=== PATIENT | male | born 1955 | race Caucasian/White ===

== ENCOUNTER 2019-09-19 20:12 | Inpatient (IN) | payer BC ==
[2019-09-19] VITALS (7 sets, daily range): BP systolic 58–131; BP diastolic 36–105
[~2019-09-19] VITALS: Ht 167.6 cm; Wt 63.4 kg
[2019-09-19] MEDS ORDERED: NOREPINEPHRINE VIAL 8 MG in IV DEXTROSE 5% 250 ML IV PRN (20:30)
[2019-09-19] MEDS ORDERED: LACTULOSE 20 GM/30 ML SOLUTION. PO PRN (21:15)
[2019-09-19] MEDS ORDERED: ACETAMINOPHEN 325 MG TABLET. PO PRN (21:15)
[2019-09-19] MEDS ORDERED: ONDANSETRON PF 4 MG/2 ML VIAL. IVP PRN (21:15)
[2019-09-19] MEDS ORDERED: CALCIUM CARBONATE 500 MG TAB.CHEW PO PRN (21:15)
[2019-09-19] MEDS ORDERED: 0.9 % SODIUM CHLORIDE 10 ML DISP.SYRIN. IV PRN (21:15)
--- NOTE | 2019-09-19 21:40 | PDOC1 ---
History and Physical Date of Admission Date of Admission 09/19/2019 Identification/Chief Complaint Chief Complaint Altered mental status Source Source: Chart review, Patient History of Present Illness History of Present Illness Patient is a 64-year-old male presents to the emergency department at [facility] in [facility] with altered mental status. Patient apparently was found by his roommate on the ground of his apartment patient cannot give history given his current condition. It is unknown when he was last seen normal apparently patient was found to be hypotensive on the field at 80/40 fluid resuscitation was started on the field with Ringer's lactate patient was seen in the emergency department and found to be anemic and having reports of GI bleeding according to the records. Patient is confused and the details of his stated history are not reliable according to the ER doctor patient is in acute renal failure and he has been recently admitted at [facility] from 08/16 through 08/25 for a GI bleed. Records from [facility] stay are not available At the time of my note the patient is laying on the stretcher in no apparent distress. He has very good strength on upper and lower extremities. The patient denies seizure-like activity no aura type of symptoms. The patient at the present time is not exhibiting staring spells or clonic tonic seizure activity. Unclear if the patient indeed has a seizure disorder at this point. He denies headache no blurred vision no dysphagia odynophagia no chest pain or palpitations have been reported during my visit, abdominal evaluation is also benign. He will be admitted to the intensive care unit for further evaluation and treatment Past Medical History Endocrine: Diabetes Past Surgical History Past Surgical History: No pertinent history Family History Family History: Family History Unknown Social History Smoke: No ALCOHOL: none Drugs: None Current Medications Current Medications Current Medications Medications (Trade) Dose Ordered Sig/Vasquez Start Time Stop Time Status Last Admin Dose Admin Acetaminophen (Tylenol) 650 mg 1X PRN PRN 09/19/19 21:15 Calcium Carbonate/ Glycine (Tums) 500 mg PRN Q3HRS PRN 09/19/19 21:15 Famotidine (Pepcid Vial) 20 mg BID 09/20/19 09:00 Hydrocortisone Sodium Succinate (Solu-CORTEF) 100 mg Q8HRS 09/19/19 22:00 Lactulose (Lactulose) 20 gm PRN Q12HR PRN 09/19/19 21:15 Lorazepam (Ativan Inj) 0.5 mg PRN Q6HRS PRN 09/19/19 21:15 Morphine Sulfate (Morphine Sulfate) 1 mg PRN Q1HR PRN 09/19/19 21:15 Norepinephrine Bitartrate 8 mg/ Dextrose 258 ml @ 12.365 mls/ hr CONT PRN 09/19/19 20:30 09/19/19 20:41 12.365 MLS/HR Ondansetron HCl (Zofran) 4 mg PRN Q6HRS PRN 09/19/19 21:15 Oxycodone/ Acetaminophen (Percocet 5/325) 1 tab PRN Q4HRS PRN 09/19/19 21:15 Senna/Docusate Sodium (Senna Plus) 1 tab BID 09/20/19 09:00 Sodium Chloride (Normal Saline Flush) 3 ml QSHIFT PRN 09/19/19 21:15 Allergies Allergies Allergies Coded Allergies Type Severity Reaction Last Updated Verified No Known Drug Allergies 09/19/19 No ROS Review of System unreliable due to patient's condition Physical Exam Physical Exam GEN.: No apparent distress. Alert and oriented in person, thin looking HEENT: Head is normocephalic, atraumatic NECK: Supple. No JVD no thyromegaly LUNGS: Clear to auscultation. No accesory muscles use HEART: RRR, S1, S2 present. Peripheral pulses intact ABDOMEN: Soft, nontender. Positive bowel sounds. EXTREMITIES: Without any cyanosis. NEUROLOGIC: CN 2 to 12 intact, no motor or sensory deficits. Normal tone PSYCHIATRIC: flat affect SKIN: No ulcerations VTE Prophylaxis Ordered VTE Prophylaxis Devices: No VTE Pharmacological Prophylaxi: Yes Assessment/Plan Assessment/Plan Hypovolemic shock secondary to GI bleeding most likely Microcytic anemia most likely secondary to iron deficiency secondary to the above-mentioned GI bleed Acute renal failure Chronic pain syndrome on chronic narcotics Toxic encephalopathy secondary to the above Hyperkalemia 5.7 secondary to acute renal failure most likely Anion gap metabolic acidosis with a probably a superimposed non-metabolic acidosis given the degree of acidosis with a bicarb reported at 11 from the outside facility Hypomagnesemia Plan Type and cross and transfuse for hemodynamic instability We will consult GI and nephrology Collect urine electrolytes Place Lee catheter for strict ESTUARDO We will repeat labs Fluid resuscitation has been done in the outside facility Start Levophed to keep MEP above 65 DVT prophylaxis with SCD in light of his GI bleeding and anemia Further recommendations based on the clinical course Justicifation of Admission Dx: Justifications for Admission: Justification of Admission Dx: Yes Acute Renal Failure: Serum Cr > 4mg/dL RIA PROCTOR MD Sep 19, 2019 21:40
[2019-09-19 21:57] LABS: BASO % 0 % (0-3); EOS # 0.1 x10^3/uL (0.0-0.7); EOS % 1 % (0-3); HEMATOCRIT 27.6 % (39.0-53.0); HEMOGLOBIN 8.5 g/dL (13.0-17.5); LYMPH # 2.4 x10^3/uL (1.0-4.8); LYMPH % 23 % (24-48); MEAN CORPUSCULAR HEMOGLOBIN 27 pg (25-35); MEAN CORPUSCULAR HGB CONC 31 g/dL (31-37); MEAN CORPUSCULAR VOLUME 87 fL (79-100); MONO # 0.9 x10^3/uL (0.0-1.1); MONO % 9 % (0-9); NEUT # 6.9 x10^3/uL (1.8-7.7); NEUT % 67 % (31-73); PLATELET COUNT 140 x10^3/uL (140-400); RED BLOOD COUNT 3.18 x10^6/uL (4.30-5.70); WHITE BLOOD COUNT 10.4 x10^3/uL (4.0-11.0)
[2019-09-19 22:05] LABS: CALCIUM 7.8 mg/dL (8.5-10.1); CREATININE 7.8 mg/dL (0.7-1.3); MAGNESIUM 1.6 mg/dL (1.8-2.4); POTASSIUM 5.5 mmol/L (3.5-5.1)
[2019-09-19] MEDS: HYDROCORTISONE SOD SUCC/PF 100 MG/2 ML VIAL. IVP SCH (22:19)
[2019-09-19] MEDS ORDERED: MAGNESIUM SULFATE 1GM 100 ML IV ONE (22:30)
[2019-09-19] MEDS: MORPHINE SULFATE 2 MG/ML VIAL. IV PRN (23:05)
--- NOTE | 2019-09-19 23:13 | NUR ---
Patient arrived to ICU via EMS gurney accompanied by EMTx2 at 1954. Patient able to state his name, birthday, place, and answers some questions appropriately, but is confused about time and situation. Patient combative when nurses try to do anything and is trying to grab at leads, IVs, sat probe, etc. Mitts placed on patient. Patient restless, rolling around in bed, trying to get up and saying he needs to go to work or that his cigarettes are on the floor and he needs them. Attempted to reorient patient multiple times but patient does not seem to be listening. Patient attempted to hit RN multiple times.Dr. Chávez was at bedside when patient arrived to assess patient and place orders for admit. Patient's BP low in 60s--order obtained to start Levophed. Patient had small BM--no blood in stools but does have some abdominal pain. Patient not oriented or cooperative enough to tell us about his history or medications. Son (Catarino) had phone number on face sheet. Number was called and voicemail left, call immediately returned. He does not know much about patient's history (he lives in [place] and does not get to see him often), but he did see him last week when he was at the hospital ([facility]). Catarino stated that patient was very combative with staff and threatened to start breaking things around the hospital if they did not let him go home. He then left AMA. He was originally admitted with a GI bleed. Catarino stated that the patient lives alone, had 3 blood transfusions while at [facility], had a scope done, and was intubated for majority of his stay. Catarino then gave consent to give blood if needed. He also stated that it would be beneficial to request records from [facility] to find out more about history and medications. Patients lungs diminished, PIVx1 in place and new IV was inserted in LAC, Levophed started. New labs drawn and patient was type and screened. When labs resulted CO2 was the same (critical) at 11. Result called to Dr. Chávez and he was also updated on Hgb (8.5) and other labs. Orders received to give 1 g Magnesium and hold the unit of blood for now. Repeat labs to be done in AM. Mart was placed in patient to be able to get accurate I&Os and obtain labs. Patient immediately had an output of 375 after mart was placed. Patient also has small red spot on back that he says has been there for awhile. Spot to be pictured and documented. CHG bath was given upon admission but patient refused nozin. Ativan order placed for agitation and Morphine order placed for pain. Both medications have been given and patient is finally resting comfortably. Will continue to monitor.
[2019-09-20] VITALS (31 sets, daily range): BP systolic 99–149; BP diastolic 51–88
[2019-09-20 04:37] LABS: BASO % 0 % (0-3); EOS % 0 % (0-3); HEMATOCRIT 25.4 % (39.0-53.0); HEMOGLOBIN 7.8 g/dL (13.0-17.5); LYMPH # 0.6 x10^3/uL (1.0-4.8); LYMPH % 10 % (24-48); MEAN CORPUSCULAR HEMOGLOBIN 26 pg (25-35); MEAN CORPUSCULAR HGB CONC 31 g/dL (31-37); MEAN CORPUSCULAR VOLUME 86 fL (79-100); MONO # 0.2 x10^3/uL (0.0-1.1); MONO % 3 % (0-9); NEUT # 5.3 x10^3/uL (1.8-7.7); NEUT % 87 % (31-73); PLATELET COUNT 118 x10^3/uL (140-400); RED BLOOD COUNT 2.95 x10^6/uL (4.30-5.70); RED CELL DISTRIBUTION WIDTH 22.6 % (11.5-14.5); WHITE BLOOD COUNT 6.1 x10^3/uL (4.0-11.0)
[2019-09-20 04:50] LABS: CREATININE 6.7 mg/dL (0.7-1.3); GFR 8.4; POTASSIUM 5.2 mmol/L (3.5-5.1)
[2019-09-20] MEDS: MORPHINE SULFATE 2 MG/ML VIAL. IV PRN ×2 (05:14→07:29)
[2019-09-20 05:20] LABS: % BANDS 2 % (0-9); % LYMPHS 6 % (24-48); % MONOS 1 % (0-10); % SEGS 91 % (35-66); ANISOCYTOSIS MOD; HYPOCHROMIA SLIGHT; PLT ESTIMATE DECREASED (ADEQUATE); TOXIC GRANULATION SLIGHT
[2019-09-20] MEDS: HYDROCORTISONE SOD SUCC/PF 100 MG/2 ML VIAL. IVP SCH ×3 (06:14→21:21)
[2019-09-20] MEDS: SODIUM BICARBONATE VIAL 150 MEQ in IV DEXTROSE 5% 1,000 ML IV SCH ×2 (07:22→16:30)
--- NOTE | 2019-09-20 07:29 | PDOC ---
PROGRESS NOTES Chief Complaint Chief Complaint Hypovolemic shock secondary to GI bleeding most likely Acute Microcytic anemia most likely secondary to iron deficiency secondary to the above-mentioned GI bleed Acute renal failure Chronic pain syndrome on chronic narcotics Toxic encephalopathy secondary to the above Hyperkalemia 5.7 secondary to acute renal failure most likely Anion gap metabolic acidosis with a probably a superimposed non-metabolic acidosis given the degree of acidosis with a bicarb reported at 11 from the outside facility Hypomagnesemia Cirrhotic appearing liver THrombocytopenia Uremia Hyperphosphatemia History of Present Illness History of Present Illness Mr Knott is a 64 yo M w/ PMHx presents to the emergency department at [facility] in [place] reportedly with altered mental status. Patient apparently was found by his roommate on the ground of his apartment patient cannot give history given his current condition. It is unknown when he was last seen normal apparently patient was found to be hypotensive on the field at 80/40 fluid resuscitation was started on the field with Ringer's lactate patient was seen in the emergency department and found to be anemic with Hb 7.9 and having reports of GI bleeding according to the records with BUN 101. BNP 3353. Patient confused and the details of his stated history are not reliable according to the ER doctor patient is in acute renal failure and he has been recently admitted at [facility] from 08/16 through 08/25 for a GI bleed. CT abdomen pelvis with contrast - marked calcified and noncalcified atheromatous plaque burden throughout the aorta, iliofemoral system and aortic branch vessels. Severe stenosis at the right renal artery origin with resultant atrophy of the right kidney. There appears to be severe stenosis at the superior mese nteric artery origin and there is also suspected to be severe stenosis of the distal aspect of the left common femoral artery. Given the presumed severe stenosis at the SMA origin, recommend correlation for symptoms that would suggest intestinal angina noting that the bowel in this distribution does not exhibit obvious features of ischemia. Also with cirrhotic morphology of the rachel er and borderline enlargement of the spleen. There is heterogeneous attenuation of the liver at the hepatic dome but this region is poorly evaluated due to motion artifact and a definite mass is not able to be delineated. Admitted to ICU with levophed ordered. Started on bicarb GTT, levophed. WBC 6.1, Hb 7.8, platelets 118. NA 147, K5.5, BUN 9 3, CR 7.8, glucose 126, INR 1.2, MG 1.6, phosphorus 6.5, TSH 0.473. He thinks he is at home today. Notes he drinks quite a bit. Son in [place] notes he w as "doing well" after discharge from [facility] and so he returned back home. Vitals Vitals Vital Signs Date Time Temp Pulse Resp B/P (MAP) Pulse Ox O2 Delivery O2 Flow Rate FiO2 09/20/19 06:30 91 20 113/59 (77) 95 Room Air 09/20/19 04:00 97.7 97.7 Physical Exam General: mild distress, Other (COnfused, thinks he is at home) Heart: Regular rate, Normal S1, Normal S2 Lungs: Wheezing Abdomen: Normal bowel sounds, Soft Extremities: No clubbing, No cyanosis Skin: No rashes, No breakdown Labs LABS Laboratory Tests Test 09/19/19 21:35 09/20/19 04:15 White Blood Count 10.4 x10^3/uL (4.0-11.0) 6.1 x10^3/uL (4.0-11.0) Red Blood Count 3.18 x10^6/uL (4.30-5.70) 2.95 x10^6/uL (4.30-5.70) Hemoglobin 8.5 g/dL (13.0-17.5) 7.8 g/dL (13.0-17.5) Hematocrit 27.6 % (39.0-53.0) 25.4 % (39.0-53.0) Mean Corpuscular Volume 87 fL (79-100) 86 fL (79-100) Mean Corpuscular Hemoglobin 27 pg (25-35) 26 pg (25-35) Mean Corpuscular Hemoglobin Concent 31 g/dL (31-37) 31 g/dL (31-37) Red Cell Distribution Width 23.0 % (11.5-14.5) 22.6 % (11.5-14.5) Platelet Count 140 x10^3/uL (140-400) 118 x10^3/uL (140-400) Neutrophils (%) (Auto) 67 % (31-73) 87 % (31-73) Lymphocytes (%) (Auto) 23 % (24-48) 10 % (24-48) Monocytes (%) (Auto) 9 % (0-9) 3 % (0-9) Eosinophils (%) (Auto) 1 % (0-3) 0 % (0-3) Basophils (%) (Auto) 0 % (0-3) 0 % (0-3) Neutrophils # (Auto) 6.9 x10^3/uL (1.8-7.7) 5.3 x10^3/uL (1.8-7.7) Lymphocytes # (Auto) 2.4 x10^3/uL (1.0-4.8) 0.6 x10^3/uL (1.0-4.8) Monocytes # (Auto) 0.9 x10^3/uL (0.0-1.1) 0.2 x10^3/uL (0.0-1.1) Eosinophils # (Auto) 0.1 x10^3/uL (0.0-0.7) 0.0 x10^3/uL (0.0-0.7) Basophils # (Auto) 0.0 x10^3/uL (0.0-0.2) 0.0 x10^3/uL (0.0-0.2) Prothrombin Time 15.0 SEC (11.7-14.0) Prothromb Time International Ratio 1.2 (0.8-1.1) Sodium Level 147 mmol/L (136-145) 147 mmol/L (136-145) Potassium Level 5.5 mmol/L (3.5-5.1) 5.2 mmol/L (3.5-5.1) Chloride Level 118 mmol/L (98-107) 118 mmol/L (98-107) Carbon Dioxide Level 11 mmol/L (21-32) 9 mmol/L (21-32) Anion Gap 18 (6-14) 20 (6-14) Blood Urea Nitrogen 93 mg/dL (8-26) 87 mg/dL (8-26) Creatinine 7.8 mg/dL (0.7-1.3) 6.7 mg/dL (0.7-1.3) Estimated GFR (Cockcroft-Gault) 7.0 8.4 Glucose Level 126 mg/dL (70-99) 153 mg/dL (70-99) Lactic Acid Level 1.8 mmol/L (0.4-2.0) Calcium Level 7.8 mg/dL (8.5-10.1) 8.0 mg/dL (8.5-10.1) Phosphorus Level 6.5 mg/dL (2.6-4.7) Magnesium Level 1.6 mg/dL (1.8-2.4) Thyroid Stimulating Hormone (TSH) 0.473 uIU/mL (0.358-3.74) Free Thyroxine 0.76 ng/dL (0.76-1.46) Segmented Neutrophils % 91 % (35-66) Band Neutrophils % 2 % (0-9) Lymphocytes % 6 % (24-48) Monocytes % 1 % (0-10) Toxic Granulation Slight Platelet Estimate Decreased (ADEQUATE) Hypochromasia Slight Anisocytosis Mod Comment Review of Relevant I have reviewed the following items bj (where applicable) has been applied. Labs Laboratory Tests Test 09/19/19 21:35 09/20/19 04:15 White Blood Count 10.4 x10^3/uL (4.0-11.0) 6.1 x10^3/uL (4.0-11.0) Red Blood Count 3.18 x10^6/uL (4.30-5.70) 2.95 x10^6/uL (4.30-5.70) Hemoglobin 8.5 g/dL (13.0-17.5) 7.8 g/dL (13.0-17.5) Hematocrit 27.6 % (39.0-53.0) 25.4 % (39.0-53.0) Mean Corpuscular Volume 87 fL (79-100) 86 fL (79-100) Mean Corpuscular Hemoglobin 27 pg (25-35) 26 pg (25-35) Mean Corpuscular Hemoglobin Concent 31 g/dL (31-37) 31 g/dL (31-37) Red Cell Distribution Width 23.0 % (11.5-14.5) 22.6 % (11.5-14.5) Platelet Count 140 x10^3/uL (140-400) 118 x10^3/uL (140-400) Neutrophils (%) (Auto) 67 % (31-73) 87 % (31-73) Lymphocytes (%) (Auto) 23 % (24-48) 10 % (24-48) Monocytes (%) (Auto) 9 % (0-9) 3 % (0-9) Eosinophils (%) (Auto) 1 % (0-3) 0 % (0-3) Basophils (%) (Auto) 0 % (0-3) 0 % (0-3) Neutrophils # (Auto) 6.9 x10^3/uL (1.8-7.7) 5.3 x10^3/uL (1.8-7.7) Lymphocytes # (Auto) 2.4 x10^3/uL (1.0-4.8) 0.6 x10^3/uL (1.0-4.8) Monocytes # (Auto) 0.9 x10^3/uL (0.0-1.1) 0.2 x10^3/uL (0.0-1.1) Eosinophils # (Auto) 0.1 x10^3/uL (0.0-0.7) 0.0 x10^3/uL (0.0-0.7) Basophils # (Auto) 0.0 x10^3/uL (0.0-0.2) 0.0 x10^3/uL (0.0-0.2) Prothrombin Time 15.0 SEC (11.7-14.0) Prothromb Time International Ratio 1.2 (0.8-1.1) Sodium Level 147 mmol/L (136-145) 147 mmol/L (136-145) Potassium Level 5.5 mmol/L (3.5-5.1) 5.2 mmol/L (3.5-5.1) Chloride Level 118 mmol/L (98-107) 118 mmol/L (98-107) Carbon Dioxide Level 11 mmol/L (21-32) 9 mmol/L (21-32) Anion Gap 18 (6-14) 20 (6-14) Blood Urea Nitrogen 93 mg/dL (8-26) 87 mg/dL (8-26) Creatinine 7.8 mg/dL (0.7-1.3) 6.7 mg/dL (0.7-1.3) Estimated GFR (Cockcroft-Gault) 7.0 8.4 Glucose Level 126 mg/dL (70-99) 153 mg/dL (70-99) Lactic Acid Level 1.8 mmol/L (0.4-2.0) Calcium Level 7.8 mg/dL (8.5-10.1) 8.0 mg/dL (8.5-10.1) Phosphorus Level 6.5 mg/dL (2.6-4.7) Magnesium Level 1.6 mg/dL (1.8-2.4) Thyroid Stimulating Hormone (TSH) 0.473 uIU/mL (0.358-3.74) Free Thyroxine 0.76 ng/dL (0.76-1.46) Segmented Neutrophils % 91 % (35-66) Band Neutrophils % 2 % (0-9) Lymphocytes % 6 % (24-48) Monocytes % 1 % (0-10) Toxic Granulation Slight Platelet Estimate Decreased (ADEQUATE) Hypochromasia Slight Anisocytosis Mod Laboratory Tests Test 09/19/19 21:35 09/20/19 04:15 White Blood Count 10.4 x10^3/uL (4.0-11.0) 6.1 x10^3/uL (4.0-11.0) Red Blood Count 3.18 x10^6/uL (4.30-5.70) 2.95 x10^6/uL (4.30-5.70) Hemoglobin 8.5 g/dL (13.0-17.5) 7.8 g/dL (13.0-17.5) Hematocrit 27.6 % (39.0-53.0) 25.4 % (39.0-53.0) Mean Corpuscular Volume 87 fL (79-100) 86 fL (79-100) Mean Corpuscular Hemoglobin 27 pg (25-35) 26 pg (25-35) Mean Corpuscular Hemoglobin Concent 31 g/dL (31-37) 31 g/dL (31-37) Red Cell Distribution Width 23.0 % (11.5-14.5) 22.6 % (11.5-14.5) Platelet Count 140 x10^3/uL (140-400) 118 x10^3/uL (140-400) Neutrophils (%) (Auto) 67 % (31-73) 87 % (31-73) Lymphocytes (%) (Auto) 23 % (24-48) 10 % (24-48) Monocytes (%) (Auto) 9 % (0-9) 3 % (0-9) Eosinophils (%) (Auto) 1 % (0-3) 0 % (0-3) Basophils (%) (Auto) 0 % (0-3) 0 % (0-3) Neutrophils # (Auto) 6.9 x10^3/uL (1.8-7.7) 5.3 x10^3/uL (1.8-7.7) Lymphocytes # (Auto) 2.4 x10^3/uL (1.0-4.8) 0.6 x10^3/uL (1.0-4.8) Monocytes # (Auto) 0.9 x10^3/uL (0.0-1.1) 0.2 x10^3/uL (0.0-1.1) Eosinophils # (Auto) 0.1 x10^3/uL (0.0-0.7) 0.0 x10^3/uL (0.0-0.7) Basophils # (Auto) 0.0 x10^3/uL (0.0-0.2) 0.0 x10^3/uL (0.0-0.2) Prothrombin Time 15.0 SEC (11.7-14.0) Prothromb Time International Ratio 1.2 (0.8-1.1) Sodium Level 147 mmol/L (136-145) 147 mmol/L (136-145) Potassium Level 5.5 mmol/L (3.5-5.1) 5.2 mmol/L (3.5-5.1) Chloride Level 118 mmol/L (98-107) 118 mmol/L (98-107) Carbon Dioxide Level 11 mmol/L (21-32) 9 mmol/L (21-32) Anion Gap 18 (6-14) 20 (6-14) Blood Urea Nitrogen 93 mg/dL (8-26) 87 mg/dL (8-26) Creatinine 7.8 mg/dL (0.7-1.3) 6.7 mg/dL (0.7-1.3) Estimated GFR (Cockcroft-Gault) 7.0 8.4 Glucose Level 126 mg/dL (70-99) 153 mg/dL (70-99) Lactic Acid Level 1.8 mmol/L (0.4-2.0) Calcium Level 7.8 mg/dL (8.5-10.1) 8.0 mg/dL (8.5-10.1) Phosphorus Level 6.5 mg/dL (2.6-4.7) Magnesium Level 1.6 mg/dL (1.8-2.4) Thyroid Stimulating Hormone (TSH) 0.473 uIU/mL (0.358-3.74) Free Thyroxine 0.76 ng/dL (0.76-1.46) Segmented Neutrophils % 91 % (35-66) Band Neutrophils % 2 % (0-9) Lymphocytes % 6 % (24-48) Monocytes % 1 % (0-10) Toxic Granulation Slight Platelet Estimate Decreased (ADEQUATE) Hypochromasia Slight Anisocytosis Mod Medications Current Medications Norepinephrine Bitartrate 8 mg/ Dextrose 258 ml @ 12.365 mls/ hr CONT PRN IV PER PROTOCOL Last administered on 09/19/19at 20:41; Start 09/19/19 at 20:30 Hydrocortisone Sodium Succinate (Solu-CORTEF) 100 mg Q8HRS IVP Last administered on 09/20/19at 06:14; Start 09/19/19 at 22:00 Acetaminophen (Tylenol) 650 mg PRN Q6HRS PRN PO Headaches, Temp > 101.5'; Start 09/19/19 at 21:15 Lorazepam (Ativan Inj) 0.5 mg PRN Q6HRS PRN IVP ANXIETY / AGITATION Last admini stered on 09/19/19at 22:19; Start 09/19/19 at 21:15 Ondansetron HCl (Zofran) 4 mg PRN Q6HRS PRN IVP NAUSEA/VOMITING; Start 09/19/19 at 21:15 Calcium Carbonate/ Glycine (Tums) 500 mg PRN Q3HRS PRN PO HEARTBURN / GAS; Start 09/19/19 at 21:15 Famotidine (Pepcid Vial) 20 mg BID IVP ; Start 09/20/19 at 09:00 Sodium Chloride (Normal Saline Flush) 3 ml QSHIFT PRN IV AFTER MEDS AND BLOOD DRAWS; Start 09/19/19 at 21:15 Oxycodone/ Acetaminophen (Percocet 5/325) 1 tab PRN Q4HRS PRN PO MILD PAIN, 1ST CHOICE; Start 09/19/19 at 21:15 Morphine Sulfate (Morphine Sulfate) 1 mg PRN Q1HR PRN IV PAIN Last administered on 09/20/19at 05:14; Start 09/19/19 at 21:15 Senna/Docusate Sodium (Senna Plus) 1 tab BID PO ; Start 09/20/19 at 09:00 Lactulose (Lactulose) 20 gm PRN Q12HR PRN PO CONSTIPATION; Start 09/19/19 at 21:15 Acetaminophen (Tylenol) 650 mg 1X PRN PRN PO PRE-TRANSFUSION; Start 09/19/19 at 21:15 Magnesium Sulfate/ Dextrose 100 ml @ 100 mls/hr 1X ONCE IV Last administered on 09/19/19at 22:23; Start 09/19/19 at 22:30; Stop 09/19/19 at 23:29; Status DC Sodium Bicarbonate 150 meq/Dextrose 1,150 ml @ 125 mls/hr Q9H12M IV Last administered on 09/20/19at 07:22; Start 09/20/19 at 06:45 Vitals/I & O Vital Sign - Last 24 Hours 09/19/19 09/19/19 09/19/19 09/19/19 20:00 20:00 20:15 20:30 Temp 97.7 97.7 Pulse 94 94 94 Resp 18 20 20 B/P (MAP) 66/50 (55) Pulse Ox 100 100 100 O2 Delivery Room Air Room Air Room Air Room Air 09/19/19 09/19/19 09/19/19 09/19/19 20:45 21:00 22:00 23:00 Pulse 88 90 90 90 Resp 18 20 33 33 B/P (MAP) 58/36 (43) 109/69 (82) 131/105 (114) 87/45 (59) Pulse Ox 97 100 100 99 O2 Delivery Room Air Room Air Room Air Room Air 09/19/19 09/19/19 09/20/19 09/20/19 23:10 23:25 00:00 00:00 Temp 97.6 97.6 Pulse 90 88 90 Resp 20 32 28 B/P (MAP) 78/47 (57) 96/60 (72) 103/79 (87) Pulse Ox 98 100 99 O2 Delivery Room Air Room Air Room Air Room Air 09/20/19 09/20/19 09/20/19 09/20/19 01:00 02:00 02:45 03:00 Pulse 86 95 95 94 Resp 21 25 34 35 B/P (MAP) 99/51 (67) 129/68 (88) 124/78 (93) 117/88 (98) Pulse Ox 100 99 99 99 O2 Delivery Room Air Room Air Room Air Room Air 09/20/19 09/20/19 09/20/19 09/20/19 03:15 03:30 03:45 04:00 Temp 97.7 97.7 Pulse 96 98 95 91 Resp 43 43 22 24 B/P (MAP) 140/71 (94) 106/71 (83) 114/62 (79) 100/60 (73) Pulse Ox 99 98 99 98 O2 Delivery Room Air Room Air Room Air Room Air 09/20/19 09/20/19 09/20/19 09/20/19 04:00 05:00 05:15 06:00 Pulse 90 90 90 Resp 34 21 20 B/P (MAP) 109/87 (94) 136/67 (90) 100/69 (79) Pulse Ox 97 98 100 O2 Delivery Room Air Room Air Room Air Room Air 09/20/19 09/20/19 06:15 06:30 Pulse 80 91 Resp 19 20 B/P (MAP) 131/57 (81) 113/59 (77) Pulse Ox 100 95 O2 Delivery Room Air Room Air Intake and Output 09/19/19 09/19/19 09/20/19 15:00 23:00 07:00 Intake Total 327 ml Output Total 375 ml 680 ml Balance -375 ml -[address] head - c-spin - negative Chest: Calcific coronary artery disease. Calcified and noncalcified atheromatous plaque involving a nonaneurysmal distal thoracic aorta. Motion degradation through the lower lungs. Partially imaged findings at the lingula most suggestive of atelectasis. Mild atelectasis at both lung bases as well. Liver: Motion degraded. Cirrhotic morphology of the liver to include undulating margins and prominence of the caudate lobe. There is apparent heterogeneous low attenuation at the hepatic dome, reference image 12 series 2, however this is occurring in the region of greatest motion degradation. Small area of tracking hypoattenuation along the medial margin of the right hepatic lobe, image 19 series 2 and coronal images 32 and 33. Gallbladder/Biliary Tree: Mildly ectatic. No overt wall thickening or pericholecystic inflammation to suggest acute cholecystitis. Pancreas: No discrete mass or peripancreatic inflammation. Spleen: Upper limits of normal for size. Adrenal Glands: No discrete mass. Kidneys/Ureters/Bladder: Severely atrophic right kidney. Normal size of the left kidney. No hydroureteronephrosis. Mild circumferential thickening of the urinary bladder wall. Reproductive Organs: Mildly prominent prostate at 4.2 cm transverse. Colon: Fluid throughout much of the colon as can be seen with a diarrheal state. Mild wall thickening involving the ascending colon with faint haziness of the pericolonic fat. Appendix: Normal. Small Bowel: No small bowel obstruction. Mildly prominent wall of a segment of the second portion of the duodenum, image 32 series 2, though this could be related to heaped up mucosa when correlating with the reformatted images. Stomach: Not fully evaluated due to underdistention and the lack of oral contrast. Vasculature: Extensive calcified and noncalcified atheromatous plaque throughout the abdominal aorta, iliofemoral system and involving the aortic branch vessels. No aneurysmal dilatation. Particularly severe calcific plaque at the origin of the right renal artery in keeping with right renal atrophy. There is also particularly severe calcific atherosclerosis at the SMA origin with possible severe ostial stenosis. Prominent but less pronounced calcific plaque at the celiac origin. There is likely severe stenosis involving a portion of the left common femoral artery just proximal to the bifurcation, image 79 series 2. Lymph Nodes: No pathologically enlarged lymph nodes seen throughout the abdomen or pelvis. Peritoneum and Body Wall: No free fluid or gas. Bones: A few chronic rib fractures are noted. Chronically deformed sacrum and lumbosacral junction. Sigmoid curvature of the visualized thoracolumbar spine. Scattered superimposed degenerative changes. Miscellaneous: None. Impression: 1. The study is degraded by motion artifact. 2. Fluid scattered throughout the colon as can be seen with a diarrheal state. No bowel obstruction. There is the suggestion of mild wall thickening of the ascending colon with faint haziness of the pericolonic fat though the colon is collapsed in this region. This could be within normal limits for this patient or indicative of a mild nonspecific colitis. 3. Marked calcified and noncalcified atheromatous plaque burden throughout the aorta, iliofemoral system and aortic branch vessels. Severe stenosis at the right renal artery origin with resultant atrophy of the right kidney. 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 Given the presumed severe stenosis at the SMA origin, recommend correlation for symptoms that would suggest intestinal angina noting that the bowel in this distribution does not exhibit obvious features of ischemia. 4. Cirrhotic morphology of the liver and borderline enlargement of the spleen. There is heterogeneous attenuation of the liver at the hepatic dome but this region is poorly evaluated due to motion artifact and a definite mass is not able to be delineated. 5. Somewhat ectatic gallbladder but without CT findings that would suggest cholecystitis. 6. Additional chronic findings as detailed in the body of the report. JONATHAN DUQUE MD Sep 20, 2019 07:29
[2019-09-20] MEDS: SENNOSIDES/DOCUSATE 8.6/50MG TABLET. PO SCH ×2 (08:25→21:00)
[2019-09-20] MEDS: FAMOTIDINE 20 MG/2 ML VIAL IVP SCH ×2 (08:25→21:21)
[2019-09-20] MEDS ORDERED: cloNIDine HCL 0.1 MG TABLET PO PRN (09:15)
[2019-09-20] MEDS: MULTIVIT INFUSN,ADULT 4,VIT K 10 ML, THIAMINE INJ 100 MG, FOLIC ACID INJ 1 MG in IV NOR... IV SCH (09:41)
--- NOTE | 2019-09-20 10:42 | PDOC2 ---
GI CONSULT Reason For Consult: GI bleed HPI: HPI: 64 y/o male seen earlier this morning in ICU. Seen at [facility] w/ AMS, reports of "two bloody stools" with negative Hemoccult. Transferred to [facility]. No meaningful history from him. D/w nurse and hospitalist, reviewed records from [facility]. Per nurse - still confused, no bleeding, has not needed transfusion. She spoke w/ his son in [place] who told her he was recently at [facility] for "GI bleeding" and "had a scope" - he apparently left AMA. H/o alcohol overuse - has 4-6 vodkas with a splash of soda daily - cut back when pandemic started because he couldn't get out to replenish alcohol supply. PMH: PMH: additionally per other records - DM, chronic pain FH: Family History: Other (unable to obtain) Social History: Smoke: No ALCOHOL: none Drugs: None ROS: Says "nope" to all my questions. Vitals: Vitals: Vital Signs Date Time Temp Pulse Resp B/P (MAP) Pulse Ox O2 Delivery O2 Flow Rate FiO2 09/20/19 09:00 87 36 111/58 (75) 100 Room Air 09/20/19 08:00 98.7 98.7 Labs: Labs: Laboratory Tests Test 09/19/19 21:35 09/20/19 04:15 White Blood Count 10.4 x10^3/uL (4.0-11.0) 6.1 x10^3/uL (4.0-11.0) Red Blood Count 3.18 x10^6/uL (4.30-5.70) 2.95 x10^6/uL (4.30-5.70) Hemoglobin 8.5 g/dL (13.0-17.5) 7.8 g/dL (13.0-17.5) Hematocrit 27.6 % (39.0-53.0) 25.4 % (39.0-53.0) Mean Corpuscular Volume 87 fL (79-100) 86 fL (79-100) Mean Corpuscular Hemoglobin 27 pg (25-35) 26 pg (25-35) Mean Corpuscular Hemoglobin Concent 31 g/dL (31-37) 31 g/dL (31-37) Red Cell Distribution Width 23.0 % (11.5-14.5) 22.6 % (11.5-14.5) Platelet Count 140 x10^3/uL (140-400) 118 x10^3/uL (140-400) Neutrophils (%) (Auto) 67 % (31-73) 87 % (31-73) Lymphocytes (%) (Auto) 23 % (24-48) 10 % (24-48) Monocytes (%) (Auto) 9 % (0-9) 3 % (0-9) Eosinophils (%) (Auto) 1 % (0-3) 0 % (0-3) Basophils (%) (Auto) 0 % (0-3) 0 % (0-3) Neutrophils # (Auto) 6.9 x10^3/uL (1.8-7.7) 5.3 x10^3/uL (1.8-7.7) Lymphocytes # (Auto) 2.4 x10^3/uL (1.0-4.8) 0.6 x10^3/uL (1.0-4.8) Monocytes # (Auto) 0.9 x10^3/uL (0.0-1.1) 0.2 x10^3/uL (0.0-1.1) Eosinophils # (Auto) 0.1 x10^3/uL (0.0-0.7) 0.0 x10^3/uL (0.0-0.7) Basophils # (Auto) 0.0 x10^3/uL (0.0-0.2) 0.0 x10^3/uL (0.0-0.2) Prothrombin Time 15.0 SEC (11.7-14.0) Prothromb Time International Ratio 1.2 (0.8-1.1) Sodium Level 147 mmol/L (136-145) 147 mmol/L (136-145) Potassium Level 5.5 mmol/L (3.5-5.1) 5.2 mmol/L (3.5-5.1) Chloride Level 118 mmol/L (98-107) 118 mmol/L (98-107) Carbon Dioxide Level 11 mmol/L (21-32) 9 mmol/L (21-32) Anion Gap 18 (6-14) 20 (6-14) Blood Urea Nitrogen 93 mg/dL (8-26) 87 mg/dL (8-26) Creatinine 7.8 mg/dL (0.7-1.3) 6.7 mg/dL (0.7-1.3) Estimated GFR (Cockcroft-Gault) 7.0 8.4 Glucose Level 126 mg/dL (70-99) 153 mg/dL (70-99) Lactic Acid Level 1.8 mmol/L (0.4-2.0) Calcium Level 7.8 mg/dL (8.5-10.1) 8.0 mg/dL (8.5-10.1) Phosphorus Level 6.5 mg/dL (2.6-4.7) Magnesium Level 1.6 mg/dL (1.8-2.4) Thyroid Stimulating Hormone (TSH) 0.473 uIU/mL (0.358-3.74) Free Thyroxine 0.76 ng/dL (0.76-1.46) Segmented Neutrophils % 91 % (35-66) Band Neutrophils % 2 % (0-9) Lymphocytes % 6 % (24-48) Monocytes % 1 % (0-10) Toxic Granulation Slight Platelet Estimate Decreased (ADEQUATE) Hypochromasia Slight Anisocytosis Mod Allergies: Coded Allergies: No Known Drug Allergies (Unverified , 09/19/19) Medications: Current Medications Medications (Trade) Dose Ordered Sig/Vasquez Route PRN Reason Start Time Stop Time Status Last Admin Dose Admin Norepinephrine Bitartrate 8 mg/ Dextrose 258 ml @ 12.365 mls/ hr CONT PRN IV PER PROTOCOL 09/19/19 20:30 09/19/19 20:41 Hydrocortisone Sodium Succinate (Solu-CORTEF) 100 mg Q8HRS IVP 09/19/19 22:00 09/20/19 06:14 Lorazepam (Ativan Inj) 0.5 mg PRN Q6HRS PRN IVP ANXIETY / AGITATION 09/19/19 21:15 09/19/19 22:19 Famotidine (Pepcid Vial) 20 mg BID IVP 09/20/19 09:00 09/20/19 08:25 Morphine Sulfate (Morphine Sulfate) 1 mg PRN Q1HR PRN IV PAIN 09/19/19 21:15 09/20/19 07:29 Magnesium Sulfate/ Dextrose 100 ml @ 100 mls/hr 1X ONCE IV 09/19/19 22:30 09/19/19 23:29 DC 09/19/19 22:23 Sodium Bicarbonate 150 meq/Dextrose 1,150 ml @ 125 mls/hr Q9H12M IV 09/20/19 06:45 09/20/19 07:22 Multivitamins 10 ml/Thiamine HCl 100 mg/Folic Acid 1 mg/Sodium Chloride 1,011.2 ml @ 100 mls/ hr DAILY IV 09/20/19 10:00 09/24/19 19:07 09/20/19 09:41 Imaging: Imaging: CT A/P w/ IV contrast @ [facility] -degraded by motion artifact -fluid scattered throughout colon, can be seen with diarrhea state -suggestion of mild wall thickening of ascending colon w/ faint haziness of the pericolonic fat (though colon collapsed) -marked calcified and noncalcified atheromatous plaque burden throughout the aorta, ileofemoral system and aortic branch vessels, 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 PE: GEN: NAD, fidgeting in bed HEENT: Atraumatic, PERRL LUNGS: diminished HEART: RRR ABD: NABS, S/ND/NT EXTREMITY: No edema SKIN: No rashes, no jaundice NEURO/PSYCH: awake, confused A/P: A/P: AMS, "bloody stools" Anemia, thrombocytopenia, MISBAH, metabolic acidosis ?recent GI bleed/eval at [facility] Abnormal CT - fluid throughout colon w/ possible wall thickening of ascending colon, atheromatous disease, cirrhosis H/o alcohol abuse -- Agree w/ IV acid-global marketing coordinator, NPO for now. Check iron profile, try to get records from [facility] - d/w nurse. Consider stool studies, additional liver imaging - will review [facility] records and d/w Dr. Maritn. RAQUEL GAYTAN Sep 20, 2019 10:42
[2019-09-20] MEDS ORDERED: LIDOCAINE WITH 8.4% SOD BICARB 3 ML DISP.SYRIN. ONE (11:32)
[2019-09-20] MEDS ORDERED: LIDOCAINE WITH 8.4% SOD BICARB 3 ML DISP.SYRIN. INJ ONE (12:00)
--- NOTE | 2019-09-20 12:53 | RAD ---
EXAM: CHEST AP ONLY 09/20/2019 11:55 AM CLINICAL INDICATION:Dialysis catheter placement COMPARISON:None TECHNIQUE:AP upright chest radiograph FINDINGS:There is a right internal jugular central venous catheter with tip over the superior cavoatrial junction. The heart is normal. There are surgical clips projecting over the mediastinum. The lungs are clear. No pleural effusion or pneumothorax. No acute osseous abnormality. IMPRESSION:Right internal jugular central venous catheter in appropriate position. No pneumothorax. Electronically signed by: Carrie Nuñez MD (09/20/2019 12:50 PM) [id number]
--- NOTE | 2019-09-20 13:04 | NUR ---
SS following for discharge planning. SS reviewed pt chart and discussed with pt RN. Pt is from home and is currently on room air. Pt admitted for GI bleed. SS will continue to follow for discharge planning.
--- NOTE | 2019-09-20 13:50 | NUR ---
Wound Care Wound care consult for back wouund. Pt has large blackhead on central back. No open wound noted. Pt turned to left side. Recommend TQ2H. WC will sign off at this time.
[2019-09-20] MEDS ORDERED: IV NORMAL SALINE 1000ML BAG 1,000 ML IV PRN ×2 (14:09)
[2019-09-20] MEDS ORDERED: ALBUMIN HUMAN 25% 200 ML IV PRN (14:15)
[2019-09-20] MEDS ORDERED: DIALYSIS PATIENT. MC PRN ×2 (14:15)
--- NOTE | 2019-09-20 15:27 | PDOC2 ---
CONSULT Date of Consult Date of Consult DATE: 09/20/19 TIME: 15:16 Reason for Consult Reason for Consult: MISBAH Referring Physician Referring Physician: HITESH Identification/Chief Complaint Chief Complaint CONFUSION Source Source: Chart review History of Present Illness Reason for Visit: THIS IS A 64 YR WM WHO CAME TO [facility] ER WITH CONFUSION. WAS FOUND ON THE GROUND BY HIS ROOMMATE. NOTED TO BE HYPOTENSIVE WITH BP OF 80/40. ALSO NOTED TO BE ANEMIA WITH HX OF GI BLEED. HE IS NOW IN THE ICU HERE. NOTED TO HAVE SEVERE MISBAH WITH A CR OF 6.7, SEVERE MET ACIDOSIS, HYPERKALEMIA AND HYPERNATREMIA. ALSO HAS SIGNIFICANT HX OF ETOH ABUSE. PT UNABLE TO GIVE ANY HX. GI W/U ONGOING. NO HX OF ANY CKD THAT I AM AWARE. NO OTHER HX I AM AWARE OFF. NO NEPHROTOXINS NOTED Past Medical History Endocrine: Diabetes Past Surgical History Past Surgical History: No pertinent history Family History Family History: No Significant, Family History Unknown Social History No ALCOHOL: none Drugs: None Lives: Roommate Current Medications Current Medications Current Medications Norepinephrine Bitartrate 8 mg/ Dextrose 258 ml @ 12.365 mls/ hr CONT PRN IV PER PROTOCOL Last administered on 09/19/19at 20:41; Start 09/19/19 at 20:30 Hydrocortisone Sodium Succinate (Solu-CORTEF) 100 mg Q8HRS IVP Last administered on 09/20/19at 14:29; Start 09/19/19 at 22:00 Acetaminophen (Tylenol) 650 mg PRN Q6HRS PRN PO Headaches, Temp > 101.5'; Start 09/19/19 at 21:15 Lorazepam (Ativan Inj) 0.5 mg PRN Q6HRS PRN IVP ANXIETY / AGITATION Last administered on 09/19/19at 22:19; Start 09/19/19 at 21:15 Ondansetron HCl (Zofran) 4 mg PRN Q6HRS PRN IVP NAUSEA/VOMITING; Start 09/19/19 at 21:15 Calcium Carbonate/ Glycine (Tums) 500 mg PRN Q3HRS PRN PO HEARTBURN / GAS; Start 09/19/19 at 21:15 Famotidine (Pepcid Vial) 20 mg BID IVP Last administered on 09/20/19at 08:25; S tart 09/20/19 at 09:00 Sodium Chloride (Normal Saline Flush) 3 ml QSHIFT PRN IV AFTER MEDS AND BLOOD DRAWS; Start 09/19/19 at 21:15 Oxycodone/ Acetaminophen (Percocet 5/325) 1 tab PRN Q4HRS PRN PO MILD PAIN, 1ST CHOICE; Start 09/19/19 at 21:15 Morphine Sulfate (Morphine Sulfate) 1 mg PRN Q1HR PRN IV PAIN Last administered on 09/20/19at 07:29; Start 09/19/19 at 21:15 Senna/Docusate Sodium (Senna Plus) 1 tab BID PO ; Start 09/20/19 at 09:00 Lactulose (Lactulose) 20 gm PRN Q12HR PRN PO CONSTIPATION; Start 09/19/19 at 21:15 Acetaminophen (Tylenol) 650 mg 1X PRN PRN PO PRE-TRANSFUSION; Start 09/19/19 at 21:15 Magnesium Sulfate/ Dextrose 100 ml @ 100 mls/hr 1X ONCE IV Last administered on 09/19/19at 22:23; Start 09/19/19 at 22:30; Stop 09/19/19 at 23:29; Status DC Sodium Bicarbonate 150 meq/Dextrose 1,150 ml @ 125 mls/hr Q9H12M IV Last administered on 09/20/19at 07:22; Start 09/20/19 at 06:45 Multivitamins 10 ml/Thiamine HCl 100 mg/Folic Acid 1 mg/Sodium Chloride 1,011.2 ml @ 100 mls/ hr DAILY IV Last administered on 09/20/19at 09:41; Start 09/20/19 at 10:00; Stop 09/24/19 at 19:07 Lorazepam (Ativan) 2 mg PRN Q1HR PRN PO For CIWA 8-14; Start 09/20/19 at 09:15; Stop 09/20/19 at 10:00; Status DC Lorazepam (Ativan Inj) 1 mg PRN Q1HR PRN IV For CIWA 8-14; Start 09/20/19 at 09:15 Haloperidol Lactate (Haldol Inj) 5 mg PRN Q4HRS PRN IVP Hallucinatns,Confusn,Delirium; Start 09/20/19 at 09:15 Clonidine HCl (Catapres) 0.1 mg PRN Q1HR PRN PO SBP > 180 or DBP > 100, MRX3; Start 09/20/19 at 09:15 Lorazepam (Ativan Inj) 2 mg PRN Q1HR PRN IV For CIWA 8-14 Last administered on 09/20/19at 11:04; Start 09/20/19 at 10:00 Lidocaine HCl (Buffered Lidocaine 1%) 3 ml STK-MED ONCE .ROUTE ; Start 09/20/19 at 11:32; Stop 09/20/19 at 11:32; Status DC Lidocaine HCl (Buffered Lidocaine 1%) 6 ml 1X ONCE INJ Last administered on 09/20/19at 12:20; Start 09/20/19 at 12:00; Stop 09/20/19 at 12:01; Status DC Nicotine (Nicoderm Cq 21mg) 1 patch DAILY TD ; Start 09/20/19 at 13:30 Sodium Chloride 1,000 ml @ 1,000 mls/hr Q1H PRN IV hypotension; Start 09/20/19 at 14:09; Stop 09/20/19 at 20:08 Albumin Human 200 ml @ 200 mls/hr 1X PRN PRN IV Hypotension; Start 09/20/19 at 14:15; Stop 09/20/19 at 20:14 Sodium Chloride 1,000 ml @ 400 mls/hr Q2H30M PRN IV PATENCY; Start 09/20/19 at 14:09; Stop 09/21/19 at 02:08 Info (PHARMACY MONITORING -- do not chart) 1 each PRN DAILY PRN MC SEE COMMENTS; Start 09/20/19 at 14:15; Status UNV Info (PHARMACY MONITORING -- do not chart) 1 each PRN DAILY PRN MC SEE COMMENTS; Start 09/20/19 at 14:15 Allergies Allergies: Coded Allergies: No Known Drug Allergies (Unverified , 09/19/19) ROS Review of System UNABLE TO OBTAIN Physical Exam General: Cooperative, No acute distress HEENT: Atraumatic, PERRLA, EOMI, Other (DRY MUCOSA) Lungs: Clear to auscultation Heart: Regular rate Abdomen: Normal bowel sounds, Soft, No tenderness Extremities: No cyanosis Skin: No breakdown Neuro: Other (CONFUSED) Psych/Mental Status: Other (CONFUSED) MUSCULOSKELETAL: No joint tenderness, No deformity, No swelling Vitals VITALS Vital Signs Date Time Temp Pulse Resp B/P (MAP) Pulse Ox O2 Delivery O2 Flow Rate FiO2 09/20/19 11:00 97 21 126/68 (87) 100 Room Air 09/20/19 08:00 98.7 98.7 Labs Labs Laboratory Tests Test 09/19/19 21:35 09/20/19 04:15 09/20/19 12:30 White Blood Count 10.4 x10^3/uL (4.0-11.0) 6.1 x10^3/uL (4.0-11.0) Red Blood Count 3.18 x10^6/uL (4.30-5.70) 2.95 x10^6/uL (4.30-5.70) Hemoglobin 8.5 g/dL (13.0-17.5) 7.8 g/dL (13.0-17.5) Hematocrit 27.6 % (39.0-53.0) 25.4 % (39.0-53.0) Mean Corpuscular Volume 87 fL (79-100) 86 fL (79-100) Mean Corpuscular Hemoglobin 27 pg (25-35) 26 pg (25-35) Mean Corpuscular Hemoglobin Concent 31 g/dL (31-37) 31 g/dL (31-37) Red Cell Distribution Width 23.0 % (11.5-14.5) 22.6 % (11.5-14.5) Platelet Count 140 x10^3/uL (140-400) 118 x10^3/uL (140-400) Neutrophils (%) (Auto) 67 % (31-73) 87 % (31-73) Lymphocytes (%) (Auto) 23 % (24-48) 10 % (24-48) Monocytes (%) (Auto) 9 % (0-9) 3 % (0-9) Eosinophils (%) (Auto) 1 % (0-3) 0 % (0-3) Basophils (%) (Auto) 0 % (0-3) 0 % (0-3) Neutrophils # (Auto) 6.9 x10^3/uL (1.8-7.7) 5.3 x10^3/uL (1.8-7.7) Lymphocytes # (Auto) 2.4 x10^3/uL (1.0-4.8) 0.6 x10^3/uL (1.0-4.8) Monocytes # (Auto) 0.9 x10^3/uL (0.0-1.1) 0.2 x10^3/uL (0.0-1.1) Eosinophils # (Auto) 0.1 x10^3/uL (0.0-0.7) 0.0 x10^3/uL (0.0-0.7) Basophils # (Auto) 0.0 x10^3/uL (0.0-0.2) 0.0 x10^3/uL (0.0-0.2) Prothrombin Time 15.0 SEC (11.7-14.0) Prothromb Time International Ratio 1.2 (0.8-1.1) Sodium Level 147 mmol/L (136-145) 147 mmol/L (136-145) Potassium Level 5.5 mmol/L (3.5-5.1) 5.2 mmol/L (3.5-5.1) Chloride Level 118 mmol/L (98-107) 118 mmol/L (98-107) Carbon Dioxide Level 11 mmol/L (21-32) 9 mmol/L (21-32) Anion Gap 18 (6-14) 20 (6-14) Blood Urea Nitrogen 93 mg/dL (8-26) 87 mg/dL (8-26) Creatinine 7.8 mg/dL (0.7-1.3) 6.7 mg/dL (0.7-1.3) Estimated GFR (Cockcroft-Gault) 7.0 8.4 Glucose Level 126 mg/dL (70-99) 153 mg/dL (70-99) Lactic Acid Level 1.8 mmol/L (0.4-2.0) Calcium Level 7.8 mg/dL (8.5-10.1) 8.0 mg/dL (8.5-10.1) Phosphorus Level 6.5 mg/dL (2.6-4.7) Magnesium Level 1.6 mg/dL (1.8-2.4) Thyroid Stimulating Hormone (TSH) 0.473 uIU/mL (0.358-3.74) Free Thyroxine 0.76 ng/dL (0.76-1.46) Segmented Neutrophils % 91 % (35-66) Band Neutrophils % 2 % (0-9) Lymphocytes % 6 % (24-48) Monocytes % 1 % (0-10) Toxic Granulation Slight Platelet Estimate Decreased (ADEQUATE) Hypochromasia Slight Anisocytosis Mod Iron Level 38 ug/dL (65-175) Total Iron Binding Capacity 246 ug/dL (250-450) Iron Saturation 15 % (15-34) Hepatitis B Surface Antigen Nonreactive (Nonreactive) Ammonia 30 mcmol/L (11-34) Laboratory Tests Test 09/19/19 21:35 09/20/19 04:15 09/20/19 12:30 White Blood Count 10.4 x10^3/uL (4.0-11.0) 6.1 x10^3/uL (4.0-11.0) Red Blood Count 3.18 x10^6/uL (4.30-5.70) 2.95 x10^6/uL (4.30-5.70) Hemoglobin 8.5 g/dL (13.0-17.5) 7.8 g/dL (13.0-17.5) Hematocrit 27.6 % (39.0-53.0) 25.4 % (39.0-53.0) Mean Corpuscular Volume 87 fL (79-100) 86 fL (79-100) Mean Corpuscular Hemoglobin 27 pg (25-35) 26 pg (25-35) Mean Corpuscular Hemoglobin Concent 31 g/dL (31-37) 31 g/dL (31-37) Red Cell Distribution Width 23.0 % (11.5-14.5) 22.6 % (11.5-14.5) Platelet Count 140 x10^3/uL (140-400) 118 x10^3/uL (140-400) Neutrophils (%) (Auto) 67 % (31-73) 87 % (31-73) Lymphocytes (%) (Auto) 23 % (24-48) 10 % (24-48) Monocytes (%) (Auto) 9 % (0-9) 3 % (0-9) Eosinophils (%) (Auto) 1 % (0-3) 0 % (0-3) Basophils (%) (Auto) 0 % (0-3) 0 % (0-3) Neutrophils # (Auto) 6.9 x10^3/uL (1.8-7.7) 5.3 x10^3/uL (1.8-7.7) Lymphocytes # (Auto) 2.4 x10^3/uL (1.0-4.8) 0.6 x10^3/uL (1.0-4.8) Monocytes # (Auto) 0.9 x10^3/uL (0.0-1.1) 0.2 x10^3/uL (0.0-1.1) Eosinophils # (Auto) 0.1 x10^3/uL (0.0-0.7) 0.0 x10^3/uL (0.0-0.7) Basophils # (Auto) 0.0 x10^3/uL (0.0-0.2) 0.0 x10^3/uL (0.0-0.2) Prothrombin Time 15.0 SEC (11.7-14.0) Prothromb Time International Ratio 1.2 (0.8-1.1) Sodium Level 147 mmol/L (136-145) 147 mmol/L (136-145) Potassium Level 5.5 mmol/L (3.5-5.1) 5.2 mmol/L (3.5-5.1) Chloride Level 118 mmol/L (98-107) 118 mmol/L (98-107) Carbon Dioxide Level 11 mmol/L (21-32) 9 mmol/L (21-32) Anion Gap 18 (6-14) 20 (6-14) Blood Urea Nitrogen 93 mg/dL (8-26) 87 mg/dL (8-26) Creatinine 7.8 mg/dL (0.7-1.3) 6.7 mg/dL (0.7-1.3) Estimated GFR (Cockcroft-Gault) 7.0 8.4 Glucose Level 126 mg/dL (70-99) 153 mg/dL (70-99) Lactic Acid Level 1.8 mmol/L (0.4-2.0) Calcium Level 7.8 mg/dL (8.5-10.1) 8.0 mg/dL (8.5-10.1) Phosphorus Level 6.5 mg/dL (2.6-4.7) Magnesium Level 1.6 mg/dL (1.8-2.4) Thyroid Stimulating Hormone (TSH) 0.473 uIU/mL (0.358-3.74) Free Thyroxine 0.76 ng/dL (0.76-1.46) Segmented Neutrophils % 91 % (35-66) Band Neutrophils % 2 % (0-9) Lymphocytes % 6 % (24-48) Monocytes % 1 % (0-10) Toxic Granulation Slight Platelet Estimate Decreased (ADEQUATE) Hypochromasia Slight Anisocytosis Mod Iron Level 38 ug/dL (65-175) Total Iron Binding Capacity 246 ug/dL (250-450) Iron Saturation 15 % (15-34) Hepatitis B Surface Antigen Nonreactive (Nonreactive) Ammonia 30 mcmol/L (11-34) Images Images EXAM: CHEST AP ONLY 09/20/2019 11:55 AM CLINICAL INDICATION:Dialysis catheter placement COMPARISON:None TECHNIQUE:AP upright chest radiograph FINDINGS:There is a right internal jugular central venous catheter with tip over the superior cavoatrial junction. The heart is normal. There are surgical clips projecting over the mediastinum. The lungs are clear. No pleural effusion or pneumothorax. No acute osseous abnormality. IMPRESSION:Right internal jugular central venous catheter in appropriate position. No pneumothorax. Electronically signed by: Carrie Nuñez MD (09/20/2019 12:50 PM) [id number] Assessment/Plan Assessment/Plan IMP MISBAH-ATN HYPERKALEMIA HYPERNATREMIA SEVERE AG MET ACIDOSIS HYPOTENSION HYPOVOLEMIA RELATED SHOCK ANEMIA THROMBOCYTOPENIA IRON DEFICIENCY PROB GI BLEED ENCEPHALOPATHY PROBABLE UREMIA HIGH PO4 DUE TO MISBAH ETOH ABUSE PLAN VOLUME EXPAND HCO3 GTT EMERGENT HD IR TO PLACE TEMP HD CATHETER HD TODAY FOR CLEARANCE AND CORRECTION OF ACID BASE AND ELECTROLYTE DISTURBANCE RENAL SONOGRAM CHECK UA GI EVAL AND TX START ARANESP PRBC AND IRON NEEDED WILL FOLLOW KRISTY BROWN MD Sep 20, 2019 15:27
[2019-09-20] MEDS: NICOTINE 21MG PATCH. TD SCH (16:58)
[2019-09-20 17:18] LABS: BILIRUBIN,URINE NEGATIVE (NEG); CLARITY,URINE CLEAR; COLOR,URINE YELLOW; NITRITE,URINE NEGATIVE (NEG); PROTEIN,URINE NEGATIVE (NEG-TRACE); UROBILINOGEN,URINE 0.2 mg/dL (0.2 mg/dL)
[2019-09-20 17:27] LABS: BACTERIA,URINE MOD /HPF (0-FEW)
[2019-09-20 22:08] LABS: UR POTASSIUM 17.6 mmol/L (Not Estab.)
[2019-09-21] VITALS (27 sets, daily range): BP systolic 97–175; BP diastolic 51–97
--- NOTE | 2019-09-21 00:02 | RAD ---
INDICATION: Reason: MISBAH / Spl. Instructions: / History: COMPARISON: None. TECHNIQUE: Grayscale and color ultrasound images obtained of the bilateral kidneys and bladder. FINDINGS: Right Kidney: 84 mm. No hydronephrosis. Echogenic cortex Left Kidney: 115 mm. No hydronephrosis. Bladder: Decompressed with catheter IMPRESSION: * No hydronephrosis. * Asymmetric renal size with atrophic appearing right kidney with echogenic cortex which could be from chronic renal disease. Electronically signed by: Paul Pérez MD (09/20/2019 11:59 PM) [id number]
[2019-09-21] MEDS: SODIUM BICARBONATE VIAL 150 MEQ in IV DEXTROSE 5% 1,000 ML IV SCH (01:39)
[2019-09-21] MEDS: MORPHINE SULFATE 2 MG/ML VIAL. IV PRN ×6 (02:03→23:02)
[2019-09-21] MEDS: HYDROCORTISONE SOD SUCC/PF 100 MG/2 ML VIAL. IVP SCH ×3 (06:19→22:58)
[2019-09-21 06:40] LABS: RED BLOOD COUNT 2.49 x10^6/uL (4.30-5.70)
[2019-09-21 06:49] LABS: HEMATOCRIT 19.8 % (39.0-53.0); HEMOGLOBIN 6.5 g/dL (13.0-17.5)
[2019-09-21 06:55] LABS: ALBUMIN 2.4 g/dL (3.4-5.0); ALBUMIN/GLOBULIN RATIO 0.7 (1.0-1.7); CALCIUM 7.3 mg/dL (8.5-10.1); CREATININE 2.2 mg/dL (0.7-1.3); GFR 30.3; TOTAL BILIRUBIN 0.2 mg/dL (0.2-1.0); TOTAL PROTEIN 5.7 g/dL (6.4-8.2)
[2019-09-21 06:57] LABS: POTASSIUM 2.8 mmol/L (3.5-5.1)
[2019-09-21] MEDS: MULTIVIT INFUSN,ADULT 4,VIT K 10 ML, THIAMINE INJ 100 MG, FOLIC ACID INJ 1 MG in IV NOR... IV SCH (07:55)
[2019-09-21] MEDS ORDERED: POTASSIUM CHLORIDE 20MEQ 100 ML IV ONE ×2 (08:00→12:00)
--- NOTE | 2019-09-21 08:49 | PDOC ---
PROGRESS NOTES Chief Complaint Chief Complaint Hypovolemic shock secondary to GI bleeding most likely Acute Microcytic anemia most likely secondary to iron deficiency secondary to the above-mentioned GI bleed Acute renal failure Chronic pain syndrome on chronic narcotics Toxic encephalopathy secondary to the above Hyperkalemia 5.7 secondary to acute renal failure most likely Anion gap metabolic acidosis with a probably a superimposed non-metabolic acidosis given the degree of acidosis with a bicarb reported at 11 from the outside facility Hypomagnesemia Cirrhotic appearing liver THrombocytopenia Uremia Hyperphosphatemia Severe protein calorie malnutrition CC time 47 minutes History of Present Illness History of Present Illness Mr Knott is a 64 yo M w/ PMHx presents to the emergency department at [facility] in [place] reportedly with altered mental status. Patient apparently was found by his roommate on the ground of his apartment patient cannot give history given his current condition. It is unknown when he was last seen normal apparently patient was found to be hypotensive on the field at 80/40 fluid resuscitation was started on the field with Ringer's lactate patient was seen in the emergency department and found to be anemic with Hb 7.9 and having reports of GI bleeding according to the records with BUN 101. BNP 3353. Patient confused and the details of his stated history are not reliable according to the ER doctor patient is in acute renal failure and he has been recently admitted at [facility] from 08/16 through 08/25 for a GI bleed. CT abdomen pelvis with contrast - marked calcified and noncalcified atheromatous plaque burden throughout the aorta, iliofemoral system and aortic branch vessels. Severe stenosis at the right renal artery origin with resultant atrophy of the right kidney. 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 Given the presumed severe stenosis at the SMA origin, recommend correlation for symptoms that would suggest intestinal angina noting that the bowel in this distribution does not exhibit obvious features of ischemia. Also with cirrhotic morphology of the liver and borderline enlargement of the spleen. There is heterogeneous atte nuation of the liver at the hepatic dome but this region is poorly evaluated due to motion artifact and a definite mass is not able to be delineated. Admitted to ICU with levophed ordered. 09/19: Started on bicarb GTT, levophed. WBC 6.1, Hb 7.8, platelets 118. NA 147, K5.5, BUN 9 3, CR 7.8, glucose 126, INR 1.2, MG 1.6, phosphorus 6.5, TSH 0.473. He thinks he is at home today. Notes he drinks quite a bit. Son in [place] notes he was "doing well" after discharge from [facility] and so he returned back home. Trialysis catheter placed under nephrology guidance for emergent dialysis. Hb 6.5, Na 146, K 2.8, BUN 27, Cr 2.2, glucose 155, AST 45, albumin 2.4 today. Still very confused. Some stool overnight. UOP 1770 last 24 hours. Plan: Transfuse, replace K, stop bicarb gtt for now Vitals Vitals Vital Signs Date Time Temp Pulse Resp B/P (MAP) Pulse Ox O2 Delivery O2 Flow Rate FiO2 09/21/19 07:00 98.1 74 16 135/74 (94) 91 Room Air 98.1 Physical Exam General: Cooperative, No acute distress Heart: Regular rate Lungs: Wheezing Abdomen: Normal bowel sounds, Soft, No tenderness Extremities: No cyanosis Skin: No breakdown Labs LABS Laboratory Tests Test 09/20/19 12:30 09/20/19 17:00 09/21/19 06:20 Ammonia 30 mcmol/L (11-34) Urine Collection Type Unknown Urine Color Yellow Urine Clarity Clear Urine pH 5.0 (<5.0-8.0) Urine Specific [place] 1.020 (1.000-1.030) Urine Protein Negative mg/dL (NEG-TRACE) Urine Glucose (UA) Negative mg/dL (NEG) Urine Ketones (Stick) Negative mg/dL (NEG) Urine Blood Moderate (NEG) Urine Nitrite Negative (NEG) Urine Bilirubin Negative (NEG) Urine Urobilinogen Dipstick 0.2 mg/dL (0.2 mg/dL) Urine Leukocyte Esterase Moderate (NEG) Urine RBC 11-20 /HPF (0-2) Urine WBC 5-10 /HPF (0-4) Urine Bacteria Mod /HPF (0-FEW) White Blood Count 3.0 x10^3/uL (4.0-11.0) Red Blood Count 2.49 x10^6/uL (4.30-5.70) Hemoglobin 6.5 g/dL (13.0-17.5) Hematocrit 19.8 % (39.0-53.0) Mean Corpuscular Volume 80 fL (79-100) Mean Corpuscular Hemoglobin 26 pg (25-35) Mean Corpuscular Hemoglobin Concent 33 g/dL (31-37) Red Cell Distribution Width 23.0 % (11.5-14.5) Platelet Count 85 x10^3/uL (140-400) Sodium Level 146 mmol/L (136-145) Potassium Level 2.8 mmol/L (3.5-5.1) Chloride Level 103 mmol/L (98-107) Carbon Dioxide Level 38 mmol/L (21-32) Anion Gap 5 (6-14) Blood Urea Nitrogen 27 mg/dL (8-26) Creatinine 2.2 mg/dL (0.7-1.3) Estimated GFR (Cockcroft-Gault) 30.3 BUN/Creatinine Ratio 12 (6-20) Glucose Level 155 mg/dL (70-99) Calcium Level 7.3 mg/dL (8.5-10.1) Total Bilirubin 0.2 mg/dL (0.2-1.0) Aspartate Amino Transf (AST/SGOT) 45 U/L (15-37) Alanine Aminotransferase (ALT/SGPT) 15 U/L (16-63) Alkaline Phosphatase 113 U/L (46-116) Total Protein 5.7 g/dL (6.4-8.2) Albumin 2.4 g/dL (3.4-5.0) Albumin/Globulin Ratio 0.7 (1.0-1.7) Comment Review of Relevant I have reviewed the following items bj (where applicable) has been applied. Labs Laboratory Tests Test 09/19/19 21:35 09/19/19 22:45 09/20/19 04:15 09/20/19 12:30 White Blood Count 10.4 x10^3/uL (4.0-11.0) 6.1 x10^3/uL (4.0-11.0) Red Blood Count 3.18 x10^6/uL (4.30-5.70) 2.95 x10^6/uL (4.30-5.70) Hemoglobin 8.5 g/dL (13.0-17.5) 7.8 g/dL (13.0-17.5) Hematocrit 27.6 % (39.0-53.0) 25.4 % (39.0-53.0) Mean Corpuscular Volume 87 fL (79-100) 86 fL (79-100) Mean Corpuscular Hemoglobin 27 pg (25-35) 26 pg (25-35) Mean Corpuscular Hemoglobin Concent 31 g/dL (31-37) 31 g/dL (31-37) Red Cell Distribution Width 23.0 % (11.5-14.5) 22.6 % (11.5-14.5) Platelet Count 140 x10^3/uL (140-400) 118 x10^3/uL (140-400) Neutrophils (%) (Auto) 67 % (31-73) 87 % (31-73) Lymphocytes (%) (Auto) 23 % (24-48) 10 % (24-48) Monocytes (%) (Auto) 9 % (0-9) 3 % (0-9) Eosinophils (%) (Auto) 1 % (0-3) 0 % (0-3) Basophils (%) (Auto) 0 % (0-3) 0 % (0-3) Neutrophils # (Auto) 6.9 x10^3/uL (1.8-7.7) 5.3 x10^3/uL (1.8-7.7) Lymphocytes # (Auto) 2.4 x10^3/uL (1.0-4.8) 0.6 x10^3/uL (1.0-4.8) Monocytes # (Auto) 0.9 x10^3/uL (0.0-1.1) 0.2 x10^3/uL (0.0-1.1) Eosinophils # (Auto) 0.1 x10^3/uL (0.0-0.7) 0.0 x10^3/uL (0.0-0.7) Basophils # (Auto) 0.0 x10^3/uL (0.0-0.2) 0.0 x10^3/uL (0.0-0.2) Prothrombin Time 15.0 SEC (11.7-14.0) Prothromb Time International Ratio 1.2 (0.8-1.1) Sodium Level 147 mmol/L (136-145) 147 mmol/L (136-145) Potassium Level 5.5 mmol/L (3.5-5.1) 5.2 mmol/L (3.5-5.1) Chloride Level 118 mmol/L (98-107) 118 mmol/L (98-107) Carbon Dioxide Level 11 mmol/L (21-32) 9 mmol/L (21-32) Anion Gap 18 (6-14) 20 (6-14) Blood Urea Nitrogen 93 mg/dL (8-26) 87 mg/dL (8-26) Creatinine 7.8 mg/dL (0.7-1.3) 6.7 mg/dL (0.7-1.3) Estimated GFR (Cockcroft-Gault) 7.0 8.4 Glucose Level 126 mg/dL (70-99) 153 mg/dL (70-99) Lactic Acid Level 1.8 mmol/L (0.4-2.0) Calcium Level 7.8 mg/dL (8.5-10.1) 8.0 mg/dL (8.5-10.1) Phosphorus Level 6.5 mg/dL (2.6-4.7) Magnesium Level 1.6 mg/dL (1.8-2.4) Thyroid Stimulating Hormone (TSH) 0.473 uIU/mL (0.358-3.74) Free Thyroxine 0.76 ng/dL (0.76-1.46) Urine Sodium 87 mmol/L (Not Estab.) Urine Potassium 17.6 mmol/L (Not Estab.) Urine Chloride 72 mmol/L (Not Estab.) Segmented Neutrophils % 91 % (35-66) Band Neutrophils % 2 % (0-9) Lymphocytes % 6 % (24-48) Monocytes % 1 % (0-10) Toxic Granulation Slight Platelet Estimate Decreased (ADEQUATE) Hypochromasia Slight Anisocytosis Mod Iron Level 38 ug/dL (65-175) Total Iron Binding Capacity 246 ug/dL (250-450) Iron Saturation 15 % (15-34) Creatine Kinase 279 U/L (39-308) Hepatitis B Surface Antigen Nonreactive (Nonreactive) Hepatitis B Surface Antibody, Quant <3.1 mIU/mL (Immunity>9.9) Ammonia 30 mcmol/L (11-34) Test 09/20/19 17:00 09/21/19 06:20 Urine Collection Type Unknown Urine Color Yellow Urine Clarity Clear Urine pH 5.0 (<5.0-8.0) Urine Specific [place] 1.020 (1.000-1.030) Urine Protein Negative mg/dL (NEG-TRACE) Urine Glucose (UA) Negative mg/dL (NEG) Urine Ketones (Stick) Negative mg/dL (NEG) Urine Blood Moderate (NEG) Urine Nitrite Negative (NEG) Urine Bilirubin Negative (NEG) Urine Urobilinogen Dipstick 0.2 mg/dL (0.2 mg/dL) Urine Leukocyte Esterase Moderate (NEG) Urine RBC 11-20 /HPF (0-2) Urine WBC 5-10 /HPF (0-4) Urine Bacteria Mod /HPF (0-FEW) White Blood Count 3.0 x10^3/uL (4.0-11.0) Red Blood Count 2.49 x10^6/uL (4.30-5.70) Hemoglobin 6.5 g/dL (13.0-17.5) Hematocrit 19.8 % (39.0-53.0) Mean Corpuscular Volume 80 fL (79-100) Mean Corpuscular Hemoglobin 26 pg (25-35) Mean Corpuscular Hemoglobin Concent 33 g/dL (31-37) Red Cell Distribution Width 23.0 % (11.5-14.5) Platelet Count 85 x10^3/uL (140-400) Sodium Level 146 mmol/L (136-145) Potassium Level 2.8 mmol/L (3.5-5.1) Chloride Level 103 mmol/L (98-107) Carbon Dioxide Level 38 mmol/L (21-32) Anion Gap 5 (6-14) Blood Urea Nitrogen 27 mg/dL (8-26) Creatinine 2.2 mg/dL (0.7-1.3) Estimated GFR (Cockcroft-Gault) 30.3 BUN/Creatinine Ratio 12 (6-20) Glucose Level 155 mg/dL (70-99) Calcium Level 7.3 mg/dL (8.5-10.1) Total Bilirubin 0.2 mg/dL (0.2-1.0) Aspartate Amino Transf (AST/SGOT) 45 U/L (15-37) Alanine Aminotransferase (ALT/SGPT) 15 U/L (16-63) Alkaline Phosphatase 113 U/L (46-116) Total Protein 5.7 g/dL (6.4-8.2) Albumin 2.4 g/dL (3.4-5.0) Albumin/Globulin Ratio 0.7 (1.0-1.7) Laboratory Tests Test 09/20/19 12:30 09/20/19 17:00 09/21/19 06:20 Ammonia 30 mcmol/L (11-34) Urine Collection Type Unknown Urine Color Yellow Urine Clarity Clear Urine pH 5.0 (<5.0-8.0) Urine Specific [place] 1.020 (1.000-1.030) Urine Protein Negative mg/dL (NEG-TRACE) Urine Glucose (UA) Negative mg/dL (NEG) Urine Ketones (Stick) Negative mg/dL (NEG) Urine Blood Moderate (NEG) Urine Nitrite Negative (NEG) Urine Bilirubin Negative (NEG) Urine Urobilinogen Dipstick 0.2 mg/dL (0.2 mg/dL) Urine Leukocyte Esterase Moderate (NEG) Urine RBC 11-20 /HPF (0-2) Urine WBC 5-10 /HPF (0-4) Urine Bacteria Mod /HPF (0-FEW) White Blood Count 3.0 x10^3/uL (4.0-11.0) Red Blood Count 2.49 x10^6/uL (4.30-5.70) Hemoglobin 6.5 g/dL (13.0-17.5) Hematocrit 19.8 % (39.0-53.0) Mean Corpuscular Volume 80 fL (79-100) Mean Corpuscular Hemoglobin 26 pg (25-35) Mean Corpuscular Hemoglobin Concent 33 g/dL (31-37) Red Cell Distribution Width 23.0 % (11.5-14.5) Platelet Count 85 x10^3/uL (140-400) Sodium Level 146 mmol/L (136-145) Potassium Level 2.8 mmol/L (3.5-5.1) Chloride Level 103 mmol/L (98-107) Carbon Dioxide Level 38 mmol/L (21-32) Anion Gap 5 (6-14) Blood Urea Nitrogen 27 mg/dL (8-26) Creatinine 2.2 mg/dL (0.7-1.3) Estimated GFR (Cockcroft-Gault) 30.3 BUN/Creatinine Ratio 12 (6-20) Glucose Level 155 mg/dL (70-99) Calcium Level 7.3 mg/dL (8.5-10.1) Total Bilirubin 0.2 mg/dL (0.2-1.0) Aspartate Amino Transf (AST/SGOT) 45 U/L (15-37) Alanine Aminotransferase (ALT/SGPT) 15 U/L (16-63) Alkaline Phosphatase 113 U/L (46-116) Total Protein 5.7 g/dL (6.4-8.2) Albumin 2.4 g/dL (3.4-5.0) Albumin/Globulin Ratio 0.7 (1.0-1.7) Microbiology 09/19/19 Blood Culture - Preliminary, Resulted NO GROWTH AFTER 1 DAY Medications Current Medications Norepinephrine Bitartrate 8 mg/ Dextrose 258 ml @ 12.365 mls/ hr CONT PRN IV PER PROTOCOL Last administered on 09/19/19at 20:41; Start 09/19/19 at 20:30 Hydrocortisone Sodium Succinate (Solu-CORTEF) 100 mg Q8HRS IVP Last administered on 09/21/19at 06:19; Start 09/19/19 at 22:00 Acetaminophen (Tylenol) 650 mg PRN Q6HRS PRN PO Headaches, Temp > 101.5'; Start 09/19/19 at 21:15 Lorazepam (Ativan Inj) 0.5 mg PRN Q6HRS PRN IVP ANXIETY / AGITATION Last administered on 09/19/19at 22:19; Start 09/19/19 at 21:15 Ondansetron HCl (Zofran) 4 mg PRN Q6HRS PRN IVP NAUSEA/VOMITING; Start 09/19/19 at 21:15 Calcium Carbonate/ Glycine (Tums) 500 mg PRN Q3HRS PRN PO HEARTBURN / GAS; Start 09/19/19 at 21:15 Famotidine (Pepcid Vial) 20 mg BID IVP Last administered on 09/20/19at 21:21; Start 09/20/19 at 09:00 Sodium Chloride (Normal Saline Flush) 3 ml QSHIFT PRN IV AFTER MEDS AND BLOOD DRAWS; Start 09/19/19 at 21:15 Oxycodone/ Acetaminophen (Percocet 5/325) 1 tab PRN Q4HRS PRN PO MILD PAIN, 1ST CHOICE; Start 09/19/19 at 21:15 Morphine Sulfate (Morphine Sulfate) 1 mg PRN Q1HR PRN IV PAIN Last administered on 09/21/19at 02:03; Start 09/19/19 at 21:15 Senna/Docusate Sodium (Senna Plus) 1 tab BID PO ; Start 09/20/19 at 09:00 Lactulose (Lactulose) 20 gm PRN Q12HR PRN PO CONSTIPATION; Start 09/19/19 at 21:15 Acetaminophen (Tylenol) 650 mg 1X PRN PRN PO PRE-TRANSFUSION; Start 09/19/19 at 21:15 Magnesium Sulfate/ Dextrose 100 ml @ 100 mls/hr 1X ONCE IV Last administered on 09/19/19at 22:23; Start 09/19/19 at 22:30; Stop 09/19/19 at 23:29; Status DC Sodium Bicarbonate 150 meq/Dextrose 1,150 ml @ 125 mls/hr Q9H12M IV Last administered on 09/21/19at 01:39; Start 09/20/19 at 06:45 Multivitamins 10 ml/Thiamine HCl 100 mg/Folic Acid 1 mg/Sodium Chloride 1,011.2 ml @ 100 mls/ hr DAILY IV Last administered on 09/21/19at 07:55; Start 09/20/19 at 10:00; Stop 09/24/19 at 19:07 Lorazepam (Ativan) 2 mg PRN Q1HR PRN PO For CIWA 8-14; Start 09/20/19 at 09:15; Stop 09/20/19 at 10:00; Status DC Lorazepam (Ativan Inj) 1 mg PRN Q1HR PRN IV For CIWA 8-14; Start 09/20/19 at 09:15 Haloperidol Lactate (Haldol Inj) 5 mg PRN Q4HRS PRN IVP Hallucinatns,Confusn,Delirium; Start 09/20/19 at 09:15 Clonidine HCl (Catapres) 0.1 mg PRN Q1HR PRN PO SBP > 180 or DBP > 100, MRX3; Start 09/20/19 at 09:15 Lorazepam (Ativan Inj) 2 mg PRN Q1HR PRN IV For CIWA 8-14 Last administered on 09/21/19at 01:39; Start 09/20/19 at 10:00 Lidocaine HCl (Buffered Lidocaine 1%) 3 ml STK-MED ONCE .ROUTE ; Start 09/20/19 at 11:32; Stop 09/20/19 at 11:32; Status DC Lidocaine HCl (Buffered Lidocaine 1%) 6 ml 1X ONCE INJ Last administered on 09/20/19at 12:20; Start 09/20/19 at 12:00; Stop 09/20/19 at 12:01; Status DC Nicotine (Nicoderm Cq 21mg) 1 patch DAILY TD Last administered on 09/20/19at 16:58; Start 09/20/19 at 13:30 Sodium Chloride 1,000 ml @ 1,000 mls/hr Q1H PRN IV hypotension; Start 09/20/19 at 14:09; Stop 09/20/19 at 20:08; Status DC Albumin Human 200 ml @ 200 mls/hr 1X PRN PRN IV Hypotension; Start 09/20/19 at 14:15; Stop 09/20/19 at 20:14; Status DC Sodium Chloride 1,000 ml @ 400 mls/hr Q2H30M PRN IV PATENCY; Start 09/20/19 at 14:09; Stop 09/21/19 at 02:08; Status DC Info (PHARMACY MONITORING -- do not chart) 1 each PRN DAILY PRN MC SEE COMMENTS; Start 09/20/19 at 14:15; Status UNV Info (PHARMACY MONITORING -- do not chart) 1 each PRN DAILY PRN MC SEE COMMENTS; Start 09/20/19 at 14:15 Potassium Chloride/Water 100 ml @ 100 mls/hr 1X ONCE IV ; Start 09/21/19 at 08:00; Stop 09/21/19 at 08:59 Vitals/I & O Vital Sign - Last 24 Hours 09/20/19 09/20/19 09/20/19 09/20/19 09:00 10:00 11:00 12:00 Pulse 87 94 97 Resp 36 28 21 B/P (MAP) 111/58 (75) 122/61 (81) 126/68 (87) Pulse Ox 100 99 100 O2 Delivery Room Air Room Air Room Air Room Air 09/20/19 09/20/19 09/20/19 09/20/19 12:00 13:00 14:00 15:00 Temp 99.7 100.6 99.7 100.6 Pulse 100 98 96 96 Resp 24 18 B/P (MAP) 144/75 (98) 116/65 (82) 117/61 (79) 140/71 (94) Pulse Ox 98 98 98 100 O2 Delivery Room Air Room Air Room Air Room Air 09/20/19 09/20/19 09/20/19 09/20/19 16:00 16:00 17:00 18:00 Pulse 96 96 97 Resp B/P (MAP) 141/68 (92) 129/66 (87) 121/63 (82) Pulse Ox 99 98 99 O2 Delivery Room Air Room Air Room Air Room Air 09/20/19 09/20/19 09/20/19 09/20/19 19:00 19:45 20:00 21:00 Temp 98.5 98.5 Pulse 93 101 76 Resp 20 B/P (MAP) 120/69 (86) 146/77 (100) 144/74 (97) Pulse Ox 99 98 95 O2 Delivery Room Air Room Air Room Air Room Air 09/20/19 09/20/19 09/21/19 09/21/19 22:00 23:00 00:00 00:00 Temp 98.4 98.4 Pulse 82 77 78 Resp B/P (MAP) 149/71 (97) 140/69 (92) 141/80 (100) Pulse Ox 100 100 100 O2 Delivery Room Air Room Air Room Air Room Air 09/21/19 09/21/19 09/21/19 09/21/19 01:00 02:00 03:00 04:00 Temp 98.3 98.3 Pulse 80 81 81 83 Resp 18 B/P (MAP) 99/51 (67) 119/67 (84) 137/61 (86) 138/72 (94) Pulse Ox 100 95 98 97 O2 Delivery Room Air Room Air Room Air Room Air 09/21/19 09/21/19 09/21/19 09/21/19 04:00 05:00 06:00 07:00 Temp 98.1 98.1 Pulse 79 89 74 Resp 16 B/P (MAP) 144/79 (100) 134/71 (92) 135/74 (94) Pulse Ox 95 96 91 O2 Delivery Room Air Room Air Room Air Room Air Intake and Output 09/20/19 09/20/19 09/21/19 15:00 23:00 07:00 Intake Total 2107 ml 1527 ml Output Total 530 ml 600 ml 570 ml Balance -530 ml 1507 ml 957 ml Nutrition Consultation Dietary Evaluation: Recommendations by RD: Dietary education by RD, Increase Calorie Intake, Protein supplementation Comments: REC ADA diet w/glucerna supplements if appropriate pending GI and pt's mental status If unable to meet PO intake via PO diet (>50% meals), recommend short-term nutrition support (ppn or dobhoff/TFs pending GI) Expected Outcomes/Goals: Nutritional intake to meet >75% est needs Malnutrition Findings: Food and Nutrition Intake (Mod: <75% est energy req 7days Weight Status: Appropriate JONATHAN DUQUE MD Sep 21, 2019 08:49
[2019-09-21] MEDS: SENNOSIDES/DOCUSATE 8.6/50MG TABLET. PO SCH ×2 (09:00→21:00)
[2019-09-21] MEDS: INSULIN LISPRO 300 UNITS/3 ML VIAL. SQ SCH ×3 (09:00→17:00)
[2019-09-21] MEDS ORDERED: DEXTROSE 50% 25 GM / 50ML DISP.SYRIN. IV PRN (09:00)
[2019-09-21] MEDS: FAMOTIDINE 20 MG/2 ML VIAL IVP SCH ×2 (09:01→21:08)
[2019-09-21] MEDS: NICOTINE 21MG PATCH. TD SCH (09:02)
--- NOTE | 2019-09-21 10:44 | PDOC ---
Renal-Progress Notes Subjective Notes Notes REMAINS CONFUSED History of Present Illness Hx of present illness STABLE Vitals Vitals Vital Signs Date Time Temp Pulse Resp B/P (MAP) Pulse Ox O2 Delivery O2 Flow Rate FiO2 09/21/19 10:17 98.4 79 18 145/86 98.4 09/21/19 08:00 96 Nasal Cannula 2.0 Weight Weight [ ] I.O. Intake and Output Intake and Output 09/21/19 07:00 Intake Total 3634 ml Output Total 1700 ml Balance 1934 ml Intake IV Total 3634 ml Output Urine Total 1700 ml Labs Labs Laboratory Tests Test 09/20/19 12:30 09/20/19 17:00 09/21/19 06:20 09/21/19 09:19 Ammonia 30 mcmol/L (11-34) Urine Collection Type Unknown Urine Color Yellow Urine Clarity Clear Urine pH 5.0 (<5.0-8.0) Urine Specific [place] 1.020 (1.000-1.030) Urine Protein Negative mg/dL (NEG-TRACE) Urine Glucose (UA) Negative mg/dL (NEG) Urine Ketones (Stick) Negative mg/dL (NEG) Urine Blood Moderate (NEG) Urine Nitrite Negative (NEG) Urine Bilirubin Negative (NEG) Urine Urobilinogen Dipstick 0.2 mg/dL (0.2 mg/dL) Urine Leukocyte Esterase Moderate (NEG) Urine RBC 11-20 /HPF (0-2) Urine WBC 5-10 /HPF (0-4) Urine Bacteria Mod /HPF (0-FEW) White Blood Count 3.0 x10^3/uL (4.0-11.0) Red Blood Count 2.49 x10^6/uL (4.30-5.70) Hemoglobin 6.5 g/dL (13.0-17.5) Hematocrit 19.8 % (39.0-53.0) Mean Corpuscular Volume 80 fL (79-100) Mean Corpuscular Hemoglobin 26 pg (25-35) Mean Corpuscular Hemoglobin Concent 33 g/dL (31-37) Red Cell Distribution Width 23.0 % (11.5-14.5) Platelet Count 85 x10^3/uL (140-400) Sodium Level 146 mmol/L (136-145) Potassium Level 2.8 mmol/L (3.5-5.1) Chloride Level 103 mmol/L (98-107) Carbon Dioxide Level 38 mmol/L (21-32) Anion Gap 5 (6-14) Blood Urea Nitrogen 27 mg/dL (8-26) Creatinine 2.2 mg/dL (0.7-1.3) Estimated GFR (Cockcroft-Gault) 30.3 BUN/Creatinine Ratio 12 (6-20) Glucose Level 155 mg/dL (70-99) Calcium Level 7.3 mg/dL (8.5-10.1) Total Bilirubin 0.2 mg/dL (0.2-1.0) Aspartate Amino Transf (AST/SGOT) 45 U/L (15-37) Alanine Aminotransferase (ALT/SGPT) 15 U/L (16-63) Alkaline Phosphatase 113 U/L (46-116) Total Protein 5.7 g/dL (6.4-8.2) Albumin 2.4 g/dL (3.4-5.0) Albumin/Globulin Ratio 0.7 (1.0-1.7) Glucose (Fingerstick) 143 mg/dL (70-99) Micro Micro Microbiology 09/19/19 Urine Culture - Final, Complete 09/19/19 Blood Culture - Preliminary, Resulted NO GROWTH AFTER 1 DAY Review of Systems Constitutional: yes: other (CONFUSED) Physical Exam General Appearance: no apparent distress Skin: warm Respiratory: bilateral CTA Heart: S1S2 Abdomen: soft, bowel sounds present Genitourinary: bladder flat Extremities: no edema, atrophy Neurology: confused Assessment Assessment IMP [id number] HYPOKALEMIA HYPERNATREMIA SEVERE AG MET ACIDOSIS - RESOLVED HYPOTENSION-BETTER HYPOVOLEMIA RELATED SHOCK ANEMIA THROMBOCYTOPENIA IRON DEFICIENCY PROB GI BLEED ENCEPHALOPATHY PROBABLE UREMIA HIGH PO4 DUE TO MISBAH ETOH ABUSE PLAN VOLUME EXPAND START PPN REPLACE K STOP HCO3 GTT EMERGENT HD DONE YESTERDAY HOLD HD TODAY MONITOR FOR RENAL RECOVERY RENAL SONOGRAM-RIGHT RENAL ATROPHY GI EVAL AND TX START ARANESP PRBC AND IRON NEEDED D/W ATTENDING WILL FOLLOW KRISTY BROWN MD Sep 21, 2019 10:44
[2019-09-21] MEDS: AMINO AC 3%/ELECTROLYTE/GLYCER 1,000 ML IV SCH ×2 (11:19→22:59)
--- NOTE | 2019-09-21 12:51 | PDOC ---
G I PROGRESS NOTE Subjective Mumbles unintelligibly. Rolls around. Objective [facility] Staff report no overt bleeding. Physical Exam Lungs clear. RRR Abdomen soft, apparently not tender. Review of Relevant I have reviewed the following items bj (where applicable) has been applied. Labs Laboratory Tests Test 09/19/19 21:35 09/19/19 22:45 09/20/19 04:15 09/20/19 12:30 White Blood Count 10.4 x10^3/uL (4.0-11.0) 6.1 x10^3/uL (4.0-11.0) Red Blood Count 3.18 x10^6/uL (4.30-5.70) 2.95 x10^6/uL (4.30-5.70) Hemoglobin 8.5 g/dL (13.0-17.5) 7.8 g/dL (13.0-17.5) Hematocrit 27.6 % (39.0-53.0) 25.4 % (39.0-53.0) Mean Corpuscular Volume 87 fL (79-100) 86 fL (79-100) Mean Corpuscular Hemoglobin 27 pg (25-35) 26 pg (25-35) Mean Corpuscular Hemoglobin Concent 31 g/dL (31-37) 31 g/dL (31-37) Red Cell Distribution Width 23.0 % (11.5-14.5) 22.6 % (11.5-14.5) Platelet Count 140 x10^3/uL (140-400) 118 x10^3/uL (140-400) Neutrophils (%) (Auto) 67 % (31-73) 87 % (31-73) Lymphocytes (%) (Auto) 23 % (24-48) 10 % (24-48) Monocytes (%) (Auto) 9 % (0-9) 3 % (0-9) Eosinophils (%) (Auto) 1 % (0-3) 0 % (0-3) Basophils (%) (Auto) 0 % (0-3) 0 % (0-3) Neutrophils # (Auto) 6.9 x10^3/uL (1.8-7.7) 5.3 x10^3/uL (1.8-7.7) Lymphocytes # (Auto) 2.4 x10^3/uL (1.0-4.8) 0.6 x10^3/uL (1.0-4.8) Monocytes # (Auto) 0.9 x10^3/uL (0.0-1.1) 0.2 x10^3/uL (0.0-1.1) Eosinophils # (Auto) 0.1 x10^3/uL (0.0-0.7) 0.0 x10^3/uL (0.0-0.7) Basophils # (Auto) 0.0 x10^3/uL (0.0-0.2) 0.0 x10^3/uL (0.0-0.2) Prothrombin Time 15.0 SEC (11.7-14.0) Prothromb Time International Ratio 1.2 (0.8-1.1) Sodium Level 147 mmol/L (136-145) 147 mmol/L (136-145) Potassium Level 5.5 mmol/L (3.5-5.1) 5.2 mmol/L (3.5-5.1) Chloride Level 118 mmol/L (98-107) 118 mmol/L (98-107) Carbon Dioxide Level 11 mmol/L (21-32) 9 mmol/L (21-32) Anion Gap 18 (6-14) 20 (6-14) Blood Urea Nitrogen 93 mg/dL (8-26) 87 mg/dL (8-26) Creatinine 7.8 mg/dL (0.7-1.3) 6.7 mg/dL (0.7-1.3) Estimated GFR (Cockcroft-Gault) 7.0 8.4 Glucose Level 126 mg/dL (70-99) 153 mg/dL (70-99) Lactic Acid Level 1.8 mmol/L (0.4-2.0) Calcium Level 7.8 mg/dL (8.5-10.1) 8.0 mg/dL (8.5-10.1) Phosphorus Level 6.5 mg/dL (2.6-4.7) Magnesium Level 1.6 mg/dL (1.8-2.4) Thyroid Stimulating Hormone (TSH) 0.473 uIU/mL (0.358-3.74) Free Thyroxine 0.76 ng/dL (0.76-1.46) Urine Sodium 87 mmol/L (Not Estab.) Urine Potassium 17.6 mmol/L (Not Estab.) Urine Chloride 72 mmol/L (Not Estab.) Segmented Neutrophils % 91 % (35-66) Band Neutrophils % 2 % (0-9) Lymphocytes % 6 % (24-48) Monocytes % 1 % (0-10) Toxic Granulation Slight Platelet Estimate Decreased (ADEQUATE) Hypochromasia Slight Anisocytosis Mod Iron Level 38 ug/dL (65-175) Total Iron Binding Capacity 246 ug/dL (250-450) Iron Saturation 15 % (15-34) Creatine Kinase 279 U/L (39-308) Hepatitis B Surface Antigen Nonreactive (Nonreactive) Hepatitis B Surface Antibody, Quant <3.1 mIU/mL (Immunity>9.9) Ammonia 30 mcmol/L (11-34) Test 09/20/19 17:00 09/21/19 06:20 09/21/19 09:19 09/21/19 11:49 Urine Collection Type Unknown Urine Color Yellow Urine Clarity Clear Urine pH 5.0 (<5.0-8.0) Urine Specific [place] 1.020 (1.000-1.030) Urine Protein Negative mg/dL (NEG-TRACE) Urine Glucose (UA) Negative mg/dL (NEG) Urine Ketones (Stick) Negative mg/dL (NEG) Urine Blood Moderate (NEG) Urine Nitrite Negative (NEG) Urine Bilirubin Negative (NEG) Urine Urobilinogen Dipstick 0.2 mg/dL (0.2 mg/dL) Urine Leukocyte Esterase Moderate (NEG) Urine RBC 11-20 /HPF (0-2) Urine WBC 5-10 /HPF (0-4) Urine Bacteria Mod /HPF (0-FEW) White Blood Count 3.0 x10^3/uL (4.0-11.0) Red Blood Count 2.49 x10^6/uL (4.30-5.70) Hemoglobin 6.5 g/dL (13.0-17.5) Hematocrit 19.8 % (39.0-53.0) Mean Corpuscular Volume 80 fL (79-100) Mean Corpuscular Hemoglobin 26 pg (25-35) Mean Corpuscular Hemoglobin Concent 33 g/dL (31-37) Red Cell Distribution Width 23.0 % (11.5-14.5) Platelet Count 85 x10^3/uL (140-400) Sodium Level 146 mmol/L (136-145) Potassium Level 2.8 mmol/L (3.5-5.1) Chloride Level 103 mmol/L (98-107) Carbon Dioxide Level 38 mmol/L (21-32) Anion Gap 5 (6-14) Blood Urea Nitrogen 27 mg/dL (8-26) Creatinine 2.2 mg/dL (0.7-1.3) Estimated GFR (Cockcroft-Gault) 30.3 BUN/Creatinine Ratio 12 (6-20) Glucose Level 155 mg/dL (70-99) Calcium Level 7.3 mg/dL (8.5-10.1) Total Bilirubin 0.2 mg/dL (0.2-1.0) Aspartate Amino Transf (AST/SGOT) 45 U/L (15-37) Alanine Aminotransferase (ALT/SGPT) 15 U/L (16-63) Alkaline Phosphatase 113 U/L (46-116) Total Protein 5.7 g/dL (6.4-8.2) Albumin 2.4 g/dL (3.4-5.0) Albumin/Globulin Ratio 0.7 (1.0-1.7) Glucose (Fingerstick) 143 mg/dL (70-99) 142 mg/dL (70-99) Laboratory Tests Test 09/20/19 17:00 09/21/19 06:20 09/21/19 09:19 09/21/19 11:49 Urine Collection Type Unknown Urine Color Yellow Urine Clarity Clear Urine pH 5.0 (<5.0-8.0) Urine Specific [place] 1.020 (1.000-1.030) Urine Protein Negative mg/dL (NEG-TRACE) Urine Glucose (UA) Negative mg/dL (NEG) Urine Ketones (Stick) Negative mg/dL (NEG) Urine Blood Moderate (NEG) Urine Nitrite Negative (NEG) Urine Bilirubin Negative (NEG) Urine Urobilinogen Dipstick 0.2 mg/dL (0.2 mg/dL) Urine Leukocyte Esterase Moderate (NEG) Urine RBC 11-20 /HPF (0-2) Urine WBC 5-10 /HPF (0-4) Urine Bacteria Mod /HPF (0-FEW) White Blood Count 3.0 x10^3/uL (4.0-11.0) Red Blood Count 2.49 x10^6/uL (4.30-5.70) Hemoglobin 6.5 g/dL (13.0-17.5) Hematocrit 19.8 % (39.0-53.0) Mean Corpuscular Volume 80 fL (79-100) Mean Corpuscular Hemoglobin 26 pg (25-35) Mean Corpuscular Hemoglobin Concent 33 g/dL (31-37) Red Cell Distribution Width 23.0 % (11.5-14.5) Platelet Count 85 x10^3/uL (140-400) Sodium Level 146 mmol/L (136-145) Potassium Level 2.8 mmol/L (3.5-5.1) Chloride Level 103 mmol/L (98-107) Carbon Dioxide Level 38 mmol/L (21-32) Anion Gap 5 (6-14) Blood Urea Nitrogen 27 mg/dL (8-26) Creatinine 2.2 mg/dL (0.7-1.3) Estimated GFR (Cockcroft-Gault) 30.3 BUN/Creatinine Ratio 12 (-20) Glucose Level 155 mg/dL (70-99) Calcium Level 7.3 mg/dL (8.5-10.1) Total Bilirubin 0.2 mg/dL (0.2-1.0) Aspartate Amino Transf (AST/SGOT) 45 U/L (15-37) Alanine Aminotransferase (ALT/SGPT) 15 U/L (16-63) Alkaline Phosphatase 113 U/L (46-116) Total Protein 5.7 g/dL (6.4-8.2) Albumin 2.4 g/dL (3.4-5.0) Albumin/Globulin Ratio 0.7 (1.0-1.7) Glucose (Fingerstick) 143 mg/dL (70-99) 142 mg/dL (70-99) Microbiology 09/19/19 Urine Culture - Final, Complete 09/19/19 Blood Culture - Preliminary, Resulted NO GROWTH AFTER 1 DAY Hemoglobin dropped some. Vitals/I & O Vital Sign - Last 24 Hours 09/20/19 09/20/19 09/20/19 09/20/19 13:00 14:00 15:00 16:00 Temp 100.6 100.6 Pulse 98 96 96 96 Resp 18 22 B/P (MAP) 116/65 (82) 117/61 (79) 140/71 (94) 141/68 (92) Pulse Ox 98 98 100 99 O2 Delivery Room Air Room Air Room Air Room Air 09/20/19 09/20/19 09/20/19 09/20/19 16:00 17:00 18:00 19:00 Pulse 96 97 93 Resp 32 B/P (MAP) 129/66 (87) 121/63 (82) 120/69 (86) Pulse Ox 98 99 99 O2 Delivery Room Air Room Air Room Air Room Air 09/20/19 09/20/19 09/20/19 09/20/19 19:45 20:00 21:00 22:00 Temp 98.5 98.5 Pulse 101 76 82 Resp 22 B/P (MAP) 146/77 (100) 144/74 (97) 149/71 (97) Pulse Ox 98 95 100 O2 Delivery Room Air Room Air Room Air Room Air 09/20/19 09/21/19 09/21/19 09/21/19 23:00 00:00 00:00 01:00 Temp 98.4 98.4 Pulse 77 78 80 Resp 13 B/P (MAP) 140/69 (92) 141/80 (100) 99/51 (67) Pulse Ox 100 100 100 O2 Delivery Room Air Room Air Room Air Room Air 09/21/19 09/21/19 09/21/19 09/21/19 02:00 03:00 04:00 04:00 Temp 98.3 98.3 Pulse 81 81 83 Resp 18 B/P (MAP) 119/67 (84) 137/61 (86) 138/72 (94) Pulse Ox 95 98 97 O2 Delivery Room Air Room Air Room Air Room Air 09/21/19 09/21/19 09/21/19 09/21/19 05:00 06:00 07:00 08:00 Temp 98.1 98.1 Pulse 79 89 74 Resp 19 16 B/P (MAP) 144/79 (100) 134/71 (92) 135/74 (94) Pulse Ox 95 96 91 O2 Delivery Room Air Room Air Room Air Nasal Cannula O2 Flow Rate 2.0 09/21/19 09/21/19 09/21/19/11/20 08:00 09:00 09:29 10:00 Temp 98.1 97.8 98.1 97.8 Pulse 74 74 84 84 Resp 16 18 16 18 B/P (MAP) 158/78 (104) 158/78 (104) 158/78 145/86 (105) Pulse Ox 96 96 97 O2 Delivery Nasal Cannula Nasal Cannula Nasal Cannula O2 Flow Rate 2.0 2.0 2.0 09/21/19 09/21/19 09/21/19 10:17 11:00 11:50 Temp 98.4 98.3 98.4 98.3 Pulse 79 79 72 Resp 18 18 18 B/P (MAP) 145/86 129/67 (87) 129/67 Pulse Ox 98 O2 Delivery Nasal Cannula O2 Flow Rate 2.0 Intake and Output 09/20/19 09/20/19 09/21/19 15:00 23:00 07:00 Intake Total 2107 ml 1527 ml Output Total 530 ml 600 ml 570 ml Balance -530 ml 1507 ml 957 ml Assessment Acute kidney failure, cause uncertain but likely element of volume depletion. Drop in hemoglobin; suspect in part dilutional. H/o GIB--details pending from OSH. Cirrhosis likely, likely ETOH. Plan of Care Note Continue support. Monitor for bleeding. Continue anti-secretory. Await outside records. Justicifation of Admission Dx: Justifications for Admission: Justification of Admission Dx: Yes Acute Renal Failure: Serum Cr > 4mg/dL VIVIANE SUH MD Sep 21, 2019 12:51
--- NOTE | 2019-09-21 13:26 | NUR ---
SS following up with discharge planning. SS reviewed pt chart and discussed with pt RN. Pt is currently requiring oxygen. Pt received one unit of blood today. Potassium being replaced. Pt on PPN. SS will continue to follow for discharge planning.
[2019-09-21] MEDS: HALOPERIDOL LACTATE 5 MG/ML VIAL. IVP PRN (13:34)
--- NOTE | 2019-09-21 15:29 | RAD ---
Procedure: Ultrasound-guided placement of right internal jugular central venous catheter09/21/2019 1:25 PM Clinical Indication: temporary dialysis catheter needed/TRIALYSIS, Renal failure Discussion: The risks and benefits of the procedure were discussed the patient and/or their volunteer patient representative. Informed consent was obtained. A timeout procedure was performed. All elements of maximal sterile barrier technique including the use of a cap, mask, sterile gown, sterile gloves, large sterile sheet, appropriate hand hygiene, and 2% chlorhexidine for cutaneous antisepsis (or acceptable alternative antiseptic per current guidelines) were followed for this procedure. The patient was prepped and draped in the usual sterile fashion. Ultrasound interrogation of the right neck revealed patency and compressibility of the right internal jugular vein. A 21-gauge micropuncture was then used to gain access to this vein under ultrasound guidance. A hard copy ultrasound image was recorded. A guidewire was advanced centrally. 5 [place] sheath was placed. Over a wire following dilatation, a triple-lumen central venous catheter was advanced centrally. Catheter was found to flush and aspirate normally. Follow-up chest radiograph demonstrates tip at the cavoatrial junction. Catheter secured in place and a sterile dressing was applied. No immediate complications were identified. Impression: Successful ultrasound-guided placement of right internal dialysis temporary dialysis catheter
[2019-09-22] VITALS (24 sets, daily range): BP systolic 113–177; BP diastolic 69–99
[2019-09-22 01:08] LABS: HEMOGLOBIN A1C 5.4 % (4.8-5.6)
[2019-09-22] MEDS: HYDROCORTISONE SOD SUCC/PF 100 MG/2 ML VIAL. IVP SCH ×3 (05:30→21:23)
[2019-09-22 05:52] LABS: CALCIUM 7.4 mg/dL (8.5-10.1); GFR 33.8; MAGNESIUM 1.5 mg/dL (1.8-2.4); PHOSPHORUS 3.7 mg/dL (2.6-4.7); POTASSIUM 3.5 mmol/L (3.5-5.1)
[2019-09-22 07:07] LABS: BASO % 0 % (0-3); EOS % 0 % (0-3); HEMATOCRIT 27.5 % (39.0-53.0); HEMOGLOBIN 9.2 g/dL (13.0-17.5); LYMPH # 0.7 x10^3/uL (1.0-4.8); LYMPH % 17 % (24-48); MEAN CORPUSCULAR HEMOGLOBIN 28 pg (25-35); MEAN CORPUSCULAR HGB CONC 33 g/dL (31-37); MEAN CORPUSCULAR VOLUME 82 fL (79-100); MONO # 0.3 x10^3/uL (0.0-1.1); MONO % 8 % (0-9); NEUT # 3.2 x10^3/uL (1.8-7.7); NEUT % 75 % (31-73); PLATELET COUNT 89 x10^3/uL (140-400); RED BLOOD COUNT 3.35 x10^6/uL (4.30-5.70); RED CELL DISTRIBUTION WIDTH 21.7 % (11.5-14.5); WHITE BLOOD COUNT 4.2 x10^3/uL (4.0-11.0)
[2019-09-22] MEDS: HALOPERIDOL LACTATE 5 MG/ML VIAL. IVP PRN ×4 (07:34→21:23)
[2019-09-22] MEDS: INSULIN LISPRO 300 UNITS/3 ML VIAL. SQ SCH ×3 (07:35→17:00)
[2019-09-22] MEDS: SENNOSIDES/DOCUSATE 8.6/50MG TABLET. PO SCH ×2 (09:00→19:14)
--- NOTE | 2019-09-22 10:47 | PDOC ---
Renal-Progress Notes Subjective Notes Notes CONFUSED History of Present Illness Hx of present illness STABLE Vitals Vitals Vital Signs Date Time Temp Pulse Resp B/P (MAP) Pulse Ox O2 Delivery O2 Flow Rate FiO2 09/22/19 10:00 85 24 119/82 (94) 99 Nasal Cannula 2.0 09/22/19 08:00 98.4 98.4 Weight Weight [ ] I.O. Intake and Output Intake and Output 09/22/19 07:00 Intake Total 4087 ml Output Total 3820 ml Balance 267 ml Intake IV Total 2447 ml Other 1640 ml Output Urine Total 3820 ml Labs Labs Laboratory Tests Test 09/21/19 11:49 09/21/19 17:05 09/22/19 05:00 Glucose (Fingerstick) 142 mg/dL (70-99) 140 mg/dL (70-99) White Blood Count 4.2 x10^3/uL (4.0-11.0) Red Blood Count 3.35 x10^6/uL (4.30-5.70) Hemoglobin 9.2 g/dL (13.0-17.5) Hematocrit 27.5 % (39.0-53.0) Mean Corpuscular Volume 82 fL (79-100) Mean Corpuscular Hemoglobin 28 pg (25-35) Mean Corpuscular Hemoglobin Concent 33 g/dL (31-37) Red Cell Distribution Width 21.7 % (11.5-14.5) Platelet Count 89 x10^3/uL (140-400) Neutrophils (%) (Auto) 75 % (31-73) Lymphocytes (%) (Auto) 17 % (24-48) Monocytes (%) (Auto) 8 % (0-9) Eosinophils (%) (Auto) 0 % (0-3) Basophils (%) (Auto) 0 % (0-3) Neutrophils # (Auto) 3.2 x10^3/uL (1.8-7.7) Lymphocytes # (Auto) 0.7 x10^3/uL (1.0-4.8) Monocytes # (Auto) 0.3 x10^3/uL (0.0-1.1) Eosinophils # (Auto) 0.0 x10^3/uL (0.0-0.7) Basophils # (Auto) 0.0 x10^3/uL (0.0-0.2) Sodium Level 142 mmol/L (136-145) Potassium Level 3.5 mmol/L (3.5-5.1) Chloride Level 100 mmol/L (98-107) Carbon Dioxide Level 36 mmol/L (21-32) Anion Gap 6 (6-14) Blood Urea Nitrogen 33 mg/dL (8-26) Creatinine 2.0 mg/dL (0.7-1.3) Estimated GFR (Cockcroft-Gault) 33.8 Glucose Level 139 mg/dL (70-99) Calcium Level 7.4 mg/dL (8.5-10.1) Phosphorus Level 3.7 mg/dL (2.6-4.7) Magnesium Level 1.5 mg/dL (1.8-2.4) Micro Micro Microbiology 09/19/19 Urine Culture - Final, Complete 09/19/19 Blood Culture - Preliminary, Resulted NO GROWTH AFTER 2 DAYS Review of Systems Constitutional: yes: other (CONFUSED) Physical Exam General Appearance: no apparent distress Skin: warm Respiratory: bilateral CTA Heart: S1S2 Abdomen: soft, bowel sounds present Genitourinary: bladder flat Extremities: no edema, atrophy Neurology: confused Assessment Assessment IMP [id number] STABLE AT 2.0 WITH IMPROVING UO HYPOKALEMIA-RESOLVED HYPERNATREMIA SEVERE AG MET ACIDOSIS - RESOLVED HYPOTENSION-BETTER HYPOVOLEMIA RELATED SHOCK ANEMIA THROMBOCYTOPENIA IRON DEFICIENCY PROB GI BLEED ENCEPHALOPATHY PROBABLE UREMIA HIGH PO4 DUE TO MISBAH ETOH ABUSE PLAN VOLUME EXPAND CONT PPN REPLACE K NEEDED LAST HD ON WED HOLD HD AGAIN TODAY LOOKS LIKE RENAL RECOVERY RENAL SONOGRAM-RIGHT RENAL ATROPHY GI EVAL AND TX STARTED ARANESP PRBC AND IRON NEEDED D/W ATTENDING WILL FOLLOW KRISTY BROWN MD Sep 22, 2019 10:47
[2019-09-22] MEDS: NICOTINE 21MG PATCH. TD SCH (11:06)
[2019-09-22] MEDS: MULTIVIT INFUSN,ADULT 4,VIT K 10 ML, THIAMINE INJ 100 MG, FOLIC ACID INJ 1 MG in IV NOR... IV SCH (11:06)
--- NOTE | 2019-09-22 11:52 | NUR ---
SS following up with discharge planning. SS reviewed pt chart and discussed with pt RN. Pt is currently on CIWA protocol and PPN. Pt currently requiring oxygen. SS will continue to follow for discharge planning.
--- NOTE | 2019-09-22 13:26 | PDOC ---
PROGRESS NOTES Chief Complaint Chief Complaint Hypovolemic shock secondary to GI bleeding most likely Acute Microcytic anemia most likely secondary to iron deficiency secondary to the above-mentioned GI bleed Acute renal failure Chronic pain syndrome on chronic narcotics Toxic encephalopathy secondary to the above Hyperkalemia 5.7 secondary to acute renal failure most likely Anion gap metabolic acidosis with a probably a superimposed non-metabolic acidosis given the degree of acidosis with a bicarb reported at 11 from the outside facility Hypomagnesemia Cirrhotic appearing liver THrombocytopenia Uremia Hyperphosphatemia Severe protein calorie malnutrition CC time 47 minutes History of Present Illness History of Present Illness Mr Knott is a 64 yo M w/ PMHx presents to the emergency department at [facility] in [place] reportedly with altered mental status. Patient apparently was found by his roommate on the ground of his apartment patient cannot give history given his current condition. It is unknown when he was last seen normal apparently patient was found to be hypotensive on the field at 80/40 fluid resuscitation was started on the field with Ringer's lactate patient was seen in the emergency department and found to be anemic with Hb 7.9 and having reports of GI bleeding according to the records with BUN 101. BNP 3353. Patient confused and the details of his stated history are not reliable according to the ER doctor patient is in acute renal failure and he has been recently admitted at [facility] from 08/16 through 08/25 for a GI bleed. CT abdomen pelvis with contrast - marked calcified and noncalcified atheromatous plaque burden throughout the aorta, iliofemoral system and aortic branch vessels. Severe stenosis at the right renal artery origin with resultant atrophy of the right kidney. 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 Given the presumed severe stenosis at the SMA origin, recommend correlation for symptoms that would suggest intestinal angina noting that the bowel in this distribution does not exhibit obvious features of ischemia. Also with cirrhotic morphology of the liver and borderline enlargement of the spleen. There is heterogeneous atte nuation of the liver at the hepatic dome but this region is poorly evaluated due to motion artifact and a definite mass is not able to be delineated. Admitted to ICU with levophed ordered. 09/19: Started on bicarb GTT, levophed. WBC 6.1, Hb 7.8, platelets 118. NA 147, K5.5, BUN 9 3, CR 7.8, glucose 126, INR 1.2, MG 1.6, phosphorus 6.5, TSH 0.473. He thinks he is at home today. Notes he drinks quite a bit. Son in [place] notes he was "doing well" after discharge from [facility] and so he returned back home. Trialysis catheter placed under nephrology guidance for emergent dialysis. 09/20: Hb 6.5, Na 146, K 2.8, BUN 27, Cr 2.2, glucose 155, AST 45, albumin 2.4 today. Still very confused. Some stool overnight. UOP 1770 last 24 hours. Afebrile. Hb 9.2 after transfusion. CR 2 0, mag 1.6 K3.5. Rolling around in bed still very confused. Plan: Replace mag, replace K, follow-up nephrology recs to hold off on dialysis for now based on renal recovery, appears to have right renal atrophy on ultrasound. Vitals Vitals Vital Signs Date Time Temp Pulse Resp B/P (MAP) Pulse Ox O2 Delivery O2 Flow Rate FiO2 09/22/19 11:00 88 26 126/84 (98) 99 Nasal Cannula 2.0 09/22/19 08:00 98.4 98.4 Physical Exam General: Cooperative, No acute distress Heart: Regular rate Lungs: Wheezing Abdomen: Normal bowel sounds, Soft, No tenderness Extremities: No cyanosis Skin: No breakdown Labs LABS Laboratory Tests Test 09/21/19 17:05 09/22/19 05:00 Glucose (Fingerstick) 140 mg/dL (70-99) White Blood Count 4.2 x10^3/uL (4.0-11.0) Red Blood Count 3.35 x10^6/uL (4.30-5.70) Hemoglobin 9.2 g/dL (13.0-17.5) Hematocrit 27.5 % (39.0-53.0) Mean Corpuscular Volume 82 fL (79-100) Mean Corpuscular Hemoglobin 28 pg (25-35) Mean Corpuscular Hemoglobin Concent 33 g/dL (31-37) Red Cell Distribution Width 21.7 % (11.5-14.5) Platelet Count 89 x10^3/uL (140-400) Neutrophils (%) (Auto) 75 % (31-73) Lymphocytes (%) (Auto) 17 % (24-48) Monocytes (%) (Auto) 8 % (0-9) Eosinophils (%) (Auto) 0 % (0-3) Basophils (%) (Auto) 0 % (0-3) Neutrophils # (Auto) 3.2 x10^3/uL (1.8-7.7) Lymphocytes # (Auto) 0.7 x10^3/uL (1.0-4.8) Monocytes # (Auto) 0.3 x10^3/uL (0.0-1.1) Eosinophils # (Auto) 0.0 x10^3/uL (0.0-0.7) Basophils # (Auto) 0.0 x10^3/uL (0.0-0.2) Sodium Level 142 mmol/L (136-145) Potassium Level 3.5 mmol/L (3.5-5.1) Chloride Level 100 mmol/L (98-107) Carbon Dioxide Level 36 mmol/L (21-32) Anion Gap 6 (6-14) Blood Urea Nitrogen 33 mg/dL (8-26) Creatinine 2.0 mg/dL (0.7-1.3) Estimated GFR (Cockcroft-Gault) 33.8 Glucose Level 139 mg/dL (70-99) Calcium Level 7.4 mg/dL (8.5-10.1) Phosphorus Level 3.7 mg/dL (2.6-4.7) Magnesium Level 1.5 mg/dL (1.8-2.4) Comment Review of Relevant I have reviewed the following items bj (where applicable) has been applied. Labs Laboratory Tests Test 09/20/19 17:00 09/21/19 06:20 09/21/19 09:19 09/21/19 11:49 Urine Collection Type Unknown Urine Color Yellow Urine Clarity Clear Urine pH 5.0 (<5.0-8.0) Urine Specific [place] 1.020 (1.000-1.030) Urine Protein Negative mg/dL (NEG-TRACE) Urine Glucose (UA) Negative mg/dL (NEG) Urine Ketones (Stick) Negative mg/dL (NEG) Urine Blood Moderate (NEG) Urine Nitrite Negative (NEG) Urine Bilirubin Negative (NEG) Urine Urobilinogen Dipstick 0.2 mg/dL (0.2 mg/dL) Urine Leukocyte Esterase Moderate (NEG) Urine RBC 11-20 /HPF (0-2) Urine WBC 5-10 /HPF (0-4) Urine Bacteria Mod /HPF (0-FEW) White Blood Count 3.0 x10^3/uL (4.0-11.0) Red Blood Count 2.49 x10^6/uL (4.30-5.70) Hemoglobin 6.5 g/dL (13.0-17.5) Hematocrit 19.8 % (39.0-53.0) Mean Corpuscular Volume 80 fL (79-100) Mean Corpuscular Hemoglobin 26 pg (25-35) Mean Corpuscular Hemoglobin Concent 33 g/dL (31-37) Red Cell Distribution Width 23.0 % (11.5-14.5) Platelet Count 85 x10^3/uL (140-400) Sodium Level 146 mmol/L (136-145) Potassium Level 2.8 mmol/L (3.5-5.1) Chloride Level 103 mmol/L (98-107) Carbon Dioxide Level 38 mmol/L (21-32) Anion Gap 5 (6-14) Blood Urea Nitrogen 27 mg/dL (8-26) Creatinine 2.2 mg/dL (0.7-1.3) Estimated GFR (Cockcroft-Gault) 30.3 BUN/Creatinine Ratio 12 (-20) Glucose Level 155 mg/dL (70-99) Hemoglobin A1c 5.4 % (4.8-5.6) Calcium Level 7.3 mg/dL (8.5-10.1) Total Bilirubin 0.2 mg/dL (0.2-1.0) Aspartate Amino Transf (AST/SGOT) 45 U/L (15-37) Alanine Aminotransferase (ALT/SGPT) 15 U/L (16-63) Alkaline Phosphatase 113 U/L (46-116) Total Protein 5.7 g/dL (6.4-8.2) Albumin 2.4 g/dL (3.4-5.0) Albumin/Globulin Ratio 0.7 (1.0-1.7) Glucose (Fingerstick) 143 mg/dL (70-99) 142 mg/dL (70-99) Test 09/21/19 17:05 09/22/19 05:00 Glucose (Fingerstick) 140 mg/dL (70-99) White Blood Count 4.2 x10^3/uL (4.0-11.0) Red Blood Count 3.35 x10^6/uL (4.30-5.70) Hemoglobin 9.2 g/dL (13.0-17.5) Hematocrit 27.5 % (39.0-53.0) Mean Corpuscular Volume 82 fL (79-100) Mean Corpuscular Hemoglobin 28 pg (25-35) Mean Corpuscular Hemoglobin Concent 33 g/dL (31-37) Red Cell Distribution Width 21.7 % (11.5-14.5) Platelet Count 89 x10^3/uL (140-400) Neutrophils (%) (Auto) 75 % (31-73) Lymphocytes (%) (Auto) 17 % (24-48) Monocytes (%) (Auto) 8 % (0-9) Eosinophils (%) (Auto) 0 % (0-3) Basophils (%) (Auto) 0 % (0-3) Neutrophils # (Auto) 3.2 x10^3/uL (1.8-7.7) Lymphocytes # (Auto) 0.7 x10^3/uL (1.0-4.8) Monocytes # (Auto) 0.3 x10^3/uL (0.0-1.1) Eosinophils # (Auto) 0.0 x10^3/uL (0.0-0.7) Basophils # (Auto) 0.0 x10^3/uL (0.0-0.2) Sodium Level 142 mmol/L (136-145) Potassium Level 3.5 mmol/L (3.5-5.1) Chloride Level 100 mmol/L (98-107) Carbon Dioxide Level 36 mmol/L (21-32) Anion Gap 6 (6-14) Blood Urea Nitrogen 33 mg/dL (8-26) Creatinine 2.0 mg/dL (0.7-1.3) Estimated GFR (Cockcroft-Gault) 33.8 Glucose Level 139 mg/dL (70-99) Calcium Level 7.4 mg/dL (8.5-10.1) Phosphorus Level 3.7 mg/dL (2.6-4.7) Magnesium Level 1.5 mg/dL (1.8-2.4) Laboratory Tests Test 09/21/19 17:05 09/22/19 05:00 Glucose (Fingerstick) 140 mg/dL (70-99) White Blood Count 4.2 x10^3/uL (4.0-11.0) Red Blood Count 3.35 x10^6/uL (4.30-5.70) Hemoglobin 9.2 g/dL (13.0-17.5) Hematocrit 27.5 % (39.0-53.0) Mean Corpuscular Volume 82 fL (79-100) Mean Corpuscular Hemoglobin 28 pg (25-35) Mean Corpuscular Hemoglobin Concent 33 g/dL (31-37) Red Cell Distribution Width 21.7 % (11.5-14.5) Platelet Count 89 x10^3/uL (140-400) Neutrophils (%) (Auto) 75 % (31-73) Lymphocytes (%) (Auto) 17 % (24-48) Monocytes (%) (Auto) 8 % (0-9) Eosinophils (%) (Auto) 0 % (0-3) Basophils (%) (Auto) 0 % (0-3) Neutrophils # (Auto) 3.2 x10^3/uL (1.8-7.7) Lymphocytes # (Auto) 0.7 x10^3/uL (1.0-4.8) Monocytes # (Auto) 0.3 x10^3/uL (0.0-1.1) Eosinophils # (Auto) 0.0 x10^3/uL (0.0-0.7) Basophils # (Auto) 0.0 x10^3/uL (0.0-0.2) Sodium Level 142 mmol/L (136-145) Potassium Level 3.5 mmol/L (3.5-5.1) Chloride Level 100 mmol/L (98-107) Carbon Dioxide Level 36 mmol/L (21-32) Anion Gap 6 (6-14) Blood Urea Nitrogen 33 mg/dL (8-26) Creatinine 2.0 mg/dL (0.7-1.3) Estimated GFR (Cockcroft-Gault) 33.8 Glucose Level 139 mg/dL (70-99) Calcium Level 7.4 mg/dL (8.5-10.1) Phosphorus Level 3.7 mg/dL (2.6-4.7) Magnesium Level 1.5 mg/dL (1.8-2.4) Microbiology 09/19/19 Urine Culture - Final, Complete 09/19/19 Blood Culture - Preliminary, Resulted NO GROWTH AFTER 2 DAYS Medications Current Medications Norepinephrine Bitartrate 8 mg/ Dextrose 258 ml @ 12.365 mls/ hr CONT PRN IV PER PROTOCOL Last administered on 09/19/19at 20:41; Start 09/19/19 at 20:30 Hydrocortisone Sodium Succinate (Solu-CORTEF) 100 mg Q8HRS IVP Last administered on 09/22/19at 05:30; Start 09/19/19 at 22:00 Acetaminophen (Tylenol) 650 mg PRN Q6HRS PRN PO Headaches, Temp > 101.5'; Start 09/19/19 at 21:15 Lorazepam (Ativan Inj) 0.5 mg PRN Q6HRS PRN IVP ANXIETY / AGITATION Last administered on 09/19/19at 22:19; Start 09/19/19 at 21:15 Ondansetron HCl (Zofran) 4 mg PRN Q6HRS PRN IVP NAUSEA/VOMITING; Start 09/19/19 at 21:15 Calcium Carbonate/ Glycine (Tums) 500 mg PRN Q3HRS PRN PO HEARTBURN / GAS; Start 09/19/19 at 21:15 Famotidine (Pepcid Vial) 20 mg BID IVP Last administered on 09/21/19at 21:08; Start 09/20/19 at 09:00; Stop 09/22/19 at 10:27; Status DC Sodium Chloride (Normal Saline Flush) 3 ml QSHIFT PRN IV AFTER MEDS AND BLOOD DRAWS; Start 09/19/19 at 21:15 Oxycodone/ Acetaminophen (Percocet 5/325) 1 tab PRN Q4HRS PRN PO PAIN; Start 09/19/19 at 21:15 Morphine Sulfate (Morphine Sulfate) 1 mg PRN Q1HR PRN IV PAIN Last administered on 09/21/19at 23:02; Start 09/19/19 at 21:15 Senna/Docusate Sodium (Senna Plus) 1 tab BID PO ; Start 09/20/19 at 09:00 Lactulose (Lactulose) 20 gm PRN Q12HR PRN PO CONSTIPATION; Start 09/19/19 at 21:15 Acetaminophen (Tylenol) 650 mg 1X PRN PRN PO PRE-TRANSFUSION; Start 09/19/19 at 21:15 Magnesium Sulfate/ Dextrose 100 ml @ 100 mls/hr 1X ONCE IV Last administered on 09/19/19at 22:23; Start 09/19/19 at 22:30; Stop 09/19/19 at 23:29; Status DC Sodium Bicarbonate 150 meq/Dextrose 1,150 ml @ 125 mls/hr Q9H12M IV Last administered on 09/21/19at 01:39; Start 09/20/19 at 06:45; Stop 09/21/19 at 10:17; Status DC Multivitamins 10 ml/Thiamine HCl 100 mg/Folic Acid 1 mg/Sodium Chloride 1,011.2 ml @ 100 mls/ hr DAILY IV Last administered on 09/22/19at 11:06; Start 09/20/19 at 10:00; Stop 09/24/19 at 19:07 Lorazepam (Ativan) 2 mg PRN Q1HR PRN PO For CIWA 8-14; Start 09/20/19 at 09:15; Stop 09/20/19 at 10:00; Status DC Lorazepam (Ativan Inj) 1 mg PRN Q1HR PRN IV For CIWA 8-14; Start 09/20/19 at 09:15 Haloperidol Lactate (Haldol Inj) 5 mg PRN Q4HRS PRN IVP Hallucinatns,Confusn,Delirium Last administered on 09/22/19at 11:06; Start 09/20/19 at 09:15 Clonidine HCl (Catapres) 0.1 mg PRN Q1HR PRN PO SBP > 180 or DBP > 100, MRX3; Start 09/20/19 at 09:15 Lorazepam (Ativan Inj) 2 mg PRN Q1HR PRN IV For CIWA 8-14 Last administered on 09/22/19at 08:00; Start 09/20/19 at 10:00 Lidocaine HCl (Buffered Lidocaine 1%) 3 ml STK-MED ONCE .ROUTE ; Start 09/20/19 at 11:32; Stop 09/20/19 at 11:32; Status DC Lidocaine HCl (Buffered Lidocaine 1%) 6 ml 1X ONCE INJ Last administered on 09/20/19at 12:20; Start 09/20/19 at 12:00; Stop 09/20/19 at 12:01; Status DC Nicotine (Nicoderm Cq 21mg) 1 patch DAILY TD Last administered on 09/22/19at 11:06; Start 09/20/19 at 13:30 Sodium Chloride 1,000 ml @ 1,000 mls/hr Q1H PRN IV hypotension; Start 09/20/19 at 14:09; Stop 09/20/19 at 20:08; Status DC Albumin Human 200 ml @ 200 mls/hr 1X PRN PRN IV Hypotension; Start 09/20/19 at 14:15; Stop 09/20/19 at 20:14; Status DC Sodium Chloride 1,000 ml @ 400 mls/hr Q2H30M PRN IV PATENCY; Start 09/20/19 at 14:09; Stop 09/21/19 at 02:08; Status DC Info (PHARMACY MONITORING -- do not chart) 1 each PRN DAILY PRN MC SEE COMMENTS; Start 09/20/19 at 14:15; Status UNV Info (PHARMACY MONITORING -- do not chart) 1 each PRN DAILY PRN MC SEE COMMENTS; Start 09/20/19 at 14:15 Potassium Chloride/Water 100 ml @ 100 mls/hr 1X ONCE IV Last administered on 09/21/19at 10:19; Start 09/21/19 at 08:00; Stop 09/21/19 at 08:59; Status DC Insulin Human Lispro (HumaLOG) 0-7 UNITS TIDWMEALS SQ ; Start 09/21/19 at 09:00 Dextrose (Dextrose 50%-Water Syringe) 12.5 gm PRN Q15MIN PRN IV SEE COMMENTS; Start 09/21/19 at 09:00 Amino Acids/ Glycerin/ Electrolytes 1,000 ml @ 80 mls/hr [id number] IV Last admi nistered on 09/21/19at 22:59; Start 09/21/19 at 10:45 Potassium Chloride/Water 100 ml @ 100 mls/hr 1X ONCE IV Last administered on 09/21/19at 13:02; Start 09/21/19 at 12:00; Stop 09/21/19 at 12:59; Status DC Lorazepam (Ativan Inj) 4 mg PRN Q1HR PRN IV For CIWA 15 or greater Last administered on 09/22/19at 11:05; Start 09/22/19 at 08:00 Famotidine (Pepcid Vial) 20 mg DAILY IVP ; Start 09/23/19 at 09:00 Vitals/I & O Vital Sign - Last 24 Hours 09/21/19 09/21/19 09/21/19 09/21/19 13:33 14:00 15:00 16:00 Temp 97.6 97.6 Pulse 81 80 80 Resp 18 18 18 16 B/P (MAP) 143/90 (107) 150/90 (110) 145/81 (102) Pulse Ox 99 99 97 97 O2 Delivery Nasal Cannula Nasal Cannula Nasal Cannula Nasal Cannula O2 Flow Rate 2.0 2.0 2.0 2.0 09/21/19 09/21/19 09/21/19 09/21/19 16:00 16:49 17:00 17:19 Pulse 77 Resp 18 18 18 B/P (MAP) 144/87 (106) Pulse Ox 98 99 99 O2 Delivery Nasal Cannula Nasal Cannula Nasal Cannula Nasal Cannula O2 Flow Rate 2.0 2.0 2.0 2.0 09/21/19 09/21/19 09/21/19 09/21/19 18:00 19:00 20:00 20:00 Temp 97.8 97.8 Pulse 84 86 82 Resp 18 28 24 B/P (MAP) 97/63 (74) 175/89 (117) 161/73 (102) Pulse Ox 98 99 98 O2 Delivery Nasal Cannula Nasal Cannula Nasal Cannula Nasal Cannula O2 Flow Rate 2.0 2.0 2.0 2.0 09/21/19 09/21/19 09/21/19 09/22/19 21:00 22:00 23:00 00:00 Temp 97.7 97.7 Pulse 79 75 68 70 Resp 21 18 21 17 B/P (MAP) 158/79 (105) 152/87 (108) 172/97 (122) 164/88 (113) Pulse Ox 99 97 99 100 O2 Delivery Nasal Cannula Nasal Cannula Nasal Cannula Nasal Cannula O2 Flow Rate 2.0 2.0 2.0 2.0 09/22/19 09/22/19 09/22/19 09/22/19 00:00 01:00 02:00 03:00 Pulse 92 73 65 Resp 22 33 32 B/P (MAP) 113/77 (89) 177/85 (115) 153/91 (111) Pulse Ox 99 98 100 O2 Delivery Nasal Cannula Nasal Cannula Nasal Cannula Nasal Cannula O2 Flow Rate 2.0 2.0 2.0 2.0 09/22/19 09/22/19 09/22/19 09/22/19 04:00 04:00 05:00 06:00 Temp 98.0 98.0 Pulse 57 61 75 Resp 28 35 25 B/P (MAP) 154/78 (103) 171/83 (112) 168/88 (114) Pulse Ox 99 98 99 O2 Delivery Nasal Cannula Nasal Cannula Nasal Cannula Nasal Cannula O2 Flow Rate 2.0 2.0 2.0 2.0 09/22/19 09/22/19 09/22/19 09/22/19 07:00 08:00 08:00 09:00 Temp 98.4 98.4 Pulse 75 75 75 Resp 25 25 25 B/P (MAP) 113/82 (92) 137/84 (101) 149/69 (95) Pulse Ox 99 99 99 O2 Delivery Nasal Cannula Nasal Cannula Nasal Cannula Nasal Cannula O2 Flow Rate 2.0 2.0 2.0 2.0 09/22/19 09/22/19 10:00 11:00 Pulse 85 88 Resp 24 26 B/P (MAP) 119/82 (94) 126/84 (98) Pulse Ox 99 99 O2 Delivery Nasal Cannula Nasal Cannula O2 Flow Rate 2.0 2.0 Intake and Output 09/21/19 09/21/19 09/22/19 15:00 23:00 07:00 Intake Total 1640 ml 2447 ml Output Total 490 ml 2160 ml 1245 ml Balance -490 ml -520 ml 1202 ml Nutrition Consultation Dietary Evaluation: Recommendations by RD: Dietary education by RD, Increase Calorie Intake, Protein supplementation, PPN/TPN Comments: Continue w/PPN for short-term non-oral nutrition needs while pt remains NPO per GI REC advance diet as able, goal diet ADA w/glucerna supplements Expected Outcomes/Goals: Nutritional intake to meet >75% est needs - not met, goal ongoing Malnutrition Findings: Food and Nutrition Intake (Mod: <75% est energy req 7days Weight Status: Appropriate JONATHAN DUQUE MD Sep 22, 2019 13:26
[2019-09-22] MEDS ORDERED: MAGNESIUM SULFATE 4GM 100 ML IV ONE (13:30)
[2019-09-22] MEDS ORDERED: POTASSIUM CHLORIDE 20MEQ 100 ML IV ONE (13:30)
--- NOTE | 2019-09-22 13:39 | PDOC ---
Objective: Objective: No GI concerns per nurse, no bleeding. Talked to son - "something cauterized" at [facility], no records received. Vital Signs: Vital Signs Date Time Temp Pulse Resp B/P (MAP) Pulse Ox O2 Delivery O2 Flow Rate FiO2 09/22/19 11:00 88 26 126/84 (98) 99 Nasal Cannula 2.0 09/22/19 08:00 98.4 98.4 Labs: Laboratory Tests Test 09/21/19 17:05 Glucose (Fingerstick) 140 mg/dL (70-99) PE: GEN: writhing around in bed w/ mittens LUNGS: NC 2L, a bit tachypneic HEART: RRR ABD: non-distended NEURO/PSYCH: confused A/P: MISBAH, encephalopathy H/o GI bleeding Anemia - iron studies c/w ACD Probable alcoholic cirrhosis -- Continue acid-client resource specialist. Justicifation of Admission Dx: Justifications for Admission: Justification of Admission Dx: Yes Acute Renal Failure: Serum Cr > 4mg/dL RAQUEL GAYTAN Sep 22, 2019 13:39
[2019-09-22] MEDS: AMINO AC 3%/ELECTROLYTE/GLYCER 1,000 ML IV SCH ×2 (17:19→23:56)
[2019-09-23] VITALS (15 sets, daily range): BP systolic 118–182; BP diastolic 72–99
[2019-09-23] MEDS: HALOPERIDOL LACTATE 5 MG/ML VIAL. IVP PRN (03:26)
[2019-09-23] MEDS: AMINO AC 3%/ELECTROLYTE/GLYCER 1,000 ML IV SCH (06:15)
[2019-09-23] MEDS: HYDROCORTISONE SOD SUCC/PF 100 MG/2 ML VIAL. IVP SCH ×3 (06:27→20:42)
[2019-09-23 06:54] LABS: CALCIUM 7.4 mg/dL (8.5-10.1); CREATININE 1.7 mg/dL (0.7-1.3); GFR 40.8; POTASSIUM 3.2 mmol/L (3.5-5.1)
[2019-09-23 07:57] LABS: MAGNESIUM 2.9 mg/dL (1.8-2.4); PHOSPHORUS 3.2 mg/dL (2.6-4.7)
--- NOTE | 2019-09-23 08:06 | PDOC ---
PROGRESS NOTES Chief Complaint Chief Complaint Hypovolemic shock secondary to GI bleeding most likely Acute Microcytic anemia most likely secondary to iron deficiency secondary to the above-mentioned GI bleed Acute renal failure Chronic pain syndrome on chronic narcotics Toxic encephalopathy secondary to the above Hyperkalemia 5.7 secondary to acute renal failure most likely Anion gap metabolic acidosis with a probably a superimposed non-metabolic acidosis given the degree of acidosis with a bicarb reported at 11 from the outside facility Hypomagnesemia Cirrhotic appearing liver THrombocytopenia Uremia Hyperphosphatemia Severe protein calorie malnutrition CC time 47 minutes History of Present Illness History of Present Illness Mr Knott is a 64 yo M w/ PMHx presents to the emergency department at [facility] in [place] reportedly with altered mental status. Patient apparently was found by his roommate on the ground of his apartment patient cannot give history given his current condition. It is unknown when he was last seen normal apparently patient was found to be hypotensive on the field at 80/40 fluid resuscitation was started on the field with Ringer's lactate patient was seen in the emergency department and found to be anemic with Hb 7.9 and having reports of GI bleeding according to the records with BUN 101. BNP 3353. Patient confused and the details of his stated history are not reliable according to the ER doctor patient is in acute renal failure and he has been recently admitted at [facility] from 08/16 through 08/25 for a GI bleed. CT abdomen pelvis with contrast - marked calcified and noncalcified atheromatous plaque burden throughout the aorta, iliofemoral system and aortic branch vessels. Severe stenosis at the right renal artery origin with resultant atrophy of the right kidney. 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 Given the presumed severe stenosis at the SMA origin, recommend correlation for symptoms that would suggest intestinal angina noting that the bowel in this distribution does not exhibit obvious features of ischemia. Also with cirrhotic morphology of the liver and borderline enlargement of the spleen. There is heterogeneous atte nuation of the liver at the hepatic dome but this region is poorly evaluated due to motion artifact and a definite mass is not able to be delineated. Admitted to ICU with levophed ordered. 09/19: Started on bicarb GTT, levophed. WBC 6.1, Hb 7.8, platelets 118. NA 147, K5.5, BUN 9 3, CR 7.8, glucose 126, INR 1.2, MG 1.6, phosphorus 6.5, TSH 0.473. He thinks he is at home today. Notes he drinks quite a bit. Son in [place] notes he was "doing well" after discharge from [facility] and so he returned back home. Trialysis catheter placed under nephrology guidance for emergent dialysis. 09/20: Hb 6.5, Na 146, K 2.8, BUN 27, Cr 2.2, glucose 155, AST 45, albumin 2.4 today. Still very confused. Some stool overnight. UOP 1770 last 24 hours. 09/21: Afebrile. Hb 9.2 after transfusion. CR 2 0, mag 1.6 K3.5. Rolling around in bed still very confused. Cr 1.7, K 3.2. Received Haldol, he has some lipsmacking. Ordered benztropine. He is still very confused only opens his eyes to painful stimuli. Afebrile Plan: Replace K, follow-up nephrology recs to hold off on dialysis for now based on renal recovery, appears to have right renal atrophy on ultrasound. Vitals Vitals Vital Signs Date Time Temp Pulse Resp B/P (MAP) Pulse Ox O2 Delivery O2 Flow Rate FiO2 09/23/19 06:00 75 18 176/72 (106) 99 Nasal Cannula 2.0 09/23/19 04:00 97.7 97.7 Physical Exam General: Cooperative, No acute distress Heart: Regular rate Lungs: Wheezing Abdomen: Normal bowel sounds, Soft, No tenderness Extremities: No cyanosis Skin: No breakdown Labs LABS Laboratory Tests Test 09/23/19 06:30 Sodium Level 139 mmol/L (136-145) Potassium Level 3.2 mmol/L (3.5-5.1) Chloride Level 100 mmol/L (98-107) Carbon Dioxide Level 35 mmol/L (21-32) Anion Gap 4 (6-14) Blood Urea Nitrogen 41 mg/dL (8-26) Creatinine 1.7 mg/dL (0.7-1.3) Estimated GFR (Cockcroft-Gault) 40.8 Glucose Level 137 mg/dL (70-99) Calcium Level 7.4 mg/dL (8.5-10.1) Phosphorus Level 3.2 mg/dL (2.6-4.7) Magnesium Level 2.9 mg/dL (1.8-2.4) Comment Review of Relevant I have reviewed the following items bj (where applicable) has been applied. Labs Laboratory Tests Test 09/21/19 09:19 09/21/19 11:49 09/21/19 17:05 09/22/19 05:00 Glucose (Fingerstick) 143 mg/dL (70-99) 142 mg/dL (70-99) 140 mg/dL (70-99) White Blood Count 4.2 x10^3/uL (4.0-11.0) Red Blood Count 3.35 x10^6/uL (4.30-5.70) Hemoglobin 9.2 g/dL (13.0-17.5) Hematocrit 27.5 % (39.0-53.0) Mean Corpuscular Volume 82 fL (79-100) Mean Corpuscular Hemoglobin 28 pg (25-35) Mean Corpuscular Hemoglobin Concent 33 g/dL (31-37) Red Cell Distribution Width 21.7 % (11.5-14.5) Platelet Count 89 x10^3/uL (140-400) Neutrophils (%) (Auto) 75 % (31-73) Lymphocytes (%) (Auto) 17 % (24-48) Monocytes (%) (Auto) 8 % (0-9) Eosinophils (%) (Auto) 0 % (0-3) Basophils (%) (Auto) 0 % (0-3) Neutrophils # (Auto) 3.2 x10^3/uL (1.8-7.7) Lymphocytes # (Auto) 0.7 x10^3/uL (1.0-4.8) Monocytes # (Auto) 0.3 x10^3/uL (0.0-1.1) Eosinophils # (Auto) 0.0 x10^3/uL (0.0-0.7) Basophils # (Auto) 0.0 x10^3/uL (0.0-0.2) Sodium Level 142 mmol/L (136-145) Potassium Level 3.5 mmol/L (3.5-5.1) Chloride Level 100 mmol/L (98-107) Carbon Dioxide Level 36 mmol/L (21-32) Anion Gap 6 (6-14) Blood Urea Nitrogen 33 mg/dL (8-26) Creatinine 2.0 mg/dL (0.7-1.3) Estimated GFR (Cockcroft-Gault) 33.8 Glucose Level 139 mg/dL (70-99) Calcium Level 7.4 mg/dL (8.5-10.1) Phosphorus Level 3.7 mg/dL (2.6-4.7) Magnesium Level 1.5 mg/dL (1.8-2.4) Test 09/23/19 06:30 Sodium Level 139 mmol/L (136-145) Potassium Level 3.2 mmol/L (3.5-5.1) Chloride Level 100 mmol/L (98-107) Carbon Dioxide Level 35 mmol/L (21-32) Anion Gap 4 (6-14) Blood Urea Nitrogen 41 mg/dL (8-26) Creatinine 1.7 mg/dL (0.7-1.3) Estimated GFR (Cockcroft-Gault) 40.8 Glucose Level 137 mg/dL (70-99) Calcium Level 7.4 mg/dL (8.5-10.1) Phosphorus Level 3.2 mg/dL (2.6-4.7) Magnesium Level 2.9 mg/dL (1.8-2.4) Laboratory Tests Test 09/23/19 06:30 Sodium Level 139 mmol/L (136-145) Potassium Level 3.2 mmol/L (3.5-5.1) Chloride Level 100 mmol/L (98-107) Carbon Dioxide Level 35 mmol/L (21-32) Anion Gap 4 (6-14) Blood Urea Nitrogen 41 mg/dL (8-26) Creatinine 1.7 mg/dL (0.7-1.3) Estimated GFR (Cockcroft-Gault) 40.8 Glucose Level 137 mg/dL (70-99) Calcium Level 7.4 mg/dL (8.5-10.1) Phosphorus Level 3.2 mg/dL (2.6-4.7) Magnesium Level 2.9 mg/dL (1.8-2.4) Microbiology 09/19/19 Urine Culture - Final, Complete 09/19/19 Blood Culture - Preliminary, Resulted NO GROWTH AFTER 3 DAYS Medications Current Medications Norepinephrine Bitartrate 8 mg/ Dextrose 258 ml @ 12.365 mls/ hr CONT PRN IV PER PROTOCOL Last administered on 09/19/19at 20:41; Start 09/19/19 at 20:30 Hydrocortisone Sodium Succinate (Solu-CORTEF) 100 mg Q8HRS IVP Last administered on 09/23/19at 06:27; Start 09/19/19 at 22:00 Acetaminophen (Tylenol) 650 mg PRN Q6HRS PRN PO Headaches, Temp > 101.5'; Start 09/19/19 at 21:15 Lorazepam (Ativan Inj) 0.5 mg PRN Q6HRS PRN IVP ANXIETY / AGITATION Last administered on 09/19/19at 22:19; Start 09/19/19 at 21:15 Ondansetron HCl (Zofran) 4 mg PRN Q6HRS PRN IVP NAUSEA/VOMITING; Start 09/19/19 at 21:15 Calcium Carbonate/ Glycine (Tums) 500 mg PRN Q3HRS PRN PO HEARTBURN / GAS; Start 09/19/19 at 21:15 Famotidine (Pepcid Vial) 20 mg BID IVP Last administered on 09/21/19at 21:08; Start 09/20/19 at 09:00; Stop 09/22/19 at 10:27; Status DC Sodium Chloride (Normal Saline Flush) 3 ml QSHIFT PRN IV AFTER MEDS AND BLOOD DRAWS; Start 09/19/19 at 21:15 Oxycodone/ Acetaminophen (Percocet 5/325) 1 tab PRN Q4HRS PRN PO PAIN; Start 09/19/19 at 21:15 Morphine Sulfate (Morphine Sulfate) 1 mg PRN Q1HR PRN IV PAIN Last administered on 09/21/19at 23:02; Start 09/19/19 at 21:15 Senna/Docusate Sodium (Senna Plus) 1 tab BID PO ; Start 09/20/19 at 09:00 Lactulose (Lactulose) 20 gm PRN Q12HR PRN PO CONSTIPATION; Start 09/19/19 at 21:15 Acetaminophen (Tylenol) 650 mg 1X PRN PRN PO PRE-TRANSFUSION; Start 09/19/19 at 21:15 Magnesium Sulfate/ Dextrose 100 ml @ 100 mls/hr 1X ONCE IV Last administered on 09/19/19at 22:23; Start 09/19/19 at 22:30; Stop 09/19/19 at 23:29; Status DC Sodium Bicarbonate 150 meq/Dextrose 1,150 ml @ 125 mls/hr Q9H12M IV Last administered on 09/21/19at 01:39; Start 09/20/19 at 06:45; Stop 09/21/19 at 10:17; Status DC Multivitamins 10 ml/Thiamine HCl 100 mg/Folic Acid 1 mg/Sodium Chloride 1,011.2 ml @ 100 mls/ hr DAILY IV Last administered on 09/22/19at 11:06; Start 09/20/19 at 10:00; Stop 09/24/19 at 19:07 Lorazepam (Ativan) 2 mg PRN Q1HR PRN PO For CIWA 8-14; Start 09/20/19 at 09:15; Stop 09/20/19 at 10:00; Status DC Lorazepam (Ativan Inj) 1 mg PRN Q1HR PRN IV For CIWA 8-14; Start 09/20/19 at 09:15 Haloperidol Lactate (Haldol Inj) 5 mg PRN Q4HRS PRN IVP Hallucinatns,Confusn,Delirium Last administered on 09/23/19at 03:26; Start 09/20/19 at 09:15 Clonidine HCl (Catapres) 0.1 mg PRN Q1HR PRN PO SBP > 180 or DBP > 100, MRX3; Start 09/20/19 at 09:15 Lorazepam (Ativan Inj) 2 mg PRN Q1HR PRN IV For CIWA 8-14 Last administered on 09/22/19at 17:19; Start 09/20/19 at 10:00 Lidocaine HCl (Buffered Lidocaine 1%) 3 ml STK-MED ONCE .ROUTE ; Start 09/20/19 at 11:32; Stop 09/20/19 at 11:32; Status DC Lidocaine HCl (Buffered Lidocaine 1%) 6 ml 1X ONCE INJ Last administered on 09/20/19at 12:20; Start 09/20/19 at 12:00; Stop 09/20/19 at 12:01; Status DC Nicotine (Nicoderm Cq 21mg) 1 patch DAILY TD Last administered on 09/22/19at 11:06; Start 09/20/19 at 13:30 Sodium Chloride 1,000 ml @ 1,000 mls/hr Q1H PRN IV hypotension; Start 09/20/19 at 14:09; Stop 09/20/19 at 20:08; Status DC Albumin Human 200 ml @ 200 mls/hr 1X PRN PRN IV Hypotension; Start 09/20/19 at 14:15; Stop 09/20/19 at 20:14; Status DC Sodium Chloride 1,000 ml @ 400 mls/hr Q2H30M PRN IV PATENCY; Start 09/20/19 at 14:09; Stop 09/21/19 at 02:08; Status DC Info (PHARMACY MONITORING -- do not chart) 1 each PRN DAILY PRN MC SEE COMMENTS; Start 09/20/19 at 14:15; Status UNV Info (PHARMACY MONITORING -- do not chart) 1 each PRN DAILY PRN MC SEE COMMENTS; Start 09/20/19 at 14:15 Potassium Chloride/Water 100 ml @ 100 mls/hr 1X ONCE IV Last administered on 09/21/19at 10:19; Start 09/21/19 at 08:00; Stop 09/21/19 at 08:59; Status DC Insulin Human Lispro (HumaLOG) 0-7 UNITS TIDWMEALS SQ ; Start 09/21/19 at 09:00 Dextrose (Dextrose 50%-Water Syringe) 12.5 gm PRN Q15MIN PRN IV SEE COMMENTS; Start 09/21/19 at 09:00 Amino Acids/ Glycerin/ Electrolytes 1,000 ml @ 80 mls/hr [id number] IV Last administered on 09/23/19at 06:15; Start 09/21/19 at 10:45 Potassium Chloride/Water 100 ml @ 100 mls/hr 1X ONCE IV Last administered on 09/21/19at 13:02; Start 09/21/19 at 12:00; Stop 09/21/19 at 12:59; Status DC Lorazepam (Ativan Inj) 4 mg PRN Q1HR PRN IV For CIWA 15 or greater Last administered on 09/23/19at 04:15; Start 09/22/19 at 08:00 Famotidine (Pepcid Vial) 20 mg DAILY IVP ; Start 09/23/19 at 09:00 Magnesium Sulfate 100 ml @ 25 mls/hr 1X ONCE IV Last administered on 09/22/19at 13:57; Start 09/22/19 at 13:30; Stop 09/22/19 at 17:29; Status DC Potassium Chloride/Water 100 ml @ 100 mls/hr 1X ONCE IV Last administered on 09/22/19at 13:57; Start 09/22/19 at 13:30; Stop 09/22/19 at 14:29; Status DC Potassium Chloride/Water 100 ml @ 100 mls/hr Q1H IV ; Start 09/23/19 at 08:15; Stop 09/23/19 at 10:14; Status UNV Vitals/I & O Vital Sign - Last 24 Hours 09/22/19 09/22/19 09/22/19 09/22/19 09:00 10:00 11:00 12:00 Pulse 75 85 88 Resp B/P (MAP) 149/69 (95) 119/82 (94) 126/84 (98) Pulse Ox 99 99 99 O2 Delivery Nasal Cannula Nasal Cannula Nasal Cannula Nasal Cannula O2 Flow Rate 2.0 2.0 2.0 2.0 09/22/19 09/22/19 09/22/19 09/22/19 12:00 13:00 14:00 15:00 Temp 98.6 98.6 Pulse 90 82 82 80 Resp B/P (MAP) 162/99 (120) 136/90 (105) 151/95 (113) 169/91 (117) Pulse Ox 99 99 99 99 O2 Delivery Nasal Cannula Nasal Cannula Nasal Cannula Nasal Cannula O2 Flow Rate 2.0 2.0 2.0 2.0 09/22/19 09/22/19 09/22/19 09/22/19 16:00 16:00 17:00 18:00 Temp 98.0 98.0 Pulse 85 85 83 Resp B/P (MAP) 172/86 (114) 172/96 (121) 152/88 (109) Pulse Ox 99 99 99 O2 Delivery Nasal Cannula Nasal Cannula Nasal Cannula Nasal Cannula O2 Flow Rate 2.0 2.0 2.0 2.0 09/22/19 09/22/19 09/22/19 09/22/19 19:21 20:00 20:00 21:00 Temp 98.2 98.2 Pulse 84 79 89 Resp B/P (MAP) 163/95 (117) 177/95 (122) 164/90 (114) Pulse Ox 98 99 96 O2 Delivery Nasal Cannula Nasal Cannula Nasal Cannula Nasal Cannula O2 Flow Rate 2.0 2.0 2.0 2.0 09/22/19 09/22/19 09/23/19 09/23/19 22:00 23:00 00:00 00:00 Temp 97.5 97.5 Pulse 82 86 80 Resp 18 22 30 B/P (MAP) 137/94 (108) 143/84 (103) 165/80 (108) Pulse Ox 99 99 98 O2 Delivery Nasal Cannula Nasal Cannula Nasal Cannula Nasal Cannula O2 Flow Rate 2.0 2.0 2.0 2.0 09/23/19 09/23/19 09/23/19 09/23/19 01:00 02:00 03:25 04:00 Temp 97.7 97.7 Pulse 82 74 83 80 Resp 22 22 28 33 B/P (MAP) 146/90 (108) 118/85 (96) 151/91 (111) 154/98 (116) Pulse Ox 98 97 97 97 O2 Delivery Nasal Cannula Nasal Cannula Nasal Cannula Nasal Cannula O2 Flow Rate 2.0 2.0 2.0 2.0 09/23/19 09/23/19 09/23/19 04:00 05:00 06:00 Pulse 74 75 Resp 28 18 B/P (MAP) 156/99 (118) 176/72 (106) Pulse Ox 99 99 O2 Delivery Nasal Cannula Nasal Cannula Nasal Cannula O2 Flow Rate 2.0 2.0 2.0 Intake and Output 09/22/19 09/22/19 09/23/19 14:59 22:59 06:59 Intake Total 1600 ml 1575 ml Output Total 675 ml 900 ml 975 ml Balance -675 ml 700 ml 600 ml Nutrition Consultation Dietary Evaluation: Recommendations by RD: Dietary education by RD, Increase Calorie Intake, Protein supplementation, PPN/TPN Comments: Continue w/PPN for short-term non-oral nutrition needs while pt remains NPO per GI REC advance diet as able, goal diet ADA w/glucerna supplements Expected Outcomes/Goals: Nutritional intake to meet >75% est needs - not met, goal ongoing Malnutrition Findings: Food and Nutrition Intake (Mod: <75% est energy req 7days Weight Status: Appropriate JONATHAN DUQUE MD Sep 23, 2019 08:06
[2019-09-23] MEDS: INSULIN LISPRO 300 UNITS/3 ML VIAL. SQ SCH ×3 (08:12→17:00)
[2019-09-23] MEDS: NICOTINE 21MG PATCH. TD SCH (08:22)
[2019-09-23] MEDS: FAMOTIDINE 20 MG/2 ML VIAL IVP SCH (08:22)
[2019-09-23] MEDS: SENNOSIDES/DOCUSATE 8.6/50MG TABLET. PO SCH ×2 (08:23→20:42)
[2019-09-23] MEDS: POTASSIUM CHLORIDE 20MEQ 100 ML IV SCH ×2 (08:34→09:28)
[2019-09-23] MEDS ORDERED: BENZTROPINE MESYLATE 2 MG/2 ML VIAL. IM PRN (09:15)
[2019-09-23] MEDS: MULTIVIT INFUSN,ADULT 4,VIT K 10 ML, THIAMINE INJ 100 MG, FOLIC ACID INJ 1 MG in IV NOR... IV SCH (09:27)
--- NOTE | 2019-09-23 10:38 | NUR ---
Patient transfer to room 252 from ICU room 106. Telephone report given to Evan Medina. Plan of care and med rec reviewed. Patient doesn't have any personal belongings.
--- NOTE | 2019-09-23 12:26 | PDOC ---
PROGRESS NOTES Subjective Subjective IN FOLLOW UP OF ARF Objective Objective Vital Signs Date Time Temp Pulse Resp B/P (MAP) Pulse Ox O2 Delivery O2 Flow Rate FiO2 09/23/19 11:00 98.0 79 18 169/79 (109) 97 Room Air 98.0 09/23/19 08:00 2.0 Intake and Output 09/23/19 07:00 Intake Total 3175 ml Output Total 2555 ml Balance 620 ml IV Total 3175 ml Output Urine Total 2555 ml Physical Exam Abdomen: Normal bowel sounds, Soft, No tenderness, No hepatosplenomegaly, No masses Heart: Regular rate, Normal S1, Normal S2, No murmurs, Gallops General: Other (CONFUSED) Lungs: Clear to auscultation, Normal air movement Neuro: Other (CONFUSED) Diagnosis RENAL FAILURE: Acute (Acute tubular necrosis) Plan Plan of Care RENAL FUNCTION IS IMPROVING. CONT IVF PER LAB. Comment Review of Relevant I have reviewed the following items bj (where applicable) has been applied. Labs Laboratory Tests Test 09/21/19 17:05 09/22/19 05:00 09/23/19 06:30 09/23/19 11:54 Glucose (Fingerstick) 140 mg/dL (70-99) 117 mg/dL (70-99) White Blood Count 4.2 x10^3/uL (4.0-11.0) Red Blood Count 3.35 x10^6/uL (4.30-5.70) Hemoglobin 9.2 g/dL (13.0-17.5) Hematocrit 27.5 % (39.0-53.0) Mean Corpuscular Volume 82 fL (79-100) Mean Corpuscular Hemoglobin 28 pg (25-35) Mean Corpuscular Hemoglobin Concent 33 g/dL (31-37) Red Cell Distribution Width 21.7 % (11.5-14.5) Platelet Count 89 x10^3/uL (140-400) Neutrophils (%) (Auto) 75 % (31-73) Lymphocytes (%) (Auto) 17 % (24-48) Monocytes (%) (Auto) 8 % (0-9) Eosinophils (%) (Auto) 0 % (0-3) Basophils (%) (Auto) 0 % (0-3) Neutrophils # (Auto) 3.2 x10^3/uL (1.8-7.7) Lymphocytes # (Auto) 0.7 x10^3/uL (1.0-4.8) Monocytes # (Auto) 0.3 x10^3/uL (0.0-1.1) Eosinophils # (Auto) 0.0 x10^3/uL (0.0-0.7) Basophils # (Auto) 0.0 x10^3/uL (0.0-0.2) Sodium Level 142 mmol/L (136-145) 139 mmol/L (136-145) Potassium Level 3.5 mmol/L (3.5-5.1) 3.2 mmol/L (3.5-5.1) Chloride Level 100 mmol/L (98-107) 100 mmol/L (98-107) Carbon Dioxide Level 36 mmol/L (21-32) 35 mmol/L (21-32) Anion Gap 6 (6-14) 4 (6-14) Blood Urea Nitrogen 33 mg/dL (8-26) 41 mg/dL (8-26) Creatinine 2.0 mg/dL (0.7-1.3) 1.7 mg/dL (0.7-1.3) Estimated GFR (Cockcroft-Gault) 33.8 40.8 Glucose Level 139 mg/dL (70-99) 137 mg/dL (70-99) Calcium Level 7.4 mg/dL (8.5-10.1) 7.4 mg/dL (8.5-10.1) Phosphorus Level 3.7 mg/dL (2.6-4.7) 3.2 mg/dL (2.6-4.7) Magnesium Level 1.5 mg/dL (1.8-2.4) 2.9 mg/dL (1.8-2.4) Laboratory Tests Test 09/23/19 06:30 09/23/19 11:54 Sodium Level 139 mmol/L (136-145) Potassium Level 3.2 mmol/L (3.5-5.1) Chloride Level 100 mmol/L (98-107) Carbon Dioxide Level 35 mmol/L (21-32) Anion Gap 4 (6-14) Blood Urea Nitrogen 41 mg/dL (8-26) Creatinine 1.7 mg/dL (0.7-1.3) Estimated GFR (Cockcroft-Gault) 40.8 Glucose Level 137 mg/dL (70-99) Calcium Level 7.4 mg/dL (8.5-10.1) Phosphorus Level 3.2 mg/dL (2.6-4.7) Magnesium Level 2.9 mg/dL (1.8-2.4) Glucose (Fingerstick) 117 mg/dL (70-99) Microbiology 09/19/19 Urine Culture - Final, Complete 09/19/19 Blood Culture - Preliminary, Resulted NO GROWTH AFTER 3 DAYS Medications Current Medications Norepinephrine Bitartrate 8 mg/ Dextrose 258 ml @ 12.365 mls/ hr CONT PRN IV PER PROTOCOL Last administered on 09/19/19at 20:41; Start 09/19/19 at 20:30 Hydrocortisone Sodium Succinate (Solu-CORTEF) 100 mg Q8HRS IVP Last administered on 09/23/19at 06:27; Start 09/19/19 at 22:00 Acetaminophen (Tylenol) 650 mg PRN Q6HRS PRN PO Headaches, Temp > 101.5'; Start 09/19/19 at 21:15 Lorazepam (Ativan Inj) 0.5 mg PRN Q6HRS PRN IVP ANXIETY / AGITATION Last administered on 09/19/19at 22:19; Start 09/19/19 at 21:15 Ondansetron HCl (Zofran) 4 mg PRN Q6HRS PRN IVP NAUSEA/VOMITING; Start 09/19/19 at 21:15 Calcium Carbonate/ Glycine (Tums) 500 mg PRN Q3HRS PRN PO HEARTBURN / GAS; Start 09/19/19 at 21:15 Famotidine (Pepcid Vial) 20 mg BID IVP Last administered on 09/21/19at 21:08; Start 09/20/19 at 09:00; Stop 09/22/19 at 10:27; Status DC Sodium Chloride (Normal Saline Flush) 3 ml QSHIFT PRN IV AFTER MEDS AND BLOOD DRAWS; Start 09/19/19 at 21:15 Oxycodone/ Acetaminophen (Percocet 5/325) 1 tab PRN Q4HRS PRN PO PAIN; Start 09/19/19 at 21:15 Morphine Sulfate (Morphine Sulfate) 1 mg PRN Q1HR PRN IV PAIN Last administered on 09/21/19at 23:02; Start 09/19/19 at 21:15 Senna/Docusate Sodium (Senna Plus) 1 tab BID PO ; Start 09/20/19 at 09:00 Lactulose (Lactulose) 20 gm PRN Q12HR PRN PO CONSTIPATION; Start 09/19/19 at 21:15 Acetaminophen (Tylenol) 650 mg 1X PRN PRN PO PRE-TRANSFUSION; Start 09/19/19 at 21:15 Magnesium Sulfate/ Dextrose 100 ml @ 100 mls/hr 1X ONCE IV Last administered on 09/19/19at 22:23; Start 09/19/19 at 22:30; Stop 09/19/19 at 23:29; Status DC Sodium Bicarbonate 150 meq/Dextrose 1,150 ml @ 125 mls/hr Q9H12M IV Last administered on 09/21/19at 01:39; Start 09/20/19 at 06:45; Stop 09/21/19 at 10:17; Status DC Multivitamins 10 ml/Thiamine HCl 100 mg/Folic Acid 1 mg/Sodium Chloride 1,011.2 ml @ 100 mls/ hr DAILY IV Last administered on 09/23/19at 09:27; Start 09/20/19 at 10:00; Stop 09/24/19 at 19:07 Lorazepam (Ativan) 2 mg PRN Q1HR PRN PO For CIWA 8-14; Start 09/20/19 at 09:15; Stop 09/20/19 at 10:00; Status DC Lorazepam (Ativan Inj) 1 mg PRN Q1HR PRN IV For CIWA 8-14; Start 09/20/19 at 09:15 Haloperidol Lactate (Haldol Inj) 5 mg PRN Q4HRS PRN IVP Hallucinatns,Confusn,Delirium Last administered on 09/23/19at 03:26; Start 09/20/19 at 09:15 Clonidine HCl (Catapres) 0.1 mg PRN Q1HR PRN PO SBP > 180 or DBP > 100, MRX3; Start 09/20/19 at 09:15 Lorazepam (Ativan Inj) 2 mg PRN Q1HR PRN IV For CIWA 8-14 Last administered on 09/22/19at 17:19; Start 09/20/19 at 10:00 Lidocaine HCl (Buffered Lidocaine 1%) 3 ml STK-MED ONCE .ROUTE ; Start 09/20/19 at 11:32; Stop 09/20/19 at 11:32; Status DC Lidocaine HCl (Buffered Lidocaine 1%) 6 ml 1X ONCE INJ Last administered on 09/20/19at 12:20; Start 09/20/19 at 12:00; Stop 09/20/19 at 12:01; Status DC Nicotine (Nicoderm Cq 21mg) 1 patch DAILY TD Last administered on 09/23/19at 08:22; Start 09/20/19 at 13:30 Sodium Chloride 1,000 ml @ 1,000 mls/hr Q1H PRN IV hypotension; Start 09/20/19 at 14:09; Stop 09/20/19 at 20:08; Status DC Albumin Human 200 ml @ 200 mls/hr 1X PRN PRN IV Hypotension; Start 09/20/19 at 14:15; Stop 09/20/19 at 20:14; Status DC Sodium Chloride 1,000 ml @ 400 mls/hr Q2H30M PRN IV PATENCY; Start 09/20/19 at 14:09; Stop 09/21/19 at 02:08; Status DC Info (PHARMACY MONITORING -- do not chart) 1 each PRN DAILY PRN MC SEE COMMENTS; Start 09/20/19 at 14:15; Status UNV Info (PHARMACY MONITORING -- do not chart) 1 each PRN DAILY PRN MC SEE COMMENTS; Start 09/20/19 at 14:15 Potassium Chloride/Water 100 ml @ 100 mls/hr 1X ONCE IV Last administered on 09/21/19at 10:19; Start 09/21/19 at 08:00; Stop 09/21/19 at 08:59; Status DC Insulin Human Lispro (HumaLOG) 0-7 UNITS TIDWMEALS SQ ; Start 09/21/19 at 09:00 Dextrose (Dextrose 50%-Water Syringe) 12.5 gm PRN Q15MIN PRN IV SEE COMMENTS; Start 09/21/19 at 09:00 Amino Acids/ Glycerin/ Electrolytes 1,000 ml @ 80 mls/hr [id number] IV Last administered on 09/23/19at 06:15; Start 09/21/19 at 10:45 Potassium Chloride/Water 100 ml @ 100 mls/hr 1X ONCE IV Last administered on 09/21/19at 13:02; Start 09/21/19 at 12:00; Stop 09/21/19 at 12:59; Status DC Lorazepam (Ativan Inj) 4 mg PRN Q1HR PRN IV For CIWA 15 or greater Last administered on 09/23/19at 04:15; Start 09/22/19 at 08:00 Famotidine (Pepcid Vial) 20 mg DAILY IVP Last administered on 09/23/19at 08:22; Start 09/23/19 at 09:00 Magnesium Sulfate 100 ml @ 25 mls/hr 1X ONCE IV Last administered on 09/22/19at 13:57; Start 09/22/19 at 13:30; Stop 09/22/19 at 17:29; Status DC Potassium Chloride/Water 100 ml @ 100 mls/hr 1X ONCE IV Last administered on 09/22/19at 13:57; Start 09/22/19 at 13:30; Stop 09/22/19 at 14:29; Status DC Potassium Chloride/Water 100 ml @ 100 mls/hr Q1H IV Last administered on 09/23/19at 09:28; Start 09/23/19 at 09:00; Stop 09/23/19 at 10:59; Status DC Benztropine Mesylate (Cogentin) 2 mg PRN BID PRN IM EXTRAPYRAMIDAL SIDE EFFECTS Last administered on 09/23/19at 09:27; Start 09/23/19 at 09:15 Vitals/I & O Vital Sign - Last 24 Hours 09/22/19 09/22/19 09/22/19 09/22/19 13:00 14:00 15:00 16:00 Pulse 82 82 80 Resp 24 22 24 B/P (MAP) 136/90 (105) 151/95 (113) 169/91 (117) Pulse Ox 99 99 99 O2 Delivery Nasal Cannula Nasal Cannula Nasal Cannula Nasal Cannula O2 Flow Rate 2.0 2.0 2.0 2.0 09/22/19 09/22/19 09/22/19 09/22/19 16:00 17:00 18:00 19:21 Temp 98.0 98.2 98.0 98.2 Pulse 85 85 83 84 Resp 24 24 22 30 B/P (MAP) 172/86 (114) 172/96 (121) 152/88 (109) 163/95 (117) Pulse Ox 99 99 99 98 O2 Delivery Nasal Cannula Nasal Cannula Nasal Cannula Nasal Cannula O2 Flow Rate 2.0 2.0 2.0 2.0 09/22/19 09/22/19 09/22/19 09/22/19 20:00 20:00 21:00 22:00 Pulse 79 89 82 Resp 22 22 18 B/P (MAP) 177/95 (122) 164/90 (114) 137/94 (108) Pulse Ox 99 96 99 O2 Delivery Nasal Cannula Nasal Cannula Nasal Cannula Nasal Cannula O2 Flow Rate 2.0 2.0 2.0 2.0 09/22/19 09/23/19 09/23/19 09/23/19 23:00 00:00 00:00 01:00 Temp 97.5 97.5 Pulse 86 80 82 Resp 22 B/P (MAP) 143/84 (103) 165/80 (108) 146/90 (108) Pulse Ox 99 98 98 O2 Delivery Nasal Cannula Nasal Cannula Nasal Cannula Nasal Cannula O2 Flow Rate 2.0 2.0 2.0 2.0 09/23/19 09/23/19 09/23/19 09/23/19 02:00 03:25 04:00 04:00 Temp 97.7 97.7 Pulse 74 83 80 Resp 22 28 33 B/P (MAP) 118/85 (96) 151/91 (111) 154/98 (116) Pulse Ox 97 97 97 O2 Delivery Nasal Cannula Nasal Cannula Nasal Cannula Nasal Cannula O2 Flow Rate 2.0 2.0 2.0 2.0 09/23/19 09/23/19 09/23/19 09/23/19 05:00 06:00 07:00 08:00 Pulse 74 75 78 Resp 28 18 18 B/P (MAP) 156/99 (118) 176/72 (106) 163/88 (113) Pulse Ox 99 99 99 O2 Delivery Nasal Cannula Nasal Cannula Nasal Cannula Room Air O2 Flow Rate 2.0 2.0 2.0 09/23/19 09/23/19 09/23/19 09/23/19 08:00 09:00 09:56 11:00 Temp 97.8 98.0 97.8 98.0 Pulse 78 70 80 79 Resp 16 16 16 18 B/P (MAP) 175/78 (110) 145/87 (106) 123/73 (90) 169/79 (109) Pulse Ox 98 97 98 97 O2 Delivery Nasal Cannula Room Air Room Air Room Air O2 Flow Rate 2.0 l Intake and Output 09/22/19 09/22/19 09/23/19 15:00 23:00 07:00 Intake Total 1600 ml 1575 ml Output Total 700 ml 900 ml 955 ml Balance -700 ml 700 ml 620 ml Nutrition Consultation Dietary Evaluation: Recommendations by RD: Dietary education by RD, Increase Calorie Intake, Protein supplementation, PPN/TPN Comments: Continue w/PPN for short-term non-oral nutrition needs while pt remains NPO per GI REC advance diet as able, goal diet ADA w/glucerna supplements Expected Outcomes/Goals: Nutritional intake to meet >75% est needs - not met, goal ongoing Malnutrition Findings: Food and Nutrition Intake (Mod: <75% est energy req 7days Weight Status: Appropriate VIVIANE IVEY MD Sep 23, 2019 12:26
[2019-09-24] MEDS: HALOPERIDOL LACTATE 5 MG/ML VIAL. IVP PRN ×2 (02:42→19:13)
[2019-09-24 05:47] LABS: ALBUMIN 2.7 g/dL (3.4-5.0); ALBUMIN/GLOBULIN RATIO 0.8 (1.0-1.7); CALCIUM 8.1 mg/dL (8.5-10.1); CREATININE 1.7 mg/dL (0.7-1.3); GFR 40.8; POTASSIUM 3.3 mmol/L (3.5-5.1); TOTAL BILIRUBIN 0.5 mg/dL (0.2-1.0); TOTAL PROTEIN 5.9 g/dL (6.4-8.2)
[2019-09-24] MEDS: HYDROCORTISONE SOD SUCC/PF 100 MG/2 ML VIAL. IVP SCH ×3 (05:47→22:00)
[2019-09-24] MEDS: AMINO AC 3%/ELECTROLYTE/GLYCER 1,000 ML IV SCH ×2 (05:49→13:45)
[2019-09-24 07:00] VITALS: BP 149/74
[2019-09-24] MEDS: INSULIN LISPRO 300 UNITS/3 ML VIAL. SQ SCH ×3 (08:00→17:00)
[2019-09-24] MEDS: FAMOTIDINE 20 MG/2 ML VIAL IVP SCH (08:53)
[2019-09-24] MEDS: SENNOSIDES/DOCUSATE 8.6/50MG TABLET. PO SCH ×2 (08:53→21:00)
[2019-09-24] MEDS: NICOTINE 21MG PATCH. TD SCH (08:54)
[2019-09-24] MEDS: MULTIVIT INFUSN,ADULT 4,VIT K 10 ML, THIAMINE INJ 100 MG, FOLIC ACID INJ 1 MG in IV NOR... IV SCH (08:59)
[2019-09-24 11:05] VITALS: BP 198/80
--- NOTE | 2019-09-24 12:13 | PDOC ---
PROGRESS NOTES Chief Complaint Chief Complaint Hypovolemic shock secondary to GI bleeding most likely Acute Microcytic anemia most likely secondary to iron deficiency secondary to the above-mentioned GI bleed Acute renal failure Chronic pain syndrome on chronic narcotics Toxic encephalopathy secondary to the above Hyperkalemia 5.7 secondary to acute renal failure most likely Anion gap metabolic acidosis with a probably a superimposed non-metabolic acidosis given the degree of acidosis with a bicarb reported at 11 from the outside facility Hypomagnesemia Cirrhotic appearing liver THrombocytopenia Uremia Hyperphosphatemia Severe protein calorie malnutrition History of Present Illness History of Present Illness Mr Knott is a 64 yo M w/ PMHx presents to the emergency department at [facility] in [place] reportedly with altered mental status. Patient apparently was found by his roommate on the ground of his apartment patient c annot give history given his current condition. It is unknown when he was last seen normal apparently patient was found to be hypotensive on the field at 80/40 fluid resuscitation was started on the field with Ringer's lactate patient was seen in the emergency department and found to be anemic with Hb 7.9 and having reports of GI bleeding according to the records with BUN 101. BNP 3353. Patient confused and the details of his stated history are not reliable according to the ER doctor patient is in acute renal failure and he has been recently admitted at [facility] from 08/16 through 08/25 for a GI bleed. CT abdomen pelvis with contrast - marked calcified and noncalcified atheromatous plaque burden throughout the aorta, iliofemoral system and aortic branch vessels. Severe stenosis at the right renal artery origin with resultant atrophy of the right kidney. 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 Given the presumed severe stenosis at the SMA origin, recommend correlation for symptoms that would suggest intestinal angina noting that the bowel in this distribution does not exhibit obvious features of ischemia. Also with cirrhotic morphology of the liver and borderline enlargement of the spleen. There is heterogeneous attenuation of the liver at the hepatic dome but this region is poorly evaluated due to motion artifact and a definite mass is not able to be delineated. Admitted to ICU with levophed ordered. 09/19: Started on bicarb GTT, levophed. WBC 6.1, Hb 7.8, platelets 118. NA 147, K5.5, BUN 9 3, CR 7.8, glucose 126, INR 1.2, MG 1.6, phosphorus 6.5, TSH 0.473. He thinks he is at home today. Notes he drinks quite a bit. Son in [place] notes he was "doing well" after discharge from [facility] and so he returned back home. Trialysis catheter placed under nephrology guidance for emergent dialysis. 09/20: Hb 6.5, Na 146, K 2.8, BUN 27, Cr 2.2, glucose 155, AST 45, albumin 2.4 today. Still very confused. Some stool overnight. UOP 1770 last 24 hours. 09/21: Afebrile. Hb 9.2 after transfusion. CR 2 0, mag 1.6 K3.5. Rolling around in bed still very confused. Cr 1.7, K 3.2. Received Haldol, he has some lipsmacking. Ordered benztropine. He is still very confused only opens his eyes to painful stimuli. Afebrile 09/23 banana bag PPN supportive care mental status still poor Vitals Vitals Vital Signs Date Time Temp Pulse Resp B/P (MAP) Pulse Ox O2 Delivery O2 Flow Rate FiO2 09/24/19 11:05 97.8 94 18 198/80 (119) 98 Room Air 97.8 09/24/19 08:00 2.0 Physical Exam General: Other (CONFUSED) Heart: Regular rate, Normal S1, Normal S2, No murmurs, Gallops Lungs: Wheezing Abdomen: Normal bowel sounds, Soft, No tenderness, No hepatosplenomegaly, No masses Extremities: No cyanosis Skin: No breakdown Labs LABS Laboratory Tests Test 09/23/19 17:06 09/23/19 20:54 09/24/19 05:00 09/24/19 07:43 Glucose (Fingerstick) 109 mg/dL (70-99) 109 mg/dL (70-99) 116 mg/dL (70-99) Sodium Level 143 mmol/L (136-145) Potassium Level 3.3 mmol/L (3.5-5.1) Chloride Level 104 mmol/L (98-107) Carbon Dioxide Level 29 mmol/L (21-32) Anion Gap 10 (6-14) Blood Urea Nitrogen 36 mg/dL (8-26) Creatinine 1.7 mg/dL (0.7-1.3) Estimated GFR (Cockcroft-Gault) 40.8 BUN/Creatinine Ratio 21 (6-20) Glucose Level 122 mg/dL (70-99) Calcium Level 8.1 mg/dL (8.5-10.1) Phosphorus Level 3.4 mg/dL (2.6-4.7) Magnesium Level 2.2 mg/dL (1.8-2.4) Total Bilirubin 0.5 mg/dL (0.2-1.0) Aspartate Amino Transf (AST/SGOT) 44 U/L (15-37) Alanine Aminotransferase (ALT/SGPT) 30 U/L (16-63) Alkaline Phosphatase 106 U/L (46-116) Total Protein 5.9 g/dL (6.4-8.2) Albumin 2.7 g/dL (3.4-5.0) Albumin/Globulin Ratio 0.8 (1.0-1.7) Test 09/24/19 11:57 Glucose (Fingerstick) 110 mg/dL (70-99) Comment Review of Relevant I have reviewed the following items bj (where applicable) has been applied. Labs Laboratory Tests Test 09/23/19 06:30 09/23/19 11:54 09/23/19 17:06 09/23/19 20:54 Sodium Level 139 mmol/L (136-145) Potassium Level 3.2 mmol/L (3.5-5.1) Chloride Level 100 mmol/L (98-107) Carbon Dioxide Level 35 mmol/L (21-32) Anion Gap 4 (6-14) Blood Urea Nitrogen 41 mg/dL (8-26) Creatinine 1.7 mg/dL (0.7-1.3) Estimated GFR (Cockcroft-Gault) 40.8 Glucose Level 137 mg/dL (70-99) Calcium Level 7.4 mg/dL (8.5-10.1) Phosphorus Level 3.2 mg/dL (2.6-4.7) Magnesium Level 2.9 mg/dL (1.8-2.4) Glucose (Fingerstick) 117 mg/dL (70-99) 109 mg/dL (70-99) 109 mg/dL (70-99) Test 09/24/19 05:00 09/24/19 07:43 09/24/19 11:57 Sodium Level 143 mmol/L (136-145) Potassium Level 3.3 mmol/L (3.5-5.1) Chloride Level 104 mmol/L (98-107) Carbon Dioxide Level 29 mmol/L (21-32) Anion Gap 10 (6-14) Blood Urea Nitrogen 36 mg/dL (8-26) Creatinine 1.7 mg/dL (0.7-1.3) Estimated GFR (Cockcroft-Gault) 40.8 BUN/Creatinine Ratio 21 (6-20) Glucose Level 122 mg/dL (70-99) Calcium Level 8.1 mg/dL (8.5-10.1) Phosphorus Level 3.4 mg/dL (2.6-4.7) Magnesium Level 2.2 mg/dL (1.8-2.4) Total Bilirubin 0.5 mg/dL (0.2-1.0) Aspartate Amino Transf (AST/SGOT) 44 U/L (15-37) Alanine Aminotransferase (ALT/SGPT) 30 U/L (16-63) Alkaline Phosphatase 106 U/L (46-116) Total Protein 5.9 g/dL (6.4-8.2) Albumin 2.7 g/dL (3.4-5.0) Albumin/Globulin Ratio 0.8 (1.0-1.7) Glucose (Fingerstick) 116 mg/dL (70-99) 110 mg/dL (70-99) Laboratory Tests Test 09/23/19 17:06 09/23/19 20:54 09/24/19 05:00 09/24/19 07:43 Glucose (Fingerstick) 109 mg/dL (70-99) 109 mg/dL (70-99) 116 mg/dL (70-99) Sodium Level 143 mmol/L (136-145) Potassium Level 3.3 mmol/L (3.5-5.1) Chloride Level 104 mmol/L (98-107) Carbon Dioxide Level 29 mmol/L (21-32) Anion Gap 10 (6-14) Blood Urea Nitrogen 36 mg/dL (8-26) Creatinine 1.7 mg/dL (0.7-1.3) Estimated GFR (Cockcroft-Gault) 40.8 BUN/Creatinine Ratio 21 (6-20) Glucose Level 122 mg/dL (70-99) Calcium Level 8.1 mg/dL (8.5-10.1) Phosphorus Level 3.4 mg/dL (2.6-4.7) Magnesium Level 2.2 mg/dL (1.8-2.4) Total Bilirubin 0.5 mg/dL (0.2-1.0) Aspartate Amino Transf (AST/SGOT) 44 U/L (15-37) Alanine Aminotransferase (ALT/SGPT) 30 U/L (16-63) Alkaline Phosphatase 106 U/L (46-116) Total Protein 5.9 g/dL (6.4-8.2) Albumin 2.7 g/dL (3.4-5.0) Albumin/Globulin Ratio 0.8 (1.0-1.7) Test 09/24/19 11:57 Glucose (Fingerstick) 110 mg/dL (70-99) Microbiology 09/19/19 Urine Culture - Final, Complete 09/19/19 Blood Culture - Preliminary, Resulted NO GROWTH AFTER 4 DAYS Medications Current Medications Norepinephrine Bitartrate 8 mg/ Dextrose 258 ml @ 12.365 mls/ hr CONT PRN IV PER PROTOCOL Last administered on 09/19/19at 20:41; Start 09/19/19 at 20:30 Hydrocortisone Sodium Succinate (Solu-CORTEF) 100 mg Q8HRS IVP Last administered on 09/24/19at 05:47; Start 09/19/19 at 22:00 Acetaminophen (Tylenol) 650 mg PRN Q6HRS PRN PO Headaches, Temp > 101.5'; Start 09/19/19 at 21:15 Lorazepam (Ativan Inj) 0.5 mg PRN Q6HRS PRN IVP ANXIETY / AGITATION Last administered on 09/19/19at 22:19; Start 09/19/19 at 21:15 Ondansetron HCl (Zofran) 4 mg PRN Q6HRS PRN IVP NAUSEA/VOMITING; Start 09/19/19 at 21:15 Calcium Carbonate/ Glycine (Tums) 500 mg PRN Q3HRS PRN PO HEARTBURN / GAS; Start 09/19/19 at 21:15 Famotidine (Pepcid Vial) 20 mg BID IVP Last administered on 09/21/19at 21:08; Start 09/20/19 at 09:00; Stop 09/22/19 at 10:27; Status DC Sodium Chloride (Normal Saline Flush) 3 ml QSHIFT PRN IV AFTER MEDS AND BLOOD DRAWS; Start 09/19/19 at 21:15 Oxycodone/ Acetaminophen (Percocet 5/325) 1 tab PRN Q4HRS PRN PO PAIN; Start 09/19/19 at 21:15 Morphine Sulfate (Morphine Sulfate) 1 mg PRN Q1HR PRN IV PAIN Last administered on 09/21/19at 23:02; Start 09/19/19 at 21:15 Senna/Docusate Sodium (Senna Plus) 1 tab BID PO ; Start 09/20/19 at 09:00 Lactulose (Lactulose) 20 gm PRN Q12HR PRN PO CONSTIPATION; Start 09/19/19 at 21:15 Acetaminophen (Tylenol) 650 mg 1X PRN PRN PO PRE-TRANSFUSION; Start 09/19/19 at 21:15 Magnesium Sulfate/ Dextrose 100 ml @ 100 mls/hr 1X ONCE IV Last administered on 09/19/19at 22:23; Start 09/19/19 at 22:30; Stop 09/19/19 at 23:29; Status DC Sodium Bicarbonate 150 meq/Dextrose 1,150 ml @ 125 mls/hr Q9H12M IV Last administered on 09/21/19at 01:39; Start 09/20/19 at 06:45; Stop 09/21/19 at 10:17; Status DC Multivitamins 10 ml/Thiamine HCl 100 mg/Folic Acid 1 mg/Sodium Chloride 1,011.2 ml @ 100 mls/ hr DAILY IV Last administered on 09/24/19at 08:59; Start 09/20/19 at 10:00; Stop 09/24/19 at 19:07 Lorazepam (Ativan) 2 mg PRN Q1HR PRN PO For CIWA 8-14; Start 09/20/19 at 09:15; Stop 09/20/19 at 10:00; Status DC Lorazepam (Ativan Inj) 1 mg PRN Q1HR PRN IV For CIWA 8-14; Start 09/20/19 at 09:15 Haloperidol Lactate (Haldol Inj) 5 mg PRN Q4HRS PRN IVP Hallucinatns,Confusn,Delirium Last administered on 09/24/19at 02:42; Start 09/10 at 09:15 Clonidine HCl (Catapres) 0.1 mg PRN Q1HR PRN PO SBP > 180 or DBP > 100, MRX3; Start 09/20/19 at 09:15 Lorazepam (Ativan Inj) 2 mg PRN Q1HR PRN IV For CIWA 8-14 Last administered on 09/22/19at 17:19; Start 09/20/19 at 10:00 Lidocaine HCl (Buffered Lidocaine 1%) 3 ml STK-MED ONCE .ROUTE ; Start 09/20/19 at 11:32; Stop 09/20/19 at 11:32; Status DC Lidocaine HCl (Buffered Lidocaine 1%) 6 ml 1X ONCE INJ Last administered on 09/20/19at 12:20; Start 09/20/19 at 12:00; Stop 09/20/19 at 12:01; Status DC Nicotine (Nicoderm Cq 21mg) 1 patch DAILY TD Last administered on 09/24/19at 08:54; Start 09/20/19 at 13:30 Sodium Chloride 1,000 ml @ 1,000 mls/hr Q1H PRN IV hypotension; Start 09/20/19 at 14:09; Stop 09/20/19 at 20:08; Status DC Albumin Human 200 ml @ 200 mls/hr 1X PRN PRN IV Hypotension; Start 09/20/19 at 14:15; Stop 09/20/19 at 20:14; Status DC Sodium Chloride 1,000 ml @ 400 mls/hr Q2H30M PRN IV PATENCY; Start 09/20/19 at 14:09; Stop 09/21/19 at 02:08; Status DC Info (PHARMACY MONITORING -- do not chart) 1 each PRN DAILY PRN MC SEE COMMENTS; Start 09/20/19 at 14:15; Status UNV Info (PHARMACY MONITORING -- do not chart) 1 each PRN DAILY PRN MC SEE COMMENTS; Start 09/20/19 at 14:15 Potassium Chloride/Water 100 ml @ 100 mls/hr 1X ONCE IV Last administered on 09/21/19at 10:19; Start 09/21/19 at 08:00; Stop 09/21/19 at 08:59; Status DC Insulin Human Lispro (HumaLOG) 0-7 UNITS TIDWMEALS SQ ; Start 09/21/19 at 09:00 Dextrose (Dextrose 50%-Water Syringe) 12.5 gm PRN Q15MIN PRN IV SEE COMMENTS; Start 09/21/19 at 09:00 Amino Acids/ Glycerin/ Electrolytes 1,000 ml @ 80 mls/hr [id number] IV Last administered on 09/24/19at 05:49; Start 09/21/19 at 10:45 Potassium Chloride/Water 100 ml @ 100 mls/hr 1X ONCE IV Last administered on 09/21/19at 13:02; Start 09/21/19 at 12:00; Stop 09/21/19 at 12:59; Status DC Lorazepam (Ativan Inj) 4 mg PRN Q1HR PRN IV For CIWA 15 or greater Last administered on 09/23/19at 04:15; Start 09/22/19 at 08:00 Famotidine (Pepcid Vial) 20 mg DAILY IVP Last administered on 09/24/19at 08:53; Start 09/23/19 at 09:00 Magnesium Sulfate 100 ml @ 25 mls/hr 1X ONCE IV Last administered on 09/22/19at 13:57; Start 09/22/19 at 13:30; Stop 09/22/19 at 17:29; Status DC Potassium Chloride/Water 100 ml @ 100 mls/hr 1X ONCE IV Last administered on 09/22/19at 13:57; Start 09/22/19 at 13:30; Stop 09/22/19 at 14:29; Status DC Potassium Chloride/Water 100 ml @ 100 mls/hr Q1H IV Last administered on 09/23/19at 09:28; Start 09/23/19 at 09:00; Stop 09/23/19 at 10:59; Status DC Benztropine Mesylate (Cogentin) 2 mg PRN BID PRN IM EXTRAPYRAMIDAL SIDE EFFECTS Last administered on 09/23/19at 09:27; Start 09/23/19 at 09:15 Vitals/I & O Vital Sign - Last 24 Hours 09/23/19 09/23/19 09/23/19 09/23/19 14:44 18:46 19:46 23:03 Temp 98.0 98.2 98.2 98.0 98.2 98.2 Pulse 86 89 83 Resp 18 18 18 B/P (MAP) 164/77 (106) 182/84 (116) 134/82 (99) Pulse Ox 97 97 96 O2 Delivery Room Air Room Air Non-Rebreather Room Air 09/24/19 09/24/19 09/24/19 07:00 08:00 11:05 Temp 98.0 97.8 98.0 97.8 Pulse 87 94 Resp 18 18 B/P (MAP) 149/74 (99) 198/80 (119) Pulse Ox 98 98 O2 Delivery Room Air Non-Rebreather Room Air O2 Flow Rate 2.0 Intake and Output 09/23/19 09/23/19 09/24/19 15:00 23:00 07:00 Intake Total 100 ml 0 ml 240 ml Output Total 355 ml 700 ml 650 ml Balance -255 ml -700 ml -410 ml Nutrition Consultation Dietary Evaluation: Recommendations by RD: Dietary education by RD, Increase Calorie Intake, Protein supplementation, PPN/TPN Comments: Continue w/PPN for short-term non-oral nutrition needs while pt remains NPO per GI REC advance diet as able, goal diet ADA w/glucerna supplements Expected Outcomes/Goals: Nutritional intake to meet >75% est needs - not met, goal ongoing Malnutrition Findings: Food and Nutrition Intake (Mod: <75% est energy req 7days Weight Status: Appropriate CARMEL CHE MD Sep 24, 2019 12:13
[2019-09-24 14:53] VITALS: BP 166/86
[2019-09-24 19:12] VITALS: BP 163/73
[2019-09-24 22:30] VITALS: BP 197/90
[2019-09-24 23:16] VITALS: BP 175/85
--- NOTE | 2019-09-24 23:20 | NUR ---
BP 197/90, HR 91. Gave Catapres 0.1mg po as ordered prn HTN. BP 175/85, HR 83.
[2019-09-25] VITALS (7 sets, daily range): BP systolic 119–178; BP diastolic 59–92
[2019-09-25] MEDS: AMINO AC 3%/ELECTROLYTE/GLYCER 1,000 ML IV SCH ×2 (02:04→15:27)
[2019-09-25 03:35] LABS: ALBUMIN 2.5 g/dL (3.4-5.0); CALCIUM 7.9 mg/dL (8.5-10.1); CREATININE 1.7 mg/dL (0.7-1.3); GFR 40.8; PHOSPHORUS 4.3 mg/dL (2.6-4.7); POTASSIUM 4.2 mmol/L (3.5-5.1)
[2019-09-25] MEDS: oxyCODONE/APAP 5/325 1 TAB TABLET PO PRN ×3 (05:38→17:14)
[2019-09-25] MEDS: HYDROCORTISONE SOD SUCC/PF 100 MG/2 ML VIAL. IVP SCH ×3 (05:38→20:33)
[2019-09-25] MEDS: INSULIN LISPRO 300 UNITS/3 ML VIAL. SQ SCH ×3 (07:46→17:00)
[2019-09-25] MEDS: FAMOTIDINE 20 MG/2 ML VIAL IVP SCH (08:16)
[2019-09-25] MEDS: NICOTINE 21MG PATCH. TD SCH (08:21)
[2019-09-25] MEDS: SENNOSIDES/DOCUSATE 8.6/50MG TABLET. PO SCH ×2 (09:00→20:32)
--- NOTE | 2019-09-25 09:29 | PDOC ---
PROGRESS NOTES Chief Complaint Chief Complaint IMPRESSION Hypovolemic shock secondary to GI bleeding most likely No signs of bleeding and no records from [facility]. "Cautery" hopefully implies non-variceal lesion Acute Microcytic anemia most likely secondary to iron deficiency secondary to the above-mentioned GI bleed Acute renal failure Chronic pain syndrome on chronic narcotics Toxic encephalopathy secondary to the above Hyperkalemia 5.7 secondary to acute renal failure most likely Anion gap metabolic acidosis with a probably a superimposed non-metabolic acidosis given the degree of acidosis with a bicarb reported at 11 from the outside facility Hypomagnesemia Cirrhotic appearing liver cirrhotic morphology of the liver, borderline enlargement of spleen, heterogeneous attenuation at hepatic dome but poorly evaluated somewhat ectatic gallbladder THrombocytopenia Uremia ACUTE RENAL TUBULAR NECROSIS Hyperphosphatemia Severe protein calorie malnutrition BRADYCARDIA, d/c clonidine Anemia - iron studies c/w ACD - transfused last week, Hgb improved on 09/21 Probable alcoholic cirrhosis PLAN GI FOLLOWING Cardiology consult D/C CLONIDINE Nephrology following, iv fluid support 29 MIN PT EXAM, CHART REVIEW, > 50% OF TIME SPENT WITH EXAM, CHART REVIEW, PT CARE COORDINATION History of Present Illness History of Present Illness Mr Knott is a 64 yo M w/ PMHx presents to the emergency department at [facility] in [facility] with altered mental status. Patient apparently was found by his roommate on the ground of his apartment patient cannot give history given his current condition. It is unknown when he was last seen normal apparently patient was found to be hypotensive on the field at 80/40 fluid resuscitation was started on the field with Ringer's lactate patient was seen in the emergency department and found to be anemic with Hb 7.9 and having reports of GI bleeding according to the records with BUN 101. BNP 3353. Patient confused and the details of his stated history are not reliable according to the ER doctor patient is in acute renal failure and [facility]25 for a GI bleed. CT abdomen pelvis with contrast - marked calcified and noncalcified atheromatous plaque burden throughout the aorta, iliofemoral system and aortic branch vessels. Severe stenosis at the right renal artery origin with resultant atrophy of the right kidney. 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 Given the presumed severe stenosis at the SMA origin, recommend correlation for symptoms that would suggest intestinal angina noting that the bowel in this distribution does not exhibit obvious features of ischemia. Also with cirrhotic morphology of the liver and borderline enlargement of the spleen. There is heterogeneous attenuation of the liver at the hepatic dome but this region is poorly evaluated due to motion artifact and a definite mass is not able to be delineated. Admitted to ICU with levophed ordered. 09/19: Started on bicarb GTT, levophed. WBC 6.1, Hb 7.8, platelets 118. NA 147, K5.5, BUN 9 3, CR 7.8, glucose 126, INR 1.2, MG 1.6, phosphorus 6.5, TSH 0.473. He thinks he is at home today. Notes he drinks quite a bit. Son in [place] notes he was "doing well" after discharge from [facility] and so he returned back home. Trialysis catheter placed under nephrology guidance for emergent dialysis. 09/20: Hb 6.5, Na 146, K 2.8, BUN 27, Cr 2.2, glucose 155, AST 45, albumin 2.4 t brigid. Still very confused. Some stool overnight. UOP 1770 last 24 hours. 09/21: Afebrile. Hb 9.2 after transfusion. CR 2 0, mag 1.6 K3.5. Rolling around in bed still very confused. Cr 1.7, K 3.2. Received Haldol, he has some lipsmacking. Ordered benztropine. He is still very confused only opens his eyes to painful stimuli. Afebrile 09/24 banana bag PPN supportive care mental status still poor SUSPECT ALCOHOLIC CIRRHOSIS Vitals Vitals Vital Signs Date Time Temp Pulse Resp B/P (MAP) Pulse Ox O2 Delivery O2 Flow Rate FiO2 09/25/19 09:14 18 Nasal Cannula 2.0 09/25/19 06:38 100 09/25/19 06:16 97.5 56 178/76 (110) 97.5 Physical Exam Physical Exam General: Other (CONFUSED) Lungs: Clear to auscultation, Normal air movement Neuro: Other (CONFUSED) General: Cooperative, No acute distress, Other (CONFUSED) Heart: Regular rate, Normal S1, Normal S2, No murmurs, Gallops Lungs: Clear, Wheezing Abdomen: Normal bowel sounds, Soft, No tenderness, No hepatosplenomegaly, No masses Extremities: No clubbing, No cyanosis Skin: No breakdown, No significant lesion Labs LABS EXAM: CHEST AP ONLY 09/20/2019 11:55 AM CLINICAL INDICATION:Dialysis catheter placement COMPARISON:None TECHNIQUE:AP upright chest radiograph FINDINGS:There is a right internal jugular central venous catheter with tip over the superior cavoatrial junction. The heart is normal. There are surgical clips projecting over the mediastinum. The lungs are clear. No pleural effusion or pneumothorax. No acute osseous abnormality. IMPRESSION:Right internal jugular central venous catheter in appropriate position. No pneumothorax. Electronically signed by: Carrie Nuñez MD (09/20/2019 12:50 PM) [id number] DICTATED and SIGNED BY: CARRIE NUÑEZ MD DATE: 09/20/19 125 INDICATION: Reason: MISBAH / Spl. Instructions: / History: COMPARISON: None. TECHNIQUE: Grayscale and color ultrasound images obtained of the bilateral kidneys and bladder. FINDINGS: Right Kidney: 84 mm. No hydronephrosis. Echogenic cortex Left Kidney: 115 mm. No hydronephrosis. Bladder: Decompressed with catheter IMPRESSION: * No hydronephrosis. * Asymmetric renal size with atrophic appearing right kidney with echogenic cortex which could be from chronic renal disease. Electronically signed by: Paul Pérez MD (09/20/2019 11:59 PM) [id number] Laboratory Tests Test 09/24/19 11:57 09/24/19 16:52 09/24/19 20:44 09/25/19 02:50 Glucose (Fingerstick) 110 mg/dL (70-99) 99 mg/dL (70-99) 101 mg/dL (70-99) Sodium Level 145 mmol/L (136-145) Potassium Level 4.2 mmol/L (3.5-5.1) Chloride Level 107 mmol/L (98-107) Carbon Dioxide Level 32 mmol/L (21-32) Anion Gap 6 (6-14) Blood Urea Nitrogen 33 mg/dL (8-26) Creatinine 1.7 mg/dL (0.7-1.3) Estimated GFR (Cockcroft-Gault) 40.8 Glucose Level 136 mg/dL (70-99) Calcium Level 7.9 mg/dL (8.5-10.1) Phosphorus Level 4.3 mg/dL (2.6-4.7) Albumin 2.5 g/dL (3.4-5.0) Test 09/25/19 07:18 Glucose (Fingerstick) 142 mg/dL (70-99) Comment Review of Relevant I have reviewed the following items bj (where applicable) has been applied. Labs Laboratory Tests Test 09/23/19 11:54 09/23/19 17:06 09/23/19 20:54 09/24/19 05:00 Glucose (Fingerstick) 117 mg/dL (70-99) 109 mg/dL (70-99) 109 mg/dL (70-99) Sodium Level 143 mmol/L (136-145) Potassium Level 3.3 mmol/L (3.5-5.1) Chloride Level 104 mmol/L (98-107) Carbon Dioxide Level 29 mmol/L (21-32) Anion Gap 10 (6-14) Blood Urea Nitrogen 36 mg/dL (8-26) Creatinine 1.7 mg/dL (0.7-1.3) Estimated GFR (Cockcroft-Gault) 40.8 BUN/Creatinine Ratio 21 (-20) Glucose Level 122 mg/dL (70-99) Calcium Level 8.1 mg/dL (8.5-10.1) Phosphorus Level 3.4 mg/dL (2.6-4.7) Magnesium Level 2.2 mg/dL (1.8-2.4) Total Bilirubin 0.5 mg/dL (0.2-1.0) Aspartate Amino Transf (AST/SGOT) 44 U/L (15-37) Alanine Aminotransferase (ALT/SGPT) 30 U/L (16-63) Alkaline Phosphatase 106 U/L (46-116) Total Protein 5.9 g/dL (6.4-8.2) Albumin 2.7 g/dL (3.4-5.0) Albumin/Globulin Ratio 0.8 (1.0-1.7) Test 09/24/19 07:43 09/24/19 11:57 09/24/19 16:52 09/24/19 20:44 Glucose (Fingerstick) 116 mg/dL (70-99) 110 mg/dL (70-99) 99 mg/dL (70-99) 101 mg/dL (70-99) Test 09/25/19 02:50 09/25/19 07:18 Sodium Level 145 mmol/L (136-145) Potassium Level 4.2 mmol/L (3.5-5.1) Chloride Level 107 mmol/L (98-107) Carbon Dioxide Level 32 mmol/L (21-32) Anion Gap 6 (6-14) Blood Urea Nitrogen 33 mg/dL (8-26) Creatinine 1.7 mg/dL (0.7-1.3) Estimated GFR (Cockcroft-Gault) 40.8 Glucose Level 136 mg/dL (70-99) Calcium Level 7.9 mg/dL (8.5-10.1) Phosphorus Level 4.3 mg/dL (2.6-4.7) Albumin 2.5 g/dL (3.4-5.0) Glucose (Fingerstick) 142 mg/dL (70-99) Laboratory Tests Test 09/24/19 11:57 09/24/19 16:52 09/24/19 20:44 09/25/19 02:50 Glucose (Fingerstick) 110 mg/dL (70-99) 99 mg/dL (70-99) 101 mg/dL (70-99) Sodium Level 145 mmol/L (136-145) Potassium Level 4.2 mmol/L (3.5-5.1) Chloride Level 107 mmol/L (98-107) Carbon Dioxide Level 32 mmol/L (21-32) Anion Gap 6 (6-14) Blood Urea Nitrogen 33 mg/dL (8-26) Creatinine 1.7 mg/dL (0.7-1.3) Estimated GFR (Cockcroft-Gault) 40.8 Glucose Level 136 mg/dL (70-99) Calcium Level 7.9 mg/dL (8.5-10.1) Phosphorus Level 4.3 mg/dL (2.6-4.7) Albumin 2.5 g/dL (3.4-5.0) Test 09/25/19 07:18 Glucose (Fingerstick) 142 mg/dL (70-99) Microbiology 09/19/19 Urine Culture - Final, Complete 09/19/19 Blood Culture - Final, Complete NO GROWTH AFTER 5 DAYS Medications Current Medications Norepinephrine Bitartrate 8 mg/ Dextrose 258 ml @ 12.365 mls/ hr CONT PRN IV PER PROTOCOL Last administered on 09/19/19at 20:41; Start 09/19/19 at 20:30 Hydrocortisone Sodium Succinate (Solu-CORTEF) 100 mg Q8HRS IVP Last administered on 09/25/19at 05:38; Start 09/19/19 at 22:00 Acetaminophen (Tylenol) 650 mg PRN Q6HRS PRN PO Headaches, Temp > 101.5'; Start 09/19/19 at 21:15 Lorazepam (Ativan Inj) 0.5 mg PRN Q6HRS PRN IVP ANXIETY / AGITATION Last administered on 09/19/19at 22:19; Start 09/19/19 at 21:15 Ondansetron HCl (Zofran) 4 mg PRN Q6HRS PRN IVP NAUSEA/VOMITING; Start 09/19/19 at 21:15 Calcium Carbonate/ Glycine (Tums) 500 mg PRN Q3HRS PRN PO HEARTBURN / GAS; Start 09/19/19 at 21:15 Famotidine (Pepcid Vial) 20 mg BID IVP Last administered on 09/21/19at 21:08; Start 09/20/19 at 09:00; Stop 09/22/19 at 10:27; Status DC Sodium Chloride (Normal Saline Flush) 3 ml QSHIFT PRN IV AFTER MEDS AND BLOOD DRAWS; Start 09/19/19 at 21:15 Oxycodone/ Acetaminophen (Percocet 5/325) 1 tab PRN Q4HRS PRN PO PAIN Last administered on 09/25/19at 09:14; Start 09/19/19 at 21:15 Morphine Sulfate (Morphine Sulfate) 1 mg PRN Q1HR PRN IV PAIN Last administered on 09/21/19at 23:02; Start 09/19/19 at 21:15 Senna/Docusate Sodium (Senna Plus) 1 tab BID PO ; Start 09/20/19 at 09:00 Lactulose (Lactulose) 20 gm PRN Q12HR PRN PO CONSTIPATION; Start 09/19/19 at 21:15 Acetaminophen (Tylenol) 650 mg 1X PRN PRN PO PRE-TRANSFUSION; Start 09/19/19 at 21:15 Magnesium Sulfate/ Dextrose 100 ml @ 100 mls/hr 1X ONCE IV Last administered on 09/19/19at 22:23; Start 09/19/19 at 22:30; Stop 09/19/19 at 23:29; Status DC Sodium Bicarbonate 150 meq/Dextrose 1,150 ml @ 125 mls/hr Q9H12M IV Last administered on 09/21/19at 01:39; Start 09/20/19 at 06:45; Stop 09/21/19 at 10:17; Status DC Multivitamins 10 ml/Thiamine HCl 100 mg/Folic Acid 1 mg/Sodium Chloride 1,011.2 ml @ 100 mls/ hr DAILY IV Last administered on 09/24/19at 08:59; Start 09/20/19 at 10:00; Stop 09/24/19 at 19:07; Status DC Lorazepam (Ativan) 2 mg PRN Q1HR PRN PO For CIWA 8-14; Start 09/20/19 at 09:15; Stop 09/20/19 at 10:00; Status DC Lorazepam (Ativan Inj) 1 mg PRN Q1HR PRN IV For CIWA 8-14; Start 09/20/19 at 09:15 Haloperidol Lactate (Haldol Inj) 5 mg PRN Q4HRS PRN IVP Hallucinatns,Confusn,Delirium Last administered on 09/24/19at 19:13; Start at 09:15 Clonidine HCl (Catapres) 0.1 mg PRN Q1HR PRN PO SBP > 180 or DBP > 100, MRX3 Last administered on 09/24/19at 22:31; Start 09/20/19 at 09:15 Lorazepam (Ativan Inj) 2 mg PRN Q1HR PRN IV For CIWA 8-14 Last administered on 09/22/19at 17:19; Start 09/20/19 at 10:00 Lidocaine HCl (Buffered Lidocaine 1%) 3 ml STK-MED ONCE .ROUTE ; Start 09/20/19 at 11:32; Stop 09/20/19 at 11:32; Status DC Lidocaine HCl (Buffered Lidocaine 1%) 6 ml 1X ONCE INJ Last administered on 09/20/19at 12:20; Start 09/20/19 at 12:00; Stop 09/20/19 at 12:01; Status DC Nicotine (Nicoderm Cq 21mg) 1 patch DAILY TD Last administered on 09/25/19at 08:21; Start 09/20/19 at 13:30 Sodium Chloride 1,000 ml @ 1,000 mls/hr Q1H PRN IV hypotension; Start 09/20/19 at 14:09; Stop 09/20/19 at 20:08; Status DC Albumin Human 200 ml @ 200 mls/hr 1X PRN PRN IV Hypotension; Start 09/20/19 at 14:15; Stop 09/20/19 at 20:14; Status DC Sodium Chloride 1,000 ml @ 400 mls/hr Q2H30M PRN IV PATENCY; Start 09/20/19 at 14:09; Stop 09/21/19 at 02:08; Status DC Info (PHARMACY MONITORING -- do not chart) 1 each PRN DAILY PRN MC SEE COMMENTS; Start 09/20/19 at 14:15; Status UNV Info (PHARMACY MONITORING -- do not chart) 1 each PRN DAILY PRN MC SEE COMMENTS; Start 09/20/19 at 14:15 Potassium Chloride/Water 100 ml @ 100 mls/hr 1X ONCE IV Last administered on 09/21/19at 10:19; Start 09/21/19 at 08:00; Stop 09/21/19 at 08:59; Status DC Insulin Human Lispro (HumaLOG) 0-7 UNITS TIDWMEALS SQ ; Start 09/21/19 at 09:00 Dextrose (Dextrose 50%-Water Syringe) 12.5 gm PRN Q15MIN PRN IV SEE COMMENTS; Start 09/21/19 at 09:00 Amino Acids/ Glycerin/ Electrolytes 1,000 ml @ 80 mls/hr [id number] IV Last administered on 09/25/19at 02:04; Start 09/21/19 at 10:45 Potassium Chloride/Water 100 ml @ 100 mls/hr 1X ONCE IV Last administered on 09/21/19at 13:02; Start 09/21/19 at 12:00; Stop 09/21/19 at 12:59; Status DC Lorazepam (Ativan Inj) 4 mg PRN Q1HR PRN IV For CIWA 15 or greater Last administered on 09/23/19at 04:15; Start 09/22/19 at 08:00 Famotidine (Pepcid Vial) 20 mg DAILY IVP Last administered on 09/25/19at 08:16; Start 09/23/19 at 09:00 Magnesium Sulfate 100 ml @ 25 mls/hr 1X ONCE IV Last administered on 09/22/19at 13:57; Start 09/22/19 at 13:30; Stop 09/22/19 at 17:29; Status DC Potassium Chloride/Water 100 ml @ 100 mls/hr 1X ONCE IV Last administered on 09/22/19at 13:57; Start 09/22/19 at 13:30; Stop 09/22/19 at 14:29; Status DC Potassium Chloride/Water 100 ml @ 100 mls/hr Q1H IV Last administered on 09/23/19at 09:28; Start 09/23/19 at 09:00; Stop 09/23/19 at 10:59; Status DC Benztropine Mesylate (Cogentin) 2 mg PRN BID PRN IM EXTRAPYRAMIDAL SIDE EFFECTS Last administered on 09/23/19at 09:27; Start 09/23/19 at 09:15 Vitals/I & O Vital Sign - Last 24 Hours 09/24/19 09/24/19 09/24/19 09/24/19 11:05 14:53 19:12 20:00 Temp 97.8 97.7 97.8 97.8 97.7 97.8 Pulse 94 85 83 Resp 18 18 18 B/P (MAP) 198/80 (119) 166/86 (112) 163/73 (103) Pulse Ox 98 97 98 O2 Delivery Room Air Room Air Room Air Nasal Cannula O2 Flow Rate 2.0 09/24/19 09/24/19 09/24/19 09/25/19 22:30 22:31 23:16 00:38 Temp 97.7 97.7 Pulse 91 91 83 57 Resp 18 B/P (MAP) 197/90 (125) 197/90 175/85 (115) 163/65 (97) Pulse Ox 100 O2 Delivery Room Air 09/25/19 09/25/19 09/25/19 09/25/19 02:28 05:38 06:16 06:38 Temp 97.6 97.5 97.6 97.5 Pulse 79 56 Resp 18 18 18 18 B/P (MAP) 161/80 (107) 178/76 (110) Pulse Ox 100 100 100 100 O2 Delivery Room Air Nasal Cannula Room Air Nasal Cannula O2 Flow Rate 2.0 2.0 09/25/19 09/25/19 08:00 09:14 Resp 18 O2 Delivery Nasal Cannula Nasal Cannula O2 Flow Rate 2.0 2.0 Intake and Output 09/24/19 09/24/19 09/25/19 15:00 23:00 07:00 Intake Total 1360 ml 1000 ml Output Total 1000 ml Balance 360 ml 1000 ml Nutrition Consultation Dietary Evaluation: Recommendations by RD: Dietary education by RD, Increase Calorie Intake, Protein supplementation, PPN/TPN Comments: Continue w/PPN for short-term non-oral nutrition needs while pt remains NPO per GI REC advance diet as able, goal diet ADA w/glucerna supplements Expected Outcomes/Goals: Nutritional intake to meet >75% est needs - not met, goal ongoing Malnutrition Findings: Food and Nutrition Intake (Mod: <75% est energy req 7days Weight Status: Appropriate CHAPIS IRWIN MD Sep 25, 2019 09:29
--- NOTE | 2019-09-25 10:39 | PDOC ---
Subjective: Subjective: No meaningful history from him other than denies pain. Objective: Objective: D/w nurse - remains NPO, no bleeding, no records from [facility]. Tolerated water last night. Hgb last checked on 09/21. Vital Signs: Vital Signs Date Time Temp Pulse Resp B/P (MAP) Pulse Ox O2 Delivery O2 Flow Rate FiO2 09/25/19 09:14 18 Nasal Cannula 2.0 09/25/19 06:38 100 09/25/19 06:16 97.5 56 178/76 (110) 97.5 Labs: Laboratory Tests Test 09/24/19 11:57 09/24/19 16:52 09/24/19 20:44 09/25/19 02:50 Glucose (Fingerstick) 110 mg/dL 99 mg/dL 101 mg/dL Sodium Level 145 mmol/L Potassium Level 4.2 mmol/L Chloride Level 107 mmol/L Carbon Dioxide Level 32 mmol/L Anion Gap 6 Blood Urea Nitrogen 33 mg/dL Creatinine 1.7 mg/dL Estimated GFR (Cockcroft-Gault) 40.8 Glucose Level 136 mg/dL Calcium Level 7.9 mg/dL Phosphorus Level 4.3 mg/dL Albumin 2.5 g/dL Test 09/25/19 07:18 Glucose (Fingerstick) 142 mg/dL BLOOD CULTURE Final NO GROWTH AFTER 5 DAYS PE: GEN: NAD, therapy present LUNGS: CTAB HEART: RRR ABD: S/ND/NT NEURO/PSYCH: talking some, still confused A/P: MISBAH, encephalopathy H/o GI bleeding - records requested from [facility], not received Anemia - iron studies c/w ACD - transfused last week, Hgb improved on 09/21 Probable alcoholic cirrhosis -- ?try diet Continue acid dental surgery doctor, recheck Hgb. Justicifation of Admission Dx: Justifications for Admission: Justification of Admission Dx: Yes Acute Renal Failure: Serum Cr > 4mg/dL RAQUEL GAYTAN Sep 25, 2019 10:39
--- NOTE | 2019-09-25 10:39 | PDOC2 ---
MATEO MARTINEZ RAVEN 09/25/19 1038: CARDIAC CONSULT DATE OF CONSULT Date of Consult DATE: 09/25/19 TIME: 10:23 REASON FOR CONSULT Reason for Consult: bradycardia REFERRING PHYSICIAN Referring Physician: Dr. Dennison SOURCE Source: Chart review, Patient HISTORY OF PRESENT ILLNESS HISTORY OF PRESENT ILLNESS This is a 64 yo male who initially presented to [facility] secondary to altered mental status. Was noted with anemia, GIB and was transferred to [facility] for further evaluation and treatment. Has been bradycardic overnight, which prompted this consult. Of noted, patient received clonidine for hypertension. Tele review; shows SR, SB. No pauses or block noted. Lowest 38 during sleep. Appropriated chronotropic response noted. Denies any syncopal episodes. No chest pain, shortness of breath, dizziness, or diaphoresis. Report he drinks and smokes, but cannot tell me how much. PAST MEDICAL HISTORY Cardiovascular: No pertinent hx GI: GERD, GI bleed Endocrine: Diabetes PAST SURGICAL HISTORY Past Surgical History: No pertinent history FAMILY HISTORY Family History: Family History Unknown SOCIAL HISTORY Smoke: <1 pack per day ALCOHOL: other Drugs: None Lives: Friends ALLERGIES ALLERGIES: Coded Allergies: No Known Drug Allergies (Unverified , 09/19/19) ROS Review of System 14 point ROS conducted with pertinent positives noted above in HPI, although limited due to confusion. PHYSICAL EXAM General: Alert, Cooperative, No acute distress, Other (confused ) HEENT: Atraumatic Lungs: Clear to auscultation Heart: Regular rate, Other (2/6 systolic murmur ) Abdomen: Soft Extremities: No edema, Normal pulses Skin: No breakdown, No significant lesion Neuro: Normal speech, Sensation intact Psych/Mental Status: Other (flat affect ) MUSCULOSKELETAL: Osteoarthritic changes both hands VITALS/I&O VITALS/I&O: Vital Signs Date Time Temp Pulse Resp B/P (MAP) Pulse Ox O2 Delivery O2 Flow Rate FiO2 09/25/19 09:14 18 Nasal Cannula 2.0 09/25/19 06:38 100 09/25/19 06:16 97.5 56 178/76 (110) 97.5 I & O 09/24/19 09/24/19 09/25/19 15:00 23:00 07:00 Intake Total 1360 ml 1000 ml Output Total 1000 ml Balance 360 ml 1000 ml LABS Lab: Laboratory Tests Test 09/24/19 11:57 09/24/19 16:52 09/24/19 20:44 09/25/19 02:50 Glucose (Fingerstick) 110 mg/dL (70-99) H 99 mg/dL (70-99) 101 mg/dL (70-99) H Sodium Level 145 mmol/L (136-145) Potassium Level 4.2 mmol/L (3.5-5.1) Chloride Level 107 mmol/L (98-107) Carbon Dioxide Level 32 mmol/L (21-32) Anion Gap 6 (6-14) Blood Urea Nitrogen 33 mg/dL (8-26) H Creatinine 1.7 mg/dL (0.7-1.3) H Estimated GFR (Cockcroft-Gault) 40.8 Glucose Level 136 mg/dL (70-99) H Calcium Level 7.9 mg/dL (8.5-10.1) L Phosphorus Level 4.3 mg/dL (2.6-4.7) Albumin 2.5 g/dL (3.4-5.0) L Test 09/25/19 07:18 Glucose (Fingerstick) 142 mg/dL (70-99) H Laboratory Tests 09/25/19 02:50 ASSESSMENT/PLAN ASSESSMENT/PLAN 1. Metabolic encephalopathy 2. Anemia, thrombocytopenia. s/p transfusion 3. H/o recent GIB 4. MISBAH, hyperkalemia; renal function improving. Now with hypokalemia 5. Hypomagnesemia 6. H/o ETOH abuse, cirrhosis. Details unclear 7. Bradycardia, sinus. No pauses or blocks noted. appropriated chronotropic response. Received clonidine last night for HTN 8. Diabetes, II Recommendations D/c clonidine Avoid AV nancy blocking agents Add hydralazine for BP control No MICAELA/ARB with MISBAH No ASA with GIB, anemia, thrombocytopenia Recheck Mg and replace as warranted Supportive care JULIANNE BERMUDEZ MD 09/25/19 1640: CARDIAC CONSULT ASSESSMENT/PLAN ASSESSMENT/PLAN Patient seen and examined. Agree with TISSUE SPECIALIST's assessment and plan. Patient with sinus bradycardia without any significant pauses on telemetry. Agree that patient has appropriate chronotropic response. DC clonidine and avoid AV nancy blockers. Metabolic encephalopathy improving. Nephrology team following for acute renal insufficiency. Replace potassium. GI team following for anemia. We will consider event monitor as an outpatient. Thank you for your consultation. MATEO MARTINEZ APRN Sep 25, 2019 10:38 JULIANNE BERMUDEZ MD Sep 25, 2019 16:40
[2019-09-25 11:18] LABS: BASO % 0 % (0-3); EOS % 0 % (0-3); HEMATOCRIT 28.3 % (39.0-53.0); HEMOGLOBIN 9.4 g/dL (13.0-17.5); LYMPH # 0.6 x10^3/uL (1.0-4.8); LYMPH % 9 % (24-48); MEAN CORPUSCULAR HEMOGLOBIN 28 pg (25-35); MEAN CORPUSCULAR HGB CONC 33 g/dL (31-37); MEAN CORPUSCULAR VOLUME 83 fL (79-100); MONO # 0.5 x10^3/uL (0.0-1.1); MONO % 7 % (0-9); NEUT # 5.2 x10^3/uL (1.8-7.7); NEUT % 83 % (31-73); PLATELET COUNT 96 x10^3/uL (140-400); RED BLOOD COUNT 3.42 x10^6/uL (4.30-5.70); RED CELL DISTRIBUTION WIDTH 22.6 % (11.5-14.5); WHITE BLOOD COUNT 6.2 x10^3/uL (4.0-11.0)
[2019-09-25] MEDS: hydrALAZINE 20 MG/ML VIAL. IVP PRN (11:19)
[2019-09-25 11:36] LABS: ALBUMIN 2.3 g/dL (3.4-5.0); ALBUMIN/GLOBULIN RATIO 0.7 (1.0-1.7); CALCIUM 7.6 mg/dL (8.5-10.1); CREATININE 1.4 mg/dL (0.7-1.3); TOTAL BILIRUBIN 0.4 mg/dL (0.2-1.0); TOTAL PROTEIN 5.4 g/dL (6.4-8.2)
[2019-09-25 11:39] LABS: CHOLESTEROL/HDL RATIO 2.7
[2019-09-25 11:42] LABS: POTASSIUM 2.9 mmol/L (3.5-5.1)
[2019-09-25] MEDS ORDERED: POTASSIUM CHLORIDE 10 MEQ TABLET.ER. PO ONE (11:45)
--- NOTE | 2019-09-25 12:45 | NUR ---
SS following up with discharge planning. SS reviewed pt chart and discussed with pt RN. Pt is from home and is currently requiring oxygen while sleeping. Pt having confusion today. Pt on PPN and ADA diet being ordered. PT/OT evaluated and recommended senior care unit. SS contacted pt's son, Catarino, , to discuss senior care unit and discharge planning. SS will continue to follow for discharge planning.
--- NOTE | 2019-09-25 12:54 | PDOC ---
SUBJECTIVE ROS Sitting in chair, stable , No new concerns voiced by RN OBJECTIVE Vital Signs Vital Signs Date Time Temp Pulse Resp B/P (MAP) Pulse Ox O2 Delivery O2 Flow Rate FiO2 09/25/19 11:19 53 176/75 09/25/19 11:00 18 100 Room Air 09/25/19 10:14 2.0 09/25/19 06:16 97.5 97.5 I & 0 Intake and Output 09/25/19 07:00 Intake Total 2360 ml Output Total 1000 ml Balance 1360 ml Intake Oral 200 ml IV Total 1000 ml Other 1160 ml Output Urine Total 1000 ml PHYSICAL EXAM Physical Exam GEN.: No apparent distress. HEENT: OM moist NECK: Supple. LUNGS: Clear to auscultation. No accessory muscles use HEART: RRR, S1, S2 present. ABDOMEN: Soft, nontender. EXTREMITIES: No cyanosis, edema NEUROLOGIC: CN 2 to 12 intact, no motor or sensory deficits. Normal tone PSYCHIATRIC: flat affect SKIN: No rash Lee + DIAGNOSIS/ASSESSMENT Assessment & Plan MISBAH- ATN Improving, Cr 7 at presentation--> 1.4 Emergent HD x1 at presentation DC Lee, continue with Strict I/O, voiding trial, Bladder scan prn Suspect CKD - Renal US Asymmetric renal size with atrophic appearing right kidney with echogenic cortex which could be from chronic renal disease. HypoKalemia- replace Hypernatremia - at presentation, resolved Severe AG Metabolic acidosis- Resolved H/o GI bleeding , GI following Anemia - s/p PRBC last week last week- Hgb 6.5 , Hgb improved ,stable, still <10 On Aranesp ETOH abuse HTN- cardiology managing , Hypotensive at presentation COMMENT/RELEVANT DATA Meds Current Medications Medications (Trade) Dose Ordered Sig/Vasquez Start Time Stop Time Status Last Admin Dose Admin Acetaminophen (Tylenol) 650 mg 1X PRN PRN 09/19/19 21:15 Albumin Human 200 ml @ 200 mls/hr 1X PRN PRN 09/20/19 14:15 09/20/19 20:14 DC Amino Acids/ Glycerin/ Electrolytes 1,000 ml @ 80 mls/hr [id number] 09/21/19 10:45 09/25/19 02:04 80 MLS/HR Benztropine Mesylate (Cogentin) 2 mg PRN BID PRN 09/23/19 09:15 09/23/19 09:27 2 MG Calcium Carbonate/ Glycine (Tums) 500 mg PRN Q3HRS PRN 09/19/19 21:15 Clonidine HCl (Catapres) 0.1 mg PRN Q1HR PRN 09/20/19 09:15 09/25/19 10:38 DC 09/24/19 22:31 0.1 MG Dextrose (Dextrose 50%-Water Syringe) 12.5 gm PRN Q15MIN PRN 09/21/19 09:00 Famotidine (Pepcid Vial) 20 mg DAILY 09/23/19 09:00 09/25/19 08:16 20 MG Haloperidol Lactate (Haldol Inj) 5 mg PRN Q4HRS PRN 09/20/19 09:15 09/24/19 19:13 5 MG Hydralazine HCl (Apresoline Inj) 10 mg PRN Q4HRS PRN 09/25/19 10:45 09/25/19 11:19 10 MG Hydrocortisone Sodium Succinate (Solu-CORTEF) 100 mg Q8HRS 09/19/19 22:00 09/25/19 05:38 100 MG Info (PHARMACY MONITORING -- do not chart) 1 each PRN DAILY PRN 09/20/19 14:15 Insulin Human Lispro (HumaLOG) 0-7 UNITS TIDWMEALS 09/21/19 09:00 Lactulose (Lactulose) 20 gm PRN Q12HR PRN 09/19/19 21:15 Lidocaine HCl (Buffered Lidocaine 1%) 6 ml 1X ONCE 09/20/19 12:00 09/20/19 12:01 DC 09/20/19 12:20 6 ML Lorazepam (Ativan Inj) 4 mg PRN Q1HR PRN 09/22/19 08:00 09/23/19 04:15 4 MG Lorazepam (Ativan) 2 mg PRN Q1HR PRN 09/20/19 09:15 09/20/19 10:00 DC Magnesium Sulfate 100 ml @ 25 mls/hr 1X ONCE 09/22/19 13:30 09/22/19 17:29 DC 09/22/19 13:57 25 MLS/HR Magnesium Sulfate/ Dextrose 100 ml @ 100 mls/hr 1X ONCE 09/19/19 22:30 09/19/19 23:29 DC 09/19/19 22:23 100 MLS/HR Morphine Sulfate (Morphine Sulfate) 1 mg PRN Q1HR PRN 09/19/19 21:15 09/21/19 23:02 1 MG Multivitamins 10 ml/Thiamine HCl 100 mg/Folic Acid 1 mg/Sodium Chloride 1,011.2 ml @ 100 mls/ hr DAILY 09/20/19 10:00 09/24/19 19:07 DC 09/24/19 08:59 100 MLS/HR Nicotine (Nicoderm Cq 21mg) 1 patch DAILY 09/20/19 13:30 09/25/19 08:21 1 PATCH Norepinephrine Bitartrate 8 mg/ Dextrose 258 ml @ 12.365 mls/ hr CONT PRN 09/19/19 20:30 09/19/19 20:41 12.365 MLS/HR Ondansetron HCl (Zofran) 4 mg PRN Q6HRS PRN 09/19/19 21:15 Oxycodone/ Acetaminophen (Percocet 5/325) 1 tab PRN Q4HRS PRN 09/19/19 21:15 09/25/19 09:14 1 TAB Potassium Chloride/Water 100 ml @ 100 mls/hr Q1H 09/23/19 09:00 09/23/19 10:59 DC 09/23/19 09:28 100 MLS/HR Potassium Chloride (Klor-Con) 30 meq 1X ONCE 09/25/19 11:45 09/25/19 11:52 DC 09/25/19 11:58 30 MEQ Senna/Docusate Sodium (Senna Plus) 1 tab BID 09/20/19 09:00 Sodium Bicarbonate 150 meq/Dextrose 1,150 ml @ 125 mls/hr Q9H12M 09/20/19 06:45 09/21/19 10:17 DC 09/21/19 01:39 125 MLS/HR Sodium Chloride 1,000 ml @ 400 mls/hr Q2H30M PRN 09/20/19 14:09 09/21/19 02:08 DC Sodium Chloride (Normal Saline Flush) 3 ml QSHIFT PRN 09/19/19 21:15 Lab Laboratory Tests Test 09/24/19 16:52 09/24/19 20:44 09/25/19 02:50 6/15/20 07:18 Glucose (Fingerstick) 99 mg/dL (70-99) 101 mg/dL (70-99) 142 mg/dL (70-99) Sodium Level 145 mmol/L (136-145) Potassium Level 4.2 mmol/L (3.5-5.1) Chloride Level 107 mmol/L (98-107) Carbon Dioxide Level 32 mmol/L (21-32) Anion Gap 6 (6-14) Blood Urea Nitrogen 33 mg/dL (8-26) Creatinine 1.7 mg/dL (0.7-1.3) Estimated GFR (Cockcroft-Gault) 40.8 Glucose Level 136 mg/dL (70-99) Calcium Level 7.9 mg/dL (8.5-10.1) Phosphorus Level 4.3 mg/dL (2.6-4.7) Albumin 2.5 g/dL (3.4-5.0) Test 09/25/19 11:00 09/25/19 12:16 White Blood Count 6.2 x10^3/uL (4.0-11.0) Red Blood Count 3.42 x10^6/uL (4.30-5.70) Hemoglobin 9.4 g/dL (13.0-17.5) Hematocrit 28.3 % (39.0-53.0) Mean Corpuscular Volume 83 fL (79-100) Mean Corpuscular Hemoglobin 28 pg (25-35) Mean Corpuscular Hemoglobin Concent 33 g/dL (31-37) Red Cell Distribution Width 22.6 % (11.5-14.5) Platelet Count 96 x10^3/uL (140-400) Neutrophils (%) (Auto) 83 % (31-73) Lymphocytes (%) (Auto) 9 % (24-48) Monocytes (%) (Auto) 7 % (0-9) Eosinophils (%) (Auto) 0 % (0-3) Basophils (%) (Auto) 0 % (0-3) Neutrophils # (Auto) 5.2 x10^3/uL (1.8-7.7) Lymphocytes # (Auto) 0.6 x10^3/uL (1.0-4.8) Monocytes # (Auto) 0.5 x10^3/uL (0.0-1.1) Eosinophils # (Auto) 0.0 x10^3/uL (0.0-0.7) Basophils # (Auto) 0.0 x10^3/uL (0.0-0.2) Sodium Level 140 mmol/L (136-145) Potassium Level 2.9 mmol/L (3.5-5.1) Chloride Level 103 mmol/L (98-107) Carbon Dioxide Level 29 mmol/L (21-32) Anion Gap 8 (6-14) Blood Urea Nitrogen 31 mg/dL (8-26) Creatinine 1.4 mg/dL (0.7-1.3) Estimated GFR (Cockcroft-Gault) 51.0 BUN/Creatinine Ratio 22 (6-20) Glucose Level 137 mg/dL (70-99) Calcium Level 7.6 mg/dL (8.5-10.1) Total Bilirubin 0.4 mg/dL (0.2-1.0) Aspartate Amino Transf (AST/SGOT) 30 U/L (15-37) Alanine Aminotransferase (ALT/SGPT) 32 U/L (16-63) Alkaline Phosphatase 99 U/L (46-116) Total Protein 5.4 g/dL (6.4-8.2) Albumin 2.3 g/dL (3.4-5.0) Albumin/Globulin Ratio 0.7 (1.0-1.7) Triglycerides Level 128 mg/dL (0-150) Cholesterol Level 107 mg/dL (0-200) LDL Cholesterol, Calculated 41 mg/dL (0-100) VLDL Cholesterol, Calculated 26 mg/dL (0-40) Non-HDL Cholesterol Calculated 67 mg/dL (0-129) HDL Cholesterol 40 mg/dL (40-60) Cholesterol/HDL Ratio 2.7 Glucose (Fingerstick) 126 mg/dL (70-99) Results All relevant outside records, renal labs, imaging studies, telemetry/EKG's were reviewed. Justicifation of Admission Dx: Justifications for Admission: Justification of Admission Dx: Yes Acute Renal Failure: Serum Cr > 4mg/dL MANSI LUCAS MD Sep 25, 2019 12:54
--- NOTE | 2019-09-25 15:18 | NUR ---
SS following up with discharge planning. SS received phone call from pt's son, Catarino, , stating that he would like pt [facility]. He requested ss phoned and fax referrals to [facility], ; fax [phone], [facility], ; fax [phone], and [facility] in [place], ; fax [phone]. SS phoned and faxed referrals. COVID19 test requested. Pt's RN notified. SS will continue to follow for discharge planning.
[2019-09-25] MEDS: HALOPERIDOL LACTATE 5 MG/ML VIAL. IVP PRN ×2 (15:48→22:07)
--- NOTE | 2019-09-25 15:48 | NUR ---
SS following up with discharge planning. SS received notification from [facility] stating that they do not have a contract with pt's insurance. SS will continue to follow for discharge planning.
[2019-09-26] VITALS (8 sets, daily range): BP systolic 93–184; BP diastolic 52–107
[2019-09-26] MEDS: hydrALAZINE 20 MG/ML VIAL. IVP PRN (02:31)
[2019-09-26] MEDS: AMINO AC 3%/ELECTROLYTE/GLYCER 1,000 ML IV SCH ×2 (03:13→17:25)
--- NOTE | 2019-09-26 03:32 | NUR ---
Continues thru the shift with confused and restless. Frequently attempts to get out of bed without assist. Unsteady on his feet. Pulls at lines. Swings at staff. Placed Mitts on patient. Bed alarm on. Room close to nurses desk. Can see patient from desk. Frequent bed checks. Ativan and Haldol given as ordered prn agitation/restlessness.
--- NOTE | 2019-09-26 03:38 | NUR ---
BP 159/107, HR 70. Gave Hydralazine 10mg IVP as ordered prn HTN. BP 93/52, HR 80. Resting in bed. Call light at hand. Bed alarm on.
[2019-09-26 05:29] LABS: CALCIUM 7.9 mg/dL (8.5-10.1); CREATININE 1.4 mg/dL (0.7-1.3); POTASSIUM 3.2 mmol/L (3.5-5.1)
[2019-09-26] MEDS: HYDROCORTISONE SOD SUCC/PF 100 MG/2 ML VIAL. IVP SCH (05:45)
[2019-09-26] MEDS: INSULIN LISPRO 300 UNITS/3 ML VIAL. SQ SCH ×3 (08:00→17:00)
[2019-09-26] MEDS: FAMOTIDINE 20 MG/2 ML VIAL IVP SCH (08:49)
[2019-09-26] MEDS: NICOTINE 21MG PATCH. TD SCH (08:49)
[2019-09-26] MEDS: SENNOSIDES/DOCUSATE 8.6/50MG TABLET. PO SCH ×2 (09:00→22:00)
--- NOTE | 2019-09-26 09:32 | PDOC ---
SUBJECTIVE ROS No acute events overnight , still confused per RN OBJECTIVE Vital Signs Vital Signs Date Time Temp Pulse Resp B/P (MAP) Pulse Ox O2 Delivery O2 Flow Rate FiO2 09/26/19 07:00 97.6 76 20 123/60 (81) 96 Nasal Cannula 2.0 97.6 I & 0 Intake and Output 09/26/19 07:00 Intake Total 1000 ml Balance 1000 ml Intake Oral 0 ml IV Total 1000 ml PHYSICAL EXAM Physical Exam GEN.: No apparent distress. HEENT: OM moist NECK: Supple. LUNGS: Clear to auscultation. No accessory muscles use HEART: RRR, S1, S2 present. ABDOMEN: Soft, nontender. EXTREMITIES: No cyanosis, edema NEUROLOGIC: Confused PSYCHIATRIC: flat affect SKIN: No rash Lee removed DIAGNOSIS/ASSESSMENT Assessment & Plan MISBAH- ATN Improving, Cr 7 at presentation--> 1.4, stable Emergent HD x1 at presentation supportive care, Strict I/O, Bladder scan prn as Pt incontinent Suspect CKD - Renal US Asymmetric renal size with atrophic appearing right kidney with echogenic cortex which could be from chronic renal disease. HypoKalemia- replace Hypernatremia - at presentation, resolved Severe AG Metabolic acidosis- Resolved H/o GI bleeding , GI following Anemia - s/p PRBC last week last week- Hgb 6.5 , Hgb improved ,stable, still <10 On Aranesp ETOH abuse HTN- cardiology managing , Hypotensive at presentation COMMENT/RELEVANT DATA Meds Current Medications Medications (Trade) Dose Ordered Sig/Vasquez Start Time Stop Time Status Last Admin Dose Admin Acetaminophen (Tylenol) 650 mg 1X PRN PRN 09/19/19 21:15 Albumin Human 200 ml @ 200 mls/hr 1X PRN PRN 09/20/19 14:15 09/20/19 20:14 DC Amino Acids/ Glycerin/ Electrolytes 1,000 ml @ 80 mls/hr [id number] 09/21/19 10:45 09/26/19 03:13 80 MLS/HR Benztropine Mesylate (Cogentin) 2 mg PRN BID PRN 09/23/19 09:15 09/23/19 09:27 2 MG Calcium Carbonate/ Glycine (Tums) 500 mg PRN Q3HRS PRN 09/19/19 21:15 Clonidine HCl (Catapres) 0.1 mg PRN Q1HR PRN 09/20/19 09:15 09/25/19 10:38 DC 09/24/19 22:31 0.1 MG Dextrose (Dextrose 50%-Water Syringe) 12.5 gm PRN Q15MIN PRN 09/21/19 09:00 Famotidine (Pepcid Vial) 20 mg DAILY 09/23/19 09:00 09/26/19 08:49 20 MG Haloperidol Lactate (Haldol Inj) 5 mg PRN Q4HRS PRN 09/20/19 09:15 09/25/19 22:07 5 MG Hydralazine HCl (Apresoline Inj) 10 mg PRN Q4HRS PRN 09/25/19 10:45 09/26/19 02:31 10 MG Hydralazine HCl (Apresoline) 50 mg BID 09/25/19 21:00 09/25/19 20:32 50 MG Hydrocortisone Sodium Succinate (Solu-CORTEF) 100 mg Q8HRS 09/19/19 22:00 09/26/19 05:45 100 MG Info (PHARMACY MONITORING -- do not chart) 1 each PRN DAILY PRN 09/20/19 14:15 Insulin Human Lispro (HumaLOG) 0-7 UNITS TIDWMEALS 09/21/19 09:00 Lactulose (Lactulose) 20 gm PRN Q12HR PRN 09/19/19 21:15 Lidocaine HCl (Buffered Lidocaine 1%) 6 ml 1X ONCE 09/20/19 12:00 09/20/19 12:01 DC 09/20/19 12:20 6 ML Lorazepam (Ativan Inj) 4 mg PRN Q1HR PRN 09/22/19 08:00 09/26/19 00:41 4 MG Lorazepam (Ativan) 2 mg PRN Q1HR PRN 09/20/19 09:15 09/20/19 10:00 DC Magnesium Sulfate 100 ml @ 25 mls/hr 1X ONCE 09/22/19 13:30 09/22/19 17:29 DC 09/22/19 13:57 25 MLS/HR Magnesium Sulfate/ Dextrose 100 ml @ 100 mls/hr 1X ONCE 09/19/19 22:30 09/19/19 23:29 DC 09/19/19 22:23 100 MLS/HR Morphine Sulfate (Morphine Sulfate) 1 mg PRN Q1HR PRN 09/19/19 21:15 09/21/19 23:02 1 MG Multivitamins 10 ml/Thiamine HCl 100 mg/Folic Acid 1 mg/Sodium Chloride 1,011.2 ml @ 100 mls/ hr DAILY 09/20/19 10:00 09/24/19 19:07 DC 09/24/19 08:59 100 MLS/HR Nicotine (Nicoderm Cq 21mg) 1 patch DAILY 09/20/19 13:30 09/26/19 08:49 1 PATCH Norepinephrine Bitartrate 8 mg/ Dextrose 258 ml @ 12.365 mls/ hr CONT PRN 09/19/19 20:30 09/19/19 20:41 12.365 MLS/HR Ondansetron HCl (Zofran) 4 mg PRN Q6HRS PRN 09/19/19 21:15 Oxycodone/ Acetaminophen (Percocet 5/325) 1 tab PRN Q4HRS PRN 09/19/19 21:15 09/25/19 17:14 1 TAB Potassium Chloride/Water 100 ml @ 100 mls/hr Q1H 09/23/19 09:00 09/23/19 10:59 DC 09/23/19 09:28 100 MLS/HR Potassium Chloride (Klor-Con) 30 meq 1X ONCE 09/25/19 11:45 09/25/19 11:52 DC 09/25/19 11:58 30 MEQ Senna/Docusate Sodium (Senna Plus) 1 tab BID 09/20/19 09:00 Sodium Bicarbonate 150 meq/Dextrose 1,150 ml @ 125 mls/hr Q9H12M 09/20/19 06:45 09/21/19 10:17 DC 09/21/19 01:39 125 MLS/HR Sodium Chloride 1,000 ml @ 400 mls/hr Q2H30M PRN 09/20/19 14:09 09/21/19 02:08 DC Sodium Chloride (Normal Saline Flush) 3 ml QSHIFT PRN 09/19/19 21:15 Lab Laboratory Tests Test 09/25/19 11:00 09/25/19 12:16 09/25/19 17:18 09/25/19 20:54 White Blood Count 6.2 x10^3/uL (4.0-11.0) Red Blood Count 3.42 x10^6/uL (4.30-5.70) Hemoglobin 9.4 g/dL (13.0-17.5) Hematocrit 28.3 % (39.0-53.0) Mean Corpuscular Volume 83 fL (79-100) Mean Corpuscular Hemoglobin 28 pg (25-35) Mean Corpuscular Hemoglobin Concent 33 g/dL (31-37) Red Cell Distribution Width 22.6 % (11.5-14.5) Platelet Count 96 x10^3/uL (140-400) Neutrophils (%) (Auto) 83 % (31-73) Lymphocytes (%) (Auto) 9 % (24-48) Monocytes (%) (Auto) 7 % (0-9) Eosinophils (%) (Auto) 0 % (0-3) Basophils (%) (Auto) 0 % (0-3) Neutrophils # (Auto) 5.2 x10^3/uL (1.8-7.7) Lymphocytes # (Auto) 0.6 x10^3/uL (1.0-4.8) Monocytes # (Auto) 0.5 x10^3/uL (0.0-1.1) Eosinophils # (Auto) 0.0 x10^3/uL (0.0-0.7) Basophils # (Auto) 0.0 x10^3/uL (0.0-0.2) Sodium Level 140 mmol/L (136-145) Potassium Level 2.9 mmol/L (3.5-5.1) Chloride Level 103 mmol/L (98-107) Carbon Dioxide Level 29 mmol/L (21-32) Anion Gap 8 (6-14) Blood Urea Nitrogen 31 mg/dL (8-26) Creatinine 1.4 mg/dL (0.7-1.3) Estimated GFR (Cockcroft-Gault) 51.0 BUN/Creatinine Ratio 22 (6-20) Glucose Level 137 mg/dL (70-99) Calcium Level 7.6 mg/dL (8.5-10.1) Magnesium Level 1.8 mg/dL (1.8-2.4) Total Bilirubin 0.4 mg/dL (0.2-1.0) Aspartate Amino Transf (AST/SGOT) 30 U/L (15-37) Alanine Aminotransferase (ALT/SGPT) 32 U/L (16-63) Alkaline Phosphatase 99 U/L (46-116) Total Protein 5.4 g/dL (6.4-8.2) Albumin 2.3 g/dL (3.4-5.0) Albumin/Globulin Ratio 0.7 (1.0-1.7) Triglycerides Level 128 mg/dL (0-150) Cholesterol Level 107 mg/dL (0-200) LDL Cholesterol, Calculated 41 mg/dL (0-100) VLDL Cholesterol, Calculated 26 mg/dL (0-40) Non-HDL Cholesterol Calculated 67 mg/dL (0-129) HDL Cholesterol 40 mg/dL (40-60) Cholesterol/HDL Ratio 2.7 Glucose (Fingerstick) 126 mg/dL (70-99) 115 mg/dL (70-99) 129 mg/dL (70-99) Test 09/26/19 04:15 09/26/19 07:10 Sodium Level 139 mmol/L (136-145) Potassium Level 3.2 mmol/L (3.5-5.1) Chloride Level 103 mmol/L (98-107) Carbon Dioxide Level 25 mmol/L (21-32) Anion Gap 11 (6-14) Blood Urea Nitrogen 33 mg/dL (8-26) Creatinine 1.4 mg/dL (0.7-1.3) Estimated GFR (Cockcroft-Gault) 51.0 Glucose Level 122 mg/dL (70-99) Calcium Level 7.9 mg/dL (8.5-10.1) Glucose (Fingerstick) 118 mg/dL (70-99) Results All relevant outside records, renal labs, imaging studies, telemetry/EKG's were reviewed. Justicifation of Admission Dx: Justifications for Admission: Justification of Admission Dx: Yes Acute Renal Failure: Serum Cr > 4mg/dL MANSI LUCAS MD Sep 26, 2019 09:32
--- NOTE | 2019-09-26 09:59 | PDOC ---
HAMILTON UNGER G[employer]IN [employer] MACHINE OPERATOR 09/26/19 0959: CARDIO Progress Notes Date and Time Date of Service 09/26/2019 Time of Evaluation 0850 Subjective Subjective: No Chest Pain, No shortness of breath Vitals Vitals Vital Signs Date Time Temp Pulse Resp B/P (MAP) Pulse Ox O2 Delivery O2 Flow Rate FiO2 09/26/19 07:00 97.6 76 20 123/60 (81) 96 Nasal Cannula 2.0 97.6 Weight Weight [ ] Input and Output Intake and Output Intake and Output 09/26/19 07:00 Intake Total 1000 ml Balance 1000 ml Intake Oral 0 ml IV Total 1000 ml Laboratory Labs Laboratory Tests Test 09/25/19 11:00 09/25/19 12:16 09/25/19 17:18 09/25/19 20:54 White Blood Count 6.2 x10^3/uL (4.0-11.0) Red Blood Count 3.42 x10^6/uL (4.30-5.70) Hemoglobin 9.4 g/dL (13.0-17.5) Hematocrit 28.3 % (39.0-53.0) Mean Corpuscular Volume 83 fL (79-100) Mean Corpuscular Hemoglobin 28 pg (25-35) Mean Corpuscular Hemoglobin Concent 33 g/dL (31-37) Red Cell Distribution Width 22.6 % (11.5-14.5) Platelet Count 96 x10^3/uL (140-400) Neutrophils (%) (Auto) 83 % (31-73) Lymphocytes (%) (Auto) 9 % (24-48) Monocytes (%) (Auto) 7 % (0-9) Eosinophils (%) (Auto) 0 % (0-3) Basophils (%) (Auto) 0 % (0-3) Neutrophils # (Auto) 5.2 x10^3/uL (1.8-7.7) Lymphocytes # (Auto) 0.6 x10^3/uL (1.0-4.8) Monocytes # (Auto) 0.5 x10^3/uL (0.0-1.1) Eosinophils # (Auto) 0.0 x10^3/uL (0.0-0.7) Basophils # (Auto) 0.0 x10^3/uL (0.0-0.2) Sodium Level 140 mmol/L (136-145) Potassium Level 2.9 mmol/L (3.5-5.1) Chloride Level 103 mmol/L (98-107) Carbon Dioxide Level 29 mmol/L (21-32) Anion Gap 8 (6-14) Blood Urea Nitrogen 31 mg/dL (8-26) Creatinine 1.4 mg/dL (0.7-1.3) Estimated GFR (Cockcroft-Gault) 51.0 BUN/Creatinine Ratio 22 (6-20) Glucose Level 137 mg/dL (70-99) Calcium Level 7.6 mg/dL (8.5-10.1) Magnesium Level 1.8 mg/dL (1.8-2.4) Total Bilirubin 0.4 mg/dL (0.2-1.0) Aspartate Amino Transf (AST/SGOT) 30 U/L (15-37) Alanine Aminotransferase (ALT/SGPT) 32 U/L (16-63) Alkaline Phosphatase 99 U/L (46-116) Total Protein 5.4 g/dL (6.4-8.2) Albumin 2.3 g/dL (3.4-5.0) Albumin/Globulin Ratio 0.7 (1.0-1.7) Triglycerides Level 128 mg/dL (0-150) Cholesterol Level 107 mg/dL (0-200) LDL Cholesterol, Calculated 41 mg/dL (0-100) VLDL Cholesterol, Calculated 26 mg/dL (0-40) Non-HDL Cholesterol Calculated 67 mg/dL (0-129) HDL Cholesterol 40 mg/dL (40-60) Cholesterol/HDL Ratio 2.7 Glucose (Fingerstick) 126 mg/dL (70-99) 115 mg/dL (70-99) 129 mg/dL (70-99) Test 09/26/19 04:15 09/26/19 07:10 Sodium Level 139 mmol/L (136-145) Potassium Level 3.2 mmol/L (3.5-5.1) Chloride Level 103 mmol/L (98-107) Carbon Dioxide Level 25 mmol/L (21-32) Anion Gap 11 (6-14) Blood Urea Nitrogen 33 mg/dL (8-26) Creatinine 1.4 mg/dL (0.7-1.3) Estimated GFR (Cockcroft-Gault) 51.0 Glucose Level 122 mg/dL (70-99) Calcium Level 7.9 mg/dL (8.5-10.1) Glucose (Fingerstick) 118 mg/dL (70-99) Microbiology Micro Microbiology 09/19/19 Urine Culture - Final, Complete 09/19/19 Blood Culture - Final, Complete NO GROWTH AFTER 5 DAYS Review of Systems Constitutional: yes: other (CONFUSED) Physical Exam HEENT: Neck Supple W Full Motion Chest: Symmetric LUNGS: Other (diminished bases) Heart: RRR (SR) Abdomen: Soft N/T Extremities: No Edema, No Calf Tenderness Neurology: confused Assessment Assessment 1. Metabolic encephalopathy: remains confused 2. Pancytopenia. s/p PRBC transfusion 3. H/o recent GIB 4. MISBAH, Cr much better 5. Arrhythmia: SR with PVCs associated with hypokalemia and possibly hypomagnesemia. 6. H/o ETOH abuse, cirrhosis. Details unclear GI following 7. Asymptomatic SB: with associated use of clonidine and lyte abnormalities. None further 8. DM2: per PCP 9. UTI? defer to PCP 10. HTN: controlled Recommendations 1. No further clonidine. Procalamine in place. Replace K and Mg as warranted 2. CIWA protocol per PCP. hydralazine PO and PRN 3. No MICAELA/ARB with MISBAH 4. No ASA with GIB, anemia, thrombocytopenia 5. TTE today. MCOT is a consideration. Supportive care Justicifation of Admission Dx: Justifications for Admission: Justification of Admission Dx: Yes Acute Renal Failure: Serum Cr > 4mg/dL JULIANNE BERMUDEZ MD 09/26/19 2019: CARDIO Progress Notes Assessment Assessment Patient seen and examined. Agree with SHRINKER's assessment and plan. Tele did not show any significant pauses Plan event monitor as outpatient Continue management of pancytopenia and metabolic encephalopathy per primary team HAMILTON UNGER APRN Sep 26, 2019 09:59 JULIANNE BERMUDEZ MD Sep 26, 2019 20:19
[2019-09-26] MEDS ORDERED: POTASSIUM BICARB 20 MEQ EFFERVESCENT TABLET. PO ONE (10:00)
--- NOTE | 2019-09-26 10:13 | PDOC ---
Objective: Objective: No bleeding per nurse. Reviewed chart - increased confusion overnight. Vital Signs: Vital Signs Date Time Temp Pulse Resp B/P (MAP) Pulse Ox O2 Delivery O2 Flow Rate FiO2 09/26/19 08:00 Nasal Cannula 09/26/19 07:00 97.6 76 20 123/60 (81) 96 2.0 97.6 Labs: Laboratory Tests Test 09/25/19 11:00 09/25/19 12:16 09/25/19 17:18 09/25/19 20:54 White Blood Count 6.2 x10^3/uL Red Blood Count 3.42 x10^6/uL Hemoglobin 9.4 g/dL Hematocrit 28.3 % Mean Corpuscular Volume 83 fL Mean Corpuscular Hemoglobin 28 pg Mean Corpuscular Hemoglobin Concent 33 g/dL Red Cell Distribution Width 22.6 % Platelet Count 96 x10^3/uL Neutrophils (%) (Auto) 83 % Lymphocytes (%) (Auto) 9 % Monocytes (%) (Auto) 7 % Eosinophils (%) (Auto) 0 % Basophils (%) (Auto) 0 % Neutrophils # (Auto) 5.2 x10^3/uL Lymphocytes # (Auto) 0.6 x10^3/uL Monocytes # (Auto) 0.5 x10^3/uL Eosinophils # (Auto) 0.0 x10^3/uL Basophils # (Auto) 0.0 x10^3/uL Sodium Level 140 mmol/L Potassium Level 2.9 mmol/L Chloride Level 103 mmol/L Carbon Dioxide Level 29 mmol/L Anion Gap 8 Blood Urea Nitrogen 31 mg/dL Creatinine 1.4 mg/dL Estimated GFR (Cockcroft-Gault) 51.0 BUN/Creatinine Ratio 22 Glucose Level 137 mg/dL Calcium Level 7.6 mg/dL Magnesium Level 1.8 mg/dL Total Bilirubin 0.4 mg/dL Aspartate Amino Transf (AST/SGOT) 30 U/L Alanine Aminotransferase (ALT/SGPT) 32 U/L Alkaline Phosphatase 99 U/L Total Protein 5.4 g/dL Albumin 2.3 g/dL Albumin/Globulin Ratio 0.7 Triglycerides Level 128 mg/dL Cholesterol Level 107 mg/dL LDL Cholesterol, Calculated 41 mg/dL VLDL Cholesterol, Calculated 26 mg/dL Non-HDL Cholesterol Calculated 67 mg/dL HDL Cholesterol 40 mg/dL Cholesterol/HDL Ratio 2.7 Glucose (Fingerstick) 126 mg/dL 115 mg/dL 129 mg/dL Test 09/26/19 04:15 09/26/19 07:10 Sodium Level 139 mmol/L Potassium Level 3.2 mmol/L Chloride Level 103 mmol/L Carbon Dioxide Level 25 mmol/L Anion Gap 11 Blood Urea Nitrogen 33 mg/dL Creatinine 1.4 mg/dL Estimated GFR (Cockcroft-Gault) 51.0 Glucose Level 122 mg/dL Calcium Level 7.9 mg/dL Glucose (Fingerstick) 118 mg/dL PE: GEN: mittens LUNGS: clear, poor effort HEART: RRR ABD: soft NEURO/PSYCH: confused A/P: Encephalopathy H/o GI bleeding ACD - stable MISBAH - better Probable alcoholic cirrhosis -- Mental status remains problematic. PO acid-mysql dba as able. Justicifation of Admission Dx: Justifications for Admission: Justification of Admission Dx: Yes Acute Renal Failure: Serum Cr > 4mg/dL RAQUEL GAYTAN Sep 26, 2019 10:13
--- NOTE | 2019-09-26 10:42 | PDOC ---
PROGRESS NOTES Chief Complaint Chief Complaint IMPRESSION Hypovolemic shock secondary to GI bleeding most likely No signs of bleeding and no records from [facility]. "Cautery" hopefully implies non-variceal lesion Acute Microcytic anemia most likely secondary to iron deficiency secondary to the above-mentioned GI bleed Acute renal failure Chronic pain syndrome on chronic narcotics Toxic encephalopathy secondary to the above Hyperkalemia 5.7 secondary to acute renal failure most likely Anion gap metabolic acidosis with a probably a superimposed non-metabolic acidosis given the degree of acidosis with a bicarb reported at 11 from the outside facility Hypomagnesemia Cirrhotic appearing liver cirrhotic morphology of the liver, borderline enlargement of spleen, heterogeneous attenuation at hepatic dome but poorly evaluated somewhat ectatic gallbladder THrombocytopenia Uremia ACUTE RENAL TUBULAR NECROSIS Hyperphosphatemia Severe protein calorie malnutrition BRADYCARDIA, d/c clonidine Anemia - iron studies c/w ACD - transfused last week, Hgb improved on 09/21 Probable alcoholic cirrhosis PLAN GI FOLLOWING Cardiology consult D/C CLONIDINE Nephrology following, iv fluid support 29 MIN PT EXAM, CHART REVIEW, > 50% OF TIME SPENT WITH EXAM, CHART REVIEW, PT CARE COORDINATION History of Present Illness History of Present Illness Mr Knott is a 64 yo M w/ PMHx presents to the emergency department at [facility] in [facility] with altered mental status. Patient apparently was found by his roommate on the ground of his apartment patient cannot give history given his current condition. It is unknown when he was last seen normal apparently patient was found to be hypotensive on the field at 80/40 fluid resuscitation was started on the field with Ringer's lactate patient was seen in the emergency department and found to be anemic with Hb 7.9 and having reports of GI bleeding according to the records with BUN 101. BNP 3353. Patient confused and the details of his stated history are not reliable according to the ER doctor patient is in acute renal failure and he has been recently admitted at [facility] from 08/16 through 08/25 for a GI bleed. CT abdomen pelvis with contrast - marked calcified and noncalcified atheromatous plaque burden throughout the aorta, iliofemoral system and aortic branch vessels. Severe stenosis at the right renal artery origin with resultant atrophy of the right kidney. 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 Given the presumed severe stenosis at the SMA origin, recommend correlation for symptoms that would suggest intestinal angina noting that the bowel in this distribution does not exhibit obvious features of ischemia. Also with cirrhotic morphology of the liver and borderline enlargement of the spleen. There is heterogeneous attenuation of the liver at the hepatic dome but this region is poorly evaluated due to motion artifact and a definite mass is not able to be delineated. Admitted to ICU with levophed ordered. 09/19: Started on bicarb GTT, levophed. WBC 6.1, Hb 7.8, platelets 118. NA 147, K5.5, BUN 9 3, CR 7.8, glucose 126, INR 1.2, MG 1.6, phosphorus 6.5, TSH 0.473. He thinks he is at home today. Notes he drinks quite a bit. Son in [place] notes he was "doing well" after discharge from [facility] and so he returned back home. Trialysis catheter placed under nephrology guidance for emergent dialysis. 09/20: Hb 6.5, Na 146, K 2.8, BUN 27, Cr 2.2, glucose 155, AST 45, albumin 2.4 t brigid. Still very confused. Some stool overnight. UOP 1770 last 24 hours. 09/21: Afebrile. Hb 9.2 after transfusion. CR 2 0, mag 1.6 K3.5. Rolling around in bed still very confused. Cr 1.7, K 3.2. Received Haldol, he has some lipsmacking. Ordered benztropine. He is still very confused only opens his eyes to painful stimuli. Afebrile 09/24 banana bag PPN supportive care mental status still poor SUSPECT ALCOHOLIC CIRRHOSIS 09/25 No acute events reported overnight, case discussed with nursing staff patient in no acute distress no complaints during my visit continues to be quite obtunded and unable to have a meaningful conversation, awaiting for records from [facility]' Vitals Vitals Vital Signs Date Time Temp Pulse Resp B/P (MAP) Pulse Ox O2 Delivery O2 Flow Rate FiO2 09/26/19 09:58 76 123/60 09/26/19 08:00 Nasal Cannula 09/26/19 07:00 97.6 20 96 2.0 97.6 Physical Exam Physical Exam General: Other (CONFUSED) Lungs: Clear to auscultation, Normal air movement Neuro: Other (CONFUSED) General: Alert, Cooperative, No acute distress, Other (confused ) Heart: Regular rate, Other (2/6 systolic murmur ) Lungs: Clear, Wheezing Abdomen: Soft Extremities: No edema, Normal pulses Skin: No breakdown, No significant lesion Labs LABS Laboratory Tests Test 09/25/19 11:00 09/25/19 12:16 09/25/19 17:18 09/25/19 20:54 White Blood Count 6.2 x10^3/uL (4.0-11.0) Red Blood Count 3.42 x10^6/uL (4.30-5.70) Hemoglobin 9.4 g/dL (13.0-17.5) Hematocrit 28.3 % (39.0-53.0) Mean Corpuscular Volume 83 fL (79-100) Mean Corpuscular Hemoglobin 28 pg (25-35) Mean Corpuscular Hemoglobin Concent 33 g/dL (31-37) Red Cell Distribution Width 22.6 % (11.5-14.5) Platelet Count 96 x10^3/uL (140-400) Neutrophils (%) (Auto) 83 % (31-73) Lymphocytes (%) (Auto) 9 % (24-48) Monocytes (%) (Auto) 7 % (0-9) Eosinophils (%) (Auto) 0 % (0-3) Basophils (%) (Auto) 0 % (0-3) Neutrophils # (Auto) 5.2 x10^3/uL (1.8-7.7) Lymphocytes # (Auto) 0.6 x10^3/uL (1.0-4.8) Monocytes # (Auto) 0.5 x10^3/uL (0.0-1.1) Eosinophils # (Auto) 0.0 x10^3/uL (0.0-0.7) Basophils # (Auto) 0.0 x10^3/uL (0.0-0.2) Sodium Level 140 mmol/L (136-145) Potassium Level 2.9 mmol/L (3.5-5.1) Chloride Level 103 mmol/L (98-107) Carbon Dioxide Level 29 mmol/L (21-32) Anion Gap 8 (6-14) Blood Urea Nitrogen 31 mg/dL (8-26) Creatinine 1.4 mg/dL (0.7-1.3) Estimated GFR (Cockcroft-Gault) 51.0 BUN/Creatinine Ratio 22 (6-20) Glucose Level 137 mg/dL (70-99) Calcium Level 7.6 mg/dL (8.5-10.1) Magnesium Level 1.8 mg/dL (1.8-2.4) Total Bilirubin 0.4 mg/dL (0.2-1.0) Aspartate Amino Transf (AST/SGOT) 30 U/L (15-37) Alanine Aminotransferase (ALT/SGPT) 32 U/L (16-63) Alkaline Phosphatase 99 U/L (46-116) Total Protein 5.4 g/dL (6.4-8.2) Albumin 2.3 g/dL (3.4-5.0) Albumin/Globulin Ratio 0.7 (1.0-1.7) Triglycerides Level 128 mg/dL (0-150) Cholesterol Level 107 mg/dL (0-200) LDL Cholesterol, Calculated 41 mg/dL (0-100) VLDL Cholesterol, Calculated 26 mg/dL (0-40) Non-HDL Cholesterol Calculated 67 mg/dL (0-129) HDL Cholesterol 40 mg/dL (40-60) Cholesterol/HDL Ratio 2.7 Glucose (Fingerstick) 126 mg/dL (70-99) 115 mg/dL (70-99) 129 mg/dL (70-99) Test 09/26/19 04:15 09/26/19 07:10 Sodium Level 139 mmol/L (136-145) Potassium Level 3.2 mmol/L (3.5-5.1) Chloride Level 103 mmol/L (98-107) Carbon Dioxide Level 25 mmol/L (21-32) Anion Gap 11 (6-14) Blood Urea Nitrogen 33 mg/dL (8-26) Creatinine 1.4 mg/dL (0.7-1.3) Estimated GFR (Cockcroft-Gault) 51.0 Glucose Level 122 mg/dL (70-99) Calcium Level 7.9 mg/dL (8.5-10.1) Magnesium Level 1.8 mg/dL (1.8-2.4) Glucose (Fingerstick) 118 mg/dL (70-99) Comment Review of Relevant I have reviewed the following items bj (where applicable) has been applied. Labs Laboratory Tests Test 09/24/19 11:57 09/24/19 16:52 09/24/19 20:44 09/25/19 02:50 Glucose (Fingerstick) 110 mg/dL (70-99) 99 mg/dL (70-99) 101 mg/dL (70-99) Sodium Level 145 mmol/L (136-145) Potassium Level 4.2 mmol/L (3.5-5.1) Chloride Level 107 mmol/L (98-107) Carbon Dioxide Level 32 mmol/L (21-32) Anion Gap 6 (6-14) Blood Urea Nitrogen 33 mg/dL (8-26) Creatinine 1.7 mg/dL (0.7-1.3) Estimated GFR (Cockcroft-Gault) 40.8 Glucose Level 136 mg/dL (70-99) Calcium Level 7.9 mg/dL (8.5-10.1) Phosphorus Level 4.3 mg/dL (2.6-4.7) Albumin 2.5 g/dL (3.4-5.0) Test 09/25/19 07:18 09/25/19 11:00 09/25/19 12:16 09/25/19 17:18 Glucose (Fingerstick) 142 mg/dL (70-99) 126 mg/dL (70-99) 115 mg/dL (70-99) White Blood Count 6.2 x10^3/uL (4.0-11.0) Red Blood Count 3.42 x10^6/uL (4.30-5.70) Hemoglobin 9.4 g/dL (13.0-17.5) Hematocrit 28.3 % (39.0-53.0) Mean Corpuscular Volume 83 fL (79-100) Mean Corpuscular Hemoglobin 28 pg (25-35) Mean Corpuscular Hemoglobin Concent 33 g/dL (31-37) Red Cell Distribution Width 22.6 % (11.5-14.5) Platelet Count 96 x10^3/uL (140-400) Neutrophils (%) (Auto) 83 % (31-73) Lymphocytes (%) (Auto) 9 % (24-48) Monocytes (%) (Auto) 7 % (0-9) Eosinophils (%) (Auto) 0 % (0-3) Basophils (%) (Auto) 0 % (0-3) Neutrophils # (Auto) 5.2 x10^3/uL (1.8-7.7) Lymphocytes # (Auto) 0.6 x10^3/uL (1.0-4.8) Monocytes # (Auto) 0.5 x10^3/uL (0.0-1.1) Eosinophils # (Auto) 0.0 x10^3/uL (0.0-0.7) Basophils # (Auto) 0.0 x10^3/uL (0.0-0.2) Sodium Level 140 mmol/L (136-145) Potassium Level 2.9 mmol/L (3.5-5.1) Chloride Level 103 mmol/L (98-107) Carbon Dioxide Level 29 mmol/L (21-32) Anion Gap 8 (6-14) Blood Urea Nitrogen 31 mg/dL (8-26) Creatinine 1.4 mg/dL (0.7-1.3) Estimated GFR (Cockcroft-Gault) 51.0 BUN/Creatinine Ratio 22 (6-20) Glucose Level 137 mg/dL (70-99) Calcium Level 7.6 mg/dL (8.5-10.1) Magnesium Level 1.8 mg/dL (1.8-2.4) Total Bilirubin 0.4 mg/dL (0.2-1.0) Aspartate Amino Transf (AST/SGOT) 30 U/L (15-37) Alanine Aminotransferase (ALT/SGPT) 32 U/L (16-63) Alkaline Phosphatase 99 U/L (46-116) Total Protein 5.4 g/dL (6.4-8.2) Albumin 2.3 g/dL (3.4-5.0) Albumin/Globulin Ratio 0.7 (1.0-1.7) Triglycerides Level 128 mg/dL (0-150) Cholesterol Level 107 mg/dL (0-200) LDL Cholesterol, Calculated 41 mg/dL (0-100) VLDL Cholesterol, Calculated 26 mg/dL (0-40) Non-HDL Cholesterol Calculated 67 mg/dL (0-129) HDL Cholesterol 40 mg/dL (40-60) Cholesterol/HDL Ratio 2.7 Test 09/25/19 20:54 09/26/19 04:15 09/26/19 07:10 Glucose (Fingerstick) 129 mg/dL (70-99) 118 mg/dL (70-99) Sodium Level 139 mmol/L (136-145) Potassium Level 3.2 mmol/L (3.5-5.1) Chloride Level 103 mmol/L (98-107) Carbon Dioxide Level 25 mmol/L (21-32) Anion Gap 11 (6-14) Blood Urea Nitrogen 33 mg/dL (8-26) Creatinine 1.4 mg/dL (0.7-1.3) Estimated GFR (Cockcroft-Gault) 51.0 Glucose Level 122 mg/dL (70-99) Calcium Level 7.9 mg/dL (8.5-10.1) Magnesium Level 1.8 mg/dL (1.8-2.4) Laboratory Tests Test 09/25/19 11:00 09/25/19 12:16 09/25/19 17:18 09/25/19 20:54 White Blood Count 6.2 x10^3/uL (4.0-11.0) Red Blood Count 3.42 x10^6/uL (4.30-5.70) Hemoglobin 9.4 g/dL (13.0-17.5) Hematocrit 28.3 % (39.0-53.0) Mean Corpuscular Volume 83 fL (79-100) Mean Corpuscular Hemoglobin 28 pg (25-35) Mean Corpuscular Hemoglobin Concent 33 g/dL (31-37) Red Cell Distribution Width 22.6 % (11.5-14.5) Platelet Count 96 x10^3/uL (140-400) Neutrophils (%) (Auto) 83 % (31-73) Lymphocytes (%) (Auto) 9 % (24-48) Monocytes (%) (Auto) 7 % (0-9) Eosinophils (%) (Auto) 0 % (0-3) Basophils (%) (Auto) 0 % (0-3) Neutrophils # (Auto) 5.2 x10^3/uL (1.8-7.7) Lymphocytes # (Auto) 0.6 x10^3/uL (1.0-4.8) Monocytes # (Auto) 0.5 x10^3/uL (0.0-1.1) Eosinophils # (Auto) 0.0 x10^3/uL (0.0-0.7) Basophils # (Auto) 0.0 x10^3/uL (0.0-0.2) Sodium Level 140 mmol/L (136-145) Potassium Level 2.9 mmol/L (3.5-5.1) Chloride Level 103 mmol/L (98-107) Carbon Dioxide Level 29 mmol/L (21-32) Anion Gap 8 (6-14) Blood Urea Nitrogen 31 mg/dL (8-26) Creatinine 1.4 mg/dL (0.7-1.3) Estimated GFR (Cockcroft-Gault) 51.0 BUN/Creatinine Ratio 22 (6-20) Glucose Level 137 mg/dL (70-99) Calcium Level 7.6 mg/dL (8.5-10.1) Magnesium Level 1.8 mg/dL (1.8-2.4) Total Bilirubin 0.4 mg/dL (0.2-1.0) Aspartate Amino Transf (AST/SGOT) 30 U/L (15-37) Alanine Aminotransferase (ALT/SGPT) 32 U/L (16-63) Alkaline Phosphatase 99 U/L (46-116) Total Protein 5.4 g/dL (6.4-8.2) Albumin 2.3 g/dL (3.4-5.0) Albumin/Globulin Ratio 0.7 (1.0-1.7) Triglycerides Level 128 mg/dL (0-150) Cholesterol Level 107 mg/dL (0-200) LDL Cholesterol, Calculated 41 mg/dL (0-100) VLDL Cholesterol, Calculated 26 mg/dL (0-40) Non-HDL Cholesterol Calculated 67 mg/dL (0-129) HDL Cholesterol 40 mg/dL (40-60) Cholesterol/HDL Ratio 2.7 Glucose (Fingerstick) 126 mg/dL (70-99) 115 mg/dL (70-99) 129 mg/dL (70-99) Test 09/26/19 04:15 09/26/19 07:10 Sodium Level 139 mmol/L (136-145) Potassium Level 3.2 mmol/L (3.5-5.1) Chloride Level 103 mmol/L (98-107) Carbon Dioxide Level 25 mmol/L (21-32) Anion Gap 11 (6-14) Blood Urea Nitrogen 33 mg/dL (8-26) Creatinine 1.4 mg/dL (0.7-1.3) Estimated GFR (Cockcroft-Gault) 51.0 Glucose Level 122 mg/dL (70-99) Calcium Level 7.9 mg/dL (8.5-10.1) Magnesium Level 1.8 mg/dL (1.8-2.4) Glucose (Fingerstick) 118 mg/dL (70-99) Microbiology 09/19/19 Urine Culture - Final, Complete 09/19/19 Blood Culture - Final, Complete NO GROWTH AFTER 5 DAYS Medications Current Medications Norepinephrine Bitartrate 8 mg/ Dextrose 258 ml @ 12.365 mls/ hr CONT PRN IV PER PROTOCOL Last administered on 09/19/19at 20:41; Start 09/19/19 at 20:30 Hydrocortisone Sodium Succinate (Solu-CORTEF) 100 mg Q8HRS IVP Last administered on 09/26/19at 05:45; Start 09/19/19 at 22:00 Acetaminophen (Tylenol) 650 mg PRN Q6HRS PRN PO Headaches, Temp > 101.5'; Start 09/19/19 at 21:15 Lorazepam (Ativan Inj) 0.5 mg PRN Q6HRS PRN IVP ANXIETY / AGITATION Last administered on 09/19/19at 22:19; Start 09/19/19 at 21:15 Ondansetron HCl (Zofran) 4 mg PRN Q6HRS PRN IVP NAUSEA/VOMITING; Start 09/19/19 at 21:15 Calcium Carbonate/ Glycine (Tums) 500 mg PRN Q3HRS PRN PO HEARTBURN / GAS; Start 09/19/19 at 21:15 Famotidine (Pepcid Vial) 20 mg BID IVP Last administered on 09/21/19at 21:08; Start 09/20/19 at 09:00; Stop 09/22/19 at 10:27; Status DC Sodium Chloride (Normal Saline Flush) 3 ml QSHIFT PRN IV AFTER MEDS AND BLOOD DRAWS; Start 09/19/19 at 21:15 Oxycodone/ Acetaminophen (Percocet 5/325) 1 tab PRN Q4HRS PRN PO PAIN Last administered on 09/25/19at 17:14; Start 09/19/19 at 21:15 Morphine Sulfate (Morphine Sulfate) 1 mg PRN Q1HR PRN IV PAIN Last administered on 09/21/19at 23:02; Start 09/19/19 at 21:15 Senna/Docusate Sodium (Senna Plus) 1 tab BID PO ; Start 09/20/19 at 09:00 Lactulose (Lactulose) 20 gm PRN Q12HR PRN PO CONSTIPATION; Start 09/19/19 at 21:15 Acetaminophen (Tylenol) 650 mg 1X PRN PRN PO PRE-TRANSFUSION; Start 09/19/19 at 21:15 Magnesium Sulfate/ Dextrose 100 ml @ 100 mls/hr 1X ONCE IV Last administered on 09/19/19at 22:23; Start 09/19/19 at 22:30; Stop 09/19/19 at 23:29; Status DC Sodium Bicarbonate 150 meq/Dextrose 1,150 ml @ 125 mls/hr Q9H12M IV Last administered on 09/21/19at 01:39; Start 09/20/19 at 06:45; Stop 09/21/19 at 10:17; Status DC Multivitamins 10 ml/Thiamine HCl 100 mg/Folic Acid 1 mg/Sodium Chloride 1,011.2 ml @ 100 mls/ hr DAILY IV Last administered on 09/24/19at 08:59; Start 09/20/19 at 10:00; Stop 09/24/19 at 19:07; Status DC Lorazepam (Ativan) 2 mg PRN Q1HR PRN PO For CIWA 8-14; Start 09/20/19 at 09:15; Stop 09/20/19 at 10:00; Status DC Lorazepam (Ativan Inj) 1 mg PRN Q1HR PRN IV For CIWA 8-14; Start 09/20/19 at 09:15 Haloperidol Lactate (Haldol Inj) 5 mg PRN Q4HRS PRN IVP Hallucinatns,Confusn,Delirium Last administered on 09/25/19at 22:07; Start 09/20/19 at 09:15 Clonidine HCl (Catapres) 0.1 mg PRN Q1HR PRN PO SBP > 180 or DBP > 100, MRX3 Last administered on 09/24/19at 22:31; Start 09/20/19 at 09:15; Stop 09/25/19 at 10:38; Status DC Lorazepam (Ativan Inj) 2 mg PRN Q1HR PRN IV For CIWA 8-14 Last administered on 09/25/19at 14:42; Start 09/20/19 at 10:00 Lidocaine HCl (Buffered Lidocaine 1%) 3 ml STK-MED ONCE .ROUTE ; Start 09/20/19 at 11:32; Stop 09/20/19 at 11:32; Status DC Lidocaine HCl (Buffered Lidocaine 1%) 6 ml 1X ONCE INJ Last administered on 09/20/19at 12:20; Start 09/20/19 at 12:00; Stop 09/20/19 at 12:01; Status DC Nicotine (Nicoderm Cq 21mg) 1 patch DAILY TD Last administered on 09/26/19at 08:49; Start 09/20/19 at 13:30 Sodium Chloride 1,000 ml @ 1,000 mls/hr Q1H PRN IV hypotension; Start 09/20/19 at 14:09; Stop 09/20/19 at 20:08; Status DC Albumin Human 200 ml @ 200 mls/hr 1X PRN PRN IV Hypotension; Start 09/20/19 at 14:15; Stop 09/20/19 at 20:14; Status DC Sodium Chloride 1,000 ml @ 400 mls/hr Q2H30M PRN IV PATENCY; Start 09/20/19 at 14:09; Stop 09/21/19 at 02:08; Status DC Info (PHARMACY MONITORING -- do not chart) 1 each PRN DAILY PRN MC SEE COMMENTS; Start 09/20/19 at 14:15; Status UNV Info (PHARMACY MONITORING -- do not chart) 1 each PRN DAILY PRN MC SEE COMMENTS; Start 09/20/19 at 14:15 Potassium Chloride/Water 100 ml @ 100 mls/hr 1X ONCE IV Last administered on 09/21/19at 10:19; Start 09/21/19 at 08:00; Stop 09/21/19 at 08:59; Status DC Insulin Human Lispro (HumaLOG) 0-7 UNITS TIDWMEALS SQ ; Start 09/21/19 at 09:00 Dextrose (Dextrose 50%-Water Syringe) 12.5 gm PRN Q15MIN PRN IV SEE COMMENTS; Start 09/21/19 at 09:00 Amino Acids/ Glycerin/ Electrolytes 1,000 ml @ 80 mls/hr [id number] IV Last administered on 09/26/19at 03:13; Start 09/21/19 at 10:45 Potassium Chloride/Water 100 ml @ 100 mls/hr 1X ONCE IV Last administered on 09/21/19at 13:02; Start 09/21/19 at 12:00; Stop 09/21/19 at 12:59; Status DC Lorazepam (Ativan Inj) 4 mg PRN Q1HR PRN IV For CIWA 15 or greater Last administered on 09/26/19at 00:41; Start 09/22/19 at 08:00 Famotidine (Pepcid Vial) 20 mg DAILY IVP Last administered on 09/26/19at 08:49; Start 09/23/19 at 09:00 Magnesium Sulfate 100 ml @ 25 mls/hr 1X ONCE IV Last administered on 09/22/19at 13:57; Start 09/22/19 at 13:30; Stop 09/22/19 at 17:29; Status DC Potassium Chloride/Water 100 ml @ 100 mls/hr 1X ONCE IV Last administered on 09/22/19at 13:57; Start 09/22/19 at 13:30; Stop 09/22/19 at 14:29; Status DC Potassium Chloride/Water 100 ml @ 100 mls/hr Q1H IV Last administered on 09/23/19at 09:28; Start 09/23/19 at 09:00; Stop 09/23/19 at 10:59; Status DC Benztropine Mesylate (Cogentin) 2 mg PRN BID PRN IM EXTRAPYRAMIDAL SIDE EFFECTS Last administered on 09/23/19at 09:27; Start 09/23/19 at 09:15 Hydralazine HCl (Apresoline Inj) 10 mg PRN Q4HRS PRN IVP ELEVATED BP, SEE C OMMENTS Last administered on 09/26/19at 02:31; Start 09/25/19 at 10:45 Potassium Chloride (Klor-Con) 30 meq 1X ONCE PO Last administered on 09/25/19at 11:58; Start 09/25/19 at 11:45; Stop 09/25/19 at 11:52; Status DC Hydralazine HCl (Apresoline) 50 mg BID PO Last administered on 09/26/19at 09:58; Start 09/25/19 at 21:00 Potassium Bicarbonate (Potassium Effervescent Tablet) 20 meq 1X ONCE PO Last administered on 09/26/19at 09:59; Start 09/26/19 at 10:00; Stop 09/26/19 at 10:01; Status DC Vitals/I & O Vital Sign - Last 24 Hours 09/25/19 09/25/19 09/25/19 09/25/19 11:00 11:19 15:00 17:14 Temp 97.5 97.5 Pulse 53 53 78 Resp 18 18 20 B/P (MAP) 176/75 (108) 176/75 119/59 (79) Pulse Ox 100 100 O2 Delivery Room Air Room Air Nasal Cannula O2 Flow Rate 2.0 09/25/19 09/25/19 09/25/19 09/25/19 18:14 19:18 20:00 20:32 Temp 97.3 97.3 Pulse 79 79 Resp 20 18 B/P (MAP) 145/85 (105) 145/85 Pulse Ox 100 O2 Delivery Nasal Cannula Room Air Nasal Cannula O2 Flow Rate 2.0 09/25/19 09/26/19 09/26/19 09/26/19 22:47 02:31 02:38 03:37 Temp 97.5 97.3 97.5 97.3 Pulse 83 61 70 80 Resp 18 18 B/P (MAP) 145/92 (109) 159/107 159/107 (124) 93/52 (66) Pulse Ox 98 96 O2 Delivery Room Air Room Air 09/26/19 09/26/19 09/26/19 09/26/19 06:41 07:00 08:00 09:58 Temp 97.6 97.6 Pulse 62 76 76 Resp 20 B/P (MAP) 119/58 (78) 123/60 (81) 123/60 Pulse Ox 96 O2 Delivery Nasal Cannula Nasal Cannula O2 Flow Rate 2.0 Intake and Output 09/25/19 09/25/19 09/26/19 15:00 23:00 07:00 Intake Total 1000 ml Balance 1000 ml Nutrition Consultation Dietary Evaluation: Recommendations by RD: Dietary education by RD, Increase Calorie Intake, Protein supplementation, PPN/TPN Comments: Continue w/PPN for short-term non-oral nutrition needs while pt remains NPO per GI REC advance diet as able, goal diet ADA w/glucerna supplements Expected Outcomes/Goals: Nutritional intake to meet >75% est needs - not met, goal ongoing Malnutrition Findings: Food and Nutrition Intake (Mod: <75% est energy req 7days Weight Status: Appropriate RIA PROCTOR MD Sep 26, 2019 10:42
[2019-09-26] MEDS: THIAMINE INJ 100 MG in IV DEXTROSE 5% 50 ML IV SCH ×2 (17:20→22:00)
[2019-09-27 06:09] LABS: CALCIUM 7.8 mg/dL (8.5-10.1); CREATININE 1.5 mg/dL (0.7-1.3); GFR 47.1; POTASSIUM 3.1 mmol/L (3.5-5.1)
[2019-09-27 07:15] VITALS: BP 131/60
[2019-09-27] MEDS: AMINO AC 3%/ELECTROLYTE/GLYCER 1,000 ML IV SCH (07:38)
[2019-09-27] MEDS: INSULIN LISPRO 300 UNITS/3 ML VIAL. SQ SCH ×2 (08:00→11:56)
[2019-09-27] MEDS: NICOTINE 21MG PATCH. TD SCH (08:55)
[2019-09-27] MEDS: SENNOSIDES/DOCUSATE 8.6/50MG TABLET. PO SCH ×2 (08:55→20:59)
[2019-09-27] MEDS: FAMOTIDINE 20 MG TABLET. PO SCH (08:55)
[2019-09-27] MEDS: THIAMINE INJ 100 MG in IV DEXTROSE 5% 50 ML IV SCH ×3 (08:55→21:36)
--- NOTE | 2019-09-27 09:15 | CARD ---
MR#: [id number] Date of Study: 09/27/2019 Ordering Physician: RIA PROCTOR, Referring Physician: RIA PROCTOR, Tech: Lenora Mratinez APPROVED REPORT EXAM: Two-dimensional and M-mode echocardiogram with Doppler and color Doppler. Other Information Quality : AverageHR: 69bpm Technically limited study due to uncooperative patient INDICATION Arrhythmia 2D DIMENSIONS RVDd2.7 (2.9-3.5cm)Left Atrium(2D)2.8 (1.6-4.0cm) IVSd1.1 (0.7-1.1cm)Aortic Root(2D)3.4 (2.0-3.7cm) LVDd5.0 (3.9-5.9cm)LVOT Diameter2.1 (1.8-2.4cm) PWd1.1 (0.7-1.1cm)LVDs3.2 (2.5-4.0cm) FS (%) 35.2 %SV74.7 ml LVEF(%)64.3 (>50%) Aortic Valve AoV Peak Eduardo.209.6cm/sAoV VTI29.4cm AO Peak GR.17.6mmHgLVOT VTI 13.68cm AO Mean GR.7mmHg Mitral Valve MV E Hvbckirh07.2cm/sMV E Peak Gr.2mmHg MV DECEL [id number] A Lnrihhbk73.4cm/s MV E Mean Gr.1mmHgE/A Ratio0.9 TDI Lateral E' P. V5.86cm/sMedial E' P. V4.57cm/s E/Lateral E'9.4E/Medial E'12.1 LEFT VENTRICLE The left ventricle is normal size. There is mild to moderate concentric left ventricular hypertrophy. The left ventricular systolic function is low normal. EF 50% The septal motion is suggestive of cond uction defect. There is mild global hypokinesis. Transmitral Doppler flow pattern is Grade I-abnormal relaxation pattern. RIGHT VENTRICLE The right ventricle is normal size. There is normal right ventricular wall thickness. The right ventr icular systolic function is normal. ATRIA The left atrium is mildly dilated. The right atrium is mildly dilated. The interatrial septum is inta ct with no evidence for an atrial septal defect or patent foramen ovale as noted on 2-D or Doppler im aging. AORTIC VALVE Not well visualized. Doppler and Color Flow revealed no significant aortic regurgitation. There is no significant aortic valvular stenosis. MITRAL VALVE The mitral valve is normal in structure and function. There is no evidence of mitral valve prolapse. There is no mitral valve stenosis. Doppler and Color-flow revealed trace mitral regurgitation. TRICUSPID VALVE The tricuspid valve is normal in structure and function. Doppler and Color Flow revealed no tricuspid valve regurgitation noted. There is no tricuspid valve stenosis. PULMONIC VALVE The pulmonic valve is not well visualized. Doppler and Color Flow revealed no pulmonic valvular regur gitation. There is no pulmonic valvular stenosis. GREAT VESSELS The aortic root is normal in size. The IVC was not visualized. PERICARDIAL EFFUSION There is no evidence of significant pericardial effusion. Critical Notification Critical Value: No <Conclusion> There is mild to moderate concentric left ventricular hypertrophy. The left ventricular systolic function is low normal. EF 50% The septal motion is suggestive of conduction defect. There is mild global hypokinesis. Signed by : Robbin David, Electronically Approved : 09/27/2019 09:14:57
--- NOTE | 2019-09-27 09:19 | PDOC ---
PROGRESS NOTES Chief Complaint Chief Complaint IMPRESSION Hypovolemic shock secondary to GI bleeding most likely No signs of bleeding and no records from [facility]. "Cautery" hopefully implies non-variceal lesion Acute Microcytic anemia most likely secondary to iron deficiency secondary to the above-mentioned GI bleed Acute renal failure Chronic pain syndrome on chronic narcotics Toxic encephalopathy secondary to the above Hyperkalemia 5.7 secondary to acute renal failure most likely Anion gap metabolic acidosis with a probably a superimposed non-metabolic acidosis given the degree of acidosis with a bicarb reported at 11 from the outside facility Hypomagnesemia Cirrhotic appearing liver cirrhotic morphology of the liver, borderline enlargement of spleen, heterogeneous attenuation at hepatic dome but poorly evaluated somewhat ectatic gallbladder THrombocytopenia Uremia ACUTE RENAL TUBULAR NECROSIS Hyperphosphatemia Severe protein calorie malnutrition BRADYCARDIA, d/c clonidine Anemia - iron studies c/w ACD - transfused last week, Hgb improved on 09/21 Probable alcoholic cirrhosis 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 ACD, PLAN GI FOLLOWING Cardiology consult D/C CLONIDINE Nephrology following, iv fluid support 39 MIN PT EXAM, CHART REVIEW, > 50% OF TIME SPENT WITH EXAM, CHART REVIEW, PT CARE COORDINATION History of Present Illness History of Present Illness Mr Knott is a 64 yo M w/ PMHx presents to the emergency department at [facility] in [place] reportedly with altered mental status. Patient apparently was found by his roommate on the ground of his apartment patient cannot give history given his current condition. It is unknown when he was last seen normal apparently patient was found to be hypotensive on the field at 80/40 fluid resuscitation was started on the field with Ringer's lactate patient was seen in the emergency department and found to be anemic with Hb 7.9 and having reports of GI bleeding according to the records with BUN 101. BNP 3353. Patient confused and the details of his stated history are not reliable according to the ER doctor patient is in acute renal failure and he has been recently admitted at [facility] from 08/16 through 08/25 for a GI bleed. CT abdomen pelvis with contrast - marked calcified and noncalcified atheromatous plaque burden throughout the aorta, iliofemoral system and aortic branch ves sels. Severe stenosis at the right renal artery origin with resultant atrophy of the right kidney. 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 Given the presumed severe stenosis at the SMA origin, recommend correlation for symptoms that would suggest intestinal angina noting that the bowel in this distribution does not exhibit obvious features of ischemia. Also with cirrhotic morphology of the liver and borderline enlargement of the spleen. There is heterogeneous attenuation of the liver at the hepatic dome but this region is poorly evaluated due to motion artifact and a definite mass is not able to be delineated. Admitted to ICU with levophed ordered. 09/19: Started on bicarb GTT, levophed. WBC 6.1, Hb 7.8, platelets 118. NA 147, K5.5, BUN 9 3, CR 7.8, glucose 126, INR 1.2, MG 1.6, phosphorus 6.5, TSH 0.473. He thinks he is at home today. Notes he drinks quite a bit. Son in [place] notes he was "doing well" after discharge from [facility] and so he returned back home. Trialysis catheter placed under nephrology guidance for emergent dialysis. 09/20: Hb 6.5, Na 146, K 2.8, BUN 27, Cr 2.2, glucose 155, AST 45, albumin 2.4 today. Still very confused. Some stool overnight. UOP 1770 last 24 hours. 09/21: Afebrile. Hb 9.2 after transfusion. CR 2 0, mag 1.6 K3.5. Rolling around in bed still very confused. Cr 1.7, K 3.2. Received Haldol, he has some lipsmacking. Ordered benztropine. He is still very confused only opens his eyes to painful stimuli. Afebrile 09/24 banana bag PPN supportive care mental status still poor SUSPECT ALCOHOLIC CIRRHOSIS 09/25 No acute events reported overnight, case discussed with nursing staff patient in no acute distress no complaints during my visit continues to be quite obtunded and unable to have a meaningful conversation, awaiting for records from [facility]' Vitals Vitals Vital Signs Date Time Temp Pulse Resp B/P (MAP) Pulse Ox O2 Delivery O2 Flow Rate FiO2 09/27/19 08:56 87 131/60 09/27/19 07:15 98.1 18 96 Room Air 98.1 09/26/19 20:00 2.0 Physical Exam Physical Exam General: Other (CONFUSED) Lungs: Clear to auscultation, Normal air movement Neuro: Other (CONFUSED) General: Alert, Cooperative, No acute distress, Other (confused ) Heart: Regular rate, Other (2/6 systolic murmur ) Lungs: Clear, Wheezing Abdomen: Soft Extremities: No edema, Normal pulses Skin: No breakdown, No significant lesion Labs LABS Laboratory Tests Test 09/26/19 12:00 09/26/19 16:46 09/26/19 21:13 09/27/19 05:30 Glucose (Fingerstick) 138 mg/dL (70-99) 96 mg/dL (70-99) 92 mg/dL (70-99) Sodium Level 136 mmol/L (136-145) Potassium Level 3.1 mmol/L (3.5-5.1) Chloride Level 100 mmol/L (98-107) Carbon Dioxide Level 29 mmol/L (21-32) Anion Gap 7 (6-14) Blood Urea Nitrogen 27 mg/dL (8-26) Creatinine 1.5 mg/dL (0.7-1.3) Estimated GFR (Cockcroft-Gault) 47.1 Glucose Level 101 mg/dL (70-99) Calcium Level 7.8 mg/dL (8.5-10.1) Test 09/27/19 07:02 Glucose (Fingerstick) 97 mg/dL (70-99) Comment Review of Relevant I have reviewed the following items bj (where applicable) has been applied. Labs Laboratory Tests Test 09/25/19 11:00 09/25/19 12:16 09/25/19 17:18 09/25/19 20:54 White Blood Count 6.2 x10^3/uL (4.0-11.0) Red Blood Count 3.42 x10^6/uL (4.30-5.70) Hemoglobin 9.4 g/dL (13.0-17.5) Hematocrit 28.3 % (39.0-53.0) Mean Corpuscular Volume 83 fL (79-100) Mean Corpuscular Hemoglobin 28 pg (25-35) Mean Corpuscular Hemoglobin Concent 33 g/dL (31-37) Red Cell Distribution Width 22.6 % (11.5-14.5) Platelet Count 96 x10^3/uL (140-400) Neutrophils (%) (Auto) 83 % (31-73) Lymphocytes (%) (Auto) 9 % (24-48) Monocytes (%) (Auto) 7 % (0-9) Eosinophils (%) (Auto) 0 % (0-3) Basophils (%) (Auto) 0 % (0-3) Neutrophils # (Auto) 5.2 x10^3/uL (1.8-7.7) Lymphocytes # (Auto) 0.6 x10^3/uL (1.0-4.8) Monocytes # (Auto) 0.5 x10^3/uL (0.0-1.1) Eosinophils # (Auto) 0.0 x10^3/uL (0.0-0.7) Basophils # (Auto) 0.0 x10^3/uL (0.0-0.2) Sodium Level 140 mmol/L (136-145) Potassium Level 2.9 mmol/L (3.5-5.1) Chloride Level 103 mmol/L (98-107) Carbon Dioxide Level 29 mmol/L (21-32) Anion Gap 8 (6-14) Blood Urea Nitrogen 31 mg/dL (8-26) Creatinine 1.4 mg/dL (0.7-1.3) Estimated GFR (Cockcroft-Gault) 51.0 BUN/Creatinine Ratio 22 (6-20) Glucose Level 137 mg/dL (70-99) Calcium Level 7.6 mg/dL (8.5-10.1) Magnesium Level 1.8 mg/dL (1.8-2.4) Total Bilirubin 0.4 mg/dL (0.2-1.0) Aspartate Amino Transf (AST/SGOT) 30 U/L (15-37) Alanine Aminotransferase (ALT/SGPT) 32 U/L (16-63) Alkaline Phosphatase 99 U/L (46-116) Total Protein 5.4 g/dL (6.4-8.2) Albumin 2.3 g/dL (3.4-5.0) Albumin/Globulin Ratio 0.7 (1.0-1.7) Triglycerides Level 128 mg/dL (0-150) Cholesterol Level 107 mg/dL (0-200) LDL Cholesterol, Calculated 41 mg/dL (0-100) VLDL Cholesterol, Calculated 26 mg/dL (0-40) Non-HDL Cholesterol Calculated 67 mg/dL (0-129) HDL Cholesterol 40 mg/dL (40-60) Cholesterol/HDL Ratio 2.7 Glucose (Fingerstick) 126 mg/dL (70-99) 115 mg/dL (70-99) 129 mg/dL (70-99) Test 09/26/19 04:15 09/26/19 07:10 09/26/19 12:00 09/26/19 16:46 Sodium Level 139 mmol/L (136-145) Potassium Level 3.2 mmol/L (3.5-5.1) Chloride Level 103 mmol/L (98-107) Carbon Dioxide Level 25 mmol/L (21-32) Anion Gap 11 (6-14) Blood Urea Nitrogen 33 mg/dL (8-26) Creatinine 1.4 mg/dL (0.7-1.3) Estimated GFR (Cockcroft-Gault) 51.0 Glucose Level 122 mg/dL (70-99) Calcium Level 7.9 mg/dL (8.5-10.1) Magnesium Level 1.8 mg/dL (1.8-2.4) Glucose (Fingerstick) 118 mg/dL (70-99) 138 mg/dL (70-99) 96 mg/dL (70-99) Test 09/26/19 21:13 09/27/19 05:30 09/27/19 07:02 Glucose (Fingerstick) 92 mg/dL (70-99) 97 mg/dL (70-99) Sodium Level 136 mmol/L (136-145) Potassium Level 3.1 mmol/L (3.5-5.1) Chloride Level 100 mmol/L (98-107) Carbon Dioxide Level 29 mmol/L (21-32) Anion Gap 7 (6-14) Blood Urea Nitrogen 27 mg/dL (8-26) Creatinine 1.5 mg/dL (0.7-1.3) Estimated GFR (Cockcroft-Gault) 47.1 Glucose Level 101 mg/dL (70-99) Calcium Level 7.8 mg/dL (8.5-10.1) Laboratory Tests Test 09/26/19 12:00 09/26/19 16:46 09/26/19 21:13 09/27/19 05:30 Glucose (Fingerstick) 138 mg/dL (70-99) 96 mg/dL (70-99) 92 mg/dL (70-99) Sodium Level 136 mmol/L (136-145) Potassium Level 3.1 mmol/L (3.5-5.1) Chloride Level 100 mmol/L (98-107) Carbon Dioxide Level 29 mmol/L (21-32) Anion Gap 7 (6-14) Blood Urea Nitrogen 27 mg/dL (8-26) Creatinine 1.5 mg/dL (0.7-1.3) Estimated GFR (Cockcroft-Gault) 47.1 Glucose Level 101 mg/dL (70-99) Calcium Level 7.8 mg/dL (8.5-10.1) Test 09/27/19 07:02 Glucose (Fingerstick) 97 mg/dL (70-99) Microbiology 09/19/19 Urine Culture - Final, Complete 09/19/19 Blood Culture - Final, Complete NO GROWTH AFTER 5 DAYS Medications Current Medications Norepinephrine Bitartrate 8 mg/ Dextrose 258 ml @ 12.365 mls/ hr CONT PRN IV PER PROTOCOL Last administered on 09/19/19at 20:41; Start 09/19/19 at 20:30; Stop 09/26/19 at 11:05; Status DC Hydrocortisone Sodium Succinate (Solu-CORTEF) 100 mg Q8HRS IVP Last adm inistered on 09/26/19at 05:45; Start 09/19/19 at 22:00; Stop 09/26/19 at 11:21; Status DC Acetaminophen (Tylenol) 650 mg PRN Q6HRS PRN PO Headaches, Temp > 101.5'; Start 09/19/19 at 21:15 Lorazepam (Ativan Inj) 0.5 mg PRN Q6HRS PRN IVP ANXIETY / AGITATION Last administered on 09/19/19at 22:19; Start 09/19/19 at 21:15 Ondansetron HCl (Zofran) 4 mg PRN Q6HRS PRN IVP NAUSEA/VOMITING; Start 09/19/19 at 21:15 Calcium Carbonate/ Glycine (Tums) 500 mg PRN Q3HRS PRN PO HEARTBURN / GAS; Start 09/19/19 at 21:15 Famotidine (Pepcid Vial) 20 mg BID IVP Last administered on 09/21/19at 21:08; Start 09/20/19 at 09:00; Stop 09/22/19 at 10:27; Status DC Sodium Chloride (Normal Saline Flush) 3 ml QSHIFT PRN IV AFTER MEDS AND BLOOD DRAWS; Start 09/19/19 at 21:15 Oxycodone/ Acetaminophen (Percocet 5/325) 1 tab PRN Q4HRS PRN PO PAIN Last administered on 09/25/19at 17:14; Start 09/19/19 at 21:15 Morphine Sulfate (Morphine Sulfate) 1 mg PRN Q1HR PRN IV PAIN Last administered on 09/21/19at 23:02; Start 09/19/19 at 21:15 Senna/Docusate Sodium (Senna Plus) 1 tab BID PO Last administered on 09/27/19at 08:55; Start 09/20/19 at 09:00 Lactulose (Lactulose) 20 gm PRN Q12HR PRN PO CONSTIPATION; Start 09/19/19 at 21:15 Acetaminophen (Tylenol) 650 mg 1X PRN PRN PO PRE-TRANSFUSION; Start 09/19/19 at 21:15; Stop 09/26/19 at 11:10; Status DC Magnesium Sulfate/ Dextrose 100 ml @ 100 mls/hr 1X ONCE IV Last administered on 09/19/19at 22:23; Start 09/19/19 at 22:30; Stop 09/19/19 at 23:29; Status DC Sodium Bicarbonate 150 meq/Dextrose 1,150 ml @ 125 mls/hr Q9H12M IV Last administered on 09/21/19at 01:39; Start 09/20/19 at 06:45; Stop 09/21/19 at 10:17; Status DC Multivitamins 10 ml/Thiamine HCl 100 mg/Folic Acid 1 mg/Sodium Chloride 1,011.2 ml @ 100 mls/ hr DAILY IV Last administered on 09/24/19at 08:59; Start 09/20/19 at 10:00; Stop 09/24/19 at 19:07; Status DC Lorazepam (Ativan) 2 mg PRN Q1HR PRN PO For CIWA 8-14; Start 09/20/19 at 09:15; Stop 09/20/19 at 10:00; Status DC Lorazepam (Ativan Inj) 1 mg PRN Q1HR PRN IV For CIWA 8-14; Start 09/20/19 at 09:15 Haloperidol Lactate (Haldol Inj) 5 mg PRN Q4HRS PRN IVP Hallucinatns,Confusn,Delirium Last administered on 09/25/19at 22:07; Start 09/20/19 at 09:15 Clonidine HCl (Catapres) 0.1 mg PRN Q1HR PRN PO SBP > 180 or DBP > 100, MRX3 Last administered on 09/24/19at 22:31; Start 09/20/19 at 09:15; Stop 09/25/19 at 10:38; Status DC Lorazepam (Ativan Inj) 2 mg PRN Q1HR PRN IV For CIWA 8-14 Last administered on 09/25/19at 14:42; Start 09/20/19 at 10:00 Lidocaine HCl (Buffered Lidocaine 1%) 3 ml STK-MED ONCE .ROUTE ; Start 09/20/19 at 11:32; Stop 09/20/19 at 11:32; Status DC Lidocaine HCl (Buffered Lidocaine 1%) 6 ml 1X ONCE INJ Last administered on 09/20/19at 12:20; Start 09/20/19 at 12:00; Stop 09/20/19 at 12:01; Status DC Nicotine (Nicoderm Cq 21mg) 1 patch DAILY TD Last administered on 09/27/19at 08:55; Start 09/20/19 at 13:30 Sodium Chloride 1,000 ml @ 1,000 mls/hr Q1H PRN IV hypotension; Start 09/20/19 at 14:09; Stop 09/20/19 at 20:08; Status DC Albumin Human 200 ml @ 200 mls/hr 1X PRN PRN IV Hypotension; Start 09/20/19 at 14:15; Stop 09/20/19 at 20:14; Status DC Sodium Chloride 1,000 ml @ 400 mls/hr Q2H30M PRN IV PATENCY; Start 09/20/19 at 14:09; Stop 09/21/19 at 02:08; Status DC Info (PHARMACY MONITORING -- do not chart) 1 each PRN DAILY PRN MC SEE COMMENTS; Start 09/20/19 at 14:15; Status UNV Info (PHARMACY MONITORING -- do not chart) 1 each PRN DAILY PRN MC SEE COMMENT S; Start 09/20/19 at 14:15; Stop 09/26/19 at 11:13; Status DC Potassium Chloride/Water 100 ml @ 100 mls/hr 1X ONCE IV Last administered on 09/21/19at 10:19; Start 09/21/19 at 08:00; Stop 09/21/19 at 08:59; Status DC Insulin Human Lispro (HumaLOG) 0-7 UNITS TIDWMEALS SQ ; Start 09/21/19 at 09:00 Dextrose (Dextrose 50%-Water Syringe) 12.5 gm PRN Q15MIN PRN IV SEE COMMENTS; Start 09/21/19 at 09:00 Amino Acids/ Glycerin/ Electrolytes 1,000 ml @ 80 mls/hr [id number] IV Last administered on 09/27/19at 07:38; Start 09/21/19 at 10:45 Potassium Chloride/Water 100 ml @ 100 mls/hr 1X ONCE IV Last administered on 09/21/19at 13:02; Start 09/21/19 at 12:00; Stop 09/21/19 at 12:59; Status DC Lorazepam (Ativan Inj) 4 mg PRN Q1HR PRN IV For CIWA 15 or greater Last adm inistered on 09/26/19at 00:41; Start 09/22/19 at 08:00 Famotidine (Pepcid Vial) 20 mg DAILY IVP Last administered on 09/26/19at 08:49; Start 09/23/19 at 09:00; Stop 09/26/19 at 11:11; Status DC Magnesium Sulfate 100 ml @ 25 mls/hr 1X ONCE IV Last administered on 09/22/19at 13:57; Start 09/22/19 at 13:30; Stop 09/22/19 at 17:29; Status DC Potassium Chloride/Water 100 ml @ 100 mls/hr 1X ONCE IV Last administered on 09/22/19at 13:57; Start 09/22/19 at 13:30; Stop 09/22/19 at 14:29; Status DC Potassium Chloride/Water 100 ml @ 100 mls/hr Q1H IV Last administered on 09/23/19at 09:28; Start 09/23/19 at 09:00; Stop 09/23/19 at 10:59; Status DC Benztropine Mesylate (Cogentin) 2 mg PRN BID PRN IM EXTRAPYRAMIDAL SIDE EFFECTS Last administered on 09/23/19at 09:27; Start 09/23/19 at 09:15 Hydralazine HCl (Apresoline Inj) 10 mg PRN Q4HRS PRN IVP ELEVATED BP, SEE COMMENTS Last administered on 09/26/19at 02:31; Start 09/25/19 at 10:45 Potassium Chloride (Klor-Con) 30 meq 1X ONCE PO Last administered on 09/25/19at 11:58; Start 09/25/19 at 11:45; Stop 09/25/19 at 11:52; Status DC Hydralazine HCl (Apresoline) 50 mg BID PO Last administered on 09/27/19at 08:56; Start 09/25/19 at 21:00 Potassium Bicarbonate (Potassium Effervescent Tablet) 20 meq 1X ONCE PO Last administered on 09/26/19at 09:59; Start 09/26/19 at 10:00; Stop 09/26/19 at 10:01; Status DC Famotidine (Pepcid) 20 mg DAILY PO Last administered on 09/27/19at 08:55; Start 09/27/19 at 09:00 Thiamine HCl 100 mg/Dextrose 51 ml @ 102 mls/hr TID IV Last administered on 09/27/19at 08:55; Start 09/26/19 at 14:00 Vitals/I & O Vital Sign - Last 24 Hours 09/26/19 09/26/19 09/26/19 09/26/19 09:58 11:00 15:00 19:25 Temp 97.6 98.2 98.4 97.6 98.2 98.4 Pulse 76 78 74 74 Resp 20 20 20 B/P (MAP) 123/60 114/61 (78) 146/64 (91) 184/71 (108) Pulse Ox 98 96 98 O2 Delivery Room Air Room Air Room Air 09/26/19 09/26/19 09/26/19 09/27/19 20:00 22:00 22:50 07:15 Temp 97.5 98.1 97.5 98.1 Pulse 74 83 87 Resp 18 18 B/P (MAP) 184/71 169/81 (110) 131/60 (83) Pulse Ox 98 96 O2 Delivery Nasal Cannula Room Air Room Air O2 Flow Rate 2.0 09/27/19 08:56 Pulse 87 B/P (MAP) 131/60 Intake and Output0 09/26/19 09/26/19 09/27/19 15:00 23:00 07:00 Intake Total 300 ml 200 ml Balance 300 ml 200 ml Nutrition Consultation Dietary Evaluation: Recommendations by RD: Dietary education by RD, Increase Calorie Intake, Protein supplementation, PPN/TPN Comments: Continue w/ADA diet as ordered, honor food preferences, provide snacks as requested Continue w/PPN at this time to supplement varying PO intake REC Ensure pudding (chocolate) BID per pt choice Expected Outcomes/Goals: Nutritional intake to meet >75% est needs - not met, goal ongoing Malnutrition Findings: Food and Nutrition Intake (Mod: <75% est energy req 7days Weight Status: Appropriate CHAPIS IRWIN MD Sep 27, 2019 09:19
--- NOTE | 2019-09-27 09:34 | PDOC ---
SUBJECTIVE ROS No acute events overnight , confused OBJECTIVE Vital Signs Vital Signs Date Time Temp Pulse Resp B/P (MAP) Pulse Ox O2 Delivery O2 Flow Rate FiO2 09/27/19 08:56 87 131/60 09/27/19 07:15 98.1 18 96 Room Air 98.1 09/26/19 20:00 2.0 I & 0 Intake and Output 09/27/19 07:00 Intake Total 500 ml Balance 500 ml Intake Oral 500 ml # Voids 5 PHYSICAL EXAM Physical Exam GEN.: No apparent distress. HEENT: OM moist NECK: Supple. LUNGS: Clear to auscultation. No accessory muscles use HEART: RRR, S1, S2 present. ABDOMEN: Soft, nontender. EXTREMITIES: No cyanosis, edema NEUROLOGIC: Confused PSYCHIATRIC: flat affect SKIN: No rash Lee removed DIAGNOSIS/ASSESSMENT Assessment & Plan MISBAH- ATN Improving, Cr 7 at presentation-, currently stable Emergent HD x1 at presentation supportive care, Strict I/O, Bladder scan prn Suspect CKD - Renal US Asymmetric renal size with atrophic appearing right kidney with echogenic cortex which could be from chronic renal disease. HypoKalemia- replace Hypernatremia - at presentation, resolved Severe AG Metabolic acidosis- Resolved H/o GI bleeding , GI following Anemia - s/p PRBC last week last week- Hgb 6.5 , Hgb improved ,stable, still <10 On Aranesp ETOH abuse HTN- cardiology managing , Hypotensive at presentation COMMENT/RELEVANT DATA Meds Current Medications Medications (Trade) Dose Ordered Sig/Vasquez Start Time Stop Time Status Last Admin Dose Admin Acetaminophen (Tylenol) 650 mg 1X PRN PRN 09/19/19 21:15 09/26/19 11:10 DC Albumin Human 200 ml @ 200 mls/hr 1X PRN PRN 09/20/19 14:15 09/20/19 20:14 DC Amino Acids/ Glycerin/ Electrolytes 1,000 ml @ 80 mls/hr [id number] 09/21/19 10:45 09/27/19 07:38 80 MLS/HR Benztropine Mesylate (Cogentin) 2 mg PRN BID PRN 09/23/19 09:15 09/23/19 09:27 2 MG Calcium Carbonate/ Glycine (Tums) 500 mg PRN Q3HRS PRN 09/19/19 21:15 Clonidine HCl (Catapres) 0.1 mg PRN Q1HR PRN 09/20/19 09:15 09/25/19 10:38 DC 09/24/19 22:31 0.1 MG Dextrose (Dextrose 50%-Water Syringe) 12.5 gm PRN Q15MIN PRN 09/21/19 09:00 Famotidine (Pepcid Vial) 20 mg DAILY 09/23/19 09:00 09/26/19 11:11 DC 09/26/19 08:49 20 MG Famotidine (Pepcid) 20 mg DAILY 09/27/19 09:00 09/27/19 08:55 20 MG Haloperidol Lactate (Haldol Inj) 5 mg PRN Q4HRS PRN 09/20/19 09:15 09/25/19 22:07 5 MG Hydralazine HCl (Apresoline Inj) 10 mg PRN Q4HRS PRN 09/25/19 10:45 09/26/19 02:31 10 MG Hydralazine HCl (Apresoline) 50 mg BID 09/25/19 21:00 09/27/19 08:56 50 MG Hydrocortisone Sodium Succinate (Solu-CORTEF) 100 mg Q8HRS 09/19/19 22:00 09/26/19 11:21 DC 09/26/19 05:45 100 MG Info (PHARMACY MONITORING -- do not chart) 1 each PRN DAILY PRN 09/20/19 14:15 09/26/19 11:13 DC Insulin Human Lispro (HumaLOG) 0-7 UNITS TIDWMEALS 09/21/19 09:00 Lactulose (Lactulose) 20 gm PRN Q12HR PRN 09/19/19 21:15 Lidocaine HCl (Buffered Lidocaine 1%) 6 ml 1X ONCE 09/20/19 12:00 09/20/19 12:01 DC 09/20/19 12:20 6 ML Lorazepam (Ativan Inj) 4 mg PRN Q1HR PRN 09/22/19 08:00 09/26/19 00:41 4 MG Lorazepam (Ativan) 2 mg PRN Q1HR PRN 09/20/19 09:15 09/20/19 10:00 DC Magnesium Sulfate 100 ml @ 25 mls/hr 1X ONCE 09/22/19 13:30 09/22/19 17:29 DC 09/22/19 13:57 25 MLS/HR Magnesium Sulfate/ Dextrose 100 ml @ 100 mls/hr 1X ONCE 09/19/19 22:30 09/19/19 23:29 DC 09/19/19 22:23 100 MLS/HR Morphine Sulfate (Morphine Sulfate) 1 mg PRN Q1HR PRN 09/19/19 21:15 09/21/19 23:02 1 MG Multivitamins 10 ml/Thiamine HCl 100 mg/Folic Acid 1 mg/Sodium Chloride 1,011.2 ml @ 100 mls/ hr DAILY 09/20/19 10:00 09/24/19 19:07 DC 09/24/19 08:59 100 MLS/HR Nicotine (Nicoderm Cq 21mg) 1 patch DAILY 09/20/19 13:30 09/27/19 08:55 1 PATCH Norepinephrine Bitartrate 8 mg/ Dextrose 258 ml @ 12.365 mls/ hr CONT PRN 09/19/19 20:30 09/26/19 11:05 DC 09/19/19 20:41 12.365 MLS/HR Ondansetron HCl (Zofran) 4 mg PRN Q6HRS PRN 09/19/19 21:15 Oxycodone/ Acetaminophen (Percocet 5/325) 1 tab PRN Q4HRS PRN 09/19/19 21:15 09/25/19 17:14 1 TAB Potassium Bicarbonate (Potassium Effervescent Tablet) 20 meq 1X ONCE 09/26/19 10:00 09/26/19 10:01 DC 09/26/19 09:59 20 MEQ Potassium Chloride/Water 100 ml @ 100 mls/hr Q1H 09/23/19 09:00 09/23/19 10:59 DC 09/23/19 09:28 100 MLS/HR Potassium Chloride (Klor-Con) 30 meq 1X ONCE 09/25/19 11:45 09/25/19 11:52 DC 09/25/19 11:58 30 MEQ Senna/Docusate Sodium (Senna Plus) 1 tab BID 09/20/19 09:00 09/27/19 08:55 1 TAB Sodium Bicarbonate 150 meq/Dextrose 1,150 ml @ 125 mls/hr Q9H12M 09/20/19 06:45 09/21/19 10:17 DC 09/21/19 01:39 125 MLS/HR Sodium Chloride 1,000 ml @ 400 mls/hr Q2H30M PRN 09/20/19 14:09 09/21/19 02:08 DC Sodium Chloride (Normal Saline Flush) 3 ml QSHIFT PRN 09/19/19 21:15 Thiamine HCl 100 mg/Dextrose 51 ml @ 102 mls/hr TID 09/26/19 14:00 09/27/19 08:55 102 MLS/HR Lab Laboratory Tests Test 09/26/19 12:00 09/26/19 16:46 09/26/19 21:13 09/27/19 05:30 Glucose (Fingerstick) 138 mg/dL (70-99) 96 mg/dL (70-99) 92 mg/dL (70-99) Sodium Level 136 mmol/L (136-145) Potassium Level 3.1 mmol/L (3.5-5.1) Chloride Level 100 mmol/L (98-107) Carbon Dioxide Level 29 mmol/L (21-32) Anion Gap 7 (6-14) Blood Urea Nitrogen 27 mg/dL (8-26) Creatinine 1.5 mg/dL (0.7-1.3) Estimated GFR (Cockcroft-Gault) 47.1 Glucose Level 101 mg/dL (70-99) Calcium Level 7.8 mg/dL (8.5-10.1) Test 09/27/19 07:02 Glucose (Fingerstick) 97 mg/dL (70-99) Results All relevant outside records, renal labs, imaging studies, telemetry/EKG's were reviewed. Justicifation of Admission Dx: Justifications for Admission: Justification of Admission Dx: Yes Acute Renal Failure: Serum Cr > 4mg/dL MANSI LUCAS MD Sep 27, 2019 09:34
[2019-09-27] MEDS ORDERED: POTASSIUM CHLORIDE 20MEQ 100 ML IV ONE (10:00)
--- NOTE | 2019-09-27 10:28 | PDOC ---
Objective: Objective: D/w staff - pleasantly confused, eats a little, stooled w/o blood. Vital Signs: Vital Signs Date Time Temp Pulse Resp B/P (MAP) Pulse Ox O2 Delivery O2 Flow Rate FiO2 09/27/19 08:56 87 131/60 09/27/19 08:00 Room Air 09/27/19 07:15 98.1 18 96 98.1 09/26/19 20:00 2.0 Labs: Laboratory Tests Test 09/26/19 12:00 09/26/19 16:46 09/26/19 21:13 09/27/19 05:30 Glucose (Fingerstick) 138 mg/dL 96 mg/dL 92 mg/dL Sodium Level 136 mmol/L Potassium Level 3.1 mmol/L Chloride Level 100 mmol/L Carbon Dioxide Level 29 mmol/L Anion Gap 7 Blood Urea Nitrogen 27 mg/dL Creatinine 1.5 mg/dL Estimated GFR (Cockcroft-Gault) 47.1 Glucose Level 101 mg/dL Calcium Level 7.8 mg/dL Test 09/27/19 07:02 Glucose (Fingerstick) 97 mg/dL PE: GEN: NAD NEURO/PSYCH: sleeping, not awakened A/P: 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 Justicifation of Admission Dx: Justifications for Admission: Justification of Admission Dx: Yes Acute Renal Failure: Serum Cr > 4mg/dL RAQUEL GAYTAN Sep 27, 2019 10:28
[2019-09-27 10:34] VITALS: BP 84/51
[2019-09-27] MEDS ORDERED: MAGNESIUM SULFATE 2GM 50 ML IV ONE (11:00)
--- NOTE | 2019-09-27 12:15 | PDOC ---
HAMILTON UNGER THERMODYNAMIC PHYSICIST 09/27/19 1215: CARDIO Progress Notes Date and Time Date of Service 09/27/2019 Time of Evaluation 1020 Subjective Subjective: No Chest Pain, No shortness of breath, No Palpitations, Other (sitting on BSC trying to have BM) Vitals Vitals Vital Signs Date Time Temp Pulse Resp B/P (MAP) Pulse Ox O2 Delivery O2 Flow Rate FiO2 09/27/19 10:34 98.1 99 18 84/51 (62) 97 Room Air 98.1 09/26/19 20:00 2.0 Weight Weight [ ] Input and Output Intake and Output Intake and Output 09/27/19 07:00 Intake Total 500 ml Balance 500 ml Intake Oral 500 ml # Voids 5 Laboratory Labs Laboratory Tests Test 09/26/19 16:46 09/26/19 21:13 09/27/19 05:30 09/27/19 07:02 Glucose (Fingerstick) 96 mg/dL (70-99) 92 mg/dL (70-99) 97 mg/dL (70-99) Sodium Level 136 mmol/L (136-145) Potassium Level 3.1 mmol/L (3.5-5.1) Chloride Level 100 mmol/L (98-107) Carbon Dioxide Level 29 mmol/L (21-32) Anion Gap 7 (6-14) Blood Urea Nitrogen 27 mg/dL (8-26) Creatinine 1.5 mg/dL (0.7-1.3) Estimated GFR (Cockcroft-Gault) 47.1 Glucose Level 101 mg/dL (70-99) Calcium Level 7.8 mg/dL (8.5-10.1) Magnesium Level 1.7 mg/dL (1.8-2.4) Microbiology Micro Microbiology 09/19/19 Urine Culture - Final, Complete 09/19/19 Blood Culture - Final, Complete NO GROWTH AFTER 5 DAYS Review of Systems Constitutional: yes: other Physical Exam HEENT: Neck Supple W Full Motion Chest: Symmetric LUNGS: Clear to Auscultation Heart: RRR (SR with PACs and PVCs) Abdomen: Soft N/T Extremities: No Edema, No Calf Tenderness Neurology: alert, confused Assessment Assessment 1. Metabolic encephalopathy: remains confused. Wernickes? 2. Pancytopenia. s/p PRBC transfusion. WBC normalized 3. H/o recent GIB 4. MISBAH, Appears back to his baseline 5. Arrhythmia: SR with PVCs/PACs associated with hypokalemia and hypomagnesemia. 6. H/o ETOH abuse, cirrhosis. Details unclear GI following 7. Asymptomatic SB: with associated use of clonidine and lyte abnormalities. None further. EF 50% with mild global hypokinesis 8. DM2: per PCP 9. UTI? defer to PCP 10. HTN: controlled Recommendations 1. No further clonidine. Procalamine in place. Replace K and Mg today 2. CIWA protocol per PCP. hydralazine PO and PRN 3. No MICAELA/ARB with MISBAH 4. No ASA with GIB, anemia, thrombocytopenia 5. MCOT is a consideration. Supportive care Justicifation of Admission Dx: Justifications for Admission: Justification of Admission Dx: Yes Acute Renal Failure: Serum Cr > 4mg/dL JULIANNE BERMUDEZ MD 09/28/19 0829: CARDIO Progress Notes Assessment Assessment Patient seen and examined 09/27/19. Agree with MAMMA LOGIST's assessment and plan. Bradycardia resolved. No other arrhythmias noted on telemetry. 2D echo showed LVEF 50%. We will consider event monitor as an outpatient. Continue current management for pancytopenia and metabolic encephalopathy. HAMILTON UNGER APRN Sep 27, 2019 12:15 JULIANNE BERMUDEZ MD Sep 28, 2019 08:29
[2019-09-27 15:07] VITALS: BP 131/62
[2019-09-27] MEDS ORDERED: MAGNESIUM SULFATE 1GM 100 ML IV ONE (15:15)
[2019-09-27 19:37] VITALS: BP 162/77
[2019-09-27 23:28] VITALS: BP 154/69
[2019-09-28] MEDS: AMINO AC 3%/ELECTROLYTE/GLYCER 1,000 ML IV SCH ×3 (01:16→16:45)
[2019-09-28 03:43] VITALS: BP 139/62
[2019-09-28 06:44] LABS: CALCIUM 7.8 mg/dL (8.5-10.1); CREATININE 1.3 mg/dL (0.7-1.3); GFR 55.6; POTASSIUM 3.4 mmol/L (3.5-5.1)
[2019-09-28 07:00] VITALS: BP 168/71
[2019-09-28] MEDS: INSULIN LISPRO 300 UNITS/3 ML VIAL. SQ SCH ×3 (08:00→16:46)
[2019-09-28 08:15] LABS: BASO % 0 % (0-3); EOS # 0.1 x10^3/uL (0.0-0.7); EOS % 1 % (0-3); HEMATOCRIT 33.4 % (39.0-53.0); HEMOGLOBIN 10.8 g/dL (13.0-17.5); LYMPH # 1.1 x10^3/uL (1.0-4.8); LYMPH % 12 % (24-48); MEAN CORPUSCULAR HEMOGLOBIN 27 pg (25-35); MEAN CORPUSCULAR HGB CONC 33 g/dL (31-37); MEAN CORPUSCULAR VOLUME 84 fL (79-100); MONO # 1.1 x10^3/uL (0.0-1.1); MONO % 12 % (0-9); NEUT # 7.6 x10^3/uL (1.8-7.7); NEUT % 76 % (31-73); PLATELET COUNT 128 x10^3/uL (140-400); RED BLOOD COUNT 3.97 x10^6/uL (4.30-5.70)
[2019-09-28] MEDS: SENNOSIDES/DOCUSATE 8.6/50MG TABLET. PO SCH ×2 (09:00→20:05)
[2019-09-28] MEDS: THIAMINE INJ 100 MG in IV DEXTROSE 5% 50 ML IV SCH ×3 (09:01→20:35)
[2019-09-28] MEDS: FAMOTIDINE 20 MG TABLET. PO SCH ×2 (09:02→20:36)
[2019-09-28] MEDS: oxyCODONE/APAP 5/325 1 TAB TABLET PO PRN (09:02)
[2019-09-28] MEDS: NICOTINE 21MG PATCH. TD SCH (09:03)
--- NOTE | 2019-09-28 09:03 | PDOC ---
PROGRESS NOTES Chief Complaint Chief Complaint discharge dx Hypovolemic shock secondary to GI bleeding most likely No signs of bleeding and no records from [facility]. "Cautery" hopefully implies non-variceal lesion Acute Microcytic anemia most likely secondary to iron deficiency secondary to the above-mentioned GI bleed Acute renal failure Chronic pain syndrome on chronic narcotics Toxic encephalopathy secondary to the above Hyperkalemia 5.7 secondary to acute renal failure most likely Anion gap metabolic acidosis with a probably a superimposed non-metabolic acid osis given the degree of acidosis with a bicarb reported at 11 from the outside facility Hypomagnesemia Cirrhotic appearing liver cirrhotic morphology of the liver, borderline enlargement of spleen, heterogeneous attenuation at hepatic dome but poorly evaluated somewhat ectatic gallbladder THrombocytopenia Uremia ACUTE RENAL TUBULAR NECROSIS Hyperphosphatemia Severe protein calorie malnutrition BRADYCARDIA, d/c clonidine Anemia - iron studies c/w ACD - transfused last week, Hgb improved on 09/21 Probable alcoholic cirrhosis 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 None further. EF 50% with mild global hypokinesis DM2: PLAN GI FOLLOWING Cardiology consult D/C CLONIDINE Nephrology following, iv fluid support d/c today, [facility] bed 34 MIN PT EXAM, CHART REVIEW d/c planning , > 50% OF TIME SPENT WITH EXAM, CHART REVIEW, PT CARE COORDINATION History of Present Illness History of Present Illness Mr Knott is a 64 yo M w/ PMHx presents to the emergency department at [facility] in [place] reportedly with altered mental status. Patient apparently was found by his roommate on the ground of his apartment patient cannot give history given his current condition. It is unknown when he was last seen normal apparently patient was found to be hypotensive on the field at 80/40 fluid resuscitation was started on the field with Ringer's lactate patient was seen in the emergency department and found to be anemic with Hb 7.9 and having reports of GI bleeding according to the records with BUN 101. BNP 3353. Patient confused and the details of his stated history are not reliable according to the ER doctor patient is in acute renal failure and he has been recently admitted at [facility] from 08/16 through 08/25 for a GI bleed. CT abdomen pelvis with contrast - marked calcified and noncalcified atheromatous plaque burden throughout the aorta, iliofemoral system and aortic branch vessels. Severe stenosis at the right renal artery origin with resultant atrophy of the right kidney. 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 Given the presumed severe stenosis at the SMA origin, recommend correlation for symptoms that would suggest intestinal angina noting that the bowel in this distribution does not exhibit obvious features of ischemia. Also with cirrhotic morphology of the liver and borderline enlargement of the spleen. There is heterogeneous attenuation of the liver at the hepatic dome but this region is poorly evaluated due to motion artifact and a definite mass is not able to be delineated. Admitted to ICU with levophed ordered. 09/19: Started on bicarb GTT, levophed. WBC 6.1, Hb 7.8, platelets 118. NA 147, K5.5, BUN 9 3, CR 7.8, glucose 126, INR 1.2, MG 1.6, phosphorus 6.5, TSH 0.473. He thinks he is at home today. Notes he drinks quite a bit. Son in [place] notes he was "doing well" after discharge from [facility] and so he returned back home. Trialysis catheter placed under nephrology guidance for emergent dialysis. 09/20: Hb 6.5, Na 146, K 2.8, BUN 27, Cr 2.2, glucose 155, AST 45, albumin 2.4 today. Still very confused. Some stool overnight. UOP 1770 last 24 hours. 09/21: Afebrile. Hb 9.2 after transfusion. CR 2 0, mag 1.6 K3.5. Rolling around in bed still very confused. Cr 1.7, K 3.2. Received Haldol, he has some lipsmacking. Ordered benztropine. He is still very confused only opens his eyes to painful stimuli. Afebrile 09/24 banana bag PPN supportive care mental status still poor SUSPECT ALCOHOLIC CIRRHOSIS 09/25 No acute events reported overnight, case discussed with nursing staff patient in no acute distress no complaints during my visit continues to be quite obtunded and unable to have a meaningful conversation, awaiting for records from [facility] Vitals Vitals Vital Signs Date Time Temp Pulse Resp B/P (MAP) Pulse Ox O2 Delivery O2 Flow Rate FiO2 09/28/19 07:51 Room Air 09/28/19 07:00 97.8 79 20 168/71 (103) 99 97.8 Physical Exam Physical Exam General: Other (CONFUSED) Lungs: Clear to auscultation, Normal air movement Neuro: Other (CONFUSED) General: Alert, Cooperative, No acute distress, Other (confused ) Heart: Regular rate, Other (2/6 systolic murmur ) Lungs: Clear, Wheezing Abdomen: Soft Extremities: No cyanosis, No edema, Normal pulses Skin: No breakdown, No significant lesion Labs LABS Laboratory Tests Test 09/27/19 16:26 09/28/19 06:15 09/28/19 08:31 Glucose (Fingerstick) 92 mg/dL (70-99) 101 mg/dL (70-99) White Blood Count 10.0 x10^3/uL (4.0-11.0) Red Blood Count 3.97 x10^6/uL (4.30-5.70) Hemoglobin 10.8 g/dL (13.0-17.5) Hematocrit 33.4 % (39.0-53.0) Mean Corpuscular Volume 84 fL (79-100) Mean Corpuscular Hemoglobin 27 pg (25-35) Mean Corpuscular Hemoglobin Concent 33 g/dL (31-37) Red Cell Distribution Width 23.0 % (11.5-14.5) Platelet Count 128 x10^3/uL (140-400) Neutrophils (%) (Auto) 76 % (31-73) Lymphocytes (%) (Auto) 12 % (24-48) Monocytes (%) (Auto) 12 % (0-9) Eosinophils (%) (Auto) 1 % (0-3) Basophils (%) (Auto) 0 % (0-3) Neutrophils # (Auto) 7.6 x10^3/uL (1.8-7.7) Lymphocytes # (Auto) 1.1 x10^3/uL (1.0-4.8) Monocytes # (Auto) 1.1 x10^3/uL (0.0-1.1) Eosinophils # (Auto) 0.1 x10^3/uL (0.0-0.7) Basophils # (Auto) 0.0 x10^3/uL (0.0-0.2) Sodium Level 137 mmol/L (136-145) Potassium Level 3.4 mmol/L (3.5-5.1) Chloride Level 102 mmol/L (98-107) Carbon Dioxide Level 25 mmol/L (21-32) Anion Gap 10 (6-14) Blood Urea Nitrogen 24 mg/dL (8-26) Creatinine 1.3 mg/dL (0.7-1.3) Estimated GFR (Cockcroft-Gault) 55.6 Glucose Level 109 mg/dL (70-99) Calcium Level 7.8 mg/dL (8.5-10.1) Magnesium Level 2.0 mg/dL (1.8-2.4) Comment Review of Relevant I have reviewed the following items bj (where applicable) has been applied. Labs Laboratory Tests Test 09/26/19 12:00 09/26/19 16:46 09/26/19 21:13 09/26/19 22:15 Glucose (Fingerstick) 138 mg/dL (70-99) 96 mg/dL (70-99) 92 mg/dL (70-99) Coronavirus (COVID-19)(PCR) Not detected (NOT DETECT.) Test 09/27/19 05:30 09/27/19 07:02 09/27/19 16:26 09/28/19 06:15 Sodium Level 136 mmol/L (136-145) 137 mmol/L (136-145) Potassium Level 3.1 mmol/L (3.5-5.1) 3.4 mmol/L (3.5-5.1) Chloride Level 100 mmol/L (98-107) 102 mmol/L (98-107) Carbon Dioxide Level 29 mmol/L (21-32) 25 mmol/L (21-32) Anion Gap 7 (6-14) 10 (6-14) Blood Urea Nitrogen 27 mg/dL (8-26) 24 mg/dL (8-26) Creatinine 1.5 mg/dL (0.7-1.3) 1.3 mg/dL (0.7-1.3) Estimated GFR (Cockcroft-Gault) 47.1 55.6 Glucose Level 101 mg/dL (70-99) 109 mg/dL (70-99) Calcium Level 7.8 mg/dL (8.5-10.1) 7.8 mg/dL (8.5-10.1) Magnesium Level 1.7 mg/dL (1.8-2.4) 2.0 mg/dL (1.8-2.4) Glucose (Fingerstick) 97 mg/dL (70-99) 92 mg/dL (70-99) White Blood Count 10.0 x10^3/uL (4.0-11.0) Red Blood Count 3.97 x10^6/uL (4.30-5.70) Hemoglobin 10.8 g/dL (13.0-17.5) Hematocrit 33.4 % (39.0-53.0) Mean Corpuscular Volume 84 fL (79-100) Mean Corpuscular Hemoglobin 27 pg (25-35) Mean Corpuscular Hemoglobin Concent 33 g/dL (31-37) Red Cell Distribution Width 23.0 % (11.5-14.5) Platelet Count 128 x10^3/uL (140-400) Neutrophils (%) (Auto) 76 % (31-73) Lymphocytes (%) (Auto) 12 % (24-48) Monocytes (%) (Auto) 12 % (0-9) Eosinophils (%) (Auto) 1 % (0-3) Basophils (%) (Auto) 0 % (0-3) Neutrophils # (Auto) 7.6 x10^3/uL (1.8-7.7) Lymphocytes # (Auto) 1.1 x10^3/uL (1.0-4.8) Monocytes # (Auto) 1.1 x10^3/uL (0.0-1.1) Eosinophils # (Auto) 0.1 x10^3/uL (0.0-0.7) Basophils # (Auto) 0.0 x10^3/uL (0.0-0.2) Test 09/28/19 08:31 Glucose (Fingerstick) 101 mg/dL (70-99) Laboratory Tests Test 09/27/19 16:26 09/28/19 06:15 09/28/19 08:31 Glucose (Fingerstick) 92 mg/dL (70-99) 101 mg/dL (70-99) White Blood Count 10.0 x10^3/uL (4.0-11.0) Red Blood Count 3.97 x10^6/uL (4.30-5.70) Hemoglobin 10.8 g/dL (13.0-17.5) Hematocrit 33.4 % (39.0-53.0) Mean Corpuscular Volume 84 fL (79-100) Mean Corpuscular Hemoglobin 27 pg (25-35) Mean Corpuscular Hemoglobin Concent 33 g/dL (31-37) Red Cell Distribution Width 23.0 % (11.5-14.5) Platelet Count 128 x10^3/uL (140-400) Neutrophils (%) (Auto) 76 % (31-73) Lymphocytes (%) (Auto) 12 % (24-48) Monocytes (%) (Auto) 12 % (0-9) Eosinophils (%) (Auto) 1 % (0-3) Basophils (%) (Auto) 0 % (0-3) Neutrophils # (Auto) 7.6 x10^3/uL (1.8-7.7) Lymphocytes # (Auto) 1.1 x10^3/uL (1.0-4.8) Monocytes # (Auto) 1.1 x10^3/uL (0.0-1.1) Eosinophils # (Auto) 0.1 x10^3/uL (0.0-0.7) Basophils # (Auto) 0.0 x10^3/uL (0.0-0.2) Sodium Level 137 mmol/L (136-145) Potassium Level 3.4 mmol/L (3.5-5.1) Chloride Level 102 mmol/L (98-107) Carbon Dioxide Level 25 mmol/L (21-32) Anion Gap 10 (6-14) Blood Urea Nitrogen 24 mg/dL (8-26) Creatinine 1.3 mg/dL (0.7-1.3) Estimated GFR (Cockcroft-Gault) 55.6 Glucose Level 109 mg/dL (70-99) Calcium Level 7.8 mg/dL (8.5-10.1) Magnesium Level 2.0 mg/dL (1.8-2.4) Microbiology 09/19/19 Urine Culture - Final, Complete 6/9/20 Blood Culture - Final, Complete NO GROWTH AFTER 5 DAYS Medications Current Medications Norepinephrine Bitartrate 8 mg/ Dextrose 258 ml @ 12.365 mls/ hr CONT PRN IV PER PROTOCOL Last administered on 09/19/19at 20:41; Start 09/19/19 at 20:30; Stop 09/26/19 at 11:05; Status DC Hydrocortisone Sodium Succinate (Solu-CORTEF) 100 mg Q8HRS IVP Last administered on 09/26/19at 05:45; Start 09/19/19 at 22:00; Stop 09/26/19 at 11:21; Status DC Acetaminophen (Tylenol) 650 mg PRN Q6HRS PRN PO Headaches, Temp > 101.5'; Start 09/19/19 at 21:15 Lorazepam (Ativan Inj) 0.5 mg PRN Q6HRS PRN IVP ANXIETY / AGITATION Last administered on 09/19/19at 22:19; Start 09/19/19 at 21:15 Ondansetron HCl (Zofran) 4 mg PRN Q6HRS PRN IVP NAUSEA/VOMITING; Start 09/19/19 at 21:15 Calcium Carbonate/ Glycine (Tums) 500 mg PRN Q3HRS PRN PO HEARTBURN / GAS; Start 09/19/19 at 21:15 Famotidine (Pepcid Vial) 20 mg BID IVP Last administered on 09/21/19at 21:08; Start 09/20/19 at 09:00; Stop 09/22/19 at 10:27; Status DC Sodium Chloride (Normal Saline Flush) 3 ml QSHIFT PRN IV AFTER MEDS AND BLOOD DRAWS; Start 09/19/19 at 21:15 Oxycodone/ Acetaminophen (Percocet 5/325) 1 tab PRN Q4HRS PRN PO PAIN Last administered on 09/25/19at 17:14; Start 09/19/19 at 21:15 Morphine Sulfate (Morphine Sulfate) 1 mg PRN Q1HR PRN IV PAIN Last administered on 09/21/19at 23:02; Start 09/19/19 at 21:15 Senna/Docusate Sodium (Senna Plus) 1 tab BID PO Last administered on 09/27/19at 20:59; Start 09/20/19 at 09:00 Lactulose (Lactulose) 20 gm PRN Q12HR PRN PO CONSTIPATION; Start 09/19/19 at 21:15 Acetaminophen (Tylenol) 650 mg 1X PRN PRN PO PRE-TRANSFUSION; Start 09/19/19 at 21:15; Stop 09/26/19 at 11:10; Status DC Magnesium Sulfate/ Dextrose 100 ml @ 100 mls/hr 1X ONCE IV Last administered on 09/19/19at 22:23; Start 09/19/19 at 22:30; Stop 09/19/19 at 23:29; Status DC Sodium Bicarbonate 150 meq/Dextrose 1,150 ml @ 125 mls/hr Q9H12M IV Last administered on 09/21/19at 01:39; Start 09/20/19 at 06:45; Stop 09/21/19 at 10:17; Status DC Multivitamins 10 ml/Thiamine HCl 100 mg/Folic Acid 1 mg/Sodium Chloride 1,011.2 ml @ 100 mls/ hr DAILY IV Last administered on 09/24/19at 08:59; Start 09/20/19 at 10:00; Stop 09/24/19 at 19:07; Status DC Lorazepam (Ativan) 2 mg PRN Q1HR PRN PO For CIWA 8-14; Start 09/20/19 at 09:15; Stop 09/20/19 at 10:00; Status DC Lorazepam (Ativan Inj) 1 mg PRN Q1HR PRN IV For CIWA 8-14; Start 09/20/19 at 09:15 Haloperidol Lactate (Haldol Inj) 5 mg PRN Q4HRS PRN IVP Hallucinatns,Confusn,Delirium Last administered on 09/25/19at 22:07; Start 09/20/19 at 09:15 Clonidine HCl (Catapres) 0.1 mg PRN Q1HR PRN PO SBP > 180 or DBP > 100, MRX3 Last administered on 09/24/19at 22:31; Start 09/20/19 at 09:15; Stop 09/25/19 at 10:38; Status DC Lorazepam (Ativan Inj) 2 mg PRN Q1HR PRN IV For CIWA 8-14 Last administered on 09/25/19at 14:42; Start 09/20/19 at 10:00 Lidocaine HCl (Buffered Lidocaine 1%) 3 ml STK-MED ONCE .ROUTE ; Start 09/20/19 at 11:32; Stop 09/20/19 at 11:32; Status DC Lidocaine HCl (Buffered Lidocaine 1%) 6 ml 1X ONCE INJ Last administered on 09/20/19at 12:20; Start 09/20/19 at 12:00; Stop 09/20/19 at 12:01; Status DC Nicotine (Nicoderm Cq 21mg) 1 patch DAILY TD Last administered on 09/27/19at 08:55; Start 09/20/19 at 13:30 Sodium Chloride 1,000 ml @ 1,000 mls/hr Q1H PRN IV hypotension; Start 09/20/19 at 14:09; Stop 09/20/19 at 20:08; Status DC Albumin Human 200 ml @ 200 mls/hr 1X PRN PRN IV Hypotension; Start 09/20/19 at 14:15; Stop 09/20/19 at 20:14; Status DC Sodium Chloride 1,000 ml @ 400 mls/hr Q2H30M PRN IV PATENCY; Start 09/20/19 at 14:09; Stop 09/21/19 at 02:08; Status DC Info (PHARMACY MONITORING -- do not chart) 1 each PRN DAILY PRN MC SEE COMMENTS; Start 09/20/19 at 14:15; Status UNV Info (PHARMACY MONITORING -- do not chart) 1 each PRN DAILY PRN MC SEE COMMENTS; Start 09/20/19 at 14:15; Stop 09/26/19 at 11:13; Status DC Potassium Chloride/Water 100 ml @ 100 mls/hr 1X ONCE IV Last administered on 09/21/19at 10:19; Start 09/21/19 at 08:00; Stop 09/21/19 at 08:59; Status DC Insulin Human Lispro (HumaLOG) 0-7 UNITS TIDWMEALS SQ ; Start 09/21/19 at 09:00 Dextrose (Dextrose 50%-Water Syringe) 12.5 gm PRN Q15MIN PRN IV SEE COMMENTS; Start 09/21/19 at 09:00 Amino Acids/ Glycerin/ Electrolytes 1,000 ml @ 80 mls/hr [id number] IV Last administered on 09/28/19at 01:16; Start 09/21/19 at 10:45 Potassium Chloride/Water 100 ml @ 100 mls/hr 1X ONCE IV Last administered on 09/21/19at 13:02; Start 09/21/19 at 12:00; Stop 09/21/19 at 12:59; Status DC Lorazepam (Ativan Inj) 4 mg PRN Q1HR PRN IV For CIWA 15 or greater Last administered on 09/26/19at 00:41; Start 09/22/19 at 08:00 Famotidine (Pepcid Vial) 20 mg DAILY IVP Last administered on 09/26/19at 08:49; Start 09/23/19 at 09:00; Stop 09/26/19 at 11:11; Status DC Magnesium Sulfate 100 ml @ 25 mls/hr 1X ONCE IV Last administered on 09/22/19at 13:57; Start 09/22/19 at 13:30; Stop 09/22/19 at 17:29; Status DC Potassium Chloride/Water 100 ml @ 100 mls/hr 1X ONCE IV Last administered on 09/22/19at 13:57; Start 09/22/19 at 13:30; Stop 09/22/19 at 14:29; Status DC Potassium Chloride/Water 100 ml @ 100 mls/hr Q1H IV Last administered on 09/23/19at 09:28; Start 09/23/19 at 09:00; Stop 09/23/19 at 10:59; Status DC Benztropine Mesylate (Cogentin) 2 mg PRN BID PRN IM EXTRAPYRAMIDAL SIDE EFFECTS Last administered on 09/23/19at 09:27; Start 09/23/19 at 09:15 Hydralazine HCl (Apresoline Inj) 10 mg PRN Q4HRS PRN IVP ELEVATED BP, SEE COMMENTS Last administered on 09/26/19at 02:31; Start 09/25/19 at 10:45 Potassium Chloride (Klor-Con) 30 meq 1X ONCE PO Last administered on 09/25/19at 11:58; Start 09/25/19 at 11:45; Stop 09/25/19 at 11:52; Status DC Hydralazine HCl (Apresoline) 50 mg BID PO Last administered on 09/27/19at 20:59; Start 09/25/19 at 21:00 Potassium Bicarbonate (Potassium Effervescent Tablet) 20 meq 1X ONCE PO Last administered on 09/26/19at 09:59; Start 09/26/19 at 10:00; Stop 09/26/19 at 10:01; Status DC Famotidine (Pepcid) 20 mg DAILY PO Last administered on 09/27/19at 08:55; Start 09/27/19 at 09:00 Thiamine HCl 100 mg/Dextrose 51 ml @ 102 mls/hr TID IV Last administered on 09/27/19at 21:36; Start 09/26/19 at 14:00 Potassium Chloride/Water 100 ml @ 100 mls/hr 1X ONCE IV Last administered on 09/27/19at 10:15; Start 09/27/19 at 10:00; Stop 09/27/19 at 10:59; Status DC Magnesium Sulfate 50 ml @ 25 mls/hr 1X ONCE IV Last administered on 09/27/19at 11:21; Start 09/27/19 at 11:00; Stop 09/27/19 at 12:59; Status DC Magnesium Sulfate/ Dextrose 100 ml @ 100 mls/hr 1X ONCE IV ; Start 09/27/19 at 15:15; Stop 09/27/19 at 16:14; Status Cancel Vitals/I & O Vital Sign - Last 24 Hours 09/27/19 09/27/19 09/27/19 09/27/19 10:34 15:07 19:37 20:00 Temp 98.1 97.6 98.1 98.1 97.6 98.1 Pulse 99 78 88 Resp 18 20 B/P (MAP) 84/51 (62) 131/62 (85) 162/77 (105) Pulse Ox 97 96 98 O2 Delivery Room Air Room Air Room Air Room Air 09/27/19 09/27/19 09/28/19 09/28/19 20:59 23:28 03:43 07:00 Temp 98.2 98.5 97.8 98.2 98.5 97.8 Pulse 88 83 78 79 Resp 20 B/P (MAP) 162/77 154/69 (97) 139/62 (87) 168/71 (103) Pulse Ox 96 95 99 O2 Delivery Room Air Room Air Room Air 09/28/19 07:51 O2 Delivery Room Air Intake and Output 09/27/19 09/27/19 09/28/19 15:00 23:00 07:00 Intake Total 340 ml 120 ml 200 ml Output Total 200 ml Balance 340 ml -80 ml 200 ml Nutrition Consultation Dietary Evaluation: Recommendations by RD: Dietary education by RD, Increase Calorie Intake, Protein supplementation, PPN/TPN Comments: Continue w/ADA diet as ordered, honor food preferences, provide snacks as requested Continue w/PPN at this time to supplement varying PO intake REC Ensure pudding (chocolate) BID per pt choice Expected Outcomes/Goals: Nutritional intake to meet >75% est needs - not met, goal ongoing Malnutrition Findings: Food and Nutrition Intake (Mod: <75% est energy req 7days Weight Status: Appropriate CHAPIS IRWIN MD Sep 28, 2019 09:03
--- NOTE | 2019-09-28 09:07 | PDOC ---
SUBJECTIVE ROS No acute events overnight OBJECTIVE Vital Signs Vital Signs Date Time Temp Pulse Resp B/P (MAP) Pulse Ox O2 Delivery O2 Flow Rate FiO2 09/28/19 09:02 80 168/71 09/28/19 09:02 Room Air 09/28/19 07:00 97.8 20 99 97.8 I & 0 l Intake and Output 09/28/19 07:00 Intake Total 660 ml Output Total 200 ml Balance 460 ml Intake Oral 660 ml Output Urine Total 200 ml # Voids 7 # Bowel Movements 1 PHYSICAL EXAM Physical Exam GEN.: No apparent distress. HEENT: OM moist NECK: Supple. LUNGS: Clear to auscultation. No accessory muscles use HEART: RRR, S1, S2 present. ABDOMEN: Soft, nontender. EXTREMITIES: No cyanosis, edema NEUROLOGIC: Confused PSYCHIATRIC: flat affect SKIN: No rash Lee removed DIAGNOSIS/ASSESSMENT Assessment & Plan MISBAH- ATN Improving, Cr 7 at presentation Emergent HD x1 at presentation supportive care, Strict I/O, Bladder scan prn Suspect CKD - Renal US Asymmetric renal size with atrophic appearing right kidney with echogenic cortex which could be from chronic renal disease. HypoKalemia- replace Hypernatremia - at presentation, resolved Severe AG Metabolic acidosis- Resolved H/o GI bleeding , GI following Anemia - s/p PRBC last week last week- Hgb 6.5 , Hgb improved ,stable, still <10 On Aranesp ETOH abuse HTN- cardiology managing , Hypotensive at presentation COMMENT/RELEVANT DATA Meds Current Medications Medications (Trade) Dose Ordered Sig/Vasquez Start Time Stop Time Status Last Admin Dose Admin Acetaminophen (Tylenol) 650 mg 1X PRN PRN 09/19/19 21:15 09/26/19 11:10 DC Albumin Human 200 ml @ 200 mls/hr 1X PRN PRN 09/20/19 14:15 09/20/19 20:14 DC Amino Acids/ Glycerin/ Electrolytes 1,000 ml @ 80 mls/hr [id number] 09/21/19 10:45 09/28/19 01:16 80 MLS/HR Benztropine Mesylate (Cogentin) 2 mg PRN BID PRN 09/23/19 09:15 09/23/19 09:27 2 MG Calcium Carbonate/ Glycine (Tums) 500 mg PRN Q3HRS PRN 09/19/19 21:15 Clonidine HCl (Catapres) 0.1 mg PRN Q1HR PRN 09/20/19 09:15 09/25/19 10:38 DC 09/24/19 22:31 0.1 MG Dextrose (Dextrose 50%-Water Syringe) 12.5 gm PRN Q15MIN PRN 09/21/19 09:00 Famotidine (Pepcid Vial) 20 mg DAILY 09/23/19 09:00 09/26/19 11:11 DC 09/26/19 08:49 20 MG Famotidine (Pepcid) 20 mg DAILY 09/27/19 09:00 09/28/19 09:02 20 MG Haloperidol Lactate (Haldol Inj) 5 mg PRN Q4HRS PRN 09/20/19 09:15 09/25/19 22:07 5 MG Hydralazine HCl (Apresoline Inj) 10 mg PRN Q4HRS PRN 09/25/19 10:45 09/26/19 02:31 10 MG Hydralazine HCl (Apresoline) 50 mg BID 09/25/19 21:00 09/28/19 09:02 50 MG Hydrocortisone Sodium Succinate (Solu-CORTEF) 100 mg Q8HRS 09/19/19 22:00 09/26/19 11:21 DC 09/26/19 05:45 100 MG Info (PHARMACY MONITORING -- do not chart) 1 each PRN DAILY PRN 09/20/19 14:15 09/26/19 11:13 DC Insulin Human Lispro (HumaLOG) 0-7 UNITS TIDWMEALS 09/21/19 09:00 Lactulose (Lactulose) 20 gm PRN Q12HR PRN 09/19/19 21:15 Lidocaine HCl (Buffered Lidocaine 1%) 6 ml 1X ONCE 09/20/19 12:00 09/20/19 12:01 DC 09/20/19 12:20 6 ML Lorazepam (Ativan Inj) 4 mg PRN Q1HR PRN 09/22/19 08:00 09/26/19 00:41 4 MG Lorazepam (Ativan) 2 mg PRN Q1HR PRN 09/20/19 09:15 09/20/19 10:00 DC Magnesium Sulfate 50 ml @ 25 mls/hr 1X ONCE 09/27/19 11:00 09/27/19 12:59 DC 09/27/19 11:21 25 MLS/HR Magnesium Sulfate/ Dextrose 100 ml @ 100 mls/hr 1X ONCE 09/27/19 15:15 09/27/19 16:14 Cancel Morphine Sulfate (Morphine Sulfate) 1 mg PRN Q1HR PRN 09/19/19 21:15 09/21/19 23:02 1 MG Multivitamins 10 ml/Thiamine HCl 100 mg/Folic Acid 1 mg/Sodium Chloride 1,011.2 ml @ 100 mls/ hr DAILY 09/20/19 10:00 09/24/19 19:07 DC 09/24/19 08:59 100 MLS/HR Nicotine (Nicoderm Cq 21mg) 1 patch DAILY 09/20/19 13:30 09/28/19 09:03 1 PATCH Norepinephrine Bitartrate 8 mg/ Dextrose 258 ml @ 12.365 mls/ hr CONT PRN 09/19/19 20:30 09/26/19 11:05 DC 09/19/19 20:41 12.365 MLS/HR Ondansetron HCl (Zofran) 4 mg PRN Q6HRS PRN 09/19/19 21:15 Oxycodone/ Acetaminophen (Percocet 5/325) 1 tab PRN Q4HRS PRN 09/19/19 21:15 09/28/19 09:02 1 TAB Potassium Bicarbonate (Potassium Effervescent Tablet) 20 meq 1X ONCE 09/26/19 10:00 09/26/19 10:01 DC 09/26/19 09:59 20 MEQ Potassium Chloride/Water 100 ml @ 100 mls/hr 1X ONCE 09/27/19 10:00 09/27/19 10:59 DC 09/27/19 10:15 100 MLS/HR Potassium Chloride (Klor-Con) 30 meq 1X ONCE 09/25/19 11:45 09/25/19 11:52 DC 09/25/19 11:58 30 MEQ Senna/Docusate Sodium (Senna Plus) 1 tab BID 09/20/19 09:00 09/27/19 20:59 1 TAB Sodium Bicarbonate 150 meq/Dextrose 1,150 ml @ 125 mls/hr Q9H12M 09/20/19 06:45 09/21/19 10:17 DC 09/21/19 01:39 125 MLS/HR Sodium Chloride 1,000 ml @ 400 mls/hr Q2H30M PRN 09/20/19 14:09 09/21/19 02:08 DC Sodium Chloride (Normal Saline Flush) 3 ml QSHIFT PRN 09/19/19 21:15 Thiamine HCl 100 mg/Dextrose 51 ml @ 102 mls/hr TID 09/26/19 14:00 09/28/19 09:01 102 MLS/HR Lab Laboratory Tests Test 09/27/19 16:26 09/28/19 06:15 09/28/19 08:31 Glucose (Fingerstick) 92 mg/dL (70-99) 101 mg/dL (70-99) White Blood Count 10.0 x10^3/uL (4.0-11.0) Red Blood Count 3.97 x10^6/uL (4.30-5.70) Hemoglobin 10.8 g/dL (13.0-17.5) Hematocrit 33.4 % (39.0-53.0) Mean Corpuscular Volume 84 fL (79-100) Mean Corpuscular Hemoglobin 27 pg (25-35) Mean Corpuscular Hemoglobin Concent 33 g/dL (31-37) Red Cell Distribution Width 23.0 % (11.5-14.5) Platelet Count 128 x10^3/uL (140-400) Neutrophils (%) (Auto) 76 % (31-73) Lymphocytes (%) (Auto) 12 % (24-48) Monocytes (%) (Auto) 12 % (0-9) Eosinophils (%) (Auto) 1 % (0-3) Basophils (%) (Auto) 0 % (0-3) Neutrophils # (Auto) 7.6 x10^3/uL (1.8-7.7) Lymphocytes # (Auto) 1.1 x10^3/uL (1.0-4.8) Monocytes # (Auto) 1.1 x10^3/uL (0.0-1.1) Eosinophils # (Auto) 0.1 x10^3/uL (0.0-0.7) Basophils # (Auto) 0.0 x10^3/uL (0.0-0.2) Sodium Level 137 mmol/L (136-145) Potassium Level 3.4 mmol/L (3.5-5.1) Chloride Level 102 mmol/L (98-107) Carbon Dioxide Level 25 mmol/L (21-32) Anion Gap 10 (6-14) Blood Urea Nitrogen 24 mg/dL (8-26) Creatinine 1.3 mg/dL (0.7-1.3) Estimated GFR (Cockcroft-Gault) 55.6 Glucose Level 109 mg/dL (70-99) Calcium Level 7.8 mg/dL (8.5-10.1) Magnesium Level 2.0 mg/dL (1.8-2.4) Results All relevant outside records, renal labs, imaging studies, telemetry/EKG's were reviewed. Justicifation of Admission Dx: Justifications for Admission: Justification of Admission Dx: Yes Acute Renal Failure: Serum Cr > 4mg/dL MANSI LUCAS MD Sep 28, 2019 09:07
--- NOTE | 2019-09-28 09:38 | NUR ---
SS following up with discharge planning. SS reviewed pt chart and discussed with pt RN. Pt declined for placement by [facility], [facility], [facility] [place], and [facility]. Referrals phoned and faxed to [facility], ; fax [phone], [place] and [facility], ; fax [phone], and [facility], ; fax [phone]. SS currently awaiting acceptance decisions from [facility], [place], [facility], and [facility]. SS will continue to follow for discharge planning.
--- NOTE | 2019-09-28 10:35 | NUR ---
SS following up with discharge planning. Pt accepted at [facility], ; fax [phone], pending insurance authorization. Physician notified. SS will continue to follow for discharge planning.
--- NOTE | 2019-09-28 10:40 | PDOC ---
Subjective: Subjective: "I like that scarecrow." Objective: Objective: No GI concerns per nurse. Had a brown stool. Confused. Eating. Awaiting placement. Vital Signs: Vital Signs Date Time Temp Pulse Resp B/P (MAP) Pulse Ox O2 Delivery O2 Flow Rate FiO2 09/28/19 09:02 80 168/71 09/28/19 09:02 Room Air 09/28/19 07:00 97.8 20 99 97.8 Labs: Laboratory Tests Test 09/27/19 16:26 09/28/19 06:15 09/28/19 08:31 Glucose (Fingerstick) 92 mg/dL 101 mg/dL White Blood Count 10.0 x10^3/uL Red Blood Count 3.97 x10^6/uL Hemoglobin 10.8 g/dL Hematocrit 33.4 % Mean Corpuscular Volume 84 fL Mean Corpuscular Hemoglobin 27 pg Mean Corpuscular Hemoglobin Concent 33 g/dL Red Cell Distribution Width 23.0 % Platelet Count 128 x10^3/uL Neutrophils (%) (Auto) 76 % Lymphocytes (%) (Auto) 12 % Monocytes (%) (Auto) 12 % Eosinophils (%) (Auto) 1 % Basophils (%) (Auto) 0 % Neutrophils # (Auto) 7.6 x10^3/uL Lymphocytes # (Auto) 1.1 x10^3/uL Monocytes # (Auto) 1.1 x10^3/uL Eosinophils # (Auto) 0.1 x10^3/uL Basophils # (Auto) 0.0 x10^3/uL Sodium Level 137 mmol/L Potassium Level 3.4 mmol/L Chloride Level 102 mmol/L Carbon Dioxide Level 25 mmol/L Anion Gap 10 Blood Urea Nitrogen 24 mg/dL Creatinine 1.3 mg/dL Estimated GFR (Cockcroft-Gault) 55.6 Glucose Level 109 mg/dL Calcium Level 7.8 mg/dL Magnesium Level 2.0 mg/dL PE: GEN: NAD LUNGS: CTAB HEART: RRR ABD: S/ND/NT NEURO/PSYCH: confused A/P: 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 Justicifation of Admission Dx: Justifications for Admission: Justification of Admission Dx: Yes Acute Renal Failure: Serum Cr > 4mg/dL RAQUEL GAYTAN 18, 2020 10:40
[2019-09-28] MEDS ORDERED: POTASSIUM CHLORIDE 20 MEQ TABLET.ER. PO ONE (11:15)
[2019-09-28 11:18] VITALS: BP 149/67
--- NOTE | 2019-09-28 11:20 | NUR ---
SS following up with discharge planning. SS received notification from pt's insurance that pt does not have senior care benefits only acute rehabilitation. SS phoned and faxed referrals to [facility], ; fax [phone], [place] [facility], ; fax [phone], [facility], ; fax [phone]; fax [facility], ; fax [phone], and [place] [facility], ; fax [phone]. SS will continue to follow for discharge planning.
--- NOTE | 2019-09-28 11:21 | PDOC ---
HAMILTON UNGER 2ND PRESSMAN 09/28/19 1120: CARDIO Progress Notes Date and Time Date of Service 09/28/2019 Time of Evaluation 0900 Subjective Subjective: No Chest Pain, No shortness of breath, No Palpitations Vitals Vitals Vital Signs Date Time Temp Pulse Resp B/P (MAP) Pulse Ox O2 Delivery O2 Flow Rate FiO2 09/28/19 09:02 80 168/71 09/28/19 09:02 Room Air 09/28/19 07:00 97.8 20 99 97.8 Weight Weight [ ] Input and Output Intake and Output Intake and Output 09/28/19 07:00 Intake Total 660 ml Output Total 200 ml Balance 460 ml Intake Oral 660 ml Output Urine Total 200 ml # Voids 7 # Bowel Movements 1 Laboratory Labs Laboratory Tests Test 09/27/19 16:26 09/28/19 06:15 09/28/19 08:31 Glucose (Fingerstick) 92 mg/dL (70-99) 101 mg/dL (70-99) White Blood Count 10.0 x10^3/uL (4.0-11.0) Red Blood Count 3.97 x10^6/uL (4.30-5.70) Hemoglobin 10.8 g/dL (13.0-17.5) Hematocrit 33.4 % (39.0-53.0) Mean Corpuscular Volume 84 fL (79-100) Mean Corpuscular Hemoglobin 27 pg (25-35) Mean Corpuscular Hemoglobin Concent 33 g/dL (31-37) Red Cell Distribution Width 23.0 % (11.5-14.5) Platelet Count 128 x10^3/uL (140-400) Neutrophils (%) (Auto) 76 % (31-73) Lymphocytes (%) (Auto) 12 % (24-48) Monocytes (%) (Auto) 12 % (0-9) Eosinophils (%) (Auto) 1 % (0-3) Basophils (%) (Auto) 0 % (0-3) Neutrophils # (Auto) 7.6 x10^3/uL (1.8-7.7) Lymphocytes # (Auto) 1.1 x10^3/uL (1.0-4.8) Monocytes # (Auto) 1.1 x10^3/uL (0.0-1.1) Eosinophils # (Auto) 0.1 x10^3/uL (0.0-0.7) Basophils # (Auto) 0.0 x10^3/uL (0.0-0.2) Sodium Level 137 mmol/L (136-145) Potassium Level 3.4 mmol/L (3.5-5.1) Chloride Level 102 mmol/L (98-107) Carbon Dioxide Level 25 mmol/L (21-32) Anion Gap 10 (6-14) Blood Urea Nitrogen 24 mg/dL (8-26) Creatinine 1.3 mg/dL (0.7-1.3) Estimated GFR (Cockcroft-Gault) 55.6 Glucose Level 109 mg/dL (70-99) Calcium Level 7.8 mg/dL (8.5-10.1) Magnesium Level 2.0 mg/dL (1.8-2.4) Microbiology Micro Microbiology 09/19/19 Urine Culture - Final, Complete 09/19/19 Blood Culture - Final, Complete NO GROWTH AFTER 5 DAYS Review of Systems Constitutional: yes: other Physical Exam HEENT: Neck Supple W Full Motion Chest: Symmetric LUNGS: Clear to Auscultation Heart: RRR (SR with intermittent PVCs) Abdomen: Soft N/T Extremities: No Edema, No Calf Tenderness Neurology: alert, other (periods of confusion but more pleasant today) Assessment Assessment 1. Metabolic encephalopathy: periods of confusion still. likely associated chronic changes from ETOH 2. Pancytopenia. s/p PRBC transfusion. WBC normalized 3. H/o recent GIB 4. MISBAH, Appears back to his baseline 5. Arrhythmia: SR with intermittent PVCs otherwise no significant ectopies 6. H/o ETOH abuse, cirrhosis. Details unclear GI following 7. Asymptomatic SB: with associated use of clonidine and lyte abnormalities. None further. EF 50% with mild global hypokinesis 8. DM2: per PCP 9. HTN: mild labile episode but mostly controlled Recommendations 1. No further clonidine. Procalamine in place. Replace K 2. CIWA protocol per PCP. hydralazine PO and PRN 3. No MICAELA/ARB with MISBAH 4. No ASA with GIB, anemia, thrombocytopenia 5. MCOT is a consideration. Supportive care Justicifation of Admission Dx: Justifications for Admission: Justification of Admission Dx: Yes Acute Renal Failure: Serum Cr > 4mg/dL JULIANNE BERMUDEZ MD 09/28/192056: CARDIO Progress Notes Assessment Assessment Patient seen and examined. Agree with COMMUNICATIONS COORDINATOR's assessment and plan. Sinus desmond resolved No other arrhythmias noted on tele 2D echo showed EF 50% Consider outpatient event monitor Cont current management of metabolic encephalopathy and pancytopenia per primary team HAMILTON UNGER APRN Sep 28, 2019 11:20 JULIANNE BERMUDEZ MD Sep 28, 2019 20:57
--- NOTE | 2019-09-28 13:37 | NUR ---
SS following up with discharge planning. Pt accepted at [facility], ; fax [phone], pending insurance authorization. SS will continue to follow for discharge planning.
--- NOTE | 2019-09-28 13:43 | PDOC3 ---
Discharge Summary Date of Admission: Sep 19, 2019 Date of Discharge: Sep 28, 2019 Follow-Up: 1-2 days Admitting Diagnosis comment: discharge dx Hypovolemic shock secondary to GI bleeding most likely No signs of bleeding and no records from [facility]. "Cautery" hopefully implies non-variceal lesion Acute Microcytic anemia most likely secondary to iron deficiency secondary to the above-mentioned GI bleed Acute renal failure Chronic pain syndrome on chronic narcotics Toxic encephalopathy secondary to the above Hyperkalemia 5.7 secondary to acute renal failure most likely Anion gap metabolic acidosis with a probably a superimposed non-metabolic acidosis given the degree of acidosis with a bicarb reported at 11 from the outside facility Hypomagnesemia Cirrhotic appearing liver cirrhotic morphology of the liver, borderline enlargement of spleen, heterogeneous attenuation at hepatic dome but poorly evaluated somewhat ectatic gallbladder THrombocytopenia Uremia ACUTE RENAL TUBULAR NECROSIS Hyperphosphatemia Severe protein calorie malnutrition BRADYCARDIA, d/c clonidine Anemia - iron studies c/w ACD - transfused last week, Hgb improved on 09/21 Probable alcoholic cirrhosis 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 None further. EF 50% with mild global hypokinesis DM2: PLAN GI FOLLOWING Cardiology consult D/C CLONIDINE Nephrology following, iv fluid support d/c today, [facility] 09/27 34 MIN PT EXAM, CHART REVIEW d/c planning , > 50% OF TIME SPENT WITH EXAM, CHART REVIEW, PT CARE COORDINATION History of Present Illness History of Present Illness Mr Knott is a 64 yo M w/ PMHx presents to the emergency department at [facility] in [place] reportedly with altered mental status. Patient apparently was found by his roommate on the ground of his apartment patient cannot give history given his current condition. It is unknown when he was last seen normal apparently patient was found to be hypotensive on the field at 80/40 fluid resuscitation was started on the field with Ringer's lactate patient was seen in the emergency department and found to be anemic with Hb 7.9 and having reports of GI bleeding according to the records with BUN 101. BNP 3353. Patient confused and the details of his stated history are not reliable according to the ER doctor patient is in acute renal failure and he has been recently admitted at [facility] from 08/16 through 08/25 for a GI bleed. CT abdomen pelvis with contrast - marked calcified and noncalcified atheromatous plaque burden throughout the aorta, iliofemoral system and aortic branch vessels. Severe stenosis at the right renal artery origin with resultant atrophy of the right kidney. 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 Given the presumed severe stenosis at the SMA origin, recommend correlation for symptoms that would suggest intestinal angina noting that the bowel in this distribution does not exhibit obvious features of ischemia. Also with cirrhotic morphology of the liver and borderline enlargement of the spleen. There is heterogeneous attenuation of the liver at the hepatic dome but this region is poorly evaluated due to motion artifact and a definite mass is not able to be delineated. Admitted to ICU with levophed ordered. 09/19: Started on bicarb GTT, levophed. WBC 6.1, Hb 7.8, platelets 118. NA 147, K5.5, BUN 9 3, CR 7.8, glucose 126, INR 1.2, MG 1.6, phosphorus 6.5, TSH 0.473. He thinks he is at home today. Notes he drinks quite a bit. Son in [place] notes he was "doing well" after discharge from [facility] and so he returned back home. Trialysis catheter placed under nephrology guidance for emergent dialysis. 09/20: Hb 6.5, Na 146, K 2.8, BUN 27, Cr 2.2, glucose 155, AST 45, albumin 2.4 today. Still very confused. Some stool overnight. UOP 1770 last 24 hours. 09/21: Afebrile. Hb 9.2 after transfusion. CR 2 0, mag 1.6 K3.5. Rolling around in bed still very confused. Cr 1.7, K 3.2. Received Haldol, he has some lipsmacking. Ordered benztropine. He is still very confused only opens his eyes to painful stimuli. Afebrile 09/24 banana bag PPN supportive care mental status still poor SUSPECT ALCOHOLIC CIRRHOSIS 09/25 No acute events reported overnight, case discussed with nursing staff patient in no acute distress no complaints during my visit continues to be quite obtunded and unable to have a meaningful conversation, awaiting for records from [facility] Vitals Vitals Vital Signs Date Time Temp Pulse Resp B/P (MAP) Pulse Ox O2 Delivery O2 Flow Rate FiO2 09/28/19 07:51 Room Air 09/28/19 07:00 97.8 79 20 168/71 (103) 99 97.8 Physical Exam Physical Exam General: Other (CONFUSED) Lungs: Clear to auscultation, Normal air movement Neuro: Other (CONFUSED) General: Alert, Cooperative, No acute distress, Other (confused ) Heart: Regular rate, Other (2/6 systolic murmur ) Lungs: Clear, Wheezing Abdomen: Soft Extremities: No cyanosis, No edema, Normal pulses Skin: No breakdown, No significant lesion Brief Hospital Course Mr. Knott is a 64 old [sex] who presented with [ HYPOVOLEMIC SHOCK] CONDITION AT DISCHARGE: Improved Discharge Medications Current Medications Norepinephrine Bitartrate 8 mg/ Dextrose 258 ml @ 12.365 mls/ hr CONT PRN IV PER PROTOCOL Last administered on 09/19/19at 20:41; Start 09/19/19 at 20:30; Stop 09/26/19 at 11:05; Status DC Hydrocortisone Sodium Succinate (Solu-CORTEF) 100 mg Q8HRS IVP Last administered on 09/26/19at 05:45; Start 09/19/19 at 22:00; Stop 09/26/19 at 11:21; Status DC Acetaminophen (Tylenol) 650 mg PRN Q6HRS PRN PO Headaches, Temp > 101.5'; Start 09/19/19 at 21:15 Lorazepam (Ativan Inj) 0.5 mg PRN Q6HRS PRN IVP ANXIETY / AGITATION Last administered on 09/19/19at 22:19; Start 09/19/19 at 21:15 Ondansetron HCl (Zofran) 4 mg PRN Q6HRS PRN IVP NAUSEA/VOMITING; Start 09/19/19 at 21:15 Calcium Carbonate/ Glycine (Tums) 500 mg PRN Q3HRS PRN PO HEARTBURN / GAS; Start 09/19/19 at 21:15 Famotidine (Pepcid Vial) 20 mg BID IVP Last administered on 09/21/19at 21:08; Start 09/20/19 at 09:00; Stop 09/22/19 at 10:27; Status DC Sodium Chloride (Normal Saline Flush) 3 ml QSHIFT PRN IV AFTER MEDS AND BLOOD DRAWS; Start 09/19/19 at 21:15 Oxycodone/ Acetaminophen (Percocet 5/325) 1 tab PRN Q4HRS PRN PO PAIN Last a dministered on 09/28/19at 09:02; Start 09/19/19 at 21:15 Morphine Sulfate (Morphine Sulfate) 1 mg PRN Q1HR PRN IV PAIN Last administered on 09/21/19at 23:02; Start 09/19/19 at 21:15 Senna/Docusate Sodium (Senna Plus) 1 tab BID PO Last administered on 09/27/19at 20:59; Start 09/20/19 at 09:00 Lactulose (Lactulose) 20 gm PRN Q12HR PRN PO CONSTIPATION; Start 09/19/19 at 21:15 Acetaminophen (Tylenol) 650 mg 1X PRN PRN PO PRE-TRANSFUSION; Start 09/19/19 at 21:15; Stop 09/26/19 at 11:10; Status DC Magnesium Sulfate/ Dextrose 100 ml @ 100 mls/hr 1X ONCE IV Last administered on 09/19/19at 22:23; Start 09/19/19 at 22:30; Stop 09/19/19 at 23:29; Status DC Sodium Bicarbonate 150 meq/Dextrose 1,150 ml @ 125 mls/hr Q9H12M IV Last administered on 09/21/19at 01:39; Start 09/20/19 at 06:45; Stop 09/21/19 at 10:17; Status DC Multivitamins 10 ml/Thiamine HCl 100 mg/Folic Acid 1 mg/Sodium Chloride 1,011.2 ml @ 100 mls/ hr DAILY IV Last administered on 09/24/19at 08:59; Start 09/20/19 at 10:00; Stop 09/24/19 at 19:07; Status DC Lorazepam (Ativan) 2 mg PRN Q1HR PRN PO For CIWA 8-14; Start 09/20/19 at 09:15; Stop 09/20/19 at 10:00; Status DC Lorazepam (Ativan Inj) 1 mg PRN Q1HR PRN IV For CIWA 8-14; Start 09/20/19 at 09:15 Haloperidol Lactate (Haldol Inj) 5 mg PRN Q4HRS PRN IVP Hallucinatns,Confusn,Delirium Last administered on 09/25/19at 22:07; Start 09/20/19 at 09:15 Clonidine HCl (Catapres) 0.1 mg PRN Q1HR PRN PO SBP > 180 or DBP > 100, MRX3 Last administered on 09/24/19at 22:31; Start 09/20/19 at 09:15; Stop 09/25/19 at 10:38; Status DC Lorazepam (Ativan Inj) 2 mg PRN Q1HR PRN IV For CIWA 8-14 Last administered on 09/25/19at 14:42; Start 09/20/19 at 10:00 Lidocaine HCl (Buffered Lidocaine 1%) 3 ml STK-MED ONCE .ROUTE ; Start 09/20/19 at 11:32; Stop 09/20/19 at 11:32; Status DC Lidocaine HCl (Buffered Lidocaine 1%) 6 ml 1X ONCE INJ Last administered on 09/20/19at 12:20; Start 09/20/19 at 12:00; Stop 09/20/19 at 12:01; Status DC Nicotine (Nicoderm Cq 21mg) 1 patch DAILY TD Last administered on 09/28/19at 09:03; Start 09/20/19 at 13:30 Sodium Chloride 1,000 ml @ 1,000 mls/hr Q1H PRN IV hypotension; Start 09/20/19 at 14:09; Stop 09/20/19 at 20:08; Status DC Albumin Human 200 ml @ 200 mls/hr 1X PRN PRN IV Hypotension; Start 09/20/19 at 14:15; Stop 09/20/19 at 20:14; Status DC Sodium Chloride 1,000 ml @ 400 mls/hr Q2H30M PRN IV PATENCY; Start 09/20/19 at 14:09; Stop 09/21/19 at 02:08; Status DC Info (PHARMACY MONITORING -- do not chart) 1 each PRN DAILY PRN MC SEE COMMENTS; Start 09/20/19 at 14:15; Status UNV Info (PHARMACY MONITORING -- do not chart) 1 each PRN DAILY PRN MC SEE COMMENTS; Start 09/20/19 at 14:15; Stop 09/26/19 at 11:13; Status DC Potassium Chloride/Water 100 ml @ 100 mls/hr 1X ONCE IV Last administered on 09/21/19at 10:19; Start 09/21/19 at 08:00; Stop 09/21/19 at 08:59; Status DC Insulin Human Lispro (HumaLOG) 0-7 UNITS TIDWMEALS SQ ; Start 09/21/19 at 09:00 Dextrose (Dextrose 50%-Water Syringe) 12.5 gm PRN Q15MIN PRN IV SEE COMMENTS; Start 09/21/19 at 09:00 Amino Acids/ Glycerin/ Electrolytes 1,000 ml @ 80 mls/hr [id number] IV Last administered on 09/28/19at 01:16; Start 09/21/19 at 10:45 Potassium Chloride/Water 100 ml @ 100 mls/hr 1X ONCE IV Last administered on 09/21/19at 13:02; Start 09/21/19 at 12:00; Stop 09/21/19 at 12:59; Status DC Lorazepam (Ativan Inj) 4 mg PRN Q1HR PRN IV For CIWA 15 or greater Last administered on 09/26/19at 00:41; Start 09/22/19 at 08:00 Famotidine (Pepcid Vial) 20 mg DAILY IVP Last administered on 09/26/19at 08:49; Start 09/23/19 at 09:00; Stop 09/26/19 at 11:11; Status DC Magnesium Sulfate 100 ml @ 25 mls/hr 1X ONCE IV Last administered on 09/22/19at 13:57; Start 09/22/19 at 13:30; Stop 09/22/19 at 17:29; Status DC Potassium Chloride/Water 100 ml @ 100 mls/hr 1X ONCE IV Last administered on 09/22/19at 13:57; Start 09/22/19 at 13:30; Stop 09/22/19 at 14:29; Status DC Potassium Chloride/Water 100 ml @ 100 mls/hr Q1H IV Last administered on 09/23/19at 09:28; Start 09/23/19 at 09:00; Stop 09/23/19 at 10:59; Status DC Benztropine Mesylate (Cogentin) 2 mg PRN BID PRN IM EXTRAPYRAMIDAL SIDE EFFECTS Last administered on 09/23/19at 09:27; Start 09/23/19 at 09:15 Hydralazine HCl (Apresoline Inj) 10 mg PRN Q4HRS PRN IVP ELEVATED BP, SEE COMMENTS Last administered on 09/26/19at 02:31; Start 09/25/19 at 10:45 Potassium Chloride (Klor-Con) 30 meq 1X ONCE PO Last administered on 09/25/19at 11:58; Start 09/25/19 at 11:45; Stop 09/25/19 at 11:52; Status DC Hydralazine HCl (Apresoline) 50 mg BID PO Last administered on 09/28/19at 09:02; Start 09/25/19 at 21:00 Potassium Bicarbonate (Potassium Effervescent Tablet) 20 meq 1X ONCE PO Last administered on 09/26/19at 09:59; Start 09/26/19 at 10:00; Stop 09/26/19 at 10:01; Status DC Famotidine (Pepcid) 20 mg DAILY PO Last administered on 09/28/19at 09:02; Start 09/27/19 at 09:00; Stop 09/28/19 at 09:52; Status DC Thiamine HCl 100 mg/Dextrose 51 ml @ 102 mls/hr TID IV Last administered on 09/28/19at 09:01; Start 09/26/19 at 14:00 Potassium Chloride/Water 100 ml @ 100 mls/hr 1X ONCE IV Last administered on 09/27/19at 10:15; Start 09/27/19 at 10:00; Stop 09/27/19 at 10:59; Status DC Magnesium Sulfate 50 ml @ 25 mls/hr 1X ONCE IV Last administered on 09/27/19at 11:21; Start 09/27/19 at 11:00; Stop 09/27/19 at 12:59; Status DC Magnesium Sulfate/ Dextrose 100 ml @ 100 mls/hr 1X ONCE IV ; Start 09/27/19 at 15:15; Stop 09/27/19 at 16:14; Status Cancel Famotidine (Pepcid) 20 mg BID PO ; Start 09/28/19 at 21:00 Potassium Chloride (Klor-Con) 20 meq 1X ONCE PO ; Start 09/28/19 at 11:15; Stop 09/28/19 at 11:17; Status DC Vital Signs Vital Signs Date Time Temp Pulse Resp B/P (MAP) Pulse Ox O2 Delivery O2 Flow Rate FiO2 09/28/19 11:18 98.1 72 18 149/67 (94) 98 Room Air 98.1 Labs Laboratory Tests Test 09/26/19 16:46 09/26/19 21:13 09/26/19 22:15 09/27/19 05:30 Glucose (Fingerstick) 96 mg/dL (70-99) 92 mg/dL (70-99) Coronavirus (COVID-19)(PCR) Not detected (NOT DETECT.) Sodium Level 136 mmol/L (136-145) Potassium Level 3.1 mmol/L (3.5-5.1) Chloride Level 100 mmol/L (98-107) Carbon Dioxide Level 29 mmol/L (21-32) Anion Gap 7 (6-14) Blood Urea Nitrogen 27 mg/dL (8-26) Creatinine 1.5 mg/dL (0.7-1.3) Estimated GFR (Cockcroft-Gault) 47.1 Glucose Level 101 mg/dL (70-99) Calcium Level 7.8 mg/dL (8.5-10.1) Magnesium Level 1.7 mg/dL (1.8-2.4) Test 09/27/19 07:02 09/27/19 16:26 09/28/19 06:15 09/28/19 08:31 Glucose (Fingerstick) 97 mg/dL (70-99) 92 mg/dL (70-99) 101 mg/dL (70-99) White Blood Count 10.0 x10^3/uL (4.0-11.0) Red Blood Count 3.97 x10^6/uL (4.30-5.70) Hemoglobin 10.8 g/dL (13.0-17.5) Hematocrit 33.4 % (39.0-53.0) Mean Corpuscular Volume 84 fL (79-100) Mean Corpuscular Hemoglobin 27 pg (25-35) Mean Corpuscular Hemoglobin Concent 33 g/dL (31-37) Red Cell Distribution Width 23.0 % (11.5-14.5) Platelet Count 128 x10^3/uL (140-400) Neutrophils (%) (Auto) 76 % (31-73) Lymphocytes (%) (Auto) 12 % (24-48) Monocytes (%) (Auto) 12 % (0-9) Eosinophils (%) (Auto) 1 % (0-3) Basophils (%) (Auto) 0 % (0-3) Neutrophils # (Auto) 7.6 x10^3/uL (1.8-7.7) Lymphocytes # (Auto) 1.1 x10^3/uL (1.0-4.8) Monocytes # (Auto) 1.1 x10^3/uL (0.0-1.1) Eosinophils # (Auto) 0.1 x10^3/uL (0.0-0.7) Basophils # (Auto) 0.0 x10^3/uL (0.0-0.2) Sodium Level 137 mmol/L (136-145) Potassium Level 3.4 mmol/L (3.5-5.1) Chloride Level 102 mmol/L (98-107) Carbon Dioxide Level 25 mmol/L (21-32) Anion Gap 10 (6-14) Blood Urea Nitrogen 24 mg/dL (8-26) Creatinine 1.3 mg/dL (0.7-1.3) Estimated GFR (Cockcroft-Gault) 55.6 Glucose Level 109 mg/dL (70-99) Calcium Level 7.8 mg/dL (8.5-10.1) Magnesium Level 2.0 mg/dL (1.8-2.4) Test 09/28/19 11:58 Glucose (Fingerstick) 113 mg/dL (70-99) Laboratory Tests Test 09/27/19 16:26 09/28/19 06:15 09/28/19 08:31 09/28/19 11:58 Glucose (Fingerstick) 92 mg/dL (70-99) 101 mg/dL (70-99) 113 mg/dL (70-99) White Blood Count 10.0 x10^3/uL (4.0-11.0) Red Blood Count 3.97 x10^6/uL (4.30-5.70) Hemoglobin 10.8 g/dL (13.0-17.5) Hematocrit 33.4 % (39.0-53.0) Mean Corpuscular Volume 84 fL (79-100) Mean Corpuscular Hemoglobin 27 pg (25-35) Mean Corpuscular Hemoglobin Concent 33 g/dL (31-37) Red Cell Distribution Width 23.0 % (11.5-14.5) Platelet Count 128 x10^3/uL (140-400) Neutrophils (%) (Auto) 76 % (31-73) Lymphocytes (%) (Auto) 12 % (24-48) Monocytes (%) (Auto) 12 % (0-9) Eosinophils (%) (Auto) 1 % (0-3) Basophils (%) (Auto) 0 % (0-3) Neutrophils # (Auto) 7.6 x10^3/uL (1.8-7.7) Lymphocytes # (Auto) 1.1 x10^3/uL (1.0-4.8) Monocytes # (Auto) 1.1 x10^3/uL (0.0-1.1) Eosinophils # (Auto) 0.1 x10^3/uL (0.0-0.7) Basophils # (Auto) 0.0 x10^3/uL (0.0-0.2) Sodium Level 137 mmol/L (136-145) Potassium Level 3.4 mmol/L (3.5-5.1) Chloride Level 102 mmol/L (98-107) Carbon Dioxide Level 25 mmol/L (21-32) Anion Gap 10 (6-14) Blood Urea Nitrogen 24 mg/dL (8-26) Creatinine 1.3 mg/dL (0.7-1.3) Estimated GFR (Cockcroft-Gault) 55.6 Glucose Level 109 mg/dL (70-99) Calcium Level 7.8 mg/dL (8.5-10.1) Magnesium Level 2.0 mg/dL (1.8-2.4) Allergies Allergies Coded Allergies Type Severity Reaction Last Updated Verified No Known Drug Allergies 09/19/19 No Disposition/Orders: Other (D/C TO [facility] ) Justicifation of Admission Dx: Justifications for Admission: Justification of Admission Dx: Yes Acute Renal Failure: Serum Cr > 4mg/dL CHAPIS IRWIN MD Sep 28, 2019 13:43
[2019-09-28] MEDS ORDERED: Nicotine 21MG TD (13:47)
[2019-09-28] MEDS ORDERED: LACT20SO PO (13:47)
[2019-09-28] MEDS ORDERED: FAMO20TA5 PO (13:47)
[2019-09-28] MEDS ORDERED: THIA100T22 PO (13:47)
[2019-09-28] MEDS ORDERED: HYDR-2869 PO (13:47)
[2019-09-28] MEDS ORDERED: ACET325T9 PO (13:47)
[2019-09-28] MEDS ORDERED: INSU100I11 SQ (13:47)
[2019-09-28] MEDS ORDERED: CALC200T23 PO (13:47)
--- NOTE | 2019-09-28 13:48 | SNU/HH DC ---
DISCHARGE ORDERS DISCHARGE INFORMATION: CONDITION ON DISCHARGE: Stable CODE STATUS: Code Status: Full LONG-TERM: SNF STAY <30 DAYS: No HOSPICE: HOSPICE: No HOSPICE EVAL & TREAT: No LTAC: ADMIT TO LTAC: No TREATMENT/EQUIPMENT ORDERS: ADAPTIVE EQUIPMENT NEEDED: Front wheeled walker RESPIRATORY EQUIPMENT NEEDED: Oxygen, Nebulizer Physical Therapy For: Evalulation/Treatment Occupational Therapy For: Evaluation/Treatment Speech Language Pathology For: Evaluation/Treatment DISCHARGE MEDICATIONS: Home Meds Active Scripts Thiamine Mononitrate (VITAMIN B-1) 100 Mg Tablet, 100 MG PO TID for ETOH for 14 Days, #42 TAB Prov:CHAPIS IRWIN MD 09/28/19 Insulin Lispro (HUMALOG) 100 Unit/1 Ml Insuln.pen, 0 UNITS SQ TIDWMEALS for DIABETES for 30 Days, #1 EACH Prov:CHAPIS IRWIN MD 09/28/19 Famotidine (FAMOTIDINE) 20 Mg Tablet, 20 MG PO BID for GERD for 30 Days, #60 TAB Prov:CHAPIS IRWIN MD 09/28/19 Calcium Carbonate (CALCIUM CARBONATE) 200 Mg Tab.chew, 500 MG PO PRN Q3HRS PRN for HEARTBURN / GAS for 28 Days, #30 TAB.CHEW Prov:CHAPIS IRWIN MD 09/28/19 Lactulose (LACTULOSE) 20 Gm/30 Ml Solution, 20 GM PO PRN Q12HR PRN for CONSTIPATION for 14 Days, #240 MISC Prov:CHAPIS IRWIN MD 09/28/19 Acetaminophen (TYLENOL) 325 Mg Tablet, 650 MG PO PRN Q6HRS PRN for Headaches, Temp > 101.5' for 10 Days, #30 TAB Prov:CHAPIS IRWIN MD 09/28/19 Hydralazine Hcl (HYDRALAZINE HCL) 50 Mg Tablet, 50 MG PO BID for BLOOD PRESSURE for 30 Days, #60 TAB Prov:CHAPIS IRWIN MD 09/28/19 [Nicotine 21MG] 1 PATCH PATCH No Conflict Check, 1 PATCH TD DAILY for TOBACCO CRAVING for 30 Days, #30 Prov:CHAPIS IRWIN MD 09/28/19 CHAPIS IRWIN MD Sep 28, 2019 13:48
--- NOTE | 2019-09-28 14:01 | NUR ---
SS following up with discharge planning. SS received phone contact from [facility], ; fax [phone], stating that pt has an EPO plan with [employer] and all facilities in [facility] are out of network. [facility] contacted SS and reported that they are out of network with pt's insurance. [facility] contacted SS and reported that they are declining pt clinically.
--- NOTE | 2019-09-28 14:43 | NUR ---
SS following up with discharge planning. [facility] also contacted SS and declined pt. SS contacted pt's son Catarino. SS left voicemail reporting that pt has been declined by all facilities that referrals have been sent to for rehabilitation. SS reported that pt has no diagnosis or medical criteria for LTACH or hospice at this time. SS requested return call to discuss home with family and home healthcare. SS will continue to follow for discharge planning.
--- NOTE | 2019-09-28 15:04 | NUR ---
SS following up with discharge planning. SS received phone contact from pt's son, Catarnio, reporting that there are no family or friends that can stay with pt at home /. Catarino reported that they do not have finances to pay for 02/11 care and they have not applied for social security or Medicaid for pt at this time. Catarino requested phone number for [employer] be sent to him so that he can call insurance and discuss. Catarino reported that when pt was discharged from [facility] he spent two weeks with pt prior to returning to [place] and pt ended up in the hospital a week later. Catarino reported that he was not sure what to do at this point. SS reported to Catarino that pt is medically stable for discharge. Catarino reported that he would discuss with family and call insurance.
--- NOTE | 2019-09-28 16:12 | NUR ---
SS following up with discharge planning. Case management contacted pt's insurance provider and was notified by pt's insurance to send referrals to [facility],[phone]; fax [phone], and [facility], ; fax [phone]. SS phoned and faxed referrals as requested. SS will continue to follow for discharge planning.
[2019-09-28 16:38] VITALS: BP 180/77
[2019-09-28] MEDS: hydrALAZINE 20 MG/ML VIAL. IVP PRN (16:46)
--- NOTE | 2019-09-28 19:36 | NUR ---
RN NOTE patient watching TV resting in bed and HR went into SVT and lasted approximately 15-[address] Dennison notified order received for EKG. EKG done showing SVT patient running 90's on monitor at this time.
[2019-09-28 19:45] VITALS: BP 165/65
[2019-09-28 22:31] VITALS: BP 107/44
[2019-09-29] MEDS: oxyCODONE/APAP 5/325 1 TAB TABLET PO PRN ×3 (00:02→19:48)
--- NOTE | 2019-09-29 03:45 | NUR ---
During hourly rounding patient found laying on the floor on the right side of the bed. Patient states, "trying to use the bathroom." No injury noted and patient denies hitting head. Dr. Christiana Mora notified of the fall and no new orders. Increased patient rounding.
--- NOTE | 2019-09-29 05:00 | EKG ---
[facility] [address] [place] [address] Test Date: 2019-09-28 Test Time: 18:14:28 Pat Name: REBA VELÁZQUEZ Department: Room: 106 1 Gender: M [employer]: : 1955 Requested By: CHAPIS IRWIN Order Number: [id number] Reading MD: Robbin David MD Measurements Intervals [place] Rate: 152 P: -118 IA: 70 QRS: 20 QRSD: 84 T: 167 QT: 240 QTc: 387 Interpretive Statements SVT CONSIDER LATERAL ISCHEMIA Electronically Signed On 10-20-2019 9:58:38 CDT by Robbin David MD
[2019-09-29] MEDS: AMINO AC 3%/ELECTROLYTE/GLYCER 1,000 ML IV SCH ×2 (06:11→19:47)
[2019-09-29 07:00] VITALS: BP 118/62
[2019-09-29] MEDS: INSULIN LISPRO 300 UNITS/3 ML VIAL. SQ SCH ×3 (08:00→17:00)
--- NOTE | 2019-09-29 08:08 | NUR ---
SS following up with discharge planning. [facility] contacted SS and reported that they have declined pt due to pt being more SNF appropriate. SS will continue to follow for discharge planning.
--- NOTE | 2019-09-29 09:50 | PDOC ---
HAMILTON UNGER PUGGER HELPER 09/29/19 0950: CARDIO Progress Notes Date and Time Date of Service 09/29/2019 Time of Evaluation 0940 Subjective Subjective: No Chest Pain, No shortness of breath, No Palpitations Vitals Vitals Vital Signs Date Time Temp Pulse Resp B/P (MAP) Pulse Ox O2 Delivery O2 Flow Rate FiO2 09/29/19 07:00 98.9 95 20 118/62 (80) 99 Room Air 98.9 Weight Weight [ ] Input and Output Intake and Output Intake and Output 09/29/19 07:00 Intake Total 1329 ml Output Total 300 ml Balance 1029 ml Intake Oral 300 ml IV Total 1029 ml Output Urine Total 300 ml # Voids 7 # Bowel Movements 1 Laboratory Labs Laboratory Tests Test 09/28/19 11:58 09/28/19 16:45 09/28/19 20:39 Glucose (Fingerstick) 113 mg/dL (70-99) 94 mg/dL (70-99) 92 mg/dL (70-99) Microbiology Micro Microbiology 09/19/19 Urine Culture - Final, Complete 09/19/19 Blood Culture - Final, Complete NO GROWTH AFTER 5 DAYS Review of Systems Constitutional: yes: other Physical Exam HEENT: Neck Supple W Full Motion Chest: Symmetric LUNGS: Clear to Auscultation Heart: RRR (SR with intermittent PVCs) Abdomen: Soft N/T Extremities: No Edema, No Calf Tenderness Neurology: alert, confused, other (trying to climb out of bed; restless) Assessment Assessment 1. Metabolic encephalopathy: restless and confused. likely associated chronic changes from ETOH 2. Pancytopenia. s/p PRBC transfusion. WBC normalized 3. H/o recent GIB 4. MISBAH, Appears back to his baseline 5. Arrhythmia: noted with PAT, reported to be sustained yesterday. brief episode overnight 6. H/o ETOH abuse, cirrhosis. Details unclear GI following 7. Asymptomatic SB: with associated use of clonidine and lyte abnormalities. None further. EF 50% with mild global hypokinesis 8. DM2: per PCP 9. HTN: controlled 10. Nontraumatic mechanical fall: got OOB yesterday and was found on the floor at the side of the bed. Recommendations 1. No further clonidine. Procalamine in place. Place on low dose metoprolol and monitor rhythm for any bradycardia that was noted while taking clonidine. 2. CIWA protocol per PCP. hydralazine PO and PRN 3. No MICAELA/ARB with MISBAH 4. No ASA with GIB, anemia, thrombocytopenia 5. MCOT is a consideration. Supportive care Justicifation of Admission Dx: Justifications for Admission: Justification of Admission Dx: Yes Acute Renal Failure: Serum Cr > 4mg/dL JULIANNE BERMUDEZ MD 09/29/19 1201: CARDIO Progress Notes Assessment Assessment Patient seen and examined. Agree with [employer]'s assessment and plan. Bradycardia resolved but telemetry showed an episode of atrial tachycardia Agree with initiating low-dose beta-blockers and monitor closely for bradycardia Continue management of pancytopenia and metabolic encephalopathy per primary team HAMILTON UNGER APRN Sep 29, 2019 09:50 JULIANNE BERMUDEZ MD Sep 29, 2019 12:01
[2019-09-29] MEDS: HALOPERIDOL LACTATE 5 MG/ML VIAL. IVP PRN (09:51)
[2019-09-29] MEDS: THIAMINE INJ 100 MG in IV DEXTROSE 5% 50 ML IV SCH ×3 (09:52→19:48)
[2019-09-29] MEDS: NICOTINE 21MG PATCH. TD SCH (09:52)
[2019-09-29] MEDS: SENNOSIDES/DOCUSATE 8.6/50MG TABLET. PO SCH ×2 (09:52→19:48)
[2019-09-29] MEDS: FAMOTIDINE 20 MG TABLET. PO SCH ×2 (09:53→19:48)
--- NOTE | 2019-09-29 10:15 | NUR ---
SS following up with discharge planning. VALENTE and Annette from [facility] met with pt and had conference call with pt's son. As observed, pt not oriented and confused. Pt's son reported that he has spoken with family about pt needing to return to home if facilities do not accept pt. Pt's son reported that they have some family help but no 24/7 care in the [facility]. Pt's son reported that he did contact the [facility] and was able to get information on services such as meal delivery and house cleaning. Pt's son also working to help pt apply for Medicare and Medicaid as pt will be 65 in January of 2020. Home Healthcare services and explanation of services discussed with pt's son. Pt's son also provided with information on [facility] to see if they can help provide assistance. Pt's son reported that he could move pt to [place] with him but in the past pt refused. Pt's on reported that if necessary he will move pt to [place] with him. Pt's son wanting physician to contact him to discuss the recurrent bleeding that pt has been having over his past couple of hospitalizations. SS provided Dr. Dennison with sons contact information. [facility] agreeable to follow pt if necessary. Discharge to home is not recommended and not safe. SS currently awaiting on acceptance decisions from facilities in [place], [place] and will proceed accordingly.
--- NOTE | 2019-09-29 10:20 | PDOC ---
PROGRESS NOTES Chief Complaint Chief Complaint discharge dx Hypovolemic shock secondary to GI bleeding most likely No signs of bleeding and no records from [facility]. "Cautery" hopefully implies non-variceal lesion Acute Microcytic anemia most likely secondary to iron deficiency secondary to the above-mentioned GI bleed Acute renal failure Chronic pain syndrome on chronic narcotics Toxic encephalopathy secondary to the above Hyperkalemia 5.7 secondary to acute renal failure most likely Anion gap metabolic acidosis with a probably a superimposed non-metabolic acid osis given the degree of acidosis with a bicarb reported at 11 from the outside facility Hypomagnesemia Cirrhotic appearing liver cirrhotic morphology of the liver, borderline enlargement of spleen, heterogeneous attenuation at hepatic dome but poorly evaluated somewhat ectatic gallbladder THrombocytopenia Uremia ACUTE RENAL TUBULAR NECROSIS Hyperphosphatemia Severe protein calorie malnutrition BRADYCARDIA, d/c clonidine Anemia - iron studies c/w ACD - transfused last week, Hgb improved on 09/21 Probable alcoholic cirrhosis 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 received ACD, Asymptomatic SB: with associated use of clonidine and lyte abnormalities. None further. EF 50% with mild global hypokinesis DM2: Suspect CKD - Renal US Asymmetric renal size with atrophic appearing right kidney with echogenic cortex which could be from chronic renal disease. PLAN GI FOLLOWING Cardiology consult D/C CLONIDINE Nephrology following, iv fluid support d/c ON HOLD DIFFICULT PLACEMENT 09/28 D/W CASE MGT 34 MIN PT EXAM, CHART REVIEW d/c planning , > 50% OF TIME SPENT WITH EXAM, CHART REVIEW, PT CARE COORDINATION History of Present Illness History of Present Illness Mr Knott is a 64 yo M w/ PMHx presents to the emergency department at [facility] in [place] reportedly with altered mental status. Patient apparently was found by his roommate on the ground of his apartment patient cannot give history given his current condition. It is unknown when he was last seen normal apparently patient was found to be hypotensive on the field at 80/40 fluid resuscitation was started on the field with Ringer's lactate patient was seen in the emergency department and found to be anemic with Hb 7.9 and having reports of GI bleeding according to the records with BUN 101. BNP 3353. Patient confused and the details of his stated history are not reliable according to the ER doctor patient is in acute renal failure and he has been recently admitted at [facility] from 08/16 through 08/25 for a GI bleed. CT abdomen pelvis with contrast - marked calcified and noncalcified atheromatous plaque burden throughout the aorta, iliofemoral system and aortic branch vessels. Severe stenosis at the right renal artery origin with resultant atrophy of the right kidney. 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 Given the presumed severe stenosis at the SMA origin, recommend correlation for symptoms that would suggest intestinal angina noting that the bowel in this distribution does not exhibit obvious features of ischemia. Also with cirrhotic morphology of the liver and borderline enlargement of the spleen. There is heterogeneous attenuation of the liver at the hepatic dome but this region is poorly evaluated due to motion artifact and a definite mass is not able to be delineated. Admitted to ICU with levophed ordered. 09/19: Started on bicarb GTT, levophed. WBC 6.1, Hb 7.8, platelets 118. NA 147, K5.5, BUN 9 3, CR 7.8, glucose 126, INR 1.2, MG 1.6, phosphorus 6.5, TSH 0.473. He thinks he is at home today. Notes he drinks quite a bit. Son in [place] notes he was "doing well" after discharge from [facility] and so he returned back home. Trialysis catheter placed under nephrology guidance for emergent dialysis. 09/20: Hb 6.5, Na 146, K 2.8, BUN 27, Cr 2.2, glucose 155, AST 45, albumin 2.4 today. Still very confused. Some stool overnight. UOP 1770 last 24 hours. 09/21: Afebrile. Hb 9.2 after transfusion. CR 2 0, mag 1.6 K3.5. Rolling around in bed still very confused. Cr 1.7, K 3.2. Received Haldol, he has some lipsmacking. Ordered benztropine. He is still very confused only opens his eyes to painful stimuli. Afebrile 09/24 banana bag PPN supportive care mental status still poor SUSPECT ALCOHOLIC CIRRHOSIS 09/28 Suspect CKD - Renal US Asymmetric renal size with atrophic appearing right kidney with echogenic cortex which could be from chronic renal disease. No acute events reported overnight, case discussed with nursing staff patient in no acute distress no complaints during my visit continues to be quite obtunded a nd unable to have a meaningful conversation, awaiting for records from [facility] Vitals Vitals Vital Signs Date Time Temp Pulse Resp B/P (MAP) Pulse Ox O2 Delivery O2 Flow Rate FiO2 09/29/19 09:53 95 118/62 09/29/19 07:00 98.9 20 99 Room Air 98.9 Physical Exam Physical Exam General: Other (CONFUSED) Lungs: Clear to auscultation, Normal air movement Neuro: Other (CONFUSED) General: Alert, Cooperative, No acute distress, Other (confused ) Heart: Regular rate, Normal S1, Other (2/6 systolic murmur ) Lungs: Clear, Wheezing Abdomen: Normal bowel sounds, Soft, No tenderness Extremities: No cyanosis, No edema, Normal pulses Skin: No breakdown, No significant lesion Labs LABS Laboratory Tests Test 09/28/19 11:58 09/28/19 16:45 09/28/19 20:39 Glucose (Fingerstick) 113 mg/dL (70-99) 94 mg/dL (70-99) 92 mg/dL (70-99) Comment Review of Relevant I have reviewed the following items bj (where applicable) has been applied. Labs Laboratory Tests Test 09/27/19 16:26 09/28/19 06:15 09/28/19 08:31 09/28/19 11:58 Glucose (Fingerstick) 92 mg/dL (70-99) 101 mg/dL (70-99) 113 mg/dL (70-99) White Blood Count 10.0 x10^3/uL (4.0-11.0) Red Blood Count 3.97 x10^6/uL (4.30-5.70) Hemoglobin 10.8 g/dL (13.0-17.5) Hematocrit 33.4 % (39.0-53.0) Mean Corpuscular Volume 84 fL (79-100) Mean Corpuscular Hemoglobin 27 pg (25-35) Mean Corpuscular Hemoglobin Concent 33 g/dL (31-37) Red Cell Distribution Width 23.0 % (11.5-14.5) Platelet Count 128 x10^3/uL (140-400) Neutrophils (%) (Auto) 76 % (31-73) Lymphocytes (%) (Auto) 12 % (24-48) Monocytes (%) (Auto) 12 % (0-9) Eosinophils (%) (Auto) 1 % (0-3) Basophils (%) (Auto) 0 % (0-3) Neutrophils # (Auto) 7.6 x10^3/uL (1.8-7.7) Lymphocytes # (Auto) 1.1 x10^3/uL (1.0-4.8) Monocytes # (Auto) 1.1 x10^3/uL (0.0-1.1) Eosinophils # (Auto) 0.1 x10^3/uL (0.0-0.7) Basophils # (Auto) 0.0 x10^3/uL (0.0-0.2) Sodium Level 137 mmol/L (136-145) Potassium Level 3.4 mmol/L (3.5-5.1) Chloride Level 102 mmol/L (98-107) Carbon Dioxide Level 25 mmol/L (21-32) Anion Gap 10 (6-14) Blood Urea Nitrogen 24 mg/dL (8-26) Creatinine 1.3 mg/dL (0.7-1.3) Estimated GFR (Cockcroft-Gault) 55.6 Glucose Level 109 mg/dL (70-99) Calcium Level 7.8 mg/dL (8.5-10.1) Magnesium Level 2.0 mg/dL (1.8-2.4) Test 09/28/19 16:45 09/28/19 20:39 Glucose (Fingerstick) 94 mg/dL (70-99) 92 mg/dL (70-99) Laboratory Tests Test 09/28/19 11:58 09/28/19 16:45 09/28/19 20:39 Glucose (Fingerstick) 113 mg/dL (70-99) 94 mg/dL (70-99) 92 mg/dL (70-99) Microbiology 09/19/19 Urine Culture - Final, Complete 09/19/19 Blood Culture - Final, Complete NO GROWTH AFTER 5 DAYS Medications Current Medications Norepinephrine Bitartrate 8 mg/ Dextrose 258 ml @ 12.365 mls/ hr CONT PRN IV PER PROTOCOL Last administered on 09/19/19at 20:41; Start 09/19/19 at 20:30; Stop 09/26/19 at 11:05; Status DC Hydrocortisone Sodium Succinate (Solu-CORTEF) 100 mg Q8HRS IVP Last administered on 09/26/19at 05:45; Start 09/19/19 at 22:00; Stop 09/26/19 at 11:21; Status DC Acetaminophen (Tylenol) 650 mg PRN Q6HRS PRN PO Headaches, Temp > 101.5'; Start 09/19/19 at 21:15 Lorazepam (Ativan Inj) 0.5 mg PRN Q6HRS PRN IVP ANXIETY / AGITATION Last administered on 09/19/19at 22:19; Start 09/19/19 at 21:15 Ondansetron HCl (Zofran) 4 mg PRN Q6HRS PRN IVP NAUSEA/VOMITING; Start 09/19/19 at 21:15 Calcium Carbonate/ Glycine (Tums) 500 mg PRN Q3HRS PRN PO HEARTBURN / GAS; Start 09/19/19 at 21:15 Famotidine (Pepcid Vial) 20 mg BID IVP Last administered on 09/21/19at 21:08; Start 09/20/19 at 09:00; Stop 09/22/19 at 10:27; Status DC Sodium Chloride (Normal Saline Flush) 3 ml QSHIFT PRN IV AFTER MEDS AND BLOOD DRAWS; Start 09/19/19 at 21:15 Oxycodone/ Acetaminophen (Percocet 5/325) 1 tab PRN Q4HRS PRN PO PAIN Last administered on 09/29/19at 04:08; Start 09/19/19 at 21:15 Morphine Sulfate (Morphine Sulfate) 1 mg PRN Q1HR PRN IV PAIN Last administered on 09/21/19at 23:02; Start 09/19/19 at 21:15 Senna/Docusate Sodium (Senna Plus) 1 tab BID PO Last administered on 09/29/19at 09:52; Start 09/20/19 at 09:00 Lactulose (Lactulose) 20 gm PRN Q12HR PRN PO CONSTIPATION; Start 09/19/19 at 21:15 Acetaminophen (Tylenol) 650 mg 1X PRN PRN PO PRE-TRANSFUSION; Start 09/19/19 at 21:15; Stop 09/26/19 at 11:10; Status DC Magnesium Sulfate/ Dextrose 100 ml @ 100 mls/hr 1X ONCE IV Last administered on 09/19/19at 22:23; Start 09/19/19 at 22:30; Stop 09/19/19 at 23:29; Status DC Sodium Bicarbonate 150 meq/Dextrose 1,150 ml @ 125 mls/hr Q9H12M IV Last a dministered on 09/21/19at 01:39; Start 09/20/19 at 06:45; Stop 09/21/19 at 10:17; Status DC Multivitamins 10 ml/Thiamine HCl 100 mg/Folic Acid 1 mg/Sodium Chloride 1,011.2 ml @ 100 mls/ hr DAILY IV Last administered on 09/24/19at 08:59; Start 09/20/19 at 10:00; Stop 09/24/19 at 19:07; Status DC Lorazepam (Ativan) 2 mg PRN Q1HR PRN PO For CIWA 8-14; Start 09/20/19 at 09:15; Stop 09/20/19 at 10:00; Status DC Lorazepam (Ativan Inj) 1 mg PRN Q1HR PRN IV For CIWA 8-14; Start 09/20/19 at 09:15 Haloperidol Lactate (Haldol Inj) 5 mg PRN Q4HRS PRN IVP Hallucinatns,Confusn,Delirium Last administered on 09/29/19at 09:51; Start 09/20/19 at 09:15 Clonidine HCl (Catapres) 0.1 mg PRN Q1HR PRN PO SBP > 180 or DBP > 100, MRX3 Last administered on 09/24/19at 22:31; Start 09/20/19 at 09:15; Stop 09/25/19 at 10:38; Status DC Lorazepam (Ativan Inj) 2 mg PRN Q1HR PRN IV For CIWA 8-14 Last administered on 09/29/19at 09:53; Start 09/20/19 at 10:00 Lidocaine HCl (Buffered Lidocaine 1%) 3 ml STK-MED ONCE .ROUTE ; Start 09/20/19 at 11:32; Stop 09/20/19 at 11:32; Status DC Lidocaine HCl (Buffered Lidocaine 1%) 6 ml 1X ONCE INJ Last administered on 09/20/19at 12:20; Start 09/20/19 at 12:00; Stop 09/20/19 at 12:01; Status DC Nicotine (Nicoderm Cq 21mg) 1 patch DAILY TD Last administered on 09/29/19at 09:52; Start 09/20/19 at 13:30 Sodium Chloride 1,000 ml @ 1,000 mls/hr Q1H PRN IV hypotension; Start 09/20/19 at 14:09; Stop 09/20/19 at 20:08; Status DC Albumin Human 200 ml @ 200 mls/hr 1X PRN PRN IV Hypotension; Start 09/20/19 at 14:15; Stop 09/20/19 at 20:14; Status DC Sodium Chloride 1,000 ml @ 400 mls/hr Q2H30M PRN IV PATENCY; Start 09/20/19 at 14:09; Stop 09/21/19 at 02:08; Status DC Info (PHARMACY MONITORING -- do not chart) 1 each PRN DAILY PRN MC SEE COMMENTS; Start 09/20/19 at 14:15; Status UNV Info (PHARMACY MONITORING -- do not chart) 1 each PRN DAILY PRN MC SEE COMMENTS; Start 09/20/19 at 14:15; Stop 09/26/19 at 11:13; Status DC Potassium Chloride/Water 100 ml @ 100 mls/hr 1X ONCE IV Last administered on 09/21/19at 10:19; Start 09/21/19 at 08:00; Stop 09/21/19 at 08:59; Status DC Insulin Human Lispro (HumaLOG) 0-7 UNITS TIDWMEALS SQ ; Start 09/21/19 at 09:00 Dextrose (Dextrose 50%-Water Syringe) 12.5 gm PRN Q15MIN PRN IV SEE COMMENTS; Start 09/21/19 at 09:00 Amino Acids/ Glycerin/ Electrolytes 1,000 ml @ 80 mls/hr [id number] IV Last administered on 09/29/19at 06:11; Start 09/21/19 at 10:45 Potassium Chloride/Water 100 ml @ 100 mls/hr 1X ONCE IV Last administered on 09/21/19at 13:02; Start 09/21/19 at 12:00; Stop 09/21/19 at 12:59; Status DC Lorazepam (Ativan Inj) 4 mg PRN Q1HR PRN IV For CIWA 15 or greater Last administered on 09/26/19at 00:41; Start 09/22/19 at 08:00 Famotidine (Pepcid Vial) 20 mg DAILY IVP Last administered on 09/26/19at 08:49; Start 09/23/19 at 09:00; Stop 09/26/19 at 11:11; Status DC Magnesium Sulfate 100 ml @ 25 mls/hr 1X ONCE IV Last administered on 09/22/19at 13:57; Start 09/22/19 at 13:30; Stop 09/22/19 at 17:29; Status DC Potassium Chloride/Water 100 ml @ 100 mls/hr 1X ONCE IV Last administered on 09/22/19at 13:57; Start 09/22/19 at 13:30; Stop 09/22/19 at 14:29; Status DC Potassium Chloride/Water 100 ml @ 100 mls/hr Q1H IV Last administered on 09/23/19at 09:28; Start 09/23/19 at 09:00; Stop 09/23/19 at 10:59; Status DC Benztropine Mesylate (Cogentin) 2 mg PRN BID PRN IM EXTRAPYRAMIDAL SIDE EFFECTS Last administered on 09/23/19at 09:27; Start 09/23/19 at 09:15 Hydralazine HCl (Apresoline Inj) 10 mg PRN Q4HRS PRN IVP ELEVATED BP, SEE COMMENTS Last administered on 09/28/19at 16:46; Start 09/25/19 at 10:45 Potassium Chloride (Klor-Con) 30 meq 1X ONCE PO Last administered on 09/25/19at 11:58; Start 09/25/19 at 11:45; Stop 09/25/19 at 11:52; Status DC Hydralazine HCl (Apresoline) 50 mg BID PO Last administered on 09/29/19at 09:53; Start 09/25/19 at 21:00 Potassium Bicarbonate (Potassium Effervescent Tablet) 20 meq 1X ONCE PO Last administered on 09/26/19at 09:59; Start 09/26/19 at 10:00; Stop 09/26/19 at 10:01; Status DC Famotidine (Pepcid) 20 mg DAILY PO Last administered on 09/28/19at 09:02; Start 09/27/19 at 09:00; Stop 09/28/19 at 09:52; Status DC Thiamine HCl 100 mg/Dextrose 51 ml @ 102 mls/hr TID IV Last administered on 09/29/19at 09:52; Start 09/26/19 at 14:00 Potassium Chloride/Water 100 ml @ 100 mls/hr 1X ONCE IV Last administered on 09/27/19at 10:15; Start 09/27/19 at 10:00; Stop 09/27/19 at 10:59; Status DC Magnesium Sulfate 50 ml @ 25 mls/hr 1X ONCE IV Last administered on 09/27/19at 11:21; Start 09/27/19 at 11:00; Stop 09/27/19 at 12:59; Status DC Magnesium Sulfate/ Dextrose 100 ml @ 100 mls/hr 1X ONCE IV ; Start 09/27/19 at 15:15; Stop 09/27/19 at 16:14; Status Cancel Famotidine (Pepcid) 20 mg BID PO Last administered on 09/29/19at 09:53; Start 09/28/19 at 21:00 Potassium Chloride (Klor-Con) 20 meq 1X ONCE PO Last administered on 09/28/19at 14:05; Start 09/28/19 at 11:15; Stop 09/28/19 at 11:17; Status DC Active Scripts Active Vitamin B-1 (Thiamine Mononitrate) 100 Mg Tablet 100 Mg PO TID 14 Days Humalog (Insulin Lispro) 100 Unit/1 Ml Insuln.pen 0 Units SQ TIDWMEALS 30 Days Famotidine 20 Mg Tablet 20 Mg PO BID 30 Days Calcium Carbonate 200 Mg Tab.chew 500 Mg PO PRN Q3HRS PRN 28 Days Lactulose 20 Gm/30 Ml Solution 20 Gm PO PRN Q12HR PRN 14 Days Tylenol (Acetaminophen) 325 Mg Tablet 650 Mg PO PRN Q6HRS PRN 10 Days Hydralazine Hcl 50 Mg Tablet 50 Mg PO BID 30 Days [Nicotine 21MG] 1 PATCH Patch 1 Patch TD DAILY 30 Days Vitals/I & O Vital Sign - Last 24 Hours 09/28/19 09/28/19 09/28/19 09/28/19 11:18 16:38 16:46 19:45 Temp 98.1 98.5 98.2 98.1 98.5 98.2 Pulse 72 81 102 92 Resp 18 18 18 B/P (MAP) 149/67 (94) 180/77 (111) 180/77 165/65 (98) Pulse Ox 98 98 99 O2 Delivery Room Air Room Air Room Air 09/28/19 09/28/19 09/28/19 09/29/19 19:50 20:36 22:31 01:19 Temp 98.2 98.2 Pulse 81 89 Resp 20 B/P (MAP) 169/65 107/44 (65) O2 Delivery Room Air Room Air Room Air 09/29/19 09/29/19 09/29/19 05:05 07:00 09:53 Temp 98.9 98.9 Pulse 95 95 Resp 20 B/P (MAP) 118/62 (80) 118/62 Pulse Ox 99 O2 Delivery Room Air Room Air Intake and Output 09/28/19 09/28/19 09/29/19 15:00 23:00 07:00 Intake Total 51 ml 1278 ml Output Total 175 ml 125 ml Balance -124 ml -125 ml 1278 ml Nutrition Consultation Dietary Evaluation: Recommendations by RD: Dietary education by RD, Increase Calorie Intake, Protein supplementation, PPN/TPN Comments: Continue w/ADA diet as ordered, honor food preferences, provide snacks as requested Continue w/PPN at this time to supplement varying PO intake Continue w/ Ensure pudding (chocolate) BID per pt choice Expected Outcomes/Goals: Nutritional intake to meet >75% est needs - met at times, goal ongoing Malnutrition Findings: Food and Nutrition Intake (Mod: <75% est energy req 7days Weight Status: Appropriate CHAPIS IRWIN MD Sep 29, 2019 10:20
--- NOTE | 2019-09-29 11:23 | PDOC ---
SUBJECTIVE ROS stable, confused OBJECTIVE Vital Signs Vital Signs Date Time Temp Pulse Resp B/P (MAP) Pulse Ox O2 Delivery O2 Flow Rate FiO2 09/29/19 09:53 95 118/62 09/29/19 08:00 Room Air 2.0 09/29/19 07:00 98.9 20 99 98.9 I & 0 Intake and Output 09/29/19 07:00 Intake Total 1329 ml Output Total 300 ml Balance 1029 ml Intake Oral 300 ml IV Total 1029 ml Output Urine Total 300 ml # Voids 7 # Bowel Movements 1 PHYSICAL EXAM Physical Exam GEN.: No apparent distress. HEENT: OM moist NECK: Supple. LUNGS: Clear to auscultation. No accessory muscles use HEART: RRR, S1, S2 present. ABDOMEN: Soft, nontender. EXTREMITIES: No cyanosis, edema NEUROLOGIC: Confused PSYCHIATRIC: flat affect SKIN: No rash Lee removed DIAGNOSIS/ASSESSMENT Assessment & Plan MISBAH- ATN Improving, Cr 7 at presentation, Improved renal function Emergent HD x1 at presentation No labs this am supportive care, Strict I/O, Bladder scan prn Suspect CKD - Renal US Asymmetric renal size with atrophic appearing right kidney with echogenic cortex which could be from chronic renal disease. HypoKalemia- replace as needed Hypernatremia - at presentation, resolved Severe AG Metabolic acidosis- Resolved H/o GI bleeding , GI following Anemia - s/p PRBC last week last week- Hgb 6.5 , Hgb improved ,stable, still <10 On Aranesp ETOH abuse HTN- cardiology managing , Hypotensive at presentation Will sign off COMMENT/RELEVANT DATA Meds Current Medications Medications (Trade) Dose Ordered Sig/Vasquez Start Time Stop Time Status Last Admin Dose Admin Acetaminophen (Tylenol) 650 mg 1X PRN PRN 09/19/19 21:15 09/26/19 11:10 DC Albumin Human 200 ml @ 200 mls/hr 1X PRN PRN 09/20/19 14:15 09/20/19 20:14 DC Amino Acids/ Glycerin/ Electrolytes 1,000 ml @ 80 mls/hr [id number] 09/21/19 10:45 09/29/19 06:11 80 MLS/HR Benztropine Mesylate (Cogentin) 2 mg PRN BID PRN 09/23/19 09:15 09/23/19 09:27 2 MG Calcium Carbonate/ Glycine (Tums) 500 mg PRN Q3HRS PRN 09/19/19 21:15 Clonidine HCl (Catapres) 0.1 mg PRN Q1HR PRN 09/20/19 09:15 09/25/19 10:38 DC 09/24/19 22:31 0.1 MG Dextrose (Dextrose 50%-Water Syringe) 12.5 gm PRN Q15MIN PRN 09/21/19 09:00 Famotidine (Pepcid Vial) 20 mg DAILY 09/23/19 09:00 09/26/19 11:11 DC 09/26/19 08:49 20 MG Famotidine (Pepcid) 20 mg BID 09/28/19 21:00 09/29/19 09:53 20 MG Haloperidol Lactate (Haldol Inj) 5 mg PRN Q4HRS PRN 09/20/19 09:15 09/29/19 09:51 5 MG Hydralazine HCl (Apresoline Inj) 10 mg PRN Q4HRS PRN 09/25/19 10:45 09/28/19 16:46 10 MG Hydralazine HCl (Apresoline) 50 mg BID 09/25/19 21:00 09/29/19 09:53 50 MG Hydrocortisone Sodium Succinate (Solu-CORTEF) 100 mg Q8HRS 09/19/19 22:00 09/26/19 11:21 DC 09/26/19 05:45 100 MG Info (PHARMACY MONITORING -- do not chart) 1 each PRN DAILY PRN 09/20/19 14:15 09/26/19 11:13 DC Insulin Human Lispro (HumaLOG) 0-7 UNITS TIDWMEALS 09/21/19 09:00 Lactulose (Lactulose) 20 gm PRN Q12HR PRN 09/19/19 21:15 Lidocaine HCl (Buffered Lidocaine 1%) 6 ml 1X ONCE 09/20/19 12:00 09/20/19 12:01 DC 09/20/19 12:20 6 ML Lorazepam (Ativan Inj) 4 mg PRN Q1HR PRN 09/22/19 08:00 09/26/19 00:41 4 MG Lorazepam (Ativan) 2 mg PRN Q1HR PRN 09/20/19 09:15 09/20/19 10:00 DC Magnesium Sulfate 50 ml @ 25 mls/hr 1X ONCE 09/27/19 11:00 09/27/19 12:59 DC 09/27/19 11:21 25 MLS/HR Magnesium Sulfate/ Dextrose 100 ml @ 100 mls/hr 1X ONCE 09/27/19 15:15 09/27/19 16:14 Cancel Metoprolol Tartrate (Lopressor) 12.5 mg BID 09/29/19 11:00 Morphine Sulfate (Morphine Sulfate) 1 mg PRN Q1HR PRN 09/19/19 21:15 09/21/19 23:02 1 MG Multivitamins 10 ml/Thiamine HCl 100 mg/Folic Acid 1 mg/Sodium Chloride 1,011.2 ml @ 100 mls/ hr DAILY 09/20/19 10:00 09/24/19 19:07 DC 09/24/19 08:59 100 MLS/HR Nicotine (Nicoderm Cq 21mg) 1 patch DAILY 09/20/19 13:30 09/29/19 09:52 1 PATCH Norepinephrine Bitartrate 8 mg/ Dextrose 258 ml @ 12.365 mls/ hr CONT PRN 09/19/19 20:30 09/26/19 11:05 DC 09/19/19 20:41 12.365 MLS/HR Ondansetron HCl (Zofran) 4 mg PRN Q6HRS PRN 09/19/19 21:15 Oxycodone/ Acetaminophen (Percocet 5/325) 1 tab PRN Q4HRS PRN 09/19/19 21:15 09/29/19 04:08 1 TAB Potassium Bicarbonate (Potassium Effervescent Tablet) 20 meq 1X ONCE 09/26/19 10:00 09/26/19 10:01 DC 09/26/19 09:59 20 MEQ Potassium Chloride/Water 100 ml @ 100 mls/hr 1X ONCE 09/27/19 10:00 09/27/19 10:59 DC 09/27/19 10:15 100 MLS/HR Potassium Chloride (Klor-Con) 20 meq 1X ONCE 09/28/19 11:15 09/28/19 11:17 DC 09/28/19 14:05 20 MEQ Senna/Docusate Sodium (Senna Plus) 1 tab BID 09/20/19 09:00 09/29/19 09:52 1 TAB Sodium Bicarbonate 150 meq/Dextrose 1,150 ml @ 125 mls/hr Q9H12M 09/20/19 06:45 09/21/19 10:17 DC 09/21/19 01:39 125 MLS/HR Sodium Chloride 1,000 ml @ 400 mls/hr Q2H30M PRN 09/20/19 14:09 09/21/19 02:08 DC Sodium Chloride (Normal Saline Flush) 3 ml QSHIFT PRN 09/19/19 21:15 Thiamine HCl 100 mg/Dextrose 51 ml @ 102 mls/hr TID 09/26/19 14:00 09/29/19 09:52 102 MLS/HR Lab Laboratory Tests Test 09/28/19 11:58 09/28/19 16:45 09/28/19 20:39 Glucose (Fingerstick) 113 mg/dL (70-99) 94 mg/dL (70-99) 92 mg/dL (70-99) Results All relevant outside records, renal labs, imaging studies, telemetry/EKG's were reviewed. Justicifation of Admission Dx: Justifications for Admission: Justification of Admission Dx: Yes Acute Renal Failure: Serum Cr > 4mg/dL MANSI LUCAS MD Sep 29, 2019 11:23
[2019-09-29 11:26] VITALS: BP 124/73
[2019-09-29] MEDS: METOPROLOL TART IMMED RELEASE 25 MG TABLET. PO SCH ×2 (12:05→19:49)
--- NOTE | 2019-09-29 12:26 | PDOC ---
Objective: Objective: Reviewed chart - awaiting placement, no reports of bleeding. 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 Justicifation of Admission Dx: Justifications for Admission: Justification of Admission Dx: Yes Acute Renal Failure: Serum Cr > 4mg/dL RAQUEL GAYTAN Sep 29, 2019 12:26
--- NOTE | 2019-09-29 15:14 | NUR ---
SW following. Joan from [facility] in [place] called to advise they are declining to take pt and their medical radiation therapist thinks pt is more appropriate for home health. SW awaiting call back from Wellington at [facility] in [place] with acceptance decision. Wellington advised even if pt is accepted, they will not have a bed until Wednesday. RANDY will continue to follow.
[2019-09-29 15:15] VITALS: BP 104/65
[2019-09-29 19:30] VITALS: BP 125/67
[2019-09-29 22:39] VITALS: BP 105/57
--- NOTE | 2019-09-30 00:18 | NUR ---
pt continues to rip monitor off repeatedly. pt states "keep this thing off me". Monitor off per pt request. Will continue to monitor.
[2019-09-30 03:05] VITALS: BP 107/62
[2019-09-30 05:00] LABS: BASO % 0 % (0-3); EOS # 0.2 x10^3/uL (0.0-0.7); EOS % 3 % (0-3); HEMATOCRIT 29.3 % (39.0-53.0); HEMOGLOBIN 9.5 g/dL (13.0-17.5); LYMPH # 0.9 x10^3/uL (1.0-4.8); LYMPH % 14 % (24-48); MEAN CORPUSCULAR HEMOGLOBIN 28 pg (25-35); MEAN CORPUSCULAR HGB CONC 33 g/dL (31-37); MEAN CORPUSCULAR VOLUME 85 fL (79-100); MONO # 0.8 x10^3/uL (0.0-1.1); MONO % 12 % (0-9); NEUT # 4.5 x10^3/uL (1.8-7.7); NEUT % 70 % (31-73); PLATELET COUNT 101 x10^3/uL (140-400); RED BLOOD COUNT 3.47 x10^6/uL (4.30-5.70); RED CELL DISTRIBUTION WIDTH 22.6 % (11.5-14.5); WHITE BLOOD COUNT 6.4 x10^3/uL (4.0-11.0)
[2019-09-30 05:33] LABS: ALBUMIN 2.4 g/dL (3.4-5.0); ALBUMIN/GLOBULIN RATIO 0.6 (1.0-1.7); CALCIUM 7.9 mg/dL (8.5-10.1); CREATININE 1.4 mg/dL (0.7-1.3); TOTAL BILIRUBIN 0.5 mg/dL (0.2-1.0); TOTAL PROTEIN 6.2 g/dL (6.4-8.2)
[2019-09-30 07:00] VITALS: BP 145/100
[2019-09-30] MEDS: INSULIN LISPRO 300 UNITS/3 ML VIAL. SQ SCH ×3 (08:00→17:00)
[2019-09-30] MEDS: AMINO AC 3%/ELECTROLYTE/GLYCER 1,000 ML IV SCH ×2 (08:44→22:20)
[2019-09-30] MEDS: NICOTINE 21MG PATCH. TD SCH (08:45)
[2019-09-30] MEDS: THIAMINE INJ 100 MG in IV DEXTROSE 5% 50 ML IV SCH ×3 (08:48→22:23)
[2019-09-30] MEDS: METOPROLOL TART IMMED RELEASE 25 MG TABLET. PO SCH ×2 (09:00→21:00)
[2019-09-30] MEDS: FAMOTIDINE 20 MG TABLET. PO SCH ×2 (09:00→21:00)
[2019-09-30] MEDS: SENNOSIDES/DOCUSATE 8.6/50MG TABLET. PO SCH ×2 (09:00→21:00)
--- NOTE | 2019-09-30 10:11 | PDOC ---
PROGRESS NOTES Chief Complaint Chief Complaint IMPRESSION Hypovolemic shock secondary to GI bleeding most likely No signs of bleeding and no records from [facility]. "Cautery" hopefully implies non-variceal lesion Acute Microcytic anemia most likely secondary to iron deficiency secondary to the above-mentioned GI bleed Acute renal failure Chronic pain syndrome on chronic narcotics Toxic encephalopathy secondary to the above Hyperkalemia 5.7 secondary to acute renal failure most likely Anion gap metabolic acidosis with a probably a superimposed non-metabolic acidos is given the degree of acidosis with a bicarb reported at 11 from the outside facility Hypomagnesemia Cirrhotic appearing liver cirrhotic morphology of the liver, borderline enlargement of spleen, heterogeneous attenuation at hepatic dome but poorly evaluated somewhat ectatic gallbladder THrombocytopenia Uremia ACUTE RENAL TUBULAR NECROSIS Hyperphosphatemia Severe protein calorie malnutrition BRADYCARDIA, d/c clonidine Anemia - iron studies c/w ACD - transfused last week, Hgb improved on 09/21 Probable alcoholic cirrhosis 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 received ACD, Asymptomatic SB: with associated use of clonidine and lyte abnormalities. None further. EF 50% with mild global hypokinesis DM2: Suspect CKD - Renal US Asymmetric renal size with atrophic appearing right kidney with echogenic cortex which could be from chronic renal disease. PLAN GI FOLLOWING Cardiology consult D/C CLONIDINE Nephrology following, iv fluid support d/c ON HOLD DIFFICULT PLACEMENT 09/28 D/W CASE MGT D/W RN, PULLED OUT IV AGAIN, TRY MITTS AGAIN 28 MIN PT EXAM, CHART REVIEW d/c planning , > 50% OF TIME SPENT WITH EXAM, CHART REVIEW, PT CARE COORDINATION History of Present Illness History of Present Illness Mr Knott is a 64 yo M w/ PMHx presents to the emergency department at [facility] in [place] reportedly with altered mental status. Patient apparently was found by his roommate on the ground of his apartment patient cannot give history given his current condition. It is unknown when he was last seen normal apparently patient was found to be hypotensive on the field at 80/40 fluid resuscitation was started on the field with Ringer's lactate patient was seen in the emergency department and found to be anemic with Hb 7.9 and having reports of GI bleeding according to the records with BUN 101. BNP 3353. Patient confused and the details of his stated history are not reliable according to the ER doctor patient is in acute renal failure and he has been recently admitted at [facility] from 08/16 through 08/25 for a GI bleed. CT abdomen pelvis with contrast - marked calcified and noncalcified atheromatous plaque burden throughout the aorta, iliofemoral system and aortic branch vessels. Severe stenosis at the right renal artery origin with resultant atrophy of the right kidney. 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 Given the presumed severe stenosis at the SMA origin, recommend correlation for symptoms that would suggest intestinal angina noting that the bowel in this distribution does not exhibit obvious features of ischemia. Also with cirrhotic morphology of the liver and borderline enlargement of the spleen. There is heterogeneous attenuation of the liver at the hepatic dome but this region is poorly evaluated due to motion artifact and a definite mass is not able to be delineated. Admitted to ICU with levophed ordered. 09/19: Started on bicarb GTT, levophed. WBC 6.1, Hb 7.8, platelets 118. NA 147, K5.5, BUN 9 3, CR 7.8, glucose 126, INR 1.2, MG 1.6, phosphorus 6.5, TSH 0.473. He thinks he is at home today. Notes he drinks quite a bit. Son in [place] notes he was "doing well" after discharge from [facility] and so he returned back home. Trialysis catheter placed under nephrology guidance for emergent dialysis. 09/20: Hb 6.5, Na 146, K 2.8, BUN 27, Cr 2.2, glucose 155, AST 45, albumin 2.4 today. Still very confused. Some stool overnight. UOP 1770 last 24 hours. 09/21: Afebrile. Hb 9.2 after transfusion. CR 2 0, mag 1.6 K3.5. Rolling around in bed still very confused. Cr 1.7, K 3.2. Received Haldol, he has some lipsmacking. Ordered benztropine. He is still very confused only opens his eyes to painful stimuli. Afebrile 09/24 banana bag PPN supportive care mental status still poor SUSPECT ALCOHOLIC CIRRHOSIS 09/28 Suspect CKD - Renal US Asymmetric renal size with atrophic appearing right kidney with echogenic cortex which could be from chronic renal disease. No acute events reported overnight, case discussed with nursing staff patient in no acute distress no complaints during my visit continues to be quite obtunded and unable to have a meaningful conversation, awaiting for records from [facility] Vitals Vitals Vital Signs Date Time Temp Pulse Resp B/P (MAP) Pulse Ox O2 Delivery O2 Flow Rate FiO2 09/30/19 08:00 Room Air 2.0 09/30/19 07:00 98.4 87 18 145/100 (115) 99 98.4 Physical Exam Physical Exam General: Other (CONFUSED) Lungs: Clear to auscultation, Normal air movement Neuro: Other (CONFUSED) General: Alert, Cooperative, No acute distress, Other (confused ) Heart: Regular rate, Normal S1, Other (2/6 systolic murmur ) Lungs: Clear, Wheezing Abdomen: Normal bowel sounds, Soft, No tenderness Extremities: No cyanosis, No edema, Normal pulses Skin: No breakdown, No significant lesion Labs LABS Laboratory Tests Test 09/29/19 12:03 09/29/19 17:10 09/29/19 21:11 09/30/19 04:30 Glucose (Fingerstick) 106 mg/dL (70-99) 91 mg/dL (70-99) 102 mg/dL (70-99) White Blood Count 6.4 x10^3/uL (4.0-11.0) Red Blood Count 3.47 x10^6/uL (4.30-5.70) Hemoglobin 9.5 g/dL (13.0-17.5) Hematocrit 29.3 % (39.0-53.0) Mean Corpuscular Volume 85 fL (79-100) Mean Corpuscular Hemoglobin 28 pg (25-35) Mean Corpuscular Hemoglobin Concent 33 g/dL (31-37) Red Cell Distribution Width 22.6 % (11.5-14.5) Platelet Count 101 x10^3/uL (140-400) Neutrophils (%) (Auto) 70 % (31-73) Lymphocytes (%) (Auto) 14 % (24-48) Monocytes (%) (Auto) 12 % (0-9) Eosinophils (%) (Auto) 3 % (0-3) Basophils (%) (Auto) 0 % (0-3) Neutrophils # (Auto) 4.5 x10^3/uL (1.8-7.7) Lymphocytes # (Auto) 0.9 x10^3/uL (1.0-4.8) Monocytes # (Auto) 0.8 x10^3/uL (0.0-1.1) Eosinophils # (Auto) 0.2 x10^3/uL (0.0-0.7) Basophils # (Auto) 0.0 x10^3/uL (0.0-0.2) Sodium Level 137 mmol/L (136-145) Potassium Level 4.0 mmol/L (3.5-5.1) Chloride Level 103 mmol/L (98-107) Carbon Dioxide Level 24 mmol/L (21-32) Anion Gap 10 (6-14) Blood Urea Nitrogen 23 mg/dL (8-26) Creatinine 1.4 mg/dL (0.7-1.3) Estimated GFR (Cockcroft-Gault) 51.0 BUN/Creatinine Ratio 16 (-20) Glucose Level 95 mg/dL (70-99) Calcium Level 7.9 mg/dL (8.5-10.1) Total Bilirubin 0.5 mg/dL (0.2-1.0) Aspartate Amino Transf (AST/SGOT) 25 U/L (15-37) Alanine Aminotransferase (ALT/SGPT) 24 U/L (16-63) Alkaline Phosphatase 123 U/L (46-116) Total Protein 6.2 g/dL (6.4-8.2) Albumin 2.4 g/dL (3.4-5.0) Albumin/Globulin Ratio 0.6 (1.0-1.7) Test 09/30/19 07:21 Glucose (Fingerstick) 96 mg/dL (70-99) Comment Review of Relevant I have reviewed the following items bj (where applicable) has been applied. Labs Laboratory Tests Test 09/28/19 11:58 09/28/19 16:45 09/28/19 20:39 09/29/19 12:03 Glucose (Fingerstick) 113 mg/dL (70-99) 94 mg/dL (70-99) 92 mg/dL (70-99) 106 mg/dL (70-99) Test 09/29/19 17:10 09/29/19 21:11 09/30/19 04:30 09/30/19 07:21 Glucose (Fingerstick) 91 mg/dL (70-99) 102 mg/dL (70-99) 96 mg/dL (70-99) White Blood Count 6.4 x10^3/uL (4.0-11.0) Red Blood Count 3.47 x10^6/uL (4.30-5.70) Hemoglobin 9.5 g/dL (13.0-17.5) Hematocrit 29.3 % (39.0-53.0) Mean Corpuscular Volume 85 fL (79-100) Mean Corpuscular Hemoglobin 28 pg (25-35) Mean Corpuscular Hemoglobin Concent 33 g/dL (31-37) Red Cell Distribution Width 22.6 % (11.5-14.5) Platelet Count 101 x10^3/uL (140-400) Neutrophils (%) (Auto) 70 % (31-73) Lymphocytes (%) (Auto) 14 % (24-48) Monocytes (%) (Auto) 12 % (0-9) Eosinophils (%) (Auto) 3 % (0-3) Basophils (%) (Auto) 0 % (0-3) Neutrophils # (Auto) 4.5 x10^3/uL (1.8-7.7) Lymphocytes # (Auto) 0.9 x10^3/uL (1.0-4.8) Monocytes # (Auto) 0.8 x10^3/uL (0.0-1.1) Eosinophils # (Auto) 0.2 x10^3/uL (0.0-0.7) Basophils # (Auto) 0.0 x10^3/uL (0.0-0.2) Sodium Level 137 mmol/L (136-145) Potassium Level 4.0 mmol/L (3.5-5.1) Chloride Level 103 mmol/L (98-107) Carbon Dioxide Level 24 mmol/L (21-32) Anion Gap 10 (6-14) Blood Urea Nitrogen 23 mg/dL (8-26) Creatinine 1.4 mg/dL (0.7-1.3) Estimated GFR (Cockcroft-Gault) 51.0 BUN/Creatinine Ratio 16 (6-20) Glucose Level 95 mg/dL (70-99) Calcium Level 7.9 mg/dL (8.5-10.1) Total Bilirubin 0.5 mg/dL (0.2-1.0) Aspartate Amino Transf (AST/SGOT) 25 U/L (15-37) Alanine Aminotransferase (ALT/SGPT) 24 U/L (16-63) Alkaline Phosphatase 123 U/L (46-116) Total Protein 6.2 g/dL (6.4-8.2) Albumin 2.4 g/dL (3.4-5.0) Albumin/Globulin Ratio 0.6 (1.0-1.7) Laboratory Tests Test 09/29/19 12:03 09/29/19 17:10 09/29/19 21:11 09/30/19 04:30 Glucose (Fingerstick) 106 mg/dL (70-99) 91 mg/dL (70-99) 102 mg/dL (70-99) White Blood Count 6.4 x10^3/uL (4.0-11.0) Red Blood Count 3.47 x10^6/uL (4.30-5.70) Hemoglobin 9.5 g/dL (13.0-17.5) Hematocrit 29.3 % (39.0-53.0) Mean Corpuscular Volume 85 fL (79-100) Mean Corpuscular Hemoglobin 28 pg (25-35) Mean Corpuscular Hemoglobin Concent 33 g/dL (31-37) Red Cell Distribution Width 22.6 % (11.5-14.5) Platelet Count 101 x10^3/uL (140-400) Neutrophils (%) (Auto) 70 % (31-73) Lymphocytes (%) (Auto) 14 % (24-48) Monocytes (%) (Auto) 12 % (0-9) Eosinophils (%) (Auto) 3 % (0-3) Basophils (%) (Auto) 0 % (0-3) Neutrophils # (Auto) 4.5 x10^3/uL (1.8-7.7) Lymphocytes # (Auto) 0.9 x10^3/uL (1.0-4.8) Monocytes # (Auto) 0.8 x10^3/uL (0.0-1.1) Eosinophils # (Auto) 0.2 x10^3/uL (0.0-0.7) Basophils # (Auto) 0.0 x10^3/uL (0.0-0.2) Sodium Level 137 mmol/L (136-145) Potassium Level 4.0 mmol/L (3.5-5.1) Chloride Level 103 mmol/L (98-107) Carbon Dioxide Level 24 mmol/L (21-32) Anion Gap 10 (6-14) Blood Urea Nitrogen 23 mg/dL (8-26) Creatinine 1.4 mg/dL (0.7-1.3) Estimated GFR (Cockcroft-Gault) 51.0 BUN/Creatinine Ratio 16 (6-20) Glucose Level 95 mg/dL (70-99) Calcium Level 7.9 mg/dL (8.5-10.1) Total Bilirubin 0.5 mg/dL (0.2-1.0) Aspartate Amino Transf (AST/SGOT) 25 U/L (15-37) Alanine Aminotransferase (ALT/SGPT) 24 U/L (16-63) Alkaline Phosphatase 123 U/L (46-116) Total Protein 6.2 g/dL (6.4-8.2) Albumin 2.4 g/dL (3.4-5.0) Albumin/Globulin Ratio 0.6 (1.0-1.7) Test 09/30/19 07:21 Glucose (Fingerstick) 96 mg/dL (70-99) Microbiology 09/19/19 Urine Culture - Final, Complete 09/19/19 Blood Culture - Final, Complete NO GROWTH AFTER 5 DAYS Medications Current Medications Norepinephrine Bitartrate 8 mg/ Dextrose 258 ml @ 12.365 mls/ hr CONT PRN IV PER PROTOCOL Last administered on 09/19/19at 20:41; Start 09/19/19 at 20:30; Stop 09/26/19 at 11:05; Status DC Hydrocortisone Sodium Succinate (Solu-CORTEF) 100 mg Q8HRS IVP Last administered on 09/26/19at 05:45; Start 09/19/19 at 22:00; Stop 09/26/19 at 11:21; Status DC Acetaminophen (Tylenol) 650 mg PRN Q6HRS PRN PO Headaches, Temp > 101.5'; Start 09/19/19 at 21:15 Lorazepam (Ativan Inj) 0.5 mg PRN Q6HRS PRN IVP ANXIETY / AGITATION Last administered on 09/19/19at 22:19; Start 09/19/19 at 21:15 Ondansetron HCl (Zofran) 4 mg PRN Q6HRS PRN IVP NAUSEA/VOMITING; Start 09/19/19 at 21:15 Calcium Carbonate/ Glycine (Tums) 500 mg PRN Q3HRS PRN PO HEARTBURN / GAS; Start 09/19/19 at 21:15 Famotidine (Pepcid Vial) 20 mg BID IVP Last administered on 09/21/19at 21:08; Start 09/20/19 at 09:00; Stop 09/22/19 at 10:27; Status DC Sodium Chloride (Normal Saline Flush) 3 ml QSHIFT PRN IV AFTER MEDS AND BLOOD DRAWS; Start 09/19/19 at 21:15 Oxycodone/ Acetaminophen (Percocet 5/325) 1 tab PRN Q4HRS PRN PO PAIN Last administered on 09/29/19at 19:48; Start 09/19/19 at 21:15 Morphine Sulfate (Morphine Sulfate) 1 mg PRN Q1HR PRN IV PAIN Last administered on 09/21/19at 23:02; Start 09/19/19 at 21:15 Senna/Docusate Sodium (Senna Plus) 1 tab BID PO Last administered on 09/29/19at 19:48; Start 09/20/19 at 09:00 Lactulose (Lactulose) 20 gm PRN Q12HR PRN PO CONSTIPATION; Start 09/19/19 at 21:15 Acetaminophen (Tylenol) 650 mg 1X PRN PRN PO PRE-TRANSFUSION; Start 09/19/19 at 21:15; Stop 09/26/19 at 11:10; Status DC Magnesium Sulfate/ Dextrose 100 ml @ 100 mls/hr 1X ONCE IV Last administered on 09/19/19at 22:23; Start 09/19/19 at 22:30; Stop 09/19/19 at 23:29; Status DC Sodium Bicarbonate 150 meq/Dextrose 1,150 ml @ 125 mls/hr Q9H12M IV Last administered on 09/21/19at 01:39; Start 09/20/19 at 06:45; Stop 09/21/19 at 10:17; Status DC Multivitamins 10 ml/Thiamine HCl 100 mg/Folic Acid 1 mg/Sodium Chloride 1,011.2 ml @ 100 mls/ hr DAILY IV Last administered on 09/24/19at 08:59; Start 09/20/19 at 10:00; Stop 09/24/19 at 19:07; Status DC Lorazepam (Ativan) 2 mg PRN Q1HR PRN PO For CIWA 8-14; Start 09/20/19 at 09:15; Stop 09/20/19 at 10:00; Status DC Lorazepam (Ativan Inj) 1 mg PRN Q1HR PRN IV For CIWA 8-14; Start 09/20/19 at 09:15 Haloperidol Lactate (Haldol Inj) 5 mg PRN Q4HRS PRN IVP Hallucinatns,Confusn,Delirium Last administered on 09/29/19at 09:51; Start 09/20/19 at 09:15 Clonidine HCl (Catapres) 0.1 mg PRN Q1HR PRN PO SBP > 180 or DBP > 100, MRX3 Last administered on 09/24/19at 22:31; Start 09/20/19 at 09:15; Stop 09/25/19 at 10:38; Status DC Lorazepam (Ativan Inj) 2 mg PRN Q1HR PRN IV For CIWA 8-14 Last administered on 09/30/19at 08:45; Start 09/20/19 at 10:00 Lidocaine HCl (Buffered Lidocaine 1%) 3 ml STK-MED ONCE .ROUTE ; Start 09/20/19 at 11:32; Stop 09/20/19 at 11:32; Status DC Lidocaine HCl (Buffered Lidocaine 1%) 6 ml 1X ONCE INJ Last administered on 09/20/19at 12:20; Start 09/20/19 at 12:00; Stop 09/20/19 at 12:01; Status DC Nicotine (Nicoderm Cq 21mg) 1 patch DAILY TD Last administered on 09/30/19at 08:45; Start 09/20/19 at 13:30 Sodium Chloride 1,000 ml @ 1,000 mls/hr Q1H PRN IV hypotension; Start 09/20/19 at 14:09; Stop 09/20/19 at 20:08; Status DC Albumin Human 200 ml @ 200 mls/hr 1X PRN PRN IV Hypotension; Start 09/20/19 at 14:15; Stop 09/20/19 at 20:14; Status DC Sodium Chloride 1,000 ml @ 400 mls/hr Q2H30M PRN IV PATENCY; Start 09/20/19 at 14:09; Stop 09/21/19 at 02:08; Status DC Info (PHARMACY MONITORING -- do not chart) 1 each PRN DAILY PRN MC SEE COMMENTS; Start 09/20/19 at 14:15; Status UNV Info (PHARMACY MONITORING -- do not chart) 1 each PRN DAILY PRN MC SEE COMMENTS; Start 09/20/19 at 14:15; Stop 09/26/19 at 11:13; Status DC Potassium Chloride/Water 100 ml @ 100 mls/hr 1X ONCE IV Last administered on 09/21/19at 10:19; Start 09/21/19 at 08:00; Stop 09/21/19 at 08:59; Status DC Insulin Human Lispro (HumaLOG) 0-7 UNITS TIDWMEALS SQ ; Start 09/21/19 at 09:00 Dextrose (Dextrose 50%-Water Syringe) 12.5 gm PRN Q15MIN PRN IV SEE COMMENTS; Start 09/21/19 at 09:00 Amino Acids/ Glycerin/ Electrolytes 1,000 ml @ 80 mls/hr [id number] IV Last administered on 09/30/19at 08:44; Start 09/21/19 at 10:45 Potassium Chloride/Water 100 ml @ 100 mls/hr 1X ONCE IV Last administered on 09/21/19at 13:02; Start 09/21/19 at 12:00; Stop 09/21/19 at 12:59; Status DC Lorazepam (Ativan Inj) 4 mg PRN Q1HR PRN IV For CIWA 15 or greater Last administered on 09/26/19at 00:41; Start 09/22/19 at 08:00 Famotidine (Pepcid Vial) 20 mg DAILY IVP Last administered on 09/26/19at 08:49; Start 09/23/19 at 09:00; Stop 09/26/19 at 11:11; Status DC Magnesium Sulfate 100 ml @ 25 mls/hr 1X ONCE IV Last administered on 09/22/19at 13:57; Start 09/22/19 at 13:30; Stop 09/22/19 at 17:29; Status DC Potassium Chloride/Water 100 ml @ 100 mls/hr 1X ONCE IV Last administered on 09/22/19at 13:57; Start 09/22/19 at 13:30; Stop 09/22/19 at 14:29; Status DC Potassium Chloride/Water 100 ml @ 100 mls/hr Q1H IV Last administered on 09/23/19at 09:28; Start 09/23/19 at 09:00; Stop 09/23/19 at 10:59; Status DC Benztropine Mesylate (Cogentin) 2 mg PRN BID PRN IM EXTRAPYRAMIDAL SIDE EFFECTS Last administered on 09/23/19at 09:27; Start 09/23/19 at 09:15 Hydralazine HCl (Apresoline Inj) 10 mg PRN Q4HRS PRN IVP ELEVATED BP, SEE COMMENTS Last administered on 09/28/19at 16:46; Start 09/25/19 at 10:45 Potassium Chloride (Klor-Con) 30 meq 1X ONCE PO Last administered on 09/25/19at 11:58; Start 09/25/19 at 11:45; Stop 09/25/19 at 11:52; Status DC Hydralazine HCl (Apresoline) 50 mg BID PO Last administered on 09/29/19at 19:49; Start 09/25/19 at 21:00 Potassium Bicarbonate (Potassium Effervescent Tablet) 20 meq 1X ONCE PO Last administered on 09/26/19at 09:59; Start 09/26/19 at 10:00; Stop 09/26/19 at 10:01; Status DC Famotidine (Pepcid) 20 mg DAILY PO Last administered on 09/28/19at 09:02; Start 09/27/19 at 09:00; Stop 09/28/19 at 09:52; Status DC Thiamine HCl 100 mg/Dextrose 51 ml @ 102 mls/hr TID IV Last administered on 09/30/19at 08:48; Start 09/26/19 at 14:00 Potassium Chloride/Water 100 ml @ 100 mls/hr 1X ONCE IV Last administered on 09/27/19at 10:15; Start 09/27/19 at 10:00; Stop 09/27/19 at 10:59; Status DC Magnesium Sulfate 50 ml @ 25 mls/hr 1X ONCE IV Last administered on 09/27/19at 11:21; Start 09/27/19 at 11:00; Stop 09/27/19 at 12:59; Status DC Magnesium Sulfate/ Dextrose 100 ml @ 100 mls/hr 1X ONCE IV ; Start 09/27/19 at 15:15; Stop 09/27/19 at 16:14; Status Cancel Famotidine (Pepcid) 20 mg BID PO Last administered on 09/29/19at 19:48; Start 09/28/19 at 21:00 Potassium Chloride (Klor-Con) 20 meq 1X ONCE PO Last administered on 09/28/19at 14:05; Start 09/28/19 at 11:15; Stop 09/28/19 at 11:17; Status DC Metoprolol Tartrate (Lopressor) 12.5 mg BID PO Last administered on 09/29/19at 19:49; Start 09/29/19 at 11:00 Active Scripts Active Vitamin B-1 (Thiamine Mononitrate) 100 Mg Tablet 100 Mg PO TID 14 Days Humalog (Insulin Lispro) 100 Unit/1 Ml Insuln.pen 0 Units SQ TIDWMEALS 30 Days Famotidine 20 Mg Tablet 20 Mg PO BID 30 Days Calcium Carbonate 200 Mg Tab.chew 500 Mg PO PRN Q3HRS PRN 28 Days Lactulose 20 Gm/30 Ml Solution 20 Gm PO PRN Q12HR PRN 14 Days Tylenol (Acetaminophen) 325 Mg Tablet 650 Mg PO PRN Q6HRS PRN 10 Days Hydralazine Hcl 50 Mg Tablet 50 Mg PO BID 30 Days [Nicotine 21MG] 1 PATCH Patch 1 Patch TD DAILY 30 Days Vitals/I & O Vital Sign - Last 24 Hours 09/29/19 09/29/19 09/29/19 09/29/19 11:26 12:05 15:15 19:16 Temp 98.3 97.8 98.3 97.8 Pulse 84 84 70 Resp 18 16 B/P (MAP) 124/73 (90) 124/73 104/65 (78) Pulse Ox 98 93 O2 Delivery Room Air Room Air Room Air 09/29/19 09/29/19 09/29/19 09/29/19 19:30 19:48 19:49 19:49 Temp 98.7 98.7 Pulse 82 82 75 Resp 18 B/P (MAP) 125/67 (86) 125/67 125/67 Pulse Ox 97 O2 Delivery Room Air Room Air 09/29/19 09/29/19 09/30/19 09/30/19 20:48 22:39 03:05 07:00 Temp 97.6 97.9 98.4 97.6 97.9 98.4 Pulse 66 70 87 Resp 18 18 B/P (MAP) 105/57 (73) 107/62 (77) 145/100 (115) Pulse Ox 96 96 99 O2 Delivery Room Air Room Air Room Air 09/30/19 08:00 O2 Delivery Room Air O2 Flow Rate 2.0 Intake and Output 09/29/19 09/29/19 09/30/19 15:00 23:00 07:00 Intake Total 200 ml 960 ml Output Total 350 ml Balance -150 ml 960 ml Nutrition Consultation Dietary Evaluation: Recommendations by RD: Dietary education by RD, Increase Calorie Intake, Protein supplementation, PPN/TPN Comments: Continue w/ADA diet as ordered, honor food preferences, provide snacks as requested Continue w/PPN at this time to supplement varying PO intake Continue w/ Ensure pudding (chocolate) BID per pt choice Expected Outcomes/Goals: Nutritional intake to meet >75% est needs - met at times, goal ongoing Malnutrition Findings: Food and Nutrition Intake (Mod: <75% est energy req 7days Weight Status: Appropriate CHAPIS IRWIN MD Sep 30, 2019 10:11
--- NOTE | 2019-09-30 10:22 | PDOC ---
PROGRESS NOTES Subjective Subjective No new complaints Objective Objective Vital Signs Date Time Temp Pulse Resp B/P (MAP) Pulse Ox O2 Delivery O2 Flow Rate FiO2 09/30/19 08:00 Room Air 2.0 09/30/19 07:00 98.4 87 18 145/100 (115) 99 98.4 Intake and Output 09/30/19 07:00 Intake Total 1160 ml Output Total 350 ml Balance 810 ml Intake Oral 200 ml IV Total 960 ml Output Urine Total 350 ml # Voids 6 Physical Exam Abdomen: Normal bowel sounds, Soft, No tenderness Heart: Regular rate, Normal S1, Other (2/6 systolic murmur ) Extremities: No cyanosis, No edema, Normal pulses General: Alert, Cooperative, No acute distress, Other (confused ) HEENT: Atraumatic Lungs: Clear to auscultation MUSCULOSKELETAL: Osteoarthritic changes both hands Neuro: Normal speech, Sensation intact Psych/Mental Status: Other (flat affect ) Skin: No breakdown, No significant lesion Diagnosis RENAL FAILURE: Acute (Acute tubular necrosis) Assessment Assessment 1. Metabolic encephalopathy: restless and confused. likely associated chronic changes from ETOH 2. Pancytopenia. s/p PRBC transfusion. 3. H/o recent GIB 4. MISBAH, Appears back to his baseline 5. Arrhythmia: noted with PAT, no further episodes noted on telemetry 6. H/o ETOH abuse, cirrhosis. Details unclear GI following 7. Asymptomatic SB: with associated use of clonidine and lyte abnormalities. None further. EF 50% with mild global hypokinesis 8. DM2: per PCP 9. HTN: controlled 10. Nontraumatic mechanical fall: got OOB yesterday and was found on the floor at the side of the bed. Recommendations 1. No further clonidine. Continue metoprolol 2. CIWA protocol per PCP. hydralazine PO and PRN 3. No MICAELA/ARB with MISBAH 4. No ASA with GIB, anemia, thrombocytopenia 5. Plan for event monitor as an outpatient Comment Review of Relevant I have reviewed the following items bj (where applicable) has been applied. Labs Laboratory Tests Test 09/29/19 12:03 09/29/19 17:10 09/29/19 21:11 09/30/19 04:30 Glucose (Fingerstick) 106 mg/dL (70-99) 91 mg/dL (70-99) 102 mg/dL (70-99) White Blood Count 6.4 x10^3/uL (4.0-11.0) Red Blood Count 3.47 x10^6/uL (4.30-5.70) Hemoglobin 9.5 g/dL (13.0-17.5) Hematocrit 29.3 % (39.0-53.0) Mean Corpuscular Volume 85 fL (79-100) Mean Corpuscular Hemoglobin 28 pg (25-35) Mean Corpuscular Hemoglobin Concent 33 g/dL (31-37) Red Cell Distribution Width 22.6 % (11.5-14.5) Platelet Count 101 x10^3/uL (140-400) Neutrophils (%) (Auto) 70 % (31-73) Lymphocytes (%) (Auto) 14 % (24-48) Monocytes (%) (Auto) 12 % (0-9) Eosinophils (%) (Auto) 3 % (0-3) Basophils (%) (Auto) 0 % (0-3) Neutrophils # (Auto) 4.5 x10^3/uL (1.8-7.7) Lymphocytes # (Auto) 0.9 x10^3/uL (1.0-4.8) Monocytes # (Auto) 0.8 x10^3/uL (0.0-1.1) Eosinophils # (Auto) 0.2 x10^3/uL (0.0-0.7) Basophils # (Auto) 0.0 x10^3/uL (0.0-0.2) Sodium Level 137 mmol/L (136-145) Potassium Level 4.0 mmol/L (3.5-5.1) Chloride Level 103 mmol/L (98-107) Carbon Dioxide Level 24 mmol/L (21-32) Anion Gap 10 (6-14) Blood Urea Nitrogen 23 mg/dL (8-26) Creatinine 1.4 mg/dL (0.7-1.3) Estimated GFR (Cockcroft-Gault) 51.0 BUN/Creatinine Ratio 16 (6-20) Glucose Level 95 mg/dL (70-99) Calcium Level 7.9 mg/dL (8.5-10.1) Total Bilirubin 0.5 mg/dL (0.2-1.0) Aspartate Amino Transf (AST/SGOT) 25 U/L (15-37) Alanine Aminotransferase (ALT/SGPT) 24 U/L (16-63) Alkaline Phosphatase 123 U/L (46-116) Total Protein 6.2 g/dL (6.4-8.2) Albumin 2.4 g/dL (3.4-5.0) Albumin/Globulin Ratio 0.6 (1.0-1.7) Test 09/30/19 07:21 Glucose (Fingerstick) 96 mg/dL (70-99) Microbiology 09/19/19 Urine Culture - Final, Complete 09/19/19 Blood Culture - Final, Complete NO GROWTH AFTER 5 DAYS Medications Current Medications Metoprolol Tartrate (Lopressor) 12.5 mg BID PO Last administered on 09/29/19at 19:49; Start 09/29/19 at 11:00 Vitals/I & O Vital Sign - Last 24 Hours 09/29/19 09/29/19 09/29/19 09/29/19 11:26 12:05 15:15 19:16 Temp 98.3 97.8 98.3 97.8 Pulse 84 84 70 Resp 18 16 B/P (MAP) 124/73 (90) 124/73 104/65 (78) Pulse Ox 98 93 O2 Delivery Room Air Room Air Room Air 09/29/19 09/29/19 09/29/19 09/29/19 19:30 19:48 19:49 19:49 Temp 98.7 98.7 Pulse 82 82 75 Resp 18 B/P (MAP) 125/67 (86) 125/67 125/67 Pulse Ox 97 O2 Delivery Room Air Room Air 09/29/19 09/29/19 09/30/19 09/30/19 20:48 22:39 03:05 07:00 Temp 97.6 97.9 98.4 97.6 97.9 98.4 Pulse 66 70 87 Resp 18 22 22 18 B/P (MAP) 105/57 (73) 107/62 (77) 145/100 (115) Pulse Ox 96 96 99 O2 Delivery Room Air Room Air Room Air 09/30/19 08:00 O2 Delivery Room Air O2 Flow Rate 2.0 Intake and Output 09/29/19 09/29/19 09/30/19 15:00 23:00 07:00 Intake Total 200 ml 960 ml Output Total 350 ml Balance -150 ml 960 ml JULIANNE BERMUDEZ MD Sep 30, 2019 10:22
[2019-09-30 10:49] VITALS: BP 141/85
[2019-09-30 14:56] VITALS: BP 110/72
[2019-09-30 19:00] VITALS: BP 123/62
[2019-09-30 23:00] VITALS: BP 149/53
[2019-10-01 03:10] VITALS: BP 93/64
[2019-10-01 07:00] VITALS: BP 134/63
[2019-10-01] MEDS: INSULIN LISPRO 300 UNITS/3 ML VIAL. SQ SCH ×3 (08:00→17:00)
[2019-10-01] MEDS: NICOTINE 21MG PATCH. TD SCH (08:42)
[2019-10-01] MEDS: THIAMINE INJ 100 MG in IV DEXTROSE 5% 50 ML IV SCH ×3 (08:42→20:41)
[2019-10-01] MEDS: SENNOSIDES/DOCUSATE 8.6/50MG TABLET. PO SCH ×2 (09:00→21:00)
[2019-10-01] MEDS: METOPROLOL TART IMMED RELEASE 25 MG TABLET. PO SCH ×2 (09:00→20:42)
[2019-10-01] MEDS: FAMOTIDINE 20 MG TABLET. PO SCH ×2 (09:00→20:41)
[2019-10-01 11:05] VITALS: BP 131/63
[2019-10-01] MEDS: AMINO AC 3%/ELECTROLYTE/GLYCER 1,000 ML IV SCH (11:07)
--- NOTE | 2019-10-01 11:42 | PDOC ---
PROGRESS NOTES Chief Complaint Chief Complaint IMPRESSION Hypovolemic shock secondary to GI bleeding most likely No signs of bleeding and no records from [facility]. "Cautery" hopefully implies non-variceal lesion Acute Microcytic anemia most likely secondary to iron deficiency secondary to the above-mentioned GI bleed Acute renal failure Chronic pain syndrome on chronic narcotics Toxic encephalopathy secondary to the above Hyperkalemia 5.7 secondary to acute renal failure most likely Anion gap metabolic acidosis with a probably a superimposed non-metabolic acidos is given the degree of acidosis with a bicarb reported at 11 from the outside facility Hypomagnesemia Cirrhotic appearing liver cirrhotic morphology of the liver, borderline enlargement of spleen, heterogeneous attenuation at hepatic dome but poorly evaluated somewhat ectatic gallbladder THrombocytopenia Uremia ACUTE RENAL TUBULAR NECROSIS Hyperphosphatemia Severe protein calorie malnutrition BRADYCARDIA, d/c clonidine Anemia - iron studies c/w ACD - transfused last week, Hgb improved on 09/21 Probable alcoholic cirrhosis 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 None further. EF 50% with mild global hypokinesis DM2: Suspect CKD - Renal US Asymmetric renal size with atrophic appearing right kidney with echogenic cortex which could be from chronic renal disease. PLAN GI FOLLOWING Cardiology consult D/C CLONIDINE Nephrology following, iv fluid support d/c ON HOLD DIFFICULT PLACEMENT 09/28 09/30 MORE CONFUSED D/W RN, //CRUZITO AGAIN 29 MIN PT EXAM, CHART REVIEW d/c planning , > 50% OF TIME SPENT WITH EXAM, CHART REVIEW, PT CARE COORDINATION History of Present Illness History of Present Illness Mr Knott is a 64 yo M w/ PMHx presents to the emergency department at [facility] in [place] reportedly with altered mental status. Patient apparently was found by his roommate on the ground of his apartment patient cannot give history given his current condition. It is unknown when he was last seen normal apparently patient was found to be hypotensive on the field at 80/40 fluid resuscitation was started on the field with Ringer's lactate patient was seen in the emergency department and found to be anemic with Hb 7.9 and having reports of GI bleeding according to the records with BUN 101. BNP 3353. Patient confused and the details of his stated history are not reliable according to the ER doctor patient is in acute renal failure and he has been recently admitted at [facility] from 08/16 through 08/25 for a GI bleed. CT abdomen pelvis with contrast - marked calcified and noncalcified atheromatous plaque burden throughout the aorta, iliofemoral system and aortic branch vessels. Severe stenosis at the right renal artery origin with resultant atrophy of the right kidney. 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 Given the presumed severe stenosis at the SMA origin, recommend correlation for symptoms that would suggest intestinal angina noting that the bowel in this distribution does not exhibit obvious features of ischemia. Also with cirrhotic morphology of the liver and borderline enlargement of the spleen. There is heterogeneous attenuation of the liver at the hepatic dome but this region is poorly evaluated due to motion artifact and a definite mass is not able to be delineated. Admitted to ICU with levophed ordered. 09/19: Started on bicarb GTT, levophed. WBC 6.1, Hb 7.8, platelets 118. NA 147, K5.5, BUN 9 3, CR 7.8, glucose 126, INR 1.2, MG 1.6, phosphorus 6.5, TSH 0.473. He thinks he is at home today. Notes he drinks quite a bit. Son in [place] notes he was "doing well" after discharge from [facility] and so he returned back home. Trialysis catheter placed under nephrology guidance for emergent dialysis. 09/20: Hb 6.5, Na 146, K 2.8, BUN 27, Cr 2.2, glucose 155, AST 45, albumin 2.4 today. Still very confused. Some stool overnight. UOP 1770 last 24 hours. 09/21: Afebrile. Hb 9.2 after transfusion. CR 2 0, mag 1.6 K3.5. Rolling around in bed still very confused. Cr 1.7, K 3.2. Received Haldol, he has some lipsmacking. Ordered benztropine. He is still very confused only opens his eyes to painful stimuli. Afebrile 09/24 banana bag PPN supportive care mental status still poor SUSPECT ALCOHOLIC CIRRHOSIS 09/28 Suspect CKD - Renal US Asymmetric renal size with atrophic appearing right kidney with echogenic cortex which could be from chronic renal disease. No acute events reported overnight, case discussed with nursing staff patient in no acute distress no complaints during my visit continues to be quite obtunded and unable to have a meaningful conversation, awaiting for records from [facility] Vitals Vitals Vital Signs Date Time Temp Pulse Resp B/P (MAP) Pulse Ox O2 Delivery O2 Flow Rate FiO2 10/01/19 11:05 97.8 82 18 131/63 (85) 96 Room Air 97.8 09/30/19 08:00 2.0 Physical Exam Physical Exam General: Other (CONFUSED) Lungs: Clear to auscultation, Normal air movement Neuro: Other (CONFUSED) General: Alert, Cooperative, No acute distress, Other (confused ) Heart: Regular rate, Normal S1, Other (2/6 systolic murmur ) Lungs: Clear, Wheezing Abdomen: Normal bowel sounds, Soft, No tenderness Extremities: No cyanosis, No edema, Normal pulses Skin: No breakdown, No significant lesion Labs LABS Laboratory Tests Test 09/30/19 16:57 09/30/19 20:30 10/01/19 07:18 10/01/19 11:23 Glucose (Fingerstick) 94 mg/dL (70-99) 102 mg/dL (70-99) 98 mg/dL (70-99) 82 mg/dL (70-99) Comment Review of Relevant I have reviewed the following items bj (where applicable) has been applied. Labs Laboratory Tests Test 09/29/19 12:03 09/29/19 17:10 09/29/19 21:11 09/30/19 04:30 Glucose (Fingerstick) 106 mg/dL (70-99) 91 mg/dL (70-99) 102 mg/dL (70-99) White Blood Count 6.4 x10^3/uL (4.0-11.0) Red Blood Count 3.47 x10^6/uL (4.30-5.70) Hemoglobin 9.5 g/dL (13.0-17.5) Hematocrit 29.3 % (39.0-53.0) Mean Corpuscular Volume 85 fL (79-100) Mean Corpuscular Hemoglobin 28 pg (25-35) Mean Corpuscular Hemoglobin Concent 33 g/dL (31-37) Red Cell Distribution Width 22.6 % (11.5-14.5) Platelet Count 101 x10^3/uL (140-400) Neutrophils (%) (Auto) 70 % (31-73) Lymphocytes (%) (Auto) 14 % (24-48) Monocytes (%) (Auto) 12 % (0-9) Eosinophils (%) (Auto) 3 % (0-3) Basophils (%) (Auto) 0 % (0-3) Neutrophils # (Auto) 4.5 x10^3/uL (1.8-7.7) Lymphocytes # (Auto) 0.9 x10^3/uL (1.0-4.8) Monocytes # (Auto) 0.8 x10^3/uL (0.0-1.1) Eosinophils # (Auto) 0.2 x10^3/uL (0.0-0.7) Basophils # (Auto) 0.0 x10^3/uL (0.0-0.2) Sodium Level 137 mmol/L (136-145) Potassium Level 4.0 mmol/L (3.5-5.1) Chloride Level 103 mmol/L (98-107) Carbon Dioxide Level 24 mmol/L (21-32) Anion Gap 10 (6-14) Blood Urea Nitrogen 23 mg/dL (8-26) Creatinine 1.4 mg/dL (0.7-1.3) Estimated GFR (Cockcroft-Gault) 51.0 BUN/Creatinine Ratio 16 (6-20) Glucose Level 95 mg/dL (70-99) Calcium Level 7.9 mg/dL (8.5-10.1) Total Bilirubin 0.5 mg/dL (0.2-1.0) Aspartate Amino Transf (AST/SGOT) 25 U/L (15-37) Alanine Aminotransferase (ALT/SGPT) 24 U/L (16-63) Alkaline Phosphatase 123 U/L (46-116) Total Protein 6.2 g/dL (6.4-8.2) Albumin 2.4 g/dL (3.4-5.0) Albumin/Globulin Ratio 0.6 (1.0-1.7) Test 09/30/19 07:21 09/30/19 11:24 09/30/19 16:57 09/30/19 20:30 Glucose (Fingerstick) 96 mg/dL (70-99) 91 mg/dL (70-99) 94 mg/dL (70-99) 102 mg/dL (70-99) Test 10/01/19 07:18 10/01/19 11:23 Glucose (Fingerstick) 98 mg/dL (70-99) 82 mg/dL (70-99) Laboratory Tests Test 09/30/19 16:57 09/30/19 20:30 10/01/19 07:18 10/01/19 11:23 Glucose (Fingerstick) 94 mg/dL (70-99) 102 mg/dL (70-99) 98 mg/dL (70-99) 82 mg/dL (70-99) Microbiology 09/19/19 Urine Culture - Final, Complete 09/19/19 Blood Culture - Final, Complete NO GROWTH AFTER 5 DAYS Medications Current Medications Norepinephrine Bitartrate 8 mg/ Dextrose 258 ml @ 12.365 mls/ hr CONT PRN IV PER PROTOCOL Last administered on 09/19/19at 20:41; Start 09/19/19 at 20:30; Stop 09/26/19 at 11:05; Status DC Hydrocortisone Sodium Succinate (Solu-CORTEF) 100 mg Q8HRS IVP Last administered on 09/26/19at 05:45; Start 09/19/19 at 22:00; Stop 09/26/19 at 11:21; Status DC Acetaminophen (Tylenol) 650 mg PRN Q6HRS PRN PO Headaches, Temp > 101.5'; Start 09/19/19 at 21:15 Lorazepam (Ativan Inj) 0.5 mg PRN Q6HRS PRN IVP ANXIETY / AGITATION Last administered on 09/19/19at 22:19; Start 09/19/19 at 21:15 Ondansetron HCl (Zofran) 4 mg PRN Q6HRS PRN IVP NAUSEA/VOMITING; Start 09/19/19 at 21:15 Calcium Carbonate/ Glycine (Tums) 500 mg PRN Q3HRS PRN PO HEARTBURN / GAS; Start 09/19/19 at 21:15 Famotidine (Pepcid Vial) 20 mg BID IVP Last administered on 09/21/19at 21:08; Start 09/20/19 at 09:00; Stop 09/22/19 at 10:27; Status DC Sodium Chloride (Normal Saline Flush) 3 ml QSHIFT PRN IV AFTER MEDS AND BLOOD D RAWS; Start 09/19/19 at 21:15 Oxycodone/ Acetaminophen (Percocet 5/325) 1 tab PRN Q4HRS PRN PO PAIN Last administered on 09/29/19at 19:48; Start 09/19/19 at 21:15 Morphine Sulfate (Morphine Sulfate) 1 mg PRN Q1HR PRN IV PAIN Last administered on 09/21/19at 23:02; Start 09/19/19 at 21:15 Senna/Docusate Sodium (Senna Plus) 1 tab BID PO Last administered on 09/29/19at 19:48; Start 09/20/19 at 09:00 Lactulose (Lactulose) 20 gm PRN Q12HR PRN PO CONSTIPATION; Start 09/19/19 at 21:15 Acetaminophen (Tylenol) 650 mg 1X PRN PRN PO PRE-TRANSFUSION; Start 09/19/19 at 21:15; Stop 09/26/19 at 11:10; Status DC Magnesium Sulfate/ Dextrose 100 ml @ 100 mls/hr 1X ONCE IV Last administered on 09/19/19at 22:23; Start 09/19/19 at 22:30; Stop 09/19/19 at 23:29; Status DC Sodium Bicarbonate 150 meq/Dextrose 1,150 ml @ 125 mls/hr Q9H12M IV Last administered on 09/21/19at 01:39; Start 09/20/19 at 06:45; Stop 09/21/19 at 10:17; Status DC Multivitamins 10 ml/Thiamine HCl 100 mg/Folic Acid 1 mg/Sodium Chloride 1,011.2 ml @ 100 mls/ hr DAILY IV Last administered on 09/24/19at 08:59; Start 09/20/19 at 10:00; Stop 09/24/19 at 19:07; Status DC Lorazepam (Ativan) 2 mg PRN Q1HR PRN PO For CIWA 8-14; Start 09/20/19 at 09:15; Stop 09/20/19 at 10:00; Status DC Lorazepam (Ativan Inj) 1 mg PRN Q1HR PRN IV For CIWA 8-14; Start 09/20/19 at 09:15 Haloperidol Lactate (Haldol Inj) 5 mg PRN Q4HRS PRN IVP Hallucinatns,Confus n,Delirium Last administered on 09/29/19at 09:51; Start 09/20/19 at 09:15 Clonidine HCl (Catapres) 0.1 mg PRN Q1HR PRN PO SBP > 180 or DBP > 100, MRX3 Last administered on 09/24/19at 22:31; Start 09/20/19 at 09:15; Stop 09/25/19 at 10:38; Status DC Lorazepam (Ativan Inj) 2 mg PRN Q1HR PRN IV For CIWA 8-14 Last administered on 10/01/19at 11:07; Start 09/20/19 at 10:00 Lidocaine HCl (Buffered Lidocaine 1%) 3 ml STK-MED ONCE .ROUTE ; Start 09/20/19 at 11:32; Stop 09/20/19 at 11:32; Status DC Lidocaine HCl (Buffered Lidocaine 1%) 6 ml 1X ONCE INJ Last administered on 09/20/19at 12:20; Start 09/20/19 at 12:00; Stop 09/20/19 at 12:01; Status DC Nicotine (Nicoderm Cq 21mg) 1 patch DAILY TD Last administered on 10/01/19at 08:42; Start 09/20/19 at 13:30 Sodium Chloride 1,000 ml @ 1,000 mls/hr Q1H PRN IV hypotension; Start 09/20/19 at 14:09; Stop 09/20/19 at 20:08; Status DC Albumin Human 200 ml @ 200 mls/hr 1X PRN PRN IV Hypotension; Start 09/20/19 at 14:15; Stop 09/20/19 at 20:14; Status DC Sodium Chloride 1,000 ml @ 400 mls/hr Q2H30M PRN IV PATENCY; Start 09/20/19 at 14:09; Stop 09/21/19 at 02:08; Status DC Info (PHARMACY MONITORING -- do not chart) 1 each PRN DAILY PRN MC SEE COMMENTS; Start 09/20/19 at 14:15; Status UNV Info (PHARMACY MONITORING -- do not chart) 1 each PRN DAILY PRN MC SEE COMMENTS; Start 09/20/19 at 14:15; Stop 09/26/19 at 11:13; Status DC Potassium Chloride/Water 100 ml @ 100 mls/hr 1X ONCE IV Last administered on 09/21/19at 10:19; Start 09/21/19 at 08:00; Stop 09/21/19 at 08:59; Status DC Insulin Human Lispro (HumaLOG) 0-7 UNITS TIDWMEALS SQ ; Start 09/21/19 at 09:00 Dextrose (Dextrose 50%-Water Syringe) 12.5 gm PRN Q15MIN PRN IV SEE COMMENTS; Start 09/21/19 at 09:00 Amino Acids/ Glycerin/ Electrolytes 1,000 ml @ 80 mls/hr [id number] IV Last administered on 10/01/19at 11:07; Start 09/21/19 at 10:45 Potassium Chloride/Water 100 ml @ 100 mls/hr 1X ONCE IV Last administered on 09/21/19at 13:02; Start 09/21/19 at 12:00; Stop 09/21/19 at 12:59; Status DC Lorazepam (Ativan Inj) 4 mg PRN Q1HR PRN IV For CIWA 15 or greater Last administered on 09/26/19at 00:41; Start 09/22/19 at 08:00 Famotidine (Pepcid Vial) 20 mg DAILY IVP Last administered on 09/26/19at 08:49; Start 09/23/19 at 09:00; Stop 09/26/19 at 11:11; Status DC Magnesium Sulfate 100 ml @ 25 mls/hr 1X ONCE IV Last administered on 09/22/19at 13:57; Start 09/22/19 at 13:30; Stop 09/22/19 at 17:29; Status DC Potassium Chloride/Water 100 ml @ 100 mls/hr 1X ONCE IV Last administered on 09/22/19at 13:57; Start 09/22/19 at 13:30; Stop 09/22/19 at 14:29; Status DC Potassium Chloride/Water 100 ml @ 100 mls/hr Q1H IV Last administered on 09/23/19at 09:28; Start 09/23/19 at 09:00; Stop 09/23/19 at 10:59; Status DC Benztropine Mesylate (Cogentin) 2 mg PRN BID PRN IM EXTRAPYRAMIDAL SIDE EFFECTS Last administered on 09/23/19at 09:27; Start 09/23/19 at 09:15 Hydralazine HCl (Apresoline Inj) 10 mg PRN Q4HRS PRN IVP ELEVATED BP, SEE COMMENTS Last administered on 09/28/19at 16:46; Start 09/25/19 at 10:45 Potassium Chloride (Klor-Con) 30 meq 1X ONCE PO Last administered on 09/25/19at 11:58; Start 09/25/19 at 11:45; Stop 09/25/19 at 11:52; Status DC Hydralazine HCl (Apresoline) 50 mg BID PO Last administered on 09/29/19at 19:49; Start 09/25/19 at 21:00 Potassium Bicarbonate (Potassium Effervescent Tablet) 20 meq 1X ONCE PO Last administered on 09/26/19at 09:59; Start 09/26/19 at 10:00; Stop 09/26/19 at 10:01; Status DC Famotidine (Pepcid) 20 mg DAILY PO Last administered on 09/28/19at 09:02; Start 09/27/19 at 09:00; Stop 09/28/19 at 09:52; Status DC Thiamine HCl 100 mg/Dextrose 51 ml @ 102 mls/hr TID IV Last administered on 10/01/19at 08:42; Start 09/26/19 at 14:00 Potassium Chloride/Water 100 ml @ 100 mls/hr 1X ONCE IV Last administered on 09/27/19at 10:15; Start 09/27/19 at 10:00; Stop 09/27/19 at 10:59; Status DC Magnesium Sulfate 50 ml @ 25 mls/hr 1X ONCE IV Last administered on 09/27/19at 11:21; Start 09/27/19 at 11:00; Stop 09/27/19 at 12:59; Status DC Magnesium Sulfate/ Dextrose 100 ml @ 100 mls/hr 1X ONCE IV ; Start 09/27/19 at 15:15; Stop 09/27/19 at 16:14; Status Cancel Famotidine (Pepcid) 20 mg BID PO Last administered on 09/29/19at 19:48; Start at 21:00 Potassium Chloride (Klor-Con) 20 meq 1X ONCE PO Last administered on 09/28/19at 14:05; Start 09/28/19 at 11:15; Stop 09/28/19 at 11:17; Status DC Metoprolol Tartrate (Lopressor) 12.5 mg BID PO Last administered on 09/29/19at 19:49; Start 09/29/19 at 11:00 Active Scripts Active Vitamin B-1 (Thiamine Mononitrate) 100 Mg Tablet 100 Mg PO TID 14 Days Humalog (Insulin Lispro) 100 Unit/1 Ml Insuln.pen 0 Units SQ TIDWMEALS 30 Days Famotidine 20 Mg Tablet 20 Mg PO BID 30 Days Calcium Carbonate 200 Mg Tab.chew 500 Mg PO PRN Q3HRS PRN 28 Days Lactulose 20 Gm/30 Ml Solution 20 Gm PO PRN Q12HR PRN 14 Days Tylenol (Acetaminophen) 325 Mg Tablet 650 Mg PO PRN Q6HRS PRN 10 Days Hydralazine Hcl 50 Mg Tablet 50 Mg PO BID 30 Days [Nicotine 21MG] 1 PATCH Patch 1 Patch TD DAILY 30 Days Vitals/I & O Vital Sign - Last 24 Hours 09/30/19 09/30/19 09/30/19 09/30/19 14:56 19:00 20:00 21:00 Temp 98.3 97.7 98.3 97.7 Pulse 83 94 94 Resp 20 B/P (MAP) 110/72 (85) 123/62 (82) 123/62 Pulse Ox 97 96 O2 Delivery Room Air Room Air Room Air 09/30/19 10/01/19 10/01/19 10/01/19 23:00 03:10 07:00 08:00 Temp 99.6 97.2 98.3 99.6 97.2 98.3 Pulse 83 64 87 Resp 18 19 18 B/P (MAP) 149/53 (85) 93/64 (74) 134/63 (86) Pulse Ox 99 O2 Delivery Room Air Room Air Room Air Room Air 10/01/19 11:05 Temp 97.8 97.8 Pulse 82 Resp 18 B/P (MAP) 131/63 (85) Pulse Ox 96 O2 Delivery Room Air Intake and Output 09/30/19 09/30/19 10/01/19 15:00 23:00 07:00 Intake Total 150 ml 25 ml Balance 150 ml 25 ml Nutrition Consultation Dietary Evaluation: Recommendations by RD: Dietary education by RD, Increase Calorie Intake, Protein supplementation, PPN/TPN Comments: Continue w/ADA diet as ordered, honor food preferences, provide snacks as requested Continue w/PPN at this time to supplement varying PO intake Continue w/ Ensure pudding (chocolate) BID per pt choice Expected Outcomes/Goals: Nutritional intake to meet >75% est needs - met at times, goal ongoing Malnutrition Findings: Food and Nutrition Intake (Mod: <75% est energy req 7days Weight Status: Appropriate CHAPIS IRWIN MD Oct 01, 2019 11:42
--- NOTE | 2019-10-01 13:17 | PDOC ---
PROGRESS NOTES Subjective Subjective More confused today Objective Objective Vital Signs Date Time Temp Pulse Resp B/P (MAP) Pulse Ox O2 Delivery O2 Flow Rate FiO2 10/01/19 11:05 97.8 82 18 131/63 (85) 96 Room Air 97.8 09/30/19 08:00 2.0 Intake and Output 10/01/19 07:00 Intake Total 175 ml Balance 175 ml Intake Oral 175 ml # Voids 7 # Bowel Movements 1 Physical Exam Abdomen: Normal bowel sounds, Soft, No tenderness Heart: Regular rate, Normal S1, Other (2/6 systolic murmur ) Extremities: No cyanosis, No edema, Normal pulses General: Alert, Cooperative, No acute distress, Other (confused ) HEENT: Atraumatic Lungs: Clear to auscultation MUSCULOSKELETAL: Osteoarthritic changes both hands Neuro: Normal speech, Sensation intact Psych/Mental Status: Other (flat affect ) Skin: No breakdown, No significant lesion Diagnosis RENAL FAILURE: Acute (Acute tubular necrosis) Assessment Assessment 1. Metabolic encephalopathy: restless and confused. likely associated chronic changes from ETOH 2. Pancytopenia. s/p PRBC transfusion. 3. H/o recent GIB 4. MISBAH, Appears back to his baseline 5. Arrhythmia: Brief episode of atrial tachycardia noted on telemetry. Continue beta-blockers. 6. H/o ETOH abuse, cirrhosis. Details unclear GI following 7. Asymptomatic SB: with associated use of clonidine and lyte abnormalities. None further. EF 50% with mild global hypokinesis 8. DM2: per PCP 9. HTN: controlled 10. Nontraumatic mechanical fall Comment Review of Relevant I have reviewed the following items bj (where applicable) has been applied. Labs Laboratory Tests Test 09/30/19 16:57 09/30/19 20:30 10/01/19 07:18 10/01/19 11:23 Glucose (Fingerstick) 94 mg/dL (70-99) 102 mg/dL (70-99) 98 mg/dL (70-99) 82 mg/dL (70-99) Microbiology 09/19/19 Urine Culture - Final, Complete 09/19/19 Blood Culture - Final, Complete NO GROWTH AFTER 5 DAYS Vitals/I & O Vital Sign - Last 24 Hours 09/30/19 09/30/19 09/30/19 09/30/19 14:56 19:00 20:00 21:00 Temp 98.3 97.7 98.3 97.7 Pulse 83 94 94 Resp 18 20 B/P (MAP) 110/72 (85) 123/62 (82) 123/62 Pulse Ox 97 96 O2 Delivery Room Air Room Air Room Air 09/30/19 10/01/19 10/01/19 10/01/19 23:00 03:10 07:00 08:00 Temp 99.6 97.2 98.3 99.6 97.2 98.3 Pulse 83 64 87 Resp 18 19 18 B/P (MAP) 149/53 (85) 93/64 (74) 134/63 (86) Pulse Ox 99 O2 Delivery Room Air Room Air Room Air Room Air 10/01/19 11:05 Temp 97.8 97.8 Pulse 82 Resp 18 B/P (MAP) 131/63 (85) Pulse Ox 96 O2 Delivery Room Air Intake and Output 09/30/19 09/30/19 10/01/19 15:00 23:00 07:00 Intake Total 150 ml 25 ml Balance 150 ml 25 ml JULIANNE BERMUDEZ MD Oct 01, 2019 13:17
[2019-10-01 14:48] VITALS: BP 133/72
[2019-10-01 19:00] VITALS: BP 95/78
[2019-10-01] MEDS: HALOPERIDOL LACTATE 5 MG/ML VIAL. IVP PRN (20:42)
[2019-10-01 23:00] VITALS: BP 94/60
[2019-10-02] MEDS: AMINO AC 3%/ELECTROLYTE/GLYCER 1,000 ML IV SCH ×2 (01:18→09:15)
[2019-10-02 02:36] VITALS: BP 108/73
[2019-10-02 07:00] VITALS: BP 146/70
[2019-10-02] MEDS: INSULIN LISPRO 300 UNITS/3 ML VIAL. SQ SCH ×3 (08:00→17:00)
[2019-10-02] MEDS: SENNOSIDES/DOCUSATE 8.6/50MG TABLET. PO SCH ×2 (08:38→21:00)
[2019-10-02] MEDS: THIAMINE INJ 100 MG in IV DEXTROSE 5% 50 ML IV SCH (09:00)
[2019-10-02] MEDS: NICOTINE 21MG PATCH. TD SCH ×2 (09:00→11:52)
--- NOTE | 2019-10-02 09:20 | PDOC ---
PROGRESS NOTES Chief Complaint Chief Complaint A/P: Hypovolemic shock secondary to GI bleeding most likely No signs of bleeding and no records from [facility]. "Cautery" hopefully implies non-variceal lesion Acute Microcytic anemia most likely secondary to iron deficiency secondary to the above-mentioned GI bleed Acute renal failure Chronic pain syndrome on chronic narcotics Toxic encephalopathy secondary to the above Hyperkalemia 5.7 secondary to acute renal failure most likely Anion gap metabolic acidosis with a probably a superimposed non-metabolic acidosis given the degree of acidosis with a bicarb reported at 11 from the outside facility Hypomagnesemia Cirrhotic appearing liver cirrhotic morphology of the liver, borderline enlargement of spleen, heterogeneous attenuation at hepatic dome but poorly evaluated somewhat ectatic gallbladder THrombocytopenia Uremia ACUTE RENAL TUBULAR NECROSIS Hyperphosphatemia Severe protein calorie malnutrition BRADYCARDIA, d/c clonidine Anemia - iron studies c/w ACD - transfused last week, Hgb improved on 09/21 Probable alcoholic cirrhosis 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 None further. EF 50% with mild global hypokinesis DM2: Suspect CKD - Renal US Asymmetric renal size with atrophic appearing right kidney with echogenic cortex which could be from chronic renal disease. PLAN GI FOLLOWING Cardiology consult D/C CLONIDINE Nephrology following, iv fluid support 29 MIN PT EXAM, CHART REVIEW d/c planning , > 50% OF TIME SPENT WITH EXAM, CHART REVIEW, PT CARE COORDINATION History of Present Illness History of Present Illness Mr Knott is a 64 yo M w/ PMHx presents to the emergency department at [facility] in [place] reportedly with altered mental status. Patient apparently was found by his roommate on the ground of his apartment patient cannot give history given his current condition. It is unknown when he was last seen normal apparently patient was found to be hypotensive on the field at 80/40 fluid resuscitation was started on the field with Ringer's lactate patient was seen in the emergency department and found to be anemic with Hb 7.9 and having reports of GI bleeding according to the records with BUN 101. BNP 3353. Patient confused and the details of his stated history are not reliable according to the ER doctor patient is in acute renal failure and he has been recently admitted at [facility] from 08/16 through 08/25 for a GI bleed. CT abdomen pelvis with contrast - marked calcified and noncalcified atheromatous plaque burden throughout the aorta, iliofemoral system and aortic branch vessels. Severe stenosis at the right renal artery origin with resultant atrophy of the right kidney. There appears to be severe stenosis at the superior mesenteric artery origin and there is also suspected to be severe stenosis of th e distal aspect of the left common femoral artery. Given the presumed severe stenosis at the SMA origin, recommend correlation for symptoms that would suggest intestinal angina noting that the bowel in this distribution does not exhibit obvious features of ischemia. Also with cirrhotic morphology of the liver and borderline enlargement of the spleen. There is heterogeneous attenuat ion of the liver at the hepatic dome but this region is poorly evaluated due to motion artifact and a definite mass is not able to be delineated. Admitted to ICU with levophed ordered. 09/19: Started on bicarb GTT, levophed. WBC 6.1, Hb 7.8, platelets 118. NA 147, K5.5, BUN 9 3, CR 7.8, glucose 126, INR 1.2, MG 1.6, phosphorus 6.5, TSH 0.473. He thinks he is at home today. Notes he drinks quite a bit. Son in [place] notes he was "doing well" after discharge from [facility] and so he returned back home. Trialysis catheter placed under nephrology guidance for emergent dialysis. 09/20: Hb 6.5, Na 146, K 2.8, BUN 27, Cr 2.2, glucose 155, AST 45, albumin 2.4 today. Still very confused. Some stool overnight. UOP 1770 last 24 hours. 09/21: Afebrile. Hb 9.2 after transfusion. CR 2 0, mag 1.6 K3.5. Rolling around in bed still very confused. 09/22: Cr 1.7, K 3.2. Received Haldol, he has some lipsmacking. Ordered benztropine. He is still very confused only opens his eyes to painful stimuli. Afebrile 09/24: mental status still poor, SUSPECT ALCOHOLIC CIRRHOSIS 09/25: Suspect CKD - Renal US Asymmetric renal size with atrophic appearing right kidney with echogenic cortex which could be from chronic renal disease. 09/26: No acute events reported overnight, case discussed with nursing staff patient in no acute distress no complaints during my visit continues to be quite obtunded and unable to have a meaningful conversation, awaiting for records from [facility] 09/28: d/c ON HOLD DIFFICULT PLACEMENT 09/30: MORE CONFUSED, D/W RN, //MITGIORGI AGAIN Overnight no events. Hb stable. He is still confused. Not injuring himself or others. Follows some commands. Needs placement. Vitals Vitals Vital Signs Date Time Temp Pulse Resp B/P (MAP) Pulse Ox O2 Delivery O2 Flow Rate FiO2 10/02/19 08:30 Room Air 10/02/19 07:00 99.1 78 18 146/70 (95) 99 99.1 Physical Exam Physical Exam General: Other (CONFUSED) Lungs: Clear to auscultation, Normal air movement Neuro: Other (CONFUSED) General: Alert, Cooperative, No acute distress, Other (confused ) Heart: Regular rate, Normal S1, Other (2/6 systolic murmur ) Lungs: Clear, Wheezing Abdomen: Normal bowel sounds, Soft, No tenderness Extremities: No cyanosis, No edema, Normal pulses Skin: No breakdown, No significant lesion Labs LABS Laboratory Tests Test 10/01/19 11:23 10/01/19 16:15 10/01/19 20:26 10/02/19 08:36 Glucose (Fingerstick) 82 mg/dL (70-99) 89 mg/dL (70-99) 81 mg/dL (70-99) 92 mg/dL (70-99) Comment Review of Relevant I have reviewed the following items bj (where applicable) has been applied. Labs Laboratory Tests Test 09/30/19 11:24 09/30/19 16:57 09/30/19 20:30 10/01/19 07:18 Glucose (Fingerstick) 91 mg/dL (70-99) 94 mg/dL (70-99) 102 mg/dL (70-99) 98 mg/dL (70-99) Test 10/01/19 11:23 10/01/19 16:15 10/01/19 20:26 10/02/19 08:36 Glucose (Fingerstick) 82 mg/dL (70-99) 89 mg/dL (70-99) 81 mg/dL (70-99) 92 mg/dL (70-99) Laboratory Tests Test 10/01/19 11:23 10/01/19 16:15 10/01/19 20:26 10/02/19 08:36 Glucose (Fingerstick) 82 mg/dL (70-99) 89 mg/dL (70-99) 81 mg/dL (70-99) 92 mg/dL (70-99) Microbiology 09/19/19 Urine Culture - Final, Complete 09/19/19 Blood Culture - Final, Complete NO GROWTH AFTER 5 DAYS Medications Current Medications Norepinephrine Bitartrate 8 mg/ Dextrose 258 ml @ 12.365 mls/ hr CONT PRN IV PER PROTOCOL Last administered on 09/19/19at 20:41; Start 09/19/19 at 20:30; Stop 09/26/19 at 11:05; Status DC Hydrocortisone Sodium Succinate (Solu-CORTEF) 100 mg Q8HRS IVP Last administered on 09/26/19at 05:45; Start 09/19/19 at 22:00; Stop 09/26/19 at 11:21; Status DC Acetaminophen (Tylenol) 650 mg PRN Q6HRS PRN PO Headaches, Temp > 101.5'; Start 09/19/19 at 21:15 Lorazepam (Ativan Inj) 0.5 mg PRN Q6HRS PRN IVP ANXIETY / AGITATION Last administered on 09/19/19at 22:19; Start 09/19/19 at 21:15 Ondansetron HCl (Zofran) 4 mg PRN Q6HRS PRN IVP NAUSEA/VOMITING; Start 09/19/19 at 21:15 Calcium Carbonate/ Glycine (Tums) 500 mg PRN Q3HRS PRN PO HEARTBURN / GAS; Start 09/19/19 at 21:15 Famotidine (Pepcid Vial) 20 mg BID IVP Last administered on 09/21/19at 21:08; Start 09/20/19 at 09:00; Stop 09/22/19 at 10:27; Status DC Sodium Chloride (Normal Saline Flush) 3 ml QSHIFT PRN IV AFTER MEDS AND BLOOD DRAWS; Start 09/19/19 at 21:15 Oxycodone/ Acetaminophen (Percocet 5/325) 1 tab PRN Q4HRS PRN PO PAIN Last administered on 09/29/19at 19:48; Start 09/19/19 at 21:15 Morphine Sulfate (Morphine Sulfate) 1 mg PRN Q1HR PRN IV PAIN Last administered on 09/21/19at 23:02; Start 09/19/19 at 21:15 Senna/Docusate Sodium (Senna Plus) 1 tab BID PO Last administered on 09/29/19at 19:48; Start 09/20/19 at 09:00 Lactulose (Lactulose) 20 gm PRN Q12HR PRN PO CONSTIPATION; Start 09/19/19 at 21:15 Acetaminophen (Tylenol) 650 mg 1X PRN PRN PO PRE-TRANSFUSION; Start 09/19/19 at 21:15; Stop 09/26/19 at 11:10; Status DC Magnesium Sulfate/ Dextrose 100 ml @ 100 mls/hr 1X ONCE IV Last administered on 09/19/19at 22:23; Start 09/19/19 at 22:30; Stop 09/19/19 at 23:29; Status DC Sodium Bicarbonate 150 meq/Dextrose 1,150 ml @ 125 mls/hr Q9H12M IV Last administered on 09/21/19at 01:39; Start 09/20/19 at 06:45; Stop 09/21/19 at 10:17; Status DC Multivitamins 10 ml/Thiamine HCl 100 mg/Folic Acid 1 mg/Sodium Chloride 1,011.2 ml @ 100 mls/ hr DAILY IV Last administered on 09/24/19at 08:59; Start 09/20/19 at 10:00; Stop 09/24/19 at 19:07; Status DC Lorazepam (Ativan) 2 mg PRN Q1HR PRN PO For CIWA 8-14; Start 09/20/19 at 09:15; Stop 09/20/19 at 10:00; Status DC Lorazepam (Ativan Inj) 1 mg PRN Q1HR PRN IV For CIWA 8-14 Last administered on 10/02/19at 04:30; Start 09/20/19 at 09:15 Haloperidol Lactate (Haldol Inj) 5 mg PRN Q4HRS PRN IVP Hallucinatns,Confusn,Delirium Last administered on 10/01/19at 20:42; Start 09/20/19 at 09:15 Clonidine HCl (Catapres) 0.1 mg PRN Q1HR PRN PO SBP > 180 or DBP > 100, MRX3 Last administered on 09/24/19at 22:31; Start 09/20/19 at 09:15; Stop 09/25/19 at 10:38; Status DC Lorazepam (Ativan Inj) 2 mg PRN Q1HR PRN IV For CIWA 8-14 Last administered on 10/01/19at 11:07; Start 09/20/19 at 10:00 Lidocaine HCl (Buffered Lidocaine 1%) 3 ml STK-MED ONCE .ROUTE ; Start 09/20/19 at 11:32; Stop 09/20/19 at 11:32; Status DC Lidocaine HCl (Buffered Lidocaine 1%) 6 ml 1X ONCE INJ Last administered on 09/20/19at 12:20; Start 09/20/19 at 12:00; Stop 09/20/19 at 12:01; Status DC Nicotine (Nicoderm Cq 21mg) 1 patch DAILY TD Last administered on 10/01/19at 08:42; Start 09/20/19 at 13:30 Sodium Chloride 1,000 ml @ 1,000 mls/hr Q1H PRN IV hypotension; Start 09/20/19 at 14:09; Stop 09/20/19 at 20:08; Status DC Albumin Human 200 ml @ 200 mls/hr 1X PRN PRN IV Hypotension; Start 09/20/19 at 14:15; Stop 09/20/19 at 20:14; Status DC Sodium Chloride 1,000 ml @ 400 mls/hr Q2H30M PRN IV PATENCY; Start 09/20/19 at 14:09; Stop 09/21/19 at 02:08; Status DC Info (PHARMACY MONITORING -- do not chart) 1 each PRN DAILY PRN MC SEE COMMENTS; Start 09/20/19 at 14:15; Status UNV Info (PHARMACY MONITORING -- do not chart) 1 each PRN DAILY PRN MC SEE COMMENTS; Start 09/20/19 at 14:15; Stop 09/26/19 at 11:13; Status DC Potassium Chloride/Water 100 ml @ 100 mls/hr 1X ONCE IV Last administered on 09/21/19at 10:19; Start 09/21/19 at 08:00; Stop 09/21/19 at 08:59; Status DC Insulin Human Lispro (HumaLOG) 0-7 UNITS TIDWMEALS SQ ; Start 09/21/19 at 09:00 Dextrose (Dextrose 50%-Water Syringe) 12.5 gm PRN Q15MIN PRN IV SEE COMMENTS; Start 09/21/19 at 09:00 Amino Acids/ Glycerin/ Electrolytes 1,000 ml @ 80 mls/hr [id number] IV Last administered on 10/02/19at 01:18; Start 09/21/19 at 10:45 Potassium Chloride/Water 100 ml @ 100 mls/hr 1X ONCE IV Last administered on 09/21/19at 13:02; Start 09/21/19 at 12:00; Stop 09/21/19 at 12:59; Status DC Lorazepam (Ativan Inj) 4 mg PRN Q1HR PRN IV For CIWA 15 or greater Last administered on 09/26/19at 00:41; Start 09/22/19 at 08:00 Famotidine (Pepcid Vial) 20 mg DAILY IVP Last administered on 09/26/19at 08:49; Start 09/23/19 at 09:00; Stop 09/26/19 at 11:11; Status DC Magnesium Sulfate 100 ml @ 25 mls/hr 1X ONCE IV Last administered on 09/22/19at 13:57; Start 09/22/19 at 13:30; Stop 09/22/19 at 17:29; Status DC Potassium Chloride/Water 100 ml @ 100 mls/hr 1X ONCE IV Last administered on 09/22/19at 13:57; Start 09/22/19 at 13:30; Stop 09/22/19 at 14:29; Status DC Potassium Chloride/Water 100 ml @ 100 mls/hr Q1H IV Last administered on 09/23/19at 09:28; Start 09/23/19 at 09:00; Stop 09/23/19 at 10:59; Status DC Benztropine Mesylate (Cogentin) 2 mg PRN BID PRN IM EXTRAPYRAMIDAL SIDE EFFECTS Last administered on 09/23/19at 09:27; Start 09/23/19 at 09:15 Hydralazine HCl (Apresoline Inj) 10 mg PRN Q4HRS PRN IVP ELEVATED BP, SEE COMMENTS Last administered on 09/28/19at 16:46; Start 09/25/19 at 10:45 Potassium Chloride (Klor-Con) 30 meq 1X ONCE PO Last administered on 09/25/19at 11:58; Start 09/25/19 at 11:45; Stop 09/25/19 at 11:52; Status DC Hydralazine HCl (Apresoline) 50 mg BID PO Last administered on 09/29/19at 19:49; Start 09/25/19 at 21:00 Potassium Bicarbonate (Potassium Effervescent Tablet) 20 meq 1X ONCE PO Last administered on 09/26/19at 09:59; Start 09/26/19 at 10:00; Stop 09/26/19 at 10:01; Status DC Famotidine (Pepcid) 20 mg DAILY PO Last administered on 09/28/19at 09:02; Start 09/27/19 at 09:00; Stop 09/28/19 at 09:52; Status DC Thiamine HCl 100 mg/Dextrose 51 ml @ 102 mls/hr TID IV Last administered on 10/01/19at 20:41; Start 09/26/19 at 14:00 Potassium Chloride/Water 100 ml @ 100 mls/hr 1X ONCE IV Last administered on 09/27/19at 10:15; Start 09/27/19 at 10:00; Stop 09/27/19 at 10:59; Status DC Magnesium Sulfate 50 ml @ 25 mls/hr 1X ONCE IV Last administered on 09/27/19at 11:21; Start 09/27/19 at 11:00; Stop 09/27/19 at 12:59; Status DC Magnesium Sulfate/ Dextrose 100 ml @ 100 mls/hr 1X ONCE IV ; Start 09/27/19 at 15:15; Stop 09/27/19 at 16:14; Status Cancel Famotidine (Pepcid) 20 mg BID PO Last administered on 10/01/19at 20:41; Start 09/28/19 at 21:00 Potassium Chloride (Klor-Con) 20 meq 1X ONCE PO Last administered on 09/28/19at 14:05; Start 09/28/19 at 11:15; Stop 09/28/19 at 11:17; Status DC Metoprolol Tartrate (Lopressor) 12.5 mg BID PO Last administered on 10/01/19at 20:42; Start 09/29/19 at 11:00 Active Scripts Active Vitamin B-1 (Thiamine Mononitrate) 100 Mg Tablet 100 Mg PO TID 14 Days Humalog (Insulin Lispro) 100 Unit/1 Ml Insuln.pen 0 Units SQ TIDWMEALS 30 Days Famotidine 20 Mg Tablet 20 Mg PO BID 30 Days Calcium Carbonate 200 Mg Tab.chew 500 Mg PO PRN Q3HRS PRN 28 Days Lactulose 20 Gm/30 Ml Solution 20 Gm PO PRN Q12HR PRN 14 Days Tylenol (Acetaminophen) 325 Mg Tablet 650 Mg PO PRN Q6HRS PRN 10 Days Hydralazine Hcl 50 Mg Tablet 50 Mg PO BID 30 Days [Nicotine 21MG] 1 PATCH Patch 1 Patch TD DAILY 30 Days Vitals/I & O Vital Sign - Last 24 Hours 10/01/19 10/01/19 10/01/19 10/01/19 11:05 14:48 19:00 20:08 Temp 97.8 97.6 97.6 97.8 97.6 97.6 Pulse 82 86 95 Resp 18 18 18 B/P (MAP) 131/63 (85) 133/72 (92) 95/78 (84) Pulse Ox 96 96 96 O2 Delivery Room Air Room Air Room Air Room Air 10/01/19 10/01/19 10/01/19 10/02/19 20:42 21:00 23:00 02:36 Temp 97.6 97.5 97.6 97.5 Pulse 81 81 65 77 Resp 18 19 B/P (MAP) 95/78 95/78 94/60 (71) 108/73 (85) Pulse Ox 98 O2 Delivery Room Air Room Air 10/02/19 10/02/19 07:00 08:30 Temp 99.1 99.1 Pulse 78 Resp 18 B/P (MAP) 146/70 (95) Pulse Ox 99 O2 Delivery Room Air Room Air Intake and Output 10/01/19 10/01/19 10/02/19 15:00 23:00 07:00 Intake Total 50 ml 25 ml Balance 50 ml 25 ml Nutrition Consultation Dietary Evaluation: Recommendations by RD: Dietary education by RD, Increase Calorie Intake, Protein supplementation, PPN/TPN Comments: Continue w/ADA diet as ordered, honor food preferences, provide snacks as requested Continue w/PPN at this time to supplement varying PO intake Continue w/ Ensure pudding (chocolate) BID per pt choice Expected Outcomes/Goals: Nutritional intake to meet >75% est needs - met at times, goal ongoing Malnutrition Findings: Food and Nutrition Intake (Mod: <75% est energy req 7days Weight Status: Appropriate JONATHAN DUQUE MD Oct 02, 2019 09:20
--- NOTE | 2019-10-02 10:27 | NUR ---
SS following up with discharge planning. SS reviewed pt chart and discussed with pt RN. [facility] in [place], [place] declined pt. SS spoke with Wellington at [facility] in [place], ; fax [phone]. Wellington reported that they are reviewing pt and will notify SS of acceptance decision. SS faxed updates as requested. SS spoke with pt's son Catarino and discussed discharge planning. Pt's son hopeful that [facility] will accept pt but reported that whether or not pt is accepted pt will come to [place] to live with him. He reported that he will come to pickler helper pt whether it be at the hospital or rehab. SS discussed with Dr. Beverly. SS will continue to follow for discharge planning.
[2019-10-02 11:00] VITALS: BP 109/61
[2019-10-02] MEDS: FAMOTIDINE 20 MG TABLET. PO SCH ×2 (11:49→21:00)
[2019-10-02] MEDS: oxyCODONE/APAP 5/325 1 TAB TABLET PO PRN (11:50)
[2019-10-02] MEDS: METOPROLOL TART IMMED RELEASE 25 MG TABLET. PO SCH ×2 (11:50→21:00)
--- NOTE | 2019-10-02 13:46 | PDOC ---
Objective: Objective: Reviewed chart. Records not received from [facility] Also checked at [facility] - no records there. 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 Justicifation of Admission Dx: Justifications for Admission: Justification of Admission Dx: Yes Acute Renal Failure: Serum Cr > 4mg/dL RAQUEL GAYTAN Oct 02, 2019 13:46
--- NOTE | 2019-10-02 14:34 | PDOC ---
PROGRESS NOTES Subjective Subjective Confused Objective Objective Vital Signs Date Time Temp Pulse Resp B/P (MAP) Pulse Ox O2 Delivery O2 Flow Rate FiO2 10/02/19 11:50 80 109/61 10/02/19 11:50 Room Air 10/02/19 11:00 98.5 18 99 98.5 Intake and Output 10/02/19 07:00 Intake Total 75 ml Balance 75 ml Intake Oral 75 ml # Voids 10 # Bowel Movements 3 Physical Exam Abdomen: Normal bowel sounds, Soft, No tenderness Heart: Regular rate, Normal S1, Other (2/6 systolic murmur ) Extremities: No cyanosis, No edema, Normal pulses General: Alert, Cooperative, No acute distress, Other (confused ) HEENT: Atraumatic Lungs: Clear to auscultation MUSCULOSKELETAL: Osteoarthritic changes both hands Neuro: Normal speech, Sensation intact Psych/Mental Status: Other (flat affect ) Skin: No breakdown, No significant lesion Diagnosis RENAL FAILURE: Acute (Acute tubular necrosis) Assessment Assessment 1. Metabolic encephalopathy: restless and confused. likely associated chronic changes from ETOH 2. Pancytopenia. s/p PRBC transfusion. 3. H/o recent GIB. Gastroenterology team following. 4. MISBAH, Appears back to his baseline 5. Arrhythmia: Brief episode of atrial tachycardia noted on telemetry. Continue beta-blockers. 6. H/o ETOH abuse, cirrhosis. Details unclear GI following 7. Asymptomatic SB: with associated use of clonidine and lyte abnormalities. None further. EF 50% with mild global hypokinesis 8. DM2: per PCP 9. HTN: controlled 10. Nontraumatic mechanical fall Comment Review of Relevant I have reviewed the following items bj (where applicable) has been applied. Labs Laboratory Tests Test 10/01/19 16:15 10/01/19 20:26 10/02/19 08:36 10/02/19 12:05 Glucose (Fingerstick) 89 mg/dL (70-99) 81 mg/dL (70-99) 92 mg/dL (70-99) 71 mg/dL (70-99) Microbiology 09/19/19 Urine Culture - Final, Complete 09/19/19 Blood Culture - Final, Complete NO GROWTH AFTER 5 DAYS Medications Current Medications Haloperidol Lactate (Haldol Inj) 5 mg PRN Q4HRS PRN IM Hallucinatns,Confus n,Delirium; Start 10/02/19 at 14:00 Lorazepam (Ativan Inj) 0.5 mg PRN Q6HRS PRN IM ANXIETY / AGITATION; Start 10/02/19 at 14:00 Lorazepam (Ativan Inj) 1 mg PRN Q1HR PRN IM For CIWA 8-14; Start 10/02/19 at 14:00 Lorazepam (Ativan Inj) 2 mg PRN Q1HR PRN IM For CIWA 8-14; Start 10/02/19 at 14:00 Lorazepam (Ativan Inj) 4 mg PRN Q1HR PRN IM For CIWA 15 or greater; Start 10/02/19 at 14:00 Thiamine Mononitrate (Vitamin B-1) 100 mg BID PO ; Start 10/02/19 at 21:00 Vitals/I & O Vital Sign - Last 24 Hours 10/01/19 10/01/19 10/01/19 10/01/19 14:48 19:00 20:08 20:42 Temp 97.6 97.6 97.6 97.6 Pulse 86 95 81 Resp 18 18 B/P (MAP) 133/72 (92) 95/78 (84) 95/78 Pulse Ox 96 96 O2 Delivery Room Air Room Air Room Air 10/01/19 10/01/19 10/02/19 10/02/19 21:00 23:00 02:36 07:00 Temp 97.6 97.5 99.1 97.6 97.5 99.1 Pulse 81 65 77 78 Resp 18 19 18 B/P (MAP) 95/78 94/60 (71) 108/73 (85) 146/70 (95) Pulse Ox 98 99 O2 Delivery Room Air Room Air Room Air 10/02/19 10/02/19 10/02/19 10/02/19 08:30 11:00 11:50 11:50 Temp 98.5 98.5 Pulse 68 80 Resp 18 B/P (MAP) 109/61 (77) 109/61 Pulse Ox 99 O2 Delivery Room Air Room Air Room Air 10/02/19 11:50 Pulse 80 B/P (MAP) 109/61 Intake and Output 10/01/19 10/01/19 10/02/19 15:00 23:00 07:00 Intake Total 50 ml 25 ml Balance 50 ml 25 ml JULIANNE BERMUDEZ MD Oct 02, 2019 14:34
[2019-10-02 15:00] VITALS: BP 93/52
[2019-10-02 19:00] VITALS: BP 79/59
[2019-10-02] MEDS: HALOPERIDOL LACTATE 5 MG/ML VIAL. IM PRN (20:22)
[2019-10-02] MEDS: THIAMINE 100 MG TABLET. PO SCH (21:00)
[2019-10-02] MEDS ORDERED: ZIPRASIDONE IM 20 MG VIAL. IM ONE (21:30)
[2019-10-02] MEDS: ACETAMINOPHEN 325 MG TABLET. PO PRN (22:45)
[2019-10-02] MEDS ORDERED: diphenhydrAMINE HCL 25 MG CAPSULE PO ONE (23:00)
[2019-10-02 23:08] VITALS: BP 107/83
[2019-10-03] MEDS: HALOPERIDOL LACTATE 5 MG/ML VIAL. IM PRN (00:45)
--- NOTE | 2019-10-03 00:58 | NUR ---
At shift change patient agitated and restless stating "he needed to get into the bath tub." Reorientated patient and refusing vital signs, to be placed on tele monitor. Administered PRN Ativan, provided incontinent care, and pudding." Patient continued to yell out and throw pudding onto the floor. Reorientated patient and not understanding and continuously wanting to get of bed. Administered PRN Haldol and not effective. Patient requesting water assisted with water and something to eat and patient continued to be agitated and contacted Dr. Beverly and new orders and if patient continues to be restless, agitated, and impulsive. After administration of Geodon patient climbed over side rails and got out of bed, patient assisted back to bed and contacted Dr. Beverly and new orders for benadryl and continue with the IM Ativan. Patient again ripping off tele, mitts, and trying to get out of bed and administered Ativan and Haldol. Patient currently resting in bed with tele monitor on, bed alarm, and mitts.
[2019-10-03 07:00] VITALS: BP 118/65
[2019-10-03] MEDS: INSULIN LISPRO 300 UNITS/3 ML VIAL. SQ SCH ×3 (07:57→17:00)
[2019-10-03] MEDS: FAMOTIDINE 20 MG TABLET. PO SCH ×2 (08:42→21:31)
[2019-10-03] MEDS: METOPROLOL TART IMMED RELEASE 25 MG TABLET. PO SCH ×2 (08:42→21:00)
[2019-10-03] MEDS: THIAMINE 100 MG TABLET. PO SCH ×2 (08:42→21:31)
[2019-10-03] MEDS: SENNOSIDES/DOCUSATE 8.6/50MG TABLET. PO SCH ×2 (08:43→21:30)
[2019-10-03] MEDS: NICOTINE 21MG PATCH. TD SCH (08:46)
--- NOTE | 2019-10-03 09:33 | PDOC ---
MATEO MARTINEZ TAR PROCESSING TECHNICIAN 10/03/19 0933: CARDIO Progress Notes Date and Time Date of Service 10/03/19 Time of Evaluation 0932 Subjective Subjective: No Chest Pain, No shortness of breath, No Palpitations Vitals Vitals Vital Signs Date Time Temp Pulse Resp B/P (MAP) Pulse Ox O2 Delivery O2 Flow Rate FiO2 10/03/19 08:43 90 118/65 10/02/19 23:08 97.4 20 96 Room Air 97.4 Weight Weight [ ] Input and Output Intake and Output Intake and Output 10/03/19 07:00 Intake Total 240 ml Output Total 1 ml Balance 239 ml Intake Oral 240 ml Output Urine Total 1 ml # Voids 7 Laboratory Labs Laboratory Tests Test 10/02/19 12:05 10/02/19 17:08 10/03/19 07:47 Glucose (Fingerstick) 71 mg/dL (70-99) 118 mg/dL (70-99) 105 mg/dL (70-99) Microbiology Micro Microbiology 09/19/19 Urine Culture - Final, Complete 09/19/19 Blood Culture - Final, Complete NO GROWTH AFTER 5 DAYS Review of Systems Constitutional: yes: other Physical Exam HEENT: Neck Supple W Full Motion Chest: Symmetric LUNGS: Clear to Auscultation Heart: RRR (SR with intermittent PVCs) Abdomen: Soft N/T Extremities: No Edema, No Calf Tenderness Neurology: confused, other (drowsy ) Assessment Assessment 1. Metabolic encephalopathy: restless and confused. likely associated chronic changes from ETOH. Consider neuro eval. 2. Pancytopenia. s/p PRBC transfusion. 3. H/o recent GIB. Gastroenterology team following. 4. MISBAH, back to his baseline 5. Arrhythmia: Brief episode of atrial tachycardia noted on telemetry. None further following addition of low-dose BB therapy.OH abuse, cirrhosis. Details unclear GI following 7. Asymptomatic SB: with associated use of clonidine and lyte abnormalities. None further. EF 50% with mild global hypokinesis 8. DM2: per PCP 9. HTN: controlled 10. Nontraumatic mechanical fall Justicifation of Admission Dx: Justifications for Admission: Justification of Admission Dx: Yes Acute Renal Failure: Serum Cr > 4mg/dL JULIANNE BERMUDEZ MD 10/03/19 9444: CARDIO Progress Notes Assessment Assessment Patient seen and examined. Agree with MARKETING DESIGNER's assessment and plan. Telemetry did not show any further episodes of bradycardia or atrial tachycardia. Patient continues to remain confused and restless. Agree with neurology consultation. MATEO MARTINEZ APRN Oct 03, 2019 09:33 JULIANNE BERMUDEZ MD Oct 03, 2019 16:55
--- NOTE | 2019-10-03 10:57 | PDOC ---
Objective: Objective: Reviewed chart - issues w/ agitation. Vital Signs: Vital Signs Date Time Temp Pulse Resp B/P (MAP) Pulse Ox O2 Delivery O2 Flow Rate FiO2 10/03/19 08:43 90 118/65 10/03/19 08:00 Room Air 10/03/19 07:00 98.5 20 98 98.5 Labs: Laboratory Tests Test 10/02/19 12:05 10/02/19 17:08 10/03/19 07:47 Glucose (Fingerstick) 71 mg/dL (70-99) 118 mg/dL (70-99) 105 mg/dL (70-99) PE: GEN: NAD LUNGS: room air HEART: RR on monitor ABD: non-distended NEURO/PSYCH: sleeping, not awakened A/P: Encephalopathy Alcoholic liver disease H/o GI bleeding -- Continue support per GI. Justicifation of Admission Dx: Justifications for Admission: Justification of Admission Dx: Yes Acute Renal Failure: Serum Cr > 4mg/dL RAQUEL GAYTAN Oct 03, 2019 10:57
[2019-10-03 11:00] VITALS: BP 97/61
--- NOTE | 2019-10-03 11:42 | NUR ---
SS following up with discharge planning. Pt declined by [facility]. SS discussed with physician and pt's RN. SS contacted pt's son, Catarino, and left voicemail notifying him that pt was declined for rehab facility. SS requested that pt's son return my call and make arrangements to come to [place] to discharge pt. SS will continue to follow for discharge planning.
--- NOTE | 2019-10-03 12:35 | PDOC ---
PROGRESS NOTES Chief Complaint Chief Complaint A/P: Hypovolemic shock secondary to GI bleeding most likely No signs of bleeding and no records from [facility]. "Cautery" hopefully implies non-variceal lesion Acute Microcytic anemia most likely secondary to iron deficiency secondary to the above-mentioned GI bleed Acute renal failure Chronic pain syndrome on chronic narcotics Toxic encephalopathy secondary to the above Hyperkalemia 5.7 secondary to acute renal failure most likely Anion gap metabolic acidosis with a probably a superimposed non-metabolic acidosis given the degree of acidosis with a bicarb reported at 11 from the outside facility Hypomagnesemia Cirrhotic appearing liver cirrhotic morphology of the liver, borderline enlargement of spleen, heterogeneous attenuation at hepatic dome but poorly evaluated somewhat ectatic gallbladder THrombocytopenia Uremia ACUTE RENAL TUBULAR NECROSIS Hyperphosphatemia Severe protein calorie malnutrition BRADYCARDIA, d/c clonidine Anemia - iron studies c/w ACD - transfused last week, Hgb improved on 09/21 Probable alcoholic cirrhosis 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 None further. EF 50% with mild global hypokinesis DM2: Suspect CKD - Renal US Asymmetric renal size with atrophic appearing right kidney with echogenic cortex which could be from chronic renal disease. PLAN GI FOLLOWING Cardiology consult D/C CLONIDINE Nephrology following, iv fluid support 29 MIN PT EXAM, CHART REVIEW d/c planning , > 50% OF TIME SPENT WITH EXAM, CHART REVIEW, PT CARE COORDINATION History of Present Illness History of Present Illness Mr Knott is a 64 yo M w/ PMHx presents to the emergency department at [facility] in [place] reportedly with altered mental status. Patient apparently was found by his roommate on the ground of his apartment patient cannot give history given his current condition. It is unknown when he was last seen normal apparently patient was found to be hypotensive on the field at 80/40 fluid resuscitation was started on the field with Ringer's lactate patient was seen in the emergency department and found to be anemic with Hb 7.9 and having reports of GI bleeding according to the records with BUN 101. BNP 3353. Patient confused and the details of his stated history are not reliable according to the ER doctor patient is in acute renal failure and he has been recently admitted at [facility] from 08/16 through 08/25 for a GI bleed. CT abdomen pelvis with contrast - marked calcified and noncalcified atheromatous plaque burden throughout the aorta, iliofemoral system and aortic branch vessels. Severe stenosis at the right renal artery origin with resultant atrophy of the right kidney. There appears to be severe stenosis at the superior mesenteric artery origin and there is also suspected to be severe stenosis of th e distal aspect of the left common femoral artery. Given the presumed severe stenosis at the SMA origin, recommend correlation for symptoms that would suggest intestinal angina noting that the bowel in this distribution does not exhibit obvious features of ischemia. Also with cirrhotic morphology of the liver and borderline enlargement of the spleen. There is heterogeneous attenuat ion of the liver at the hepatic dome but this region is poorly evaluated due to motion artifact and a definite mass is not able to be delineated. Admitted to ICU with levophed ordered. 09/19: Started on bicarb GTT, levophed. WBC 6.1, Hb 7.8, platelets 118. NA 147, K5.5, BUN 9 3, CR 7.8, glucose 126, INR 1.2, MG 1.6, phosphorus 6.5, TSH 0.473. He thinks he is at home today. Notes he drinks quite a bit. Son in [place] notes he was "doing well" after discharge from [facility] and so he returned back home. Trialysis catheter placed under nephrology guidance for emergent dialysis. 09/20: Hb 6.5, Na 146, K 2.8, BUN 27, Cr 2.2, glucose 155, AST 45, albumin 2.4 today. Still very confused. Some stool overnight. UOP 1770 last 24 hours. 09/21: Afebrile. Hb 9.2 after transfusion. CR 2 0, mag 1.6 K3.5. Rolling around in bed still very confused. 09/22: Cr 1.7, K 3.2. Received Haldol, he has some lipsmacking. Ordered benztropine. He is still very confused only opens his eyes to painful stimuli. Afebrile 09/24: mental status still poor, SUSPECT ALCOHOLIC CIRRHOSIS 09/25: Suspect CKD - Renal US Asymmetric renal size with atrophic appearing right kidney with echogenic cortex which could be from chronic renal disease. 09/26: No acute events reported overnight, case discussed with nursing staff patient in no acute distress no complaints during my visit continues to be quite obtunded and unable to have a meaningful conversation, awaiting for records from [facility] 09/28: d/c ON HOLD DIFFICULT PLACEMENT 09/30: MORE CONFUSED, D/W RN, //CRUZITO AGAIN 10/01: Overnight no events. Hb stable. He is still confused. Not injuring himself or others. Follows some commands. Needs placement. Restless overnight, required haldol and ativan IM with improvement. Somewhat confused this morning. Follows some commands. Drops food on the floor and tells nursing staff, "It's ok, the dogs will get it.". Attempted to call son, Catarino, goes straight to voicemail. Vitals Vitals Vital Signs Date Time Temp Pulse Resp B/P (MAP) Pulse Ox O2 Delivery O2 Flow Rate FiO2 10/03/19 11:00 98.5 72 20 97/61 (73) 98 Room Air 98.5 Physical Exam Physical Exam General: Other (CONFUSED) Lungs: Clear to auscultation, Normal air movement Neuro: Other (CONFUSED) General: Alert, Cooperative, No acute distress, Other (confused ) Heart: Regular rate, Normal S1, Other (2/6 systolic murmur ) Lungs: Clear, Wheezing Abdomen: Normal bowel sounds, Soft, No tenderness Extremities: No cyanosis, No edema, Normal pulses Skin: No breakdown, No significant lesion Labs LABS Laboratory Tests Test 10/02/19 17:08 10/03/19 07:47 10/03/19 12:03 Glucose (Fingerstick) 118 mg/dL (70-99) 105 mg/dL (70-99) 96 mg/dL (70-99) Comment Review of Relevant I have reviewed the following items bj (where applicable) has been applied. Labs Laboratory Tests Test 10/01/19 16:15 10/01/19 20:26 10/02/19 08:36 10/02/19 12:05 Glucose (Fingerstick) 89 mg/dL (70-99) 81 mg/dL (70-99) 92 mg/dL (70-99) 71 mg/dL (70-99) Test 10/02/19 17:08 10/03/19 07:47 10/03/19 12:03 Glucose (Fingerstick) 118 mg/dL (70-99) 105 mg/dL (70-99) 96 mg/dL (70-99) Laboratory Tests Test 10/02/19 17:08 10/03/19 07:47 10/03/19 12:03 Glucose (Fingerstick) 118 mg/dL (70-99) 105 mg/dL (70-99) 96 mg/dL (70-99) Microbiology 09/19/19 Urine Culture - Final, Complete 09/19/19 Blood Culture - Final, Complete NO GROWTH AFTER 5 DAYS Medications Current Medications Norepinephrine Bitartrate 8 mg/ Dextrose 258 ml @ 12.365 mls/ hr CONT PRN IV PER PROTOCOL Last administered on 09/19/19at 20:41; Start 09/19/19 at 20:30; Stop 09/26/19 at 11:05; Status DC Hydrocortisone Sodium Succinate (Solu-CORTEF) 100 mg Q8HRS IVP Last a dministered on 09/26/19at 05:45; Start 09/19/19 at 22:00; Stop 09/26/19 at 11:21; Status DC Acetaminophen (Tylenol) 650 mg PRN Q6HRS PRN PO Headaches, Temp > 101.5' Last administered on 10/02/19at 22:45; Start 09/19/19 at 21:15 Lorazepam (Ativan Inj) 0.5 mg PRN Q6HRS PRN IVP ANXIETY / AGITATION Last administered on 09/19/19at 22:19; Start 09/19/19 at 21:15; Stop 10/02/19 at 13:53; Status DC Ondansetron HCl (Zofran) 4 mg PRN Q6HRS PRN IVP NAUSEA/VOMITING; Start 09/19/19 at 21:15 Calcium Carbonate/ Glycine (Tums) 500 mg PRN Q3HRS PRN PO HEARTBURN / GAS; Start 09/19/19 at 21:15 Famotidine (Pepcid Vial) 20 mg BID IVP Last administered on 09/21/19at 21:08; Start 09/20/19 at 09:00; Stop 09/22/19 at 10:27; Status DC Sodium Chloride (Normal Saline Flush) 3 ml QSHIFT PRN IV AFTER MEDS AND BLOOD DRAWS; Start 09/19/19 at 21:15 Oxycodone/ Acetaminophen (Percocet 5/325) 1 tab PRN Q4HRS PRN PO PAIN Last administered on 10/02/19at 11:50; Start 09/19/19 at 21:15 Morphine Sulfate (Morphine Sulfate) 1 mg PRN Q1HR PRN IV PAIN Last administered on 09/21/19at 23:02; Start 09/19/19 at 21:15; Stop 10/02/19 at 13:53; Status DC Senna/Docusate Sodium (Senna Plus) 1 tab BID PO Last administered on 10/03/19at 08:43; Start 09/20/19 at 09:00 Lactulose (Lactulose) 20 gm PRN Q12HR PRN PO CONSTIPATION; Start 09/19/19 at 21:15 Acetaminophen (Tylenol) 650 mg 1X PRN PRN PO PRE-TRANSFUSION; Start 09/19/19 at 21:15; Stop 09/26/19 at 11:10; Status DC Magnesium Sulfate/ Dextrose 100 ml @ 100 mls/hr 1X ONCE IV Last administered on 09/19/19at 22:23; Start 09/19/19 at 22:30; Stop 09/19/19 at 23:29; Status DC Sodium Bicarbonate 150 meq/Dextrose 1,150 ml @ 125 mls/hr Q9H12M IV Last administered on 09/21/19at 01:39; Start 09/20/19 at 06:45; Stop 09/21/19 at 10:17; Status DC Multivitamins 10 ml/Thiamine HCl 100 mg/Folic Acid 1 mg/Sodium Chloride 1,011.2 ml @ 100 mls/ hr DAILY IV Last administered on 09/24/19at 08:59; Start 09/20/19 at 10:00; Stop 09/24/19 at 19:07; Status DC Lorazepam (Ativan) 2 mg PRN Q1HR PRN PO For CIWA 8-14; Start 09/20/19 at 09:15; Stop 09/20/19 at 10:00; Status DC Lorazepam (Ativan Inj) 1 mg PRN Q1HR PRN IV For CIWA 8-14 Last administered on 10/02/19at 04:30; Start 09/20/19 at 09:15; Stop 10/02/19 at 13:53; Status DC Haloperidol Lactate (Haldol Inj) 5 mg PRN Q4HRS PRN IVP Hallucina tns,Confusn,Delirium Last administered on 10/01/19at 20:42; Start 09/20/19 at 09:15; Stop 10/02/19 at 13:53; Status DC Clonidine HCl (Catapres) 0.1 mg PRN Q1HR PRN PO SBP > 180 or DBP > 100, MRX3 Last administered on 09/24/19at 22:31; Start 09/20/19 at 09:15; Stop 09/25/19 at 10:38; Status DC Lorazepam (Ativan Inj) 2 mg PRN Q1HR PRN IV For CIWA 8-14 Last administered on 10/01/19at 11:07; Start 09/20/19 at 10:00; Stop 10/02/19 at 13:53; Status DC Lidocaine HCl (Buffered Lidocaine 1%) 3 ml STK-MED ONCE .ROUTE ; Start 09/20/19 at 11:32; Stop 09/20/19 at 11:32; Status DC Lidocaine HCl (Buffered Lidocaine 1%) 6 ml 1X ONCE INJ Last administered on 09/20/19at 12:20; Start 09/20/19 at 12:00; Stop 09/20/19 at 12:01; Status DC Nicotine (Nicoderm Cq 21mg) 1 patch DAILY TD Last administered on 10/03/19at 08:46; Start 09/20/19 at 13:30 Sodium Chloride 1,000 ml @ 1,000 mls/hr Q1H PRN IV hypotension; Start 09/20/19 at 14:09; Stop 09/20/19 at 20:08; Status DC Albumin Human 200 ml @ 200 mls/hr 1X PRN PRN IV Hypotension; Start 09/20/19 at 14:15; Stop 09/20/19 at 20:14; Status DC Sodium Chloride 1,000 ml @ 400 mls/hr Q2H30M PRN IV PATENCY; Start 09/20/19 at 14:09; Stop 09/21/19 at 02:08; Status DC Info (PHARMACY MONITORING -- do not chart) 1 each PRN DAILY PRN MC SEE COMMENTS; Start 09/20/19 at 14:15; Status UNV Info (PHARMACY MONITORING -- do not chart) 1 each PRN DAILY PRN MC SEE COMMENT S; Start 09/20/19 at 14:15; Stop 09/26/19 at 11:13; Status DC Potassium Chloride/Water 100 ml @ 100 mls/hr 1X ONCE IV Last administered on 09/21/19at 10:19; Start 09/21/19 at 08:00; Stop 09/21/19 at 08:59; Status DC Insulin Human Lispro (HumaLOG) 0-7 UNITS TIDWMEALS SQ ; Start 09/21/19 at 09:00 Dextrose (Dextrose 50%-Water Syringe) 12.5 gm PRN Q15MIN PRN IV SEE COMMENTS; Start 09/21/19 at 09:00 Amino Acids/ Glycerin/ Electrolytes 1,000 ml @ 80 mls/hr [id number] IV Last administered on 10/02/19at 01:18; Start 09/21/19 at 10:45; Stop 10/03/19 at 00:37; Status DC Potassium Chloride/Water 100 ml @ 100 mls/hr 1X ONCE IV Last administered on 09/21/19at 13:02; Start 09/21/19 at 12:00; Stop 09/21/19 at 12:59; Status DC Lorazepam (Ativan Inj) 4 mg PRN Q1HR PRN IV For CIWA 15 or greater Last administered on 09/26/19at 00:41; Start 09/22/19 at 08:00; Stop 10/02/19 at 13:53; Status DC Famotidine (Pepcid Vial) 20 mg DAILY IVP Last administered on 09/26/19at 08:49; Start 09/23/19 at 09:00; Stop 09/26/19 at 11:11; Status DC Magnesium Sulfate 100 ml @ 25 mls/hr 1X ONCE IV Last administered on 09/22/19at 13:57; Start 09/22/19 at 13:30; Stop 09/22/19 at 17:29; Status DC Potassium Chloride/Water 100 ml @ 100 mls/hr 1X ONCE IV Last administered on 09/22/19at 13:57; Start 09/22/19 at 13:30; Stop 09/22/19 at 14:29; Status DC Potassium Chloride/Water 100 ml @ 100 mls/hr Q1H IV Last administered on 09/23/19at 09:28; Start 09/23/19 at 09:00; Stop 09/23/19 at 10:59; Status DC Benztropine Mesylate (Cogentin) 2 mg PRN BID PRN IM EXTRAPYRAMIDAL SIDE EFFECTS Last administered on 09/23/19at 09:27; Start 09/23/19 at 09:15 Hydralazine HCl (Apresoline Inj) 10 mg PRN Q4HRS PRN IVP ELEVATED BP, SEE COMMENTS Last administered on 09/28/19at 16:46; Start 09/25/19 at 10:45 Potassium Chloride (Klor-Con) 30 meq 1X ONCE PO Last administered on 09/25/19at 11:58; Start 09/25/19 at 11:45; Stop 09/25/19 at 11:52; Status DC Hydralazine HCl (Apresoline) 50 mg BID PO Last administered on 10/03/19at 08:43; Start 09/25/19 at 21:00 Potassium Bicarbonate (Potassium Effervescent Tablet) 20 meq 1X ONCE PO Last administered on 09/26/19at 09:59; Start 09/26/19 at 10:00; Stop 09/26/19 at 10:01; Status DC Famotidine (Pepcid) 20 mg DAILY PO Last administered on 09/28/19at 09:02; Start 09/27/19 at 09:00; Stop 09/28/19 at 09:52; Status DC Thiamine HCl 100 mg/Dextrose 51 ml @ 102 mls/hr TID IV Last administered on 10/01/19at 20:41; Start 09/26/19 at 14:00; Stop 10/02/19 at 13:46; Status DC Potassium Chloride/Water 100 ml @ 100 mls/hr 1X ONCE IV Last administered on 09/27/19at 10:15; Start 09/27/19 at 10:00; Stop 09/27/19 at 10:59; Status DC Magnesium Sulfate 50 ml @ 25 mls/hr 1X ONCE IV Last administered on 09/27/19at 11:21; Start 09/27/19 at 11:00; Stop 09/27/19 at 12:59; Status DC Magnesium Sulfate/ Dextrose 100 ml @ 100 mls/hr 1X ONCE IV ; Start 09/27/19 at 15:15; Stop 09/27/19 at 16:14; Status Cancel Famotidine (Pepcid) 20 mg BID PO Last administered on 10/03/19at 08:42; Start 09/28/19 at 21:00 Potassium Chloride (Klor-Con) 20 meq 1X ONCE PO Last administered on 09/28/19at 14:05; Start 09/28/19 at 11:15; Stop 09/28/19 at 11:17; Status DC Metoprolol Tartrate (Lopressor) 12.5 mg BID PO Last administered on 10/03/19at 08:42; Start 09/29/19 at 11:00 Thiamine Mononitrate (Vitamin B-1) 100 mg BID PO Last administered on 10/03/19at 08:42; Start 10/02/19 at 21:00 Haloperidol Lactate (Haldol Inj) 5 mg PRN Q4HRS PRN IM Hallucin atns,Confusn,Delirium Last administered on 10/03/19at 00:45; Start 10/02/19 at 14:00 Lorazepam (Ativan Inj) 0.5 mg PRN Q6HRS PRN IM ANXIETY / AGITATION; Start 10/02/19 at 14:00 Lorazepam (Ativan Inj) 1 mg PRN Q1HR PRN IM For CIWA 8-14; Start 10/02/19 at 1 4:00 Lorazepam (Ativan Inj) 2 mg PRN Q1HR PRN IM For CIWA 8-14; Start 10/02/19 at 14:00 Lorazepam (Ativan Inj) 4 mg PRN Q1HR PRN IM For CIWA 15 or greater Last administered on 10/03/19at 04:12; Start 10/02/19 at 14:00 Ziprasidone (Geodon Im) 20 mg 1X ONCE IM Last administered on 10/02/19at 21:12; Start 10/02/19 at 21:30; Stop 10/02/19 at 21:31; Status DC Diphenhydramine HCl (Benadryl) 25 mg 1X ONCE PO Last administered on 10/02/19at 22:45; Start 10/02/19 at 23:00; Stop 10/02/19 at 23:01; Status DC Active Scripts Active Vitamin B-1 (Thiamine Mononitrate) 100 Mg Tablet 100 Mg PO TID 14 Days Humalog (Insulin Lispro) 100 Unit/1 Ml Insuln.pen 0 Units SQ TIDWMEALS 30 Days Famotidine 20 Mg Tablet 20 Mg PO BID 30 Days Calcium Carbonate 200 Mg Tab.chew 500 Mg PO PRN Q3HRS PRN 28 Days Lactulose 20 Gm/30 Ml Solution 20 Gm PO PRN Q12HR PRN 14 Days Tylenol (Acetaminophen) 325 Mg Tablet 650 Mg PO PRN Q6HRS PRN 10 Days Hydralazine Hcl 50 Mg Tablet 50 Mg PO BID 30 Days [Nicotine 21MG] 1 PATCH Patch 1 Patch TD DAILY 30 Days Vitals/I & O Vital Sign - Last 24 Hours 10/02/19 10/02/19 10/02/19 10/02/19 15:00 19:00 20:00 21:00 Temp 97.8 98.2 97.8 98.2 Pulse 59 72 Resp 18 B/P (MAP) 93/52 (66) 79/59 (66) 99/58 Pulse Ox 98 O2 Delivery Room Air Room Air 10/02/19 10/02/19 10/03/19 10/03/19 21:00 23:08 03:00 07:00 Temp 97.4 98.5 97.4 98.5 Pulse 72 91 77 90 Resp 20 20 B/P (MAP) 99/58 107/83 (91) 118/65 (82) Pulse Ox 96 98 O2 Delivery Room Air Room Air 10/03/19 10/03/19 10/03/19 10/03/19 08:00 08:42 08:43 11:00 Temp 98.5 98.5 Pulse 90 90 72 Resp 20 B/P (MAP) 118/65 118/65 97/61 (73) Pulse Ox 98 O2 Delivery Room Air Room Air Intake and Output 10/02/19 10/02/19 10/03/19 15:00 23:00 07:00 Intake Total 240 ml Output Total 1 ml Balance 239 ml Nutrition Consultation Dietary Evaluation: Recommendations by RD: Dietary education by RD, Increase Calorie Intake, Protein supplementation, PPN/TPN Comments: Continue w/ADA diet as ordered, honor food preferences, provide snacks as requested Continue w/PPN at this time to supplement varying PO intake Continue w/ Ensure pudding (chocolate) BID per pt choice Expected Outcomes/Goals: Nutritional intake to meet >75% est needs - met at times, goal ongoing Malnutrition Findings: Food and Nutrition Intake (Mod: <75% est energy req 7days Weight Status: Appropriate JONATHAN DUQUE MD Oct 03, 2019 12:35
--- NOTE | 2019-10-03 13:21 | RAD ---
EXAM: CT HEAD WITHOUT CONTRAST. HISTORY: Encephalopathy. TECHNIQUE: Computed tomography of the head was performed without intravenous contrast. One or more of the following individualized dose reduction techniques were utilized for this examination: 1. Automated exposure control. 2. Adjustment of the mA and/or kV according to patient size. 3. Use of iterative reconstruction technique. COMPARISON: 09/19/2019. FINDINGS: There is no intracranial hemorrhage. Hypoattenuation within the white matter indicates moderate chronic microangiopathic change. Prominence of the lateral ventricles and hemispheric sulci indicates moderate atrophy. Atrophy appears most prominent along the frontal lobes. The visualized paranasal sinuses appear clear. The orbits are unremarkable. The temporal bones are unremarkable. The calvarium reveals no suspicious lesions. There are atherosclerotic calcifications of the internal carotid and vertebral arteries. IMPRESSION: 1. No acute intracranial findings. 2. Moderate atrophy most severely involves the frontal lobes. 3. Moderate chronic microangiopathic white matter change. Electronically signed by: Gilberto Hardy MD (10/03/2019 1:17 PM) [id number]
[2019-10-03 15:00] VITALS: BP 85/62
[2019-10-03] MEDS: oxyCODONE/APAP 5/325 1 TAB TABLET PO PRN ×2 (15:05→21:30)
[2019-10-03 19:40] VITALS: BP 85/56
[2019-10-04 00:10] VITALS: BP 111/72
[2019-10-04] MEDS: oxyCODONE/APAP 5/325 1 TAB TABLET PO PRN (02:02)
[2019-10-04 05:13] LABS: BASO % 1 % (0-3); EOS # 0.1 x10^3/uL (0.0-0.7); EOS % 2 % (0-3); HEMATOCRIT 27.4 % (39.0-53.0); LYMPH # 1.4 x10^3/uL (1.0-4.8); LYMPH % 32 % (24-48); MEAN CORPUSCULAR HEMOGLOBIN 27 pg (25-35); MEAN CORPUSCULAR HGB CONC 33 g/dL (31-37); MEAN CORPUSCULAR VOLUME 84 fL (79-100); MONO # 0.5 x10^3/uL (0.0-1.1); MONO % 12 % (0-9); NEUT # 2.4 x10^3/uL (1.8-7.7); NEUT % 54 % (31-73); PLATELET COUNT 169 x10^3/uL (140-400); RED BLOOD COUNT 3.28 x10^6/uL (4.30-5.70); RED CELL DISTRIBUTION WIDTH 22.2 % (11.5-14.5); WHITE BLOOD COUNT 4.4 x10^3/uL (4.0-11.0)
[2019-10-04 05:16] LABS: PROTHROMBIN TIME PATIENT 13.6 SEC (11.7-14.0)
[2019-10-04 05:30] LABS: ALBUMIN 2.4 g/dL (3.4-5.0); ALBUMIN/GLOBULIN RATIO 0.6 (1.0-1.7); CREATININE 1.6 mg/dL (0.7-1.3); GFR 43.7; POTASSIUM 4.1 mmol/L (3.5-5.1); TOTAL BILIRUBIN 0.3 mg/dL (0.2-1.0); TOTAL PROTEIN 6.2 g/dL (6.4-8.2)
[2019-10-04 07:00] VITALS: BP 109/63
[2019-10-04] MEDS: THIAMINE 100 MG TABLET. PO SCH ×2 (08:51→21:00)
[2019-10-04] MEDS: SENNOSIDES/DOCUSATE 8.6/50MG TABLET. PO SCH ×2 (08:51→21:00)
[2019-10-04] MEDS: FAMOTIDINE 20 MG TABLET. PO SCH ×2 (08:51→21:00)
[2019-10-04] MEDS: METOPROLOL TART IMMED RELEASE 25 MG TABLET. PO SCH ×2 (08:52→23:41)
[2019-10-04] MEDS: NICOTINE 21MG PATCH. TD SCH (08:53)
--- NOTE | 2019-10-04 10:33 | NUR ---
Patient is refusing to wear supervisor ski production and keeps removing it. Md aware. Will attempt to place on him again.
--- NOTE | 2019-10-04 10:43 | PDOC ---
PROGRESS NOTES Chief Complaint Chief Complaint A/P: Hypovolemic shock secondary to GI bleeding most likely No signs of bleeding and no records from [facility]. "Cautery" hopefully implies non-variceal lesion Acute Microcytic anemia most likely secondary to iron deficiency secondary to the above-mentioned GI bleed Acute renal failure Chronic pain syndrome on chronic narcotics Toxic encephalopathy secondary to the above Hyperkalemia 5.7 secondary to acute renal failure most likely Anion gap metabolic acidosis with a probably a superimposed non-metabolic acidosis given the degree of acidosis with a bicarb reported at 11 from the outside facility Hypomagnesemia Cirrhotic appearing liver cirrhotic morphology of the liver, borderline enlargement of spleen, heterogeneous attenuation at hepatic dome but poorly evaluated somewhat ectatic gallbladder THrombocytopenia Uremia ACUTE RENAL TUBULAR NECROSIS Hyperphosphatemia Severe protein calorie malnutrition BRADYCARDIA, d/c clonidine Anemia - iron studies c/w ACD - transfused last week, Hgb improved on 09/21 Probable alcoholic cirrhosis 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 ACD, Asymptomatic SB: with associated use of clonidine and lyte abnormalities. None further. EF 50% with mild global hypokinesis DM2: Suspect CKD - Renal US Asymmetric renal size with atrophic appearing right kidney with echogenic cortex which could be from chronic renal disease. PLAN GI FOLLOWING Cardiology consult D/C CLONIDINE Nephrology following, iv fluid support 29 MIN PT EXAM, CHART REVIEW d/c planning , > 50% OF TIME SPENT WITH EXAM, CHART REVIEW, PT CARE COORDINATION History of Present Illness History of Present Illness Mr Knott is a 64 yo M w/ PMHx presents to the emergency department at [facility] in [place] reportedly with altered mental status. Patient apparently was found by his roommate on the ground of his apartment patient cannot give history given his current condition. It is unknown when he was last seen normal apparently patient was found to be hypotensive on the field at 80/40 fluid resuscitation was started on the field with Ringer's lactate patient was seen in the emergency department and found to be anemic with Hb 7.9 and having reports of GI bleeding according to the records with BUN 101. BNP 3353. Patient confused and the details of his stated history are not reliable according to the ER doctor patient is in acute renal failure and he has been recently admitted at [facility] from 08/16 through 08/25 for a GI bleed. CT abdomen pelvis with contrast - marked calcified and noncalcified atheromatous plaque burden throughout the aorta, iliofemoral system and aortic branch vessels. Severe stenosis at the right renal artery origin with resultant atrophy of the right kidney. There appears to be severe stenosis at the superior mesenteric artery origin and there is also suspected to be severe stenosis of th e distal aspect of the left common femoral artery. Given the presumed severe stenosis at the SMA origin, recommend correlation for symptoms that would suggest intestinal angina noting that the bowel in this distribution does not exhibit obvious features of ischemia. Also with cirrhotic morphology of the liver and borderline enlargement of the spleen. There is heterogeneous attenuat ion of the liver at the hepatic dome but this region is poorly evaluated due to motion artifact and a definite mass is not able to be delineated. Admitted to ICU with levophed ordered. 09/19: Started on bicarb GTT, levophed. WBC 6.1, Hb 7.8, platelets 118. NA 147, K5.5, BUN 9 3, CR 7.8, glucose 126, INR 1.2, MG 1.6, phosphorus 6.5, TSH 0.473. He thinks he is at home today. Notes he drinks quite a bit. Son in [place] notes he was "doing well" after discharge from [facility] and so he returned back home. Trialysis catheter placed under nephrology guidance for emergent dialysis. 09/20: Hb 6.5, Na 146, K 2.8, BUN 27, Cr 2.2, glucose 155, AST 45, albumin 2.4 today. Still very confused. Some stool overnight. UOP 1770 last 24 hours. 09/21: Afebrile. Hb 9.2 after transfusion. CR 2 0, mag 1.6 K3.5. Rolling around in bed still very confused. 09/22: Cr 1.7, K 3.2. Received Haldol, he has some lipsmacking. Ordered benztropine. He is still very confused only opens his eyes to painful stimuli. Afebrile 09/24: mental status still poor, SUSPECT ALCOHOLIC CIRRHOSIS 09/25: Suspect CKD - Renal US Asymmetric renal size with atrophic appearing right kidney with echogenic cortex which could be from chronic renal disease. 09/26: No acute events reported overnight, case discussed with nursing staff patient in no acute distress no complaints during my visit continues to be quite obtunded and unable to have a meaningful conversation, awaiting for records from [facility] 09/28: d/c ON HOLD DIFFICULT PLACEMENT 09/30: MORE CONFUSED, D/W RN, //CRUZITO AGAIN 10/01: Overnight no events. Hb stable. He is still confused. Not injuring himself or others. Follows some commands. Needs placement. 10/02: Restless overnight, required haldol and ativan IM with improvement. Somewhat confused this morning. Follows some commands. Drops food on the floor and tells nursing staff, "It's ok, the dogs will get it.". Attempted to call son, Catarino, goes straight to voicemnil. CT head reviewed no acute changes, frontal atrophy bilaterally noted. He is complaining of a headache today. No shortness of breath, he is less confused today. No chest pain. Son Catarino has an ill , will not be able to return from [place] until 10/17/2019. Vitals Vitals Vital Signs Date Time Temp Pulse Resp B/P (MAP) Pulse Ox O2 Delivery O2 Flow Rate FiO2 10/04/19 08:52 72 111/72 10/04/19 08:00 Room Air 10/04/19 07:00 97.4 16 99 97.4 10/03/19 19:45 2.0 Physical Exam Physical Exam General: Other (CONFUSED) Lungs: Clear to auscultation, Normal air movement Neuro: Other (CONFUSED) General: Alert, Cooperative, No acute distress, Other (confused ) Heart: Regular rate, Normal S1, Other (2/6 systolic murmur ) Lungs: Clear, Wheezing Abdomen: Normal bowel sounds, Soft, No tenderness Extremities: No cyanosis, No edema, Normal pulses Skin: No breakdown, No significant lesion Labs LABS Laboratory Tests Test 10/03/19 12:03 10/03/19 17:07 10/04/19 04:20 Glucose (Fingerstick) 96 mg/dL (70-99) 108 mg/dL (70-99) White Blood Count 4.4 x10^3/uL (4.0-11.0) Red Blood Count 3.28 x10^6/uL (4.30-5.70) Hemoglobin 9.0 g/dL (13.0-17.5) Hematocrit 27.4 % (39.0-53.0) Mean Corpuscular Volume 84 fL (79-100) Mean Corpuscular Hemoglobin 27 pg (25-35) Mean Corpuscular Hemoglobin Concent 33 g/dL (31-37) Red Cell Distribution Width 22.2 % (11.5-14.5) Platelet Count 169 x10^3/uL (140-400) Neutrophils (%) (Auto) 54 % (31-73) Lymphocytes (%) (Auto) 32 % (24-48) Monocytes (%) (Auto) 12 % (0-9) Eosinophils (%) (Auto) 2 % (0-3) Basophils (%) (Auto) 1 % (0-3) Neutrophils # (Auto) 2.4 x10^3/uL (1.8-7.7) Lymphocytes # (Auto) 1.4 x10^3/uL (1.0-4.8) Monocytes # (Auto) 0.5 x10^3/uL (0.0-1.1) Eosinophils # (Auto) 0.1 x10^3/uL (0.0-0.7) Basophils # (Auto) 0.0 x10^3/uL (0.0-0.2) Prothrombin Time 13.6 SEC (11.7-14.0) Prothromb Time International Ratio 1.1 (0.8-1.1) Sodium Level 135 mmol/L (136-145) Potassium Level 4.1 mmol/L (3.5-5.1) Chloride Level 102 mmol/L (98-107) Carbon Dioxide Level 21 mmol/L (21-32) Anion Gap 12 (6-14) Blood Urea Nitrogen 21 mg/dL (8-26) Creatinine 1.6 mg/dL (0.7-1.3) Estimated GFR (Cockcroft-Gault) 43.7 BUN/Creatinine Ratio 13 (6-20) Glucose Level 91 mg/dL (70-99) Calcium Level 8.0 mg/dL (8.5-10.1) Total Bilirubin 0.3 mg/dL (0.2-1.0) Aspartate Amino Transf (AST/SGOT) 27 U/L (15-37) Alanine Aminotransferase (ALT/SGPT) 22 U/L (16-63) Alkaline Phosphatase 215 U/L (46-116) Ammonia 24 mcmol/L (11-34) Total Protein 6.2 g/dL (6.4-8.2) Albumin 2.4 g/dL (3.4-5.0) Albumin/Globulin Ratio 0.6 (1.0-1.7) Comment Review of Relevant I have reviewed the following items bj (where applicable) has been applied. Labs Laboratory Tests Test 10/02/19 12:05 10/02/19 17:08 10/03/19 07:47 10/03/19 12:03 Glucose (Fingerstick) 71 mg/dL (70-99) 118 mg/dL (70-99) 105 mg/dL (70-99) 96 mg/dL (70-99) Test 10/03/19 17:07 10/04/19 04:20 Glucose (Fingerstick) 108 mg/dL (70-99) White Blood Count 4.4 x10^3/uL (4.0-11.0) Red Blood Count 3.28 x10^6/uL (4.30-5.70) Hemoglobin 9.0 g/dL (13.0-17.5) Hematocrit 27.4 % (39.0-53.0) Mean Corpuscular Volume 84 fL (79-100) Mean Corpuscular Hemoglobin 27 pg (25-35) Mean Corpuscular Hemoglobin Concent 33 g/dL (31-37) Red Cell Distribution Width 22.2 % (11.5-14.5) Platelet Count 169 x10^3/uL (140-400) Neutrophils (%) (Auto) 54 % (31-73) Lymphocytes (%) (Auto) 32 % (24-48) Monocytes (%) (Auto) 12 % (0-9) Eosinophils (%) (Auto) 2 % (0-3) Basophils (%) (Auto) 1 % (0-3) Neutrophils # (Auto) 2.4 x10^3/uL (1.8-7.7) Lymphocytes # (Auto) 1.4 x10^3/uL (1.0-4.8) Monocytes # (Auto) 0.5 x10^3/uL (0.0-1.1) Eosinophils # (Auto) 0.1 x10^3/uL (0.0-0.7) Basophils # (Auto) 0.0 x10^3/uL (0.0-0.2) Prothrombin Time 13.6 SEC (11.7-14.0) Prothromb Time International Ratio 1.1 (0.8-1.1) Sodium Level 135 mmol/L (136-145) Potassium Level 4.1 mmol/L (3.5-5.1) Chloride Level 102 mmol/L (98-107) Carbon Dioxide Level 21 mmol/L (21-32) Anion Gap 12 (6-14) Blood Urea Nitrogen 21 mg/dL (8-26) Creatinine 1.6 mg/dL (0.7-1.3) Estimated GFR (Cockcroft-Gault) 43.7 BUN/Creatinine Ratio 13 (6-20) Glucose Level 91 mg/dL (70-99) Calcium Level 8.0 mg/dL (8.5-10.1) Total Bilirubin 0.3 mg/dL (0.2-1.0) Aspartate Amino Transf (AST/SGOT) 27 U/L (15-37) Alanine Aminotransferase (ALT/SGPT) 22 U/L (16-63) Alkaline Phosphatase 215 U/L (46-116) Ammonia 24 mcmol/L (11-34) Total Protein 6.2 g/dL (6.4-8.2) Albumin 2.4 g/dL (3.4-5.0) Albumin/Globulin Ratio 0.6 (1.0-1.7) Laboratory Tests Test 10/03/19 12:03 10/03/19 17:07 10/04/19 04:20 Glucose (Fingerstick) 96 mg/dL (70-99) 108 mg/dL (70-99) White Blood Count 4.4 x10^3/uL (4.0-11.0) Red Blood Count 3.28 x10^6/uL (4.30-5.70) Hemoglobin 9.0 g/dL (13.0-17.5) Hematocrit 27.4 % (39.0-53.0) Mean Corpuscular Volume 84 fL (79-100) Mean Corpuscular Hemoglobin 27 pg (25-35) Mean Corpuscular Hemoglobin Concent 33 g/dL (31-37) Red Cell Distribution Width 22.2 % (11.5-14.5) Platelet Count 169 x10^3/uL (140-400) Neutrophils (%) (Auto) 54 % (31-73) Lymphocytes (%) (Auto) 32 % (24-48) Monocytes (%) (Auto) 12 % (0-9) Eosinophils (%) (Auto) 2 % (0-3) Basophils (%) (Auto) 1 % (0-3) Neutrophils # (Auto) 2.4 x10^3/uL (1.8-7.7) Lymphocytes # (Auto) 1.4 x10^3/uL (1.0-4.8) Monocytes # (Auto) 0.5 x10^3/uL (0.0-1.1) Eosinophils # (Auto) 0.1 x10^3/uL (0.0-0.7) Basophils # (Auto) 0.0 x10^3/uL (0.0-0.2) Prothrombin Time 13.6 SEC (11.7-14.0) Prothromb Time International Ratio 1.1 (0.8-1.1) Sodium Level 135 mmol/L (136-145) Potassium Level 4.1 mmol/L (3.5-5.1) Chloride Level 102 mmol/L (98-107) Carbon Dioxide Level 21 mmol/L (21-32) Anion Gap 12 (6-14) Blood Urea Nitrogen 21 mg/dL (8-26) Creatinine 1.6 mg/dL (0.7-1.3) Estimated GFR (Cockcroft-Gault) 43.7 BUN/Creatinine Ratio 13 (6-20) Glucose Level 91 mg/dL (70-99) Calcium Level 8.0 mg/dL (8.5-10.1) Total Bilirubin 0.3 mg/dL (0.2-1.0) Aspartate Amino Transf (AST/SGOT) 27 U/L (15-37) Alanine Aminotransferase (ALT/SGPT) 22 U/L (16-63) Alkaline Phosphatase 215 U/L (46-116) Ammonia 24 mcmol/L (11-34) Total Protein 6.2 g/dL (6.4-8.2) Albumin 2.4 g/dL (3.4-5.0) Albumin/Globulin Ratio 0.6 (1.0-1.7) Microbiology 09/19/19 Urine Culture - Final, Complete 09/19/19 Blood Culture - Final, Complete NO GROWTH AFTER 5 DAYS Medications Current Medications Norepinephrine Bitartrate 8 mg/ Dextrose 258 ml @ 12.365 mls/ hr CONT PRN IV PER PROTOCOL Last administered on 09/19/19at 20:41; Start 09/19/19 at 20:30; Stop 09/26/19 at 11:05; Status DC Hydrocortisone Sodium Succinate (Solu-CORTEF) 100 mg Q8HRS IVP Last administered on 09/26/19at 05:45; Start 09/19/19 at 22:00; Stop 09/26/19 at 11:21; Status DC Acetaminophen (Tylenol) 650 mg PRN Q6HRS PRN PO Headaches, Temp > 101.5' Last administered on 10/02/19at 22:45; Start 09/19/19 at 21:15 Lorazepam (Ativan Inj) 0.5 mg PRN Q6HRS PRN IVP ANXIETY / AGITATION Last administered on 09/19/19at 22:19; Start 09/19/19 at 21:15; Stop 10/02/19 at 13:53; Status DC Ondansetron HCl (Zofran) 4 mg PRN Q6HRS PRN IVP NAUSEA/VOMITING; Start 09/19/19 at 21:15 Calcium Carbonate/ Glycine (Tums) 500 mg PRN Q3HRS PRN PO HEARTBURN / GAS; Start 09/19/19 at 21:15 Famotidine (Pepcid Vial) 20 mg BID IVP Last administered on 09/21/19at 21:08; Start 09/20/19 at 09:00; Stop 09/22/19 at 10:27; Status DC Sodium Chloride (Normal Saline Flush) 3 ml QSHIFT PRN IV AFTER MEDS AND BLOOD DRAWS; Start 09/19/19 at 21:15 Oxycodone/ Acetaminophen (Percocet 5/325) 1 tab PRN Q4HRS PRN PO PAIN Last administered on 10/04/19at 02:02; Start 09/19/19 at 21:15 Morphine Sulfate (Morphine Sulfate) 1 mg PRN Q1HR PRN IV PAIN Last administered on 09/21/19at 23:02; Start 09/19/19 at 21:15; Stop 10/02/19 at 13:53; Status DC Senna/Docusate Sodium (Senna Plus) 1 tab BID PO Last administered on 10/04/19at 08:51; Start 09/20/19 at 09:00 Lactulose (Lactulose) 20 gm PRN Q12HR PRN PO CONSTIPATION; Start 09/19/19 at 21:15 Acetaminophen (Tylenol) 650 mg 1X PRN PRN PO PRE-TRANSFUSION; Start 09/19/19 at 21:15; Stop 09/26/19 at 11:10; Status DC Magnesium Sulfate/ Dextrose 100 ml @ 100 mls/hr 1X ONCE IV Last administered on 09/19/19at 22:23; Start 09/19/19 at 22:30; Stop 09/19/19 at 23:29; Status DC Sodium Bicarbonate 150 meq/Dextrose 1,150 ml @ 125 mls/hr Q9H12M IV Last administered on 09/21/19at 01:39; Start 09/20/19 at 06:45; Stop 09/21/19 at 10:17; Status DC Multivitamins 10 ml/Thiamine HCl 100 mg/Folic Acid 1 mg/Sodium Chloride 1,011.2 ml @ 100 mls/ hr DAILY IV Last administered on 09/24/19at 08:59; Start 09/20/19 at 10:00; Stop 09/24/19 at 19:07; Status DC Lorazepam (Ativan) 2 mg PRN Q1HR PRN PO For CIWA 8-14; Start 09/20/19 at 09:15; Stop 09/20/19 at 10:00; Status DC Lorazepam (Ativan Inj) 1 mg PRN Q1HR PRN IV For CIWA 8-14 Last administered on 10/02/19at 04:30; Start 09/20/19 at 09:15; Stop 10/02/19 at 13:53; Status DC Haloperidol Lactate (Haldol Inj) 5 mg PRN Q4HRS PRN IVP Hallucinatns,Confusn,D elirium Last administered on 10/01/19at 20:42; Start 09/20/19 at 09:15; Stop 10/02/19 at 13:53; Status DC Clonidine HCl (Catapres) 0.1 mg PRN Q1HR PRN PO SBP > 180 or DBP > 100, MRX3 Last administered on 09/24/19at 22:31; Start 09/20/19 at 09:15; Stop 09/25/19 at 10:38; Status DC Lorazepam (Ativan Inj) 2 mg PRN Q1HR PRN IV For CIWA 8-14 Last administered on 10/01/19at 11:07; Start 09/20/19 at 10:00; Stop 10/02/19 at 13:53; Status DC Lidocaine HCl (Buffered Lidocaine 1%) 3 ml STK-MED ONCE .ROUTE ; Start 09/20/19 at 11:32; Stop 09/20/19 at 11:32; Status DC Lidocaine HCl (Buffered Lidocaine 1%) 6 ml 1X ONCE INJ Last administered on 09/20/19at 12:20; Start 09/20/19 at 12:00; Stop 09/20/19 at 12:01; Status DC Nicotine (Nicoderm Cq 21mg) 1 patch DAILY TD Last administered on 10/04/19at 08:53; Start 09/20/19 at 13:30 Sodium Chloride 1,000 ml @ 1,000 mls/hr Q1H PRN IV hypotension; Start 09/20/19 at 14:09; Stop 09/20/19 at 20:08; Status DC Albumin Human 200 ml @ 200 mls/hr 1X PRN PRN IV Hypotension; Start 09/20/19 at 14:15; Stop 09/20/19 at 20:14; Status DC Sodium Chloride 1,000 ml @ 400 mls/hr Q2H30M PRN IV PATENCY; Start 09/20/19 at 14:09; Stop 09/21/19 at 02:08; Status DC Info (PHARMACY MONITORING -- do not chart) 1 each PRN DAILY PRN MC SEE COMMENTS; Start 09/20/19 at 14:15; Status UNV Info (PHARMACY MONITORING -- do not chart) 1 each PRN DAILY PRN MC SEE COMMENTS; Start 09/20/19 at 14:15; Stop 09/26/19 at 11:13; Status DC Potassium Chloride/Water 100 ml @ 100 mls/hr 1X ONCE IV Last administered on 09/21/19at 10:19; Start 09/21/19 at 08:00; Stop 09/21/19 at 08:59; Status DC Insulin Human Lispro (HumaLOG) 0-7 UNITS TIDWMEALS SQ ; Start 09/21/19 at 09:00; Stop 10/03/19 at 21:13; Status DC Dextrose (Dextrose 50%-Water Syringe) 12.5 gm PRN Q15MIN PRN IV SEE COMMENTS; Start 09/21/19 at 09:00; Stop 10/03/19 at 21:13; Status DC Amino Acids/ Glycerin/ Electrolytes 1,000 ml @ 80 mls/hr [id number] IV Last administered on 10/02/19at 01:18; Start 09/21/19 at 10:45; Stop 10/03/19 at 00:37; Status DC Potassium Chloride/Water 100 ml @ 100 mls/hr 1X ONCE IV Last administered on 09/21/19at 13:02; Start 09/21/19 at 12:00; Stop 09/21/19 at 12:59; Status DC Lorazepam (Ativan Inj) 4 mg PRN Q1HR PRN IV For CIWA 15 or greater Last administered on 09/26/19at 00:41; Start 09/22/19 at 08:00; Stop 10/02/19 at 13:53; Status DC Famotidine (Pepcid Vial) 20 mg DAILY IVP Last administered on 09/26/19at 08:49; Start 09/23/19 at 09:00; Stop 09/26/19 at 11:11; Status DC Magnesium Sulfate 100 ml @ 25 mls/hr 1X ONCE IV Last administered on 09/22/19at 13:57; Start 09/22/19 at 13:30; Stop 09/22/19 at 17:29; Status DC Potassium Chloride/Water 100 ml @ 100 mls/hr 1X ONCE IV Last administered on 09/22/19at 13:57; Start 09/22/19 at 13:30; Stop 09/22/19 at 14:29; Status DC Potassium Chloride/Water 100 ml @ 100 mls/hr Q1H IV Last administered on 09/23/19at 09:28; Start 09/23/19 at 09:00; Stop 09/23/19 at 10:59; Status DC Benztropine Mesylate (Cogentin) 2 mg PRN BID PRN IM EXTRAPYRAMIDAL SIDE EFFECTS Last administered on 09/23/19at 09:27; Start 09/23/19 at 09:15 Hydralazine HCl (Apresoline Inj) 10 mg PRN Q4HRS PRN IVP ELEVATED BP, SEE COMMENTS Last administered on 09/28/19at 16:46; Start 09/25/19 at 10:45 Potassium Chloride (Klor-Con) 30 meq 1X ONCE PO Last administered on 09/25/19at 11:58; Start 09/25/19 at 11:45; Stop 09/25/19 at 11:52; Status DC Hydralazine HCl (Apresoline) 50 mg BID PO Last administered on 10/04/19at 08:52; Start 09/25/19 at 21:00 Potassium Bicarbonate (Potassium Effervescent Tablet) 20 meq 1X ONCE PO Last administered on 09/26/19at 09:59; Start 09/26/19 at 10:00; Stop 09/26/19 at 10:01; Status DC Famotidine (Pepcid) 20 mg DAILY PO Last administered on 09/28/19at 09:02; Start 09/27/19 at 09:00; Stop 09/28/19 at 09:52; Status DC Thiamine HCl 100 mg/Dextrose 51 ml @ 102 mls/hr TID IV Last administered on 10/01/19at 20:41; Start 09/26/19 at 14:00; Stop 10/02/19 at 13:46; Status DC Potassium Chloride/Water 100 ml @ 100 mls/hr 1X ONCE IV Last administered on 09/27/19at 10:15; Start 09/27/19 at 10:00; Stop 09/27/19 at 10:59; Status DC Magnesium Sulfate 50 ml @ 25 mls/hr 1X ONCE IV Last administered on 09/27/19at 11:21; Start 09/27/19 at 11:00; Stop 09/27/19 at 12:59; Status DC Magnesium Sulfate/ Dextrose 100 ml @ 100 mls/hr 1X ONCE IV ; Start 09/27/19 at 15:15; Stop 09/27/19 at 16:14; Status Cancel Famotidine (Pepcid) 20 mg BID PO Last administered on 10/04/19at 08:51; Start 09/28/19 at 21:00 Potassium Chloride (Klor-Con) 20 meq 1X ONCE PO Last administered on 09/28/19at 14:05; Start 09/28/19 at 11:15; Stop 09/28/19 at 11:17; Status DC Metoprolol Tartrate (Lopressor) 12.5 mg BID PO Last administered on 10/04/19at 08:52; Start 09/29/19 at 11:00 Thiamine Mononitrate (Vitamin B-1) 100 mg BID PO Last administered on 10/04/19at 08:51; Start 10/02/19 at 21:00 Haloperidol Lactate (Haldol Inj) 5 mg PRN Q4HRS PRN IM Hallucinatns,Confusn,Delirium Last administered on 10/03/19at 00:45; Start at 14:00 Lorazepam (Ativan Inj) 0.5 mg PRN Q6HRS PRN IM ANXIETY / AGITATION; Start 10/02/19 at 14:00 Lorazepam (Ativan Inj) 1 mg PRN Q1HR PRN IM For CIWA 8-14 Last administered on 10/03/19at 15:06; Start 10/02/19 at 14:00 Lorazepam (Ativan Inj) 2 mg PRN Q1HR PRN IM For CIWA 8-14; Start 10/02/19 at 14:00 Lorazepam (Ativan Inj) 4 mg PRN Q1HR PRN IM For CIWA 15 or greater Last administered on 10/03/19at 04:12; Start 10/02/19 at 14:00 Ziprasidone (Geodon Im) 20 mg 1X ONCE IM Last administered on 10/02/19at 21:12; Start 10/02/19 at 21:30; Stop 10/02/19 at 21:31; Status DC Diphenhydramine HCl (Benadryl) 25 mg 1X ONCE PO Last administered on 10/02/19at 22:45; Start 10/02/19 at 23:00; Stop 10/02/19 at 23:01; Status DC Active Scripts Active Vitamin B-1 (Thiamine Mononitrate) 100 Mg Tablet 100 Mg PO TID 14 Days Humalog (Insulin Lispro) 100 Unit/1 Ml Insuln.pen 0 Units SQ TIDWMEALS 30 Days Famotidine 20 Mg Tablet 20 Mg PO BID 30 Days Calcium Carbonate 200 Mg Tab.chew 500 Mg PO PRN Q3HRS PRN 28 Days Lactulose 20 Gm/30 Ml Solution 20 Gm PO PRN Q12HR PRN 14 Days Tylenol (Acetaminophen) 325 Mg Tablet 650 Mg PO PRN Q6HRS PRN 10 Days Hydralazine Hcl 50 Mg Tablet 50 Mg PO BID 30 Days [Nicotine 21MG] 1 PATCH Patch 1 Patch TD DAILY 30 Days Vitals/I & O Vital Sign - Last 24 Hours 10/03/19 10/03/19 10/03/19 10/03/19 11:00 15:00 15:05 16:15 Temp 98.5 97.7 98.5 97.7 Pulse 72 81 Resp 20 20 20 19 B/P (MAP) 97/61 (73) 85/62 (70) Pulse Ox 98 99 94 94 O2 Delivery Room Air Room Air Room Air Room Air 10/03/19 10/03/19 10/03/19 10/03/19 19:40 19:45 21:00 21:00 Temp 97.8 97.8 Pulse 63 63 63 Resp 20 B/P (MAP) 85/56 (66) 85/56 85/56 Pulse Ox 96 O2 Delivery Room Air Room Air O2 Flow Rate 2.0 10/03/19 10/03/19 10/04/19 10/04/19 21:30 22:30 00:10 02:02 Temp 97.9 97.9 Pulse 79 Resp 18 B/P (MAP) 111/72 (85) Pulse Ox 96 O2 Delivery Room Air Room Air Room Air Room Air 10/04/19 10/04/19 10/04/19 10/04/19 03:00 03:02 07:00 08:00 Temp 97.4 97.4 Pulse 72 89 Resp 16 B/P (MAP) 109/63 (78) Pulse Ox 99 O2 Delivery Room Air Room Air Room Air 10/04/19 10/04/19 08:52 08:52 Pulse 72 72 B/P (MAP) 111/72 111/72 Intake and Output 10/03/19 10/03/19 10/04/19 15:00 23:00 07:00 Intake Total 200 ml 100 ml Balance 200 ml 100 ml Nutrition Consultation Dietary Evaluation: Recommendations by RD: Dietary education by RD, Increase Calorie Intake, Protein supplementation, PPN/TPN Comments: Continue w/ADA diet as ordered, honor food preferences, provide snacks as requested Continue w/ Ensure pudding (chocolate) BID per pt choice Expected Outcomes/Goals: Nutritional intake to meet >75% est needs - met at times, goal ongoing Malnutrition Findings: Food and Nutrition Intake (Mod: <75% est energy req 7days Weight Status: Appropriate JONATHAN DUQUE MD Oct 04, 2019 10:43
[2019-10-04 11:00] VITALS: BP 105/54
--- NOTE | 2019-10-04 11:07 | PDOC ---
Objective: Objective: D/w nurse - no GI concerns. Wants to look out window and listen to country music today. Placement is a problem, son can't be here til 10/17. Vital Signs: Vital Signs Date Time Temp Pulse Resp B/P (MAP) Pulse Ox O2 Delivery O2 Flow Rate FiO2 10/04/19 08:52 72 111/72 10/04/19 08:00 Room Air 10/04/19 07:00 97.4 16 99 97.4 10/03/19 19:45 2.0 Labs: Laboratory Tests Test 10/03/19 12:03 10/03/19 17:07 10/04/19 04:20 Glucose (Fingerstick) 96 mg/dL 108 mg/dL White Blood Count 4.4 x10^3/uL Red Blood Count 3.28 x10^6/uL Hemoglobin 9.0 g/dL Hematocrit 27.4 % Mean Corpuscular Volume 84 fL Mean Corpuscular Hemoglobin 27 pg Mean Corpuscular Hemoglobin Concent 33 g/dL Red Cell Distribution Width 22.2 % Platelet Count 169 x10^3/uL Neutrophils (%) (Auto) 54 % Lymphocytes (%) (Auto) 32 % Monocytes (%) (Auto) 12 % Eosinophils (%) (Auto) 2 % Basophils (%) (Auto) 1 % Neutrophils # (Auto) 2.4 x10^3/uL Lymphocytes # (Auto) 1.4 x10^3/uL Monocytes # (Auto) 0.5 x10^3/uL Eosinophils # (Auto) 0.1 x10^3/uL Basophils # (Auto) 0.0 x10^3/uL Prothrombin Time 13.6 SEC Prothromb Time International Ratio 1.1 Sodium Level 135 mmol/L Potassium Level 4.1 mmol/L Chloride Level 102 mmol/L Carbon Dioxide Level 21 mmol/L Anion Gap 12 Blood Urea Nitrogen 21 mg/dL Creatinine 1.6 mg/dL Estimated GFR (Cockcroft-Gault) 43.7 BUN/Creatinine Ratio 13 Glucose Level 91 mg/dL Calcium Level 8.0 mg/dL Total Bilirubin 0.3 mg/dL Aspartate Amino Transf (AST/SGOT) 27 U/L Alanine Aminotransferase (ALT/SGPT) 22 U/L Alkaline Phosphatase 215 U/L Ammonia 24 mcmol/L Total Protein 6.2 g/dL Albumin 2.4 g/dL Albumin/Globulin Ratio 0.6 PE: GEN: NAD NEURO/PSYCH: up in chair staring out window A/P: Encephalopathy Alcoholic liver disease, elevated Alk Phos H/o GI bleeding - resolved, never received records from [facility] -- Continue support per GI. Justicifation of Admission Dx: Justifications for Admission: Justification of Admission Dx: Yes Acute Renal Failure: Serum Cr > 4mg/dL RAQUEL GAYTAN Oct 04, 2019 11:07
[2019-10-04] MEDS: ACETAMINOPHEN 325 MG TABLET. PO PRN (11:27)
--- NOTE | 2019-10-04 11:29 | PDOC ---
CARDIO Progress Notes Date and Time Date of Service 10/04/19 Time of Evaluation 1120 Subjective Subjective: No Chest Pain, No shortness of breath, No Palpitations Vitals Vitals Vital Signs Date Time Temp Pulse Resp B/P (MAP) Pulse Ox O2 Delivery O2 Flow Rate FiO2 10/04/19 08:52 72 111/72 10/04/19 08:00 Room Air 10/04/19 07:00 97.4 16 99 97.4 10/03/19 19:45 2.0 Weight Weight [ ] Input and Output Intake and Output Intake and Output 10/04/19 06:59 Intake Total 300 ml Balance 300 ml Intake Oral 300 ml # Voids 8 Laboratory Labs Laboratory Tests Test 10/03/19 12:03 10/03/19 17:07 10/04/19 04:20 Glucose (Fingerstick) 96 mg/dL (70-99) 108 mg/dL (70-99) White Blood Count 4.4 x10^3/uL (4.0-11.0) Red Blood Count 3.28 x10^6/uL (4.30-5.70) Hemoglobin 9.0 g/dL (13.0-17.5) Hematocrit 27.4 % (39.0-53.0) Mean Corpuscular Volume 84 fL (79-100) Mean Corpuscular Hemoglobin 27 pg (25-35) Mean Corpuscular Hemoglobin Concent 33 g/dL (31-37) Red Cell Distribution Width 22.2 % (11.5-14.5) Platelet Count 169 x10^3/uL (140-400) Neutrophils (%) (Auto) 54 % (31-73) Lymphocytes (%) (Auto) 32 % (24-48) Monocytes (%) (Auto) 12 % (0-9) Eosinophils (%) (Auto) 2 % (0-3) Basophils (%) (Auto) 1 % (0-3) Neutrophils # (Auto) 2.4 x10^3/uL (1.8-7.7) Lymphocytes # (Auto) 1.4 x10^3/uL (1.0-4.8) Monocytes # (Auto) 0.5 x10^3/uL (0.0-1.1) Eosinophils # (Auto) 0.1 x10^3/uL (0.0-0.7) Basophils # (Auto) 0.0 x10^3/uL (0.0-0.2) Prothrombin Time 13.6 SEC (11.7-14.0) Prothromb Time International Ratio 1.1 (0.8-1.1) Sodium Level 135 mmol/L (136-145) Potassium Level 4.1 mmol/L (3.5-5.1) Chloride Level 102 mmol/L (98-107) Carbon Dioxide Level 21 mmol/L (21-32) Anion Gap 12 (6-14) Blood Urea Nitrogen 21 mg/dL (8-26) Creatinine 1.6 mg/dL (0.7-1.3) Estimated GFR (Cockcroft-Gault) 43.7 BUN/Creatinine Ratio 13 (6-20) Glucose Level 91 mg/dL (70-99) Calcium Level 8.0 mg/dL (8.5-10.1) Total Bilirubin 0.3 mg/dL (0.2-1.0) Aspartate Amino Transf (AST/SGOT) 27 U/L (15-37) Alanine Aminotransferase (ALT/SGPT) 22 U/L (16-63) Alkaline Phosphatase 215 U/L (46-116) Ammonia 24 mcmol/L (11-34) Total Protein 6.2 g/dL (6.4-8.2) Albumin 2.4 g/dL (3.4-5.0) Albumin/Globulin Ratio 0.6 (1.0-1.7) Microbiology Micro Microbiology 09/19/19 Urine Culture - Final, Complete 09/19/19 Blood Culture - Final, Complete NO GROWTH AFTER 5 DAYS Review of Systems Constitutional: yes: other Physical Exam HEENT: Neck Supple W Full Motion Chest: Symmetric LUNGS: Clear to Auscultation Heart: RRR (SR with intermittent PVCs) Abdomen: Soft N/T Extremities: No Edema, No Calf Tenderness Neurology: alert, confused Assessment Assessment 1. Metabolic encephalopathy: restless and confused. likely associated chronic changes from ETOH. Consider neuro eval. 2. Pancytopenia. s/p PRBC transfusion. 3. H/o recent GIB. Gastroenterology team following. 4. MISBAH, back to his baseline 5. Arrhythmia: Brief episode of atrial tachycardia noted on telemetry. None further following addition of low-dose BB therapy. Refusing to wear tele intermittently. 6. ETOH abuse, cirrhosis. 7. Asymptomatic SB: with associated use of clonidine and lyte abnormalities. None further. EF 50% with mild global hypokinesis 8. DM2: per PCP 9. HTN: controlled 10. Nontraumatic mechanical fall Justicifation of Admission Dx: Justifications for Admission: Justification of Admission Dx: Yes Acute Renal Failure: Serum Cr > 4mg/dL MATEO MARTINEZ APRN Oct 04, 2019 11:29
--- NOTE | 2019-10-04 11:31 | NUR ---
SS following up with discharge planning. SS reviewed pt chart and discussed with pt RN. SS spoke with pt's son, Catarino, , this morning. SS discussed discharge planning. Pt has no SNU benefits and was clinically declined or out of network with all acute rehabilitation facilities in [facility]. Pt son reported that Catarino will be coming to [place] to live with him and his family but he is not able to come to pick pt up until 10/18/2019. Catarino reported that his spouse is having major surgery next week which was already put off due to pt's last hospital stay at [facility]. Catarino reported that it would be detrimental to his spouses health if surgery is pushed off again. He reported that he needs to be there for his spouse and there are no other children or family or friends that can stay with pt. Pt currently on room air and [facility] with therapy. Pt being encouraged to participate with therapy. Case management in contact with insurance. Pt not safe to discharge to home alone due to physical needs and mental status. SS will continue to follow for discharge planning.
[2019-10-04 15:00] VITALS: BP 92/54
[2019-10-04] MEDS: BENZTROPINE MESYLATE 1 MG TABLET. PO PRN (15:31)
[2019-10-04] MEDS: traMADol 50 MG TABLET PO PRN (18:35)
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
[2019-10-04] MEDS: HALOPERIDOL LACTATE 5 MG/ML VIAL. IM PRN (19:29)
[2019-10-04 19:55] VITALS: BP 101/59
[2019-10-04 22:29] VITALS: BP 159/68
[2019-10-05] MEDS: HALOPERIDOL LACTATE 5 MG/ML VIAL. IM PRN ×3 (00:03→12:22)
--- NOTE | 2019-10-05 00:05 | NUR ---
Some medications scheduled for 2100 not given, as the focus was on the medications, as in b\p meds, that had to be given. to monitor
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
[2019-10-05 03:00] VITALS: BP 139/54
--- NOTE | 2019-10-05 08:56 | PDOC ---
PROGRESS NOTES Chief Complaint Chief Complaint A/P: Hypovolemic shock secondary to GI bleeding most likely No signs of bleeding and no records from [facility]. "Cautery" hopefully implies non-variceal lesion Acute Microcytic anemia most likely secondary to iron deficiency secondary to the above-mentioned GI bleed Acute renal failure Chronic pain syndrome on chronic narcotics Toxic encephalopathy secondary to the above Hyperkalemia 5.7 secondary to acute renal failure most likely Anion gap metabolic acidosis with a probably a superimposed non-metabolic acidosis given the degree of acidosis with a bicarb reported at 11 from the outside facility Hypomagnesemia Cirrhotic appearing liver cirrhotic morphology of the liver, borderline enlargement of spleen, heterogeneous attenuation at hepatic dome but poorly evaluated somewhat ectatic gallbladder THrombocytopenia Uremia ACUTE RENAL TUBULAR NECROSIS Hyperphosphatemia Severe protein calorie malnutrition BRADYCARDIA, d/c clonidine Anemia - iron studies c/w ACD - transfused last week, Hgb improved on 09/21 Probable alcoholic cirrhosis 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 None further. EF 50% with mild global hypokinesis DM2: Suspect CKD - Renal US Asymmetric renal size with atrophic appearing right kidney with echogenic cortex which could be from chronic renal disease. PLAN GI FOLLOWING Cardiology consult D/C CLONIDINE Nephrology following, iv fluid support 29 MIN PT EXAM, CHART REVIEW d/c planning , > 50% OF TIME SPENT WITH EXAM, CHART REVIEW, PT CARE COORDINATION History of Present Illness History of Present Illness Mr Knott is a 64 yo M w/ PMHx presents to the emergency department at [facility] in [place] reportedly with altered mental status. Patient apparently was found by his roommate on the ground of his apartment patient cannot give history given his current condition. It is unknown when he was last seen normal apparently patient was found to be hypotensive on the field at 80/40 fluid resuscitation was started on the field with Ringer's lactate patient was seen in the emergency department and found to be anemic with Hb 7.9 and having reports of GI bleeding according to the records with BUN 101. BNP 3353. Patient confused and the details of his stated history are not reliable according to the ER doctor patient is in acute renal failure and he has been recently admitted at [facility] from 08/16 through 08/25 for a GI bleed. CT abdomen pelvis with contrast - marked calcified and noncalcified atheromatous plaque burden throughout the aorta, iliofemoral system and aortic branch vessels. Severe stenosis at the right renal artery origin with resultant atrophy of the right kidney. There appears to be severe stenosis at the superior mesenteric artery origin and there is also suspected to be severe stenosis of th e distal aspect of the left common femoral artery. Given the presumed severe stenosis at the SMA origin, recommend correlation for symptoms that would suggest intestinal angina noting that the bowel in this distribution does not exhibit obvious features of ischemia. Also with cirrhotic morphology of the liver and borderline enlargement of the spleen. There is heterogeneous attenuat ion of the liver at the hepatic dome but this region is poorly evaluated due to motion artifact and a definite mass is not able to be delineated. Admitted to ICU with levophed ordered. 09/19: Started on bicarb GTT, levophed. WBC 6.1, Hb 7.8, platelets 118. NA 147, K5.5, BUN 9 3, CR 7.8, glucose 126, INR 1.2, MG 1.6, phosphorus 6.5, TSH 0.473. He thinks he is at home today. Notes he drinks quite a bit. Son in [place] notes he was "doing well" after discharge from [facility] and so he returned back home. Trialysis catheter placed under nephrology guidance for emergent dialysis. 09/20: Hb 6.5, Na 146, K 2.8, BUN 27, Cr 2.2, glucose 155, AST 45, albumin 2.4 today. Still very confused. Some stool overnight. UOP 1770 last 24 hours. 09/21: Afebrile. Hb 9.2 after transfusion. CR 2 0, mag 1.6 K3.5. Rolling around in bed still very confused. 09/22: Cr 1.7, K 3.2. Received Haldol, he has some lipsmacking. Ordered benztropine. He is still very confused only opens his eyes to painful stimuli. Afebrile 09/24: mental status still poor, SUSPECT ALCOHOLIC CIRRHOSIS 09/25: Suspect CKD - Renal US Asymmetric renal size with atrophic appearing right kidney with echogenic cortex which could be from chronic renal disease. 09/26: No acute events reported overnight, case discussed with nursing staff patient in no acute distress no complaints during my visit continues to be quite obtunded and unable to have a meaningful conversation, awaiting for records from [facility] 09/28: d/c ON HOLD DIFFICULT PLACEMENT 09/30: MORE CONFUSED, D/W RN, //CRUZITO AGAIN 10/01: Overnight no events. Hb stable. He is still confused. Not injuring himself or others. Follows some commands. Needs placement. 10/02: Restless overnight, required haldol and ativan IM with improvement. Somewhat confused this morning. Follows some commands. Drops food on the floor and tells nursing staff, "It's ok, the dogs will get it.". Attempted to call son, Catarino, goes straight to voicemail. 10/03: CT head reviewed no acute changes, frontal atrophy bilaterally noted. Renal function a bit worse He is complaining of a headache today. No shortness of breath, he is less confused today. No chest pain. Son Catarino has an ill , will not be able to return from [place] until 10/17/2019. Security called for multiple combative instances, on one-to-one overnight. He shows significant impulse control issues, still believes there is a dog in the hospital and does not always know where he is. Vitals Vitals Vital Signs Date Time Temp Pulse Resp B/P (MAP) Pulse Ox O2 Delivery O2 Flow Rate FiO2 10/05/19 03:00 78 18 139/54 (82) Room Air 10/04/19 22:29 97 10/04/19 19:55 97.9 97.9 10/04/19 19:35 2.0 Physical Exam Physical Exam General: Other (CONFUSED) Lungs: Clear to auscultation, Normal air movement Neuro: Other (CONFUSED) General: Alert, Cooperative, No acute distress, Other (confused ) Heart: Regular rate, Normal S1, Other (2/6 systolic murmur ) Lungs: Clear, Wheezing Abdomen: Normal bowel sounds, Soft, No tenderness Extremities: No cyanosis, No edema, Normal pulses Skin: No breakdown, No significant lesion Comment Review of Relevant I have reviewed the following items bj (where applicable) has been applied. Labs Laboratory Tests Test 10/03/19 12:03 10/03/19 17:07 10/04/19 04:20 Glucose (Fingerstick) 96 mg/dL (70-99) 108 mg/dL (70-99) White Blood Count 4.4 x10^3/uL (4.0-11.0) Red Blood Count 3.28 x10^6/uL (4.30-5.70) Hemoglobin 9.0 g/dL (13.0-17.5) Hematocrit 27.4 % (39.0-53.0) Mean Corpuscular Volume 84 fL (79-100) Mean Corpuscular Hemoglobin 27 pg (25-35) Mean Corpuscular Hemoglobin Concent 33 g/dL (31-37) Red Cell Distribution Width 22.2 % (11.5-14.5) Platelet Count 169 x10^3/uL (140-400) Neutrophils (%) (Auto) 54 % (31-73) Lymphocytes (%) (Auto) 32 % (24-48) Monocytes (%) (Auto) 12 % (0-9) Eosinophils (%) (Auto) 2 % (0-3) Basophils (%) (Auto) 1 % (0-3) Neutrophils # (Auto) 2.4 x10^3/uL (1.8-7.7) Lymphocytes # (Auto) 1.4 x10^3/uL (1.0-4.8) Monocytes # (Auto) 0.5 x10^3/uL (0.0-1.1) Eosinophils # (Auto) 0.1 x10^3/uL (0.0-0.7) Basophils # (Auto) 0.0 x10^3/uL (0.0-0.2) Prothrombin Time 13.6 SEC (11.7-14.0) Prothromb Time International Ratio 1.1 (0.8-1.1) Sodium Level 135 mmol/L (136-145) Potassium Level 4.1 mmol/L (3.5-5.1) Chloride Level 102 mmol/L (98-107) Carbon Dioxide Level 21 mmol/L (21-32) Anion Gap 12 (6-14) Blood Urea Nitrogen 21 mg/dL (8-26) Creatinine 1.6 mg/dL (0.7-1.3) Estimated GFR (Cockcroft-Gault) 43.7 BUN/Creatinine Ratio 13 (6-20) Glucose Level 91 mg/dL (70-99) Calcium Level 8.0 mg/dL (8.5-10.1) Total Bilirubin 0.3 mg/dL (0.2-1.0) Aspartate Amino Transf (AST/SGOT) 27 U/L (15-37) Alanine Aminotransferase (ALT/SGPT) 22 U/L (16-63) Alkaline Phosphatase 215 U/L (46-116) Ammonia 24 mcmol/L (11-34) Total Protein 6.2 g/dL (6.4-8.2) Albumin 2.4 g/dL (3.4-5.0) Albumin/Globulin Ratio 0.6 (1.0-1.7) Microbiology 09/19/19 Urine Culture - Final, Complete 09/19/19 Blood Culture - Final, Complete NO GROWTH AFTER 5 DAYS Medications Current Medications Norepinephrine Bitartrate 8 mg/ Dextrose 258 ml @ 12.365 mls/ hr CONT PRN IV PER PROTOCOL Last administered on 09/19/19at 20:41; Start 09/19/19 at 20:30; Stop 09/26/19 at 11:05; Status DC Hydrocortisone Sodium Succinate (Solu-CORTEF) 100 mg Q8HRS IVP Last administered on 09/26/19at 05:45; Start 09/19/19 at 22:00; Stop 09/26/19 at 11:21; Status DC Acetaminophen (Tylenol) 650 mg PRN Q6HRS PRN PO Headaches, Temp > 101.5' Last administered on 10/04/19at 11:27; Start 09/19/19 at 21:15 Lorazepam (Ativan Inj) 0.5 mg PRN Q6HRS PRN IVP ANXIETY / AGITATION Last administered on 09/19/19at 22:19; Start 09/19/19 at 21:15; Stop 10/02/19 at 13:53; Status DC Ondansetron HCl (Zofran) 4 mg PRN Q6HRS PRN IVP NAUSEA/VOMITING; Start 09/19/19 at 21:15 Calcium Carbonate/ Glycine (Tums) 500 mg PRN Q3HRS PRN PO HEARTBURN / GAS; Start 09/19/19 at 21:15 Famotidine (Pepcid Vial) 20 mg BID IVP Last administered on 09/21/19at 21:08; Start 09/20/19 at 09:00; Stop 09/22/19 at 10:27; Status DC Sodium Chloride (Normal Saline Flush) 3 ml QSHIFT PRN IV AFTER MEDS AND BLOOD DRAWS; Start 09/19/19 at 21:15 Oxycodone/ Acetaminophen (Percocet 5/325) 1 tab PRN Q4HRS PRN PO PAIN Last administered on 10/04/19at 02:02; Start 09/19/19 at 21:15; Stop 10/04/19 at 10:41; Status DC Morphine Sulfate (Morphine Sulfate) 1 mg PRN Q1HR PRN IV PAIN Last administered on 09/21/19at 23:02; Start 09/19/19 at 21:15; Stop 10/02/19 at 13:53; Status DC Senna/Docusate Sodium (Senna Plus) 1 tab BID PO Last administered on 10/04/19at 08:51; Start 09/20/19 at 09:00 Lactulose (Lactulose) 20 gm PRN Q12HR PRN PO CONSTIPATION; Start 09/19/19 at 21:15 Acetaminophen (Tylenol) 650 mg 1X PRN PRN PO PRE-TRANSFUSION; Start 09/19/19 at 21:15; Stop 09/26/19 at 11:10; Status DC Magnesium Sulfate/ Dextrose 100 ml @ 100 mls/hr 1X ONCE IV Last administered on 09/19/19at 22:23; Start 09/19/19 at 22:30; Stop 09/19/19 at 23:29; Status DC Sodium Bicarbonate 150 meq/Dextrose 1,150 ml @ 125 mls/hr Q9H12M IV Last administered on 09/21/19at 01:39; Start 09/20/19 at 06:45; Stop 09/21/19 at 10:17; Status DC Multivitamins 10 ml/Thiamine HCl 100 mg/Folic Acid 1 mg/Sodium Chloride 1,011.2 ml @ 100 mls/ hr DAILY IV Last administered on 09/24/19at 08:59; Start 09/20/19 at 10:00; Stop 09/24/19 at 19:07; Status DC Lorazepam (Ativan) 2 mg PRN Q1HR PRN PO For CIWA 8-14; Start 09/20/19 at 09:15; Stop 09/20/19 at 10:00; Status DC Lorazepam (Ativan Inj) 1 mg PRN Q1HR PRN IV For CIWA 8-14 Last administered on 10/02/19at 04:30; Start 09/20/19 at 09:15; Stop 10/02/19 at 13:53; Status DC Haloperidol Lactate (Haldol Inj) 5 mg PRN Q4HRS PRN IVP Hallucinatns,Confusn,Delirium Last administered on 10/01/19at 20:42; Start 09/20/19 at 09:15; Stop 10/02/19 at 13:53; Status DC Clonidine HCl (Catapres) 0.1 mg PRN Q1HR PRN PO SBP > 180 or DBP > 100, MRX3 Last administered on 09/24/19at 22:31; Start 09/20/19 at 09:15; Stop 09/25/19 at 10:38; Status DC Lorazepam (Ativan Inj) 2 mg PRN Q1HR PRN IV For CIWA 8-14 Last administered on 10/01/19at 11:07; Start 09/20/19 at 10:00; Stop 10/02/19 at 13:53; Status DC Lidocaine HCl (Buffered Lidocaine 1%) 3 ml STK-MED ONCE .ROUTE ; Start 09/20/19 at 11:32; Stop 09/20/19 at 11:32; Status DC Lidocaine HCl (Buffered Lidocaine 1%) 6 ml 1X ONCE INJ Last administered on 09/20/19at 12:20; Start 09/20/19 at 12:00; Stop 09/20/19 at 12:01; Status DC Nicotine (Nicoderm Cq 21mg) 1 patch DAILY TD Last administered on 10/04/19at 08:53; Start 09/20/19 at 13:30 Sodium Chloride 1,000 ml @ 1,000 mls/hr Q1H PRN IV hypotension; Start 09/20/19 at 14:09; Stop 09/20/19 at 20:08; Status DC Albumin Human 200 ml @ 200 mls/hr 1X PRN PRN IV Hypotension; Start 09/20/19 at 14:15; Stop 09/20/19 at 20:14; Status DC Sodium Chloride 1,000 ml @ 400 mls/hr Q2H30M PRN IV PATENCY; Start 09/20/19 at 14:09; Stop 09/21/19 at 02:08; Status DC Info (PHARMACY MONITORING -- do not chart) 1 each PRN DAILY PRN MC SEE COMMENTS; Start 09/20/19 at 14:15; Status UNV Info (PHARMACY MONITORING -- do not chart) 1 each PRN DAILY PRN MC SEE COMMENTS; Start 09/20/19 at 14:15; Stop 09/26/19 at 11:13; Status DC Potassium Chloride/Water 100 ml @ 100 mls/hr 1X ONCE IV Last administered on 09/21/19at 10:19; Start 09/21/19 at 08:00; Stop 09/21/19 at 08:59; Status DC Insulin Human Lispro (HumaLOG) 0-7 UNITS TIDWMEALS SQ ; Start 09/21/19 at 09:00; Stop 10/03/19 at 21:13; Status DC Dextrose (Dextrose 50%-Water Syringe) 12.5 gm PRN Q15MIN PRN IV SEE COMMENTS; Start 09/21/19 at 09:00; Stop 10/03/19 at 21:13; Status DC Amino Acids/ Glycerin/ Electrolytes 1,000 ml @ 80 mls/hr [id number] IV Last administered on 10/02/19at 01:18; Start 09/21/19 at 10:45; Stop 10/03/19 at 00:37; Status DC Potassium Chloride/Water 100 ml @ 100 mls/hr 1X ONCE IV Last administered on 09/21/19at 13:02; Start 09/21/19 at 12:00; Stop 09/21/19 at 12:59; Status DC Lorazepam (Ativan Inj) 4 mg PRN Q1HR PRN IV For CIWA 15 or greater Last administered on 09/26/19at 00:41; Start 09/22/19 at 08:00; Stop 10/02/19 at 13:53; Status DC Famotidine (Pepcid Vial) 20 mg DAILY IVP Last administered on 09/26/19at 08:49; Start 09/23/19 at 09:00; Stop 09/26/19 at 11:11; Status DC Magnesium Sulfate 100 ml @ 25 mls/hr 1X ONCE IV Last administered on 09/22/19at 13:57; Start 09/22/19 at 13:30; Stop 09/22/19 at 17:29; Status DC Potassium Chloride/Water 100 ml @ 100 mls/hr 1X ONCE IV Last administered on 09/22/19at 13:57; Start 09/22/19 at 13:30; Stop 09/22/19 at 14:29; Status DC Potassium Chloride/Water 100 ml @ 100 mls/hr Q1H IV Last administered on 09/23/19at 09:28; Start 09/23/19 at 09:00; Stop 09/23/19 at 10:59; Status DC Benztropine Mesylate (Cogentin) 2 mg PRN BID PRN IM EXTRAPYRAMIDAL SIDE EFFECTS Last administered on 09/23/19at 09:27; Start 09/23/19 at 09:15; Stop 10/04/19 at 15:22; Status DC Hydralazine HCl (Apresoline Inj) 10 mg PRN Q4HRS PRN IVP ELEVATED BP, SEE COMMENTS Last administered on 09/28/19at 16:46; Start 09/25/19 at 10:45 Potassium Chloride (Klor-Con) 30 meq 1X ONCE PO Last administered on 09/25/19at 11:58; Start 09/25/19 at 11:45; Stop 09/25/19 at 11:52; Status DC Hydralazine HCl (Apresoline) 50 mg BID PO Last administered on 10/04/19at 23:42; Start 09/25/19 at 21:00 Potassium Bicarbonate (Potassium Effervescent Tablet) 20 meq 1X ONCE PO Last administered on 09/26/19at 09:59; Start 09/26/19 at 10:00; Stop 09/26/19 at 10:01; Status DC Famotidine (Pepcid) 20 mg DAILY PO Last administered on 09/28/19at 09:02; Start 09/27/19 at 09:00; Stop 09/28/19 at 09:52; Status DC Thiamine HCl 100 mg/Dextrose 51 ml @ 102 mls/hr TID IV Last administered on 10/01/19at 20:41; Start 09/26/19 at 14:00; Stop 10/02/19 at 13:46; Status DC Potassium Chloride/Water 100 ml @ 100 mls/hr 1X ONCE IV Last administered on 09/27/19at 10:15; Start 09/27/19 at 10:00; Stop 09/27/19 at 10:59; Status DC Magnesium Sulfate 50 ml @ 25 mls/hr 1X ONCE IV Last administered on 09/27/19at 11:21; Start 09/27/19 at 11:00; Stop 09/27/19 at 12:59; Status DC Magnesium Sulfate/ Dextrose 100 ml @ 100 mls/hr 1X ONCE IV ; Start 09/27/19 at 15:15; Stop 09/27/19 at 16:14; Status Cancel Famotidine (Pepcid) 20 mg BID PO Last administered on 10/04/19at 08:51; Start 09/28/19 at 21:00 Potassium Chloride (Klor-Con) 20 meq 1X ONCE PO Last administered on 09/28/19at 14:05; Start 09/28/19 at 11:15; Stop 09/28/19 at 11:17; Status DC Metoprolol Tartrate (Lopressor) 12.5 mg BID PO Last administered on 10/04/19at 23:41; Start 09/29/19 at 11:00 Thiamine Mononitrate (Vitamin B-1) 100 mg BID PO Last administered on 10/04/19at 08:51; Start 10/02/19 at 21:00 Haloperidol Lactate (Haldol Inj) 5 mg PRN Q4HRS PRN IM Hallucinatns,Confusn,Delirium Last administered on 10/05/19at 05:32; Start 10/02/19 at 14:00 Lorazepam (Ativan Inj) 0.5 mg PRN Q6HRS PRN IM ANXIETY / AGITATION; Start 10/02/19 at 14:00 Lorazepam (Ativan Inj) 1 mg PRN Q1HR PRN IM For CIWA 8-14 Last administered on 10/05/19at 02:32; Start 10/02/19 at 14:00 Lorazepam (Ativan Inj) 2 mg PRN Q1HR PRN IM For CIWA 8-14; Start 10/02/19 at 14:00; Stop 10/04/19 at 15:22; Status DC Lorazepam (Ativan Inj) 4 mg PRN Q1HR PRN IM For CIWA 15 or greater Last administered on 10/03/19at 04:12; Start 10/02/19 at 14:00; Stop 10/04/19 at 15:22; Status DC Ziprasidone (Geodon Im) 20 mg 1X ONCE IM Last administered on 10/02/19at 21:12; Start 10/02/19 at 21:30; Stop 10/02/19 at 21:31; Status DC Diphenhydramine HCl (Benadryl) 25 mg 1X ONCE PO Last administered on 10/02/19at 22:45; Start 10/02/19 at 23:00; Stop 10/02/19 at 23:01; Status DC Tramadol HCl (Ultram) 50 mg PRN Q8HRS PRN PO PAIN Last administered on 10/04/19at 18:35; Start 10/04/19 at 10:45 Lorazepam (Ativan) 0.5 mg PRN Q6HRS PRN PO ANXIETY / AGITATION Last administered on 10/04/19 15:31; Start 10/04/19 at 15:30 Benztropine Mesylate (Cogentin) 1 mg PRN BID PRN PO Dystonia Last administered on 10/04/19at 15:31; Start 10/04/19 at 15:30 Active Scripts Active Vitamin B-1 (Thiamine Mononitrate) 100 Mg Tablet 100 Mg PO TID 14 Days Humalog (Insulin Lispro) 100 Unit/1 Ml Insuln.pen 0 Units SQ TIDWMEALS 30 Days Famotidine 20 Mg Tablet 20 Mg PO BID 30 Days Calcium Carbonate 200 Mg Tab.chew 500 Mg PO PRN Q3HRS PRN 28 Days Lactulose 20 Gm/30 Ml Solution 20 Gm PO PRN Q12HR PRN 14 Days Tylenol (Acetaminophen) 325 Mg Tablet 650 Mg PO PRN Q6HRS PRN 10 Days Hydralazine Hcl 50 Mg Tablet 50 Mg PO BID 30 Days [Nicotine 21MG] 1 PATCH Patch 1 Patch TD DAILY 30 Days Vitals/I & O Vital Sign - Last 24 Hours 10/04/19 10/04/19 10/04/19 10/04/19 11:00 15:00 18:35 19:35 Temp 97.8 97.7 97.8 97.7 Pulse 95 71 Resp 15 20 B/P (MAP) 105/54 (71) 92/54 (67) Pulse Ox 94 99 99 99 O2 Delivery Room Air Room Air Room Air Room Air O2 Flow Rate 2.0 2.0 6/24/20 10/04/19 10/04/19 10/04/19 19:55 22:29 23:41 23:42 Temp 97.9 97.9 Pulse 88 94 94 94 Resp 18 18 B/P (MAP) 101/59 (73) 159/68 (98) 159/68 159/68 Pulse Ox 98 97 O2 Delivery Room Air Room Air 10/05/19 03:00 Pulse 78 Resp 18 B/P (MAP) 139/54 (82) O2 Delivery Room Air Intake and Output 10/04/19 10/04/19 10/05/19 15:00 23:00 07:00 Intake Total 60 ml Balance 60 ml Nutrition Consultation Dietary Evaluation: Recommendations by RD: Dietary education by RD, Increase Calorie Intake, Protein supplementation, PPN/TPN Comments: Continue w/ADA diet as ordered, honor food preferences, provide snacks as requested Continue w/ Ensure pudding (chocolate) BID per pt choice Expected Outcomes/Goals: Nutritional intake to meet >75% est needs - met at times, goal ongoing Malnutrition Findings: Food and Nutrition Intake (Mod: <75% est energy req 7days Weight Status: Appropriate JONATHAN DUQUE MD Oct 05, 2019 08:56
[2019-10-05] MEDS: THIAMINE 100 MG TABLET. PO SCH ×2 (10:05→21:17)
[2019-10-05] MEDS: FAMOTIDINE 20 MG TABLET. PO SCH ×2 (10:05→21:00)
[2019-10-05] MEDS: SENNOSIDES/DOCUSATE 8.6/50MG TABLET. PO SCH ×2 (10:05→21:00)
[2019-10-05] MEDS: BENZTROPINE MESYLATE 1 MG TABLET. PO PRN ×2 (10:06→21:19)
[2019-10-05] MEDS: METOPROLOL TART IMMED RELEASE 25 MG TABLET. PO SCH ×2 (10:06→21:18)
[2019-10-05] MEDS: NICOTINE 21MG PATCH. TD SCH (10:10)
--- NOTE | 2019-10-05 10:12 | PDOC ---
Objective: Objective: Reviewed chart - agitation overnight, got Haldol, etc. No GI concerns per nurse - sleeping now. Vital Signs: Vital Signs Date Time Temp Pulse Resp B/P (MAP) Pulse Ox O2 Delivery O2 Flow Rate FiO2 10/05/19 10:06 78 139/54 10/05/19 08:00 Room Air 10/05/19 03:00 18 10/04/19 22:29 97 10/04/19 19:55 97.9 97.9 10/04/19 19:35 2.0 PE: GEN: NAD NEURO/PSYCH: sleeping, did not disturb A/P: Alcoholic liver disease, encephalopathy, h/o GI bleeding -- Continue support, awaiting DC. Justicifation of Admission Dx: Justifications for Admission: Justification of Admission Dx: Yes Acute Renal Failure: Serum Cr > 4mg/dL RAQUEL GAYTAN Oct 05, 2019 10:12
--- NOTE | 2019-10-05 10:58 | PDOC ---
CARDIO Progress Notes Date and Time Date of Service 10/05/19 Time of Evaluation 1035 Subjective Subjective: Other (sleeping ) Comments: combative overnight. now 1:1 status Vitals Vitals Vital Signs Date Time Temp Pulse Resp B/P (MAP) Pulse Ox O2 Delivery O2 Flow Rate FiO2 10/05/19 10:06 78 139/54 10/05/19 08:00 Room Air 10/05/19 03:00 18 10/04/19 22:29 97 10/04/19 19:55 97.9 97.9 10/04/19 19:35 2.0 Weight Weight [ ] Input and Output Intake and Output Intake and Output 10/05/19 07:00 Intake Total 60 ml Balance 60 ml Intake Oral 60 ml # Voids 2 Microbiology Micro Microbiology 09/19/19 Urine Culture - Final, Complete 09/19/19 Blood Culture - Final, Complete NO GROWTH AFTER 5 DAYS Review of Systems Constitutional: yes: other Physical Exam HEENT: Neck Supple W Full Motion Chest: Symmetric LUNGS: Clear to Auscultation Heart: RRR (SR with intermittent PVCs) Abdomen: Soft N/T Extremities: No Edema, No Calf Tenderness Neurology: other (sleeping ) Assessment Assessment 1. Metabolic encephalopathy: restless and confused. likely associated chronic changes from ETOH. Agitated, combative overnight; now 1:1 status 2. Pancytopenia. s/p PRBC transfusion. 3. H/o recent GIB. Gastroenterology team following. 4. MISBAH, back to his baseline 5. Arrhythmia: Brief episode of atrial tachycardia noted on telemetry. BB added. Rate controlled per VS review. Patient refusing tele 6. ETOH abuse, cirrhosis. 7. Asymptomatic SB: with associated use of clonidine and lyte abnormalities. None further. EF 50% with mild global hypokinesis 8. DM2: per PCP 9. HTN: controlled 10. Nontraumatic mechanical fall Justicifation of Admission Dx: Justifications for Admission: Justification of Admission Dx: Yes Acute Renal Failure: Serum Cr > 4mg/dL MATEO MARTINEZ APRN Oct 05, 2019 10:58
[2019-10-05 11:00] VITALS: BP 78/54
--- NOTE | 2019-10-05 11:35 | NUR ---
SS following up with discharge planning. SS reviewed pt chart and discussed with pt RN. Pt now 1:1 and currently on Haldol. Psychiatry consulted. Case management checking with insurance company to see if pt has benefits for Geriatric Psych facility and to get a list of what facilities are in network with pt's insurance. SS will continue to follow for discharge planning.
[2019-10-05 15:30] VITALS: BP 120/63
--- NOTE | 2019-10-05 15:35 | NUR ---
SS following up with discharge planning. SS contacted [facility], , and was provided with a list of in network facilities for psych placement. SS needing mental health assessment for referrals. Psychiatry consult was placed this morning but SS still awaiting for physician to see. SS made PAT team referral for assistance. Rob from PAT team coming to meet with pt. SS will continue to follow for discharge planning.
[2019-10-05 18:26] VITALS: BP 112/57
--- NOTE | 2019-10-05 18:45 | PDOC1 ---
History & Psych Evaluation Date of Admission: Date of Admission DATE: 10/05/19 TIME: 18:27 Source: Source: Caregiver, Chart review, Patient Identification: Identification He is a 64-year-old gentleman with a history of alcohol use disorder. Chief Complaint: Chief Complaint Irritability, altered mental status, agitation, delirium History of Present Illness: HPI: 64-year-old gentleman with complex medical history and active issues admitted with GI bleed, altered mental status, and acute renal failure. He has longstanding history of having heavy alcohol abuse and prescription drug use. Reportedly, he is confused, disoriented, and having behavioral disturbances. CT scan of the brain revealed bilateral frontal atrophy, considering his age consistent with likely alcohol use disorder. Upon interview, he appears distracted, indifferent, and giving monosyllabic answers. He states, he is doing well wants to go home. He is not oriented to person place or time. Mood is slightly dysphoric. Affect is flat. Avoiding eye contact. Mood is reportedly " excellent". Denies depression, anxiety, suicidal or homicidal thoughts, auditory or visual hallucinations. No evidence of milind or hypomania. Received Haldol couple of times today for behavioral disturbances. Past Psychiatric History: Apparently history of chronic alcohol use. Other psych history is not available at this point. Past Medical History: Alcohol use disorder Alcoholic liver cirrhosis GI bleed Acute renal failure, resolving Diabetes mellitus Family History: Denies family history of psychiatric illness. Denies history of suicide. Current Medications: Current Medications Current Medications Medications (Trade) Dose Ordered Sig/Vasquez Start Time Stop Time Status Last Admin Dose Admin Acetaminophen (Tylenol) 650 mg 1X PRN PRN 09/19/19 21:15 09/26/19 11:10 DC Albumin Human 200 ml @ 200 mls/hr 1X PRN PRN 09/20/19 14:15 09/20/19 20:14 DC Amino Acids/ Glycerin/ Electrolytes 1,000 ml @ 80 mls/hr [id number] 09/21/19 10:45 10/03/19 00:37 DC 10/02/19 01:18 80 MLS/HR Benztropine Mesylate (Cogentin) 1 mg PRN BID PRN 10/04/19 15:30 10/05/19 10:06 1 MG Calcium Carbonate/ Glycine (Tums) 500 mg PRN Q3HRS PRN 09/19/19 21:15 Clonidine HCl (Catapres) 0.1 mg PRN Q1HR PRN 09/20/19 09:15 09/25/19 10:38 DC 09/24/19 22:31 0.1 MG Dextrose (Dextrose 50%-Water Syringe) 12.5 gm PRN Q15MIN PRN 09/21/19 09:00 10/03/19 21:13 DC Diphenhydramine HCl (Benadryl) 25 mg 1X ONCE 10/02/19 23:00 10/02/19 23:01 DC 10/02/19 22:45 25 MG Famotidine (Pepcid Vial) 20 mg DAILY 09/23/19 09:00 09/26/19 11:11 DC 09/26/19 08:49 20 MG Famotidine (Pepcid) 20 mg BID 09/28/19 21:00 10/05/19 10:05 20 MG Haloperidol (Haldol) 3 mg BID 10/05/19 21:00 Haloperidol Lactate (Haldol Inj) 5 mg PRN Q4HRS PRN 10/02/19 14:00 10/05/19 12:22 5 MG Hydralazine HCl (Apresoline Inj) 10 mg PRN Q4HRS PRN 09/25/19 10:45 09/28/19 16:46 10 MG Hydralazine HCl (Apresoline) 50 mg BID 09/25/19 21:00 10/05/19 10:05 50 MG Hydrocortisone Sodium Succinate (Solu-CORTEF) 100 mg Q8HRS 09/19/19 22:00 09/26/19 11:21 DC 09/26/19 05:45 100 MG Info (PHARMACY MONITORING -- do not chart) 1 each PRN DAILY PRN 09/20/19 14:15 09/26/19 11:13 DC Insulin Human Lispro (HumaLOG) 0-7 UNITS TIDWMEALS 09/21/19 09:00 10/03/19 21:13 DC Lactulose (Lactulose) 20 gm PRN Q12HR PRN 09/19/19 21:15 Lidocaine HCl (Buffered Lidocaine 1%) 6 ml 1X ONCE 09/20/19 12:00 09/20/19 12:01 DC 09/20/19 12:20 6 ML Lorazepam (Ativan Inj) 4 mg PRN Q1HR PRN 10/02/19 14:00 10/04/19 15:22 DC 10/03/19 04:12 4 MG Lorazepam (Ativan) 0.5 mg PRN Q6HRS PRN 10/04/19 15:30 10/05/19 18:20 0.5 MG Magnesium Sulfate 50 ml @ 25 mls/hr 1X ONCE 09/27/19 11:00 09/27/19 12:59 DC 09/27/19 11:21 25 MLS/HR Magnesium Sulfate/ Dextrose 100 ml @ 100 mls/hr 1X ONCE 09/27/19 15:15 09/27/19 16:14 Cancel Metoprolol Tartrate (Lopressor) 12.5 mg BID 09/29/19 11:00 10/05/19 10:06 12.5 MG Morphine Sulfate (Morphine Sulfate) 1 mg PRN Q1HR PRN 09/19/19 21:15 10/02/19 13:53 DC 09/21/19 23:02 1 MG Multivitamins 10 ml/Thiamine HCl 100 mg/Folic Acid 1 mg/Sodium Chloride 1,011.2 ml @ 100 mls/ hr DAILY 09/20/19 10:00 09/24/19 19:07 DC 09/24/19 08:59 100 MLS/HR Nicotine (Nicoderm Cq 21mg) 1 patch DAILY 09/20/19 13:30 10/05/19 10:10 1 PATCH Norepinephrine Bitartrate 8 mg/ Dextrose 258 ml @ 12.365 mls/ hr CONT PRN 09/19/19 20:30 09/26/19 11:05 DC 09/19/19 20:41 12.365 MLS/HR Ondansetron HCl (Zofran) 4 mg PRN Q6HRS PRN 09/19/19 21:15 Oxycodone/ Acetaminophen (Percocet 5/325) 1 tab PRN Q4HRS PRN 09/19/19 21:15 10/04/19 10:41 DC 10/04/19 02:02 1 TAB Potassium Bicarbonate (Potassium Effervescent Tablet) 20 meq 1X ONCE 09/26/19 10:00 09/26/19 10:01 DC 09/26/19 09:59 20 MEQ Potassium Chloride/Water 100 ml @ 100 mls/hr 1X ONCE 09/27/19 10:00 09/27/19 10:59 DC 09/27/19 10:15 100 MLS/HR Potassium Chloride (Klor-Con) 20 meq 1X ONCE 09/28/19 11:15 09/28/19 11:17 DC 09/28/19 14:05 20 MEQ Senna/Docusate Sodium (Senna Plus) 1 tab BID 09/20/19 09:00 10/05/19 10:05 1 TAB Sodium Bicarbonate 150 meq/Dextrose 1,150 ml @ 125 mls/hr Q9H12M 09/20/19 06:45 09/21/19 10:17 DC 09/21/19 01:39 125 MLS/HR Sodium Chloride 1,000 ml @ 400 mls/hr Q2H30M PRN 09/20/19 14:09 09/21/19 02:08 DC Sodium Chloride (Normal Saline Flush) 3 ml QSHIFT PRN 09/19/19 21:15 Thiamine Mononitrate (Vitamin B-1) 100 mg BID 10/02/19 21:00 10/05/19 10:05 100 MG Thiamine HCl 100 mg/Dextrose 51 ml @ 102 mls/hr TID 09/26/19 14:00 10/02/19 13:46 DC 10/01/19 20:41 102 MLS/HR Tramadol HCl (Ultram) 50 mg PRN Q8HRS PRN 10/04/19 10:45 10/04/19 18:35 50 MG Ziprasidone (Geodon Im) 20 mg 1X ONCE 10/02/19 21:30 10/02/19 21:31 DC 10/02/19 21:12 20 MG Allergies: Allergies: Coded Allergies: No Known Drug Allergies (Unverified , 09/19/19) Mental Status Examination: Mental Status Examination 64-year-old gentleman appears older than his stated age, fairly groomed, fairly nourished Uncooperative, frustrated Disoriented Speech is soft and low volume Thought processes disorganized Denies auditory or visual hallucinations. Denies suicidal or homicidal thoughts. Mood is dysphoric Affect is dysthymic Insight is poor Judgment is poor Impulse control is poor Attention span and concentration impaired Recent and remote memory impaired ROS: CONSTITUTIONAL: No fever or chills EYES: No recent changes SKIN: No rash or itching CARDIOVASCULAR: No chest pain, syncope, palpitations, or edema RESPIRATORY: No SOB or cough GASTROINTESTINAL: No nausea, vomiting or abdominal pain NEUROLOGICAL: No headaches or weakness ENDOCRINE: No cold or heat intolerance GENITOURINARY: No urgency or frequency of urination MUSCULOSKELETAL: No back pain or joint pain LYMPHATICS: No enlarged lymph nodes PSYCHIATRIC: No anxiety or depression Physical Exam: Refer to Physician's note. UNDERWRITING ASSISTANT: No focal deficit MSK: No EPS, TDK, or abnormal involuntary movements Vitals: Vitals Vital Signs Date Time Temp Pulse Resp B/P (MAP) Pulse Ox O2 Delivery O2 Flow Rate FiO2 10/05/19 15:30 75 18 120/63 (82) 99 Room Air 10/04/19 19:55 97.9 97.9 10/04/19 19:35 2.0 Labs: Labs Laboratory Tests Test 10/04/19 04:20 White Blood Count 4.4 x10^3/uL (4.0-11.0) Red Blood Count 3.28 x10^6/uL (4.30-5.70) Hemoglobin 9.0 g/dL (13.0-17.5) Hematocrit 27.4 % (39.0-53.0) Mean Corpuscular Volume 84 fL (79-100) Mean Corpuscular Hemoglobin 27 pg (25-35) Mean Corpuscular Hemoglobin Concent 33 g/dL (31-37) Red Cell Distribution Width 22.2 % (11.5-14.5) Platelet Count 169 x10^3/uL (140-400) Neutrophils (%) (Auto) 54 % (31-73) Lymphocytes (%) (Auto) 32 % (24-48) Monocytes (%) (Auto) 12 % (0-9) Eosinophils (%) (Auto) 2 % (0-3) Basophils (%) (Auto) 1 % (0-3) Neutrophils # (Auto) 2.4 x10^3/uL (1.8-7.7) Lymphocytes # (Auto) 1.4 x10^3/uL (1.0-4.8) Monocytes # (Auto) 0.5 x10^3/uL (0.0-1.1) Eosinophils # (Auto) 0.1 x10^3/uL (0.0-0.7) Basophils # (Auto) 0.0 x10^3/uL (0.0-0.2) Prothrombin Time 13.6 SEC (11.7-14.0) Prothromb Time International Ratio 1.1 (0.8-1.1) Sodium Level 135 mmol/L (136-145) Potassium Level 4.1 mmol/L (3.5-5.1) Chloride Level 102 mmol/L (98-107) Carbon Dioxide Level 21 mmol/L (21-32) Anion Gap 12 (6-14) Blood Urea Nitrogen 21 mg/dL (8-26) Creatinine 1.6 mg/dL (0.7-1.3) Estimated GFR (Cockcroft-Gault) 43.7 BUN/Creatinine Ratio 13 (6-20) Glucose Level 91 mg/dL (70-99) Calcium Level 8.0 mg/dL (8.5-10.1) Total Bilirubin 0.3 mg/dL (0.2-1.0) Aspartate Amino Transf (AST/SGOT) 27 U/L (15-37) Alanine Aminotransferase (ALT/SGPT) 22 U/L (16-63) Alkaline Phosphatase 215 U/L (46-116) Ammonia 24 mcmol/L (11-34) Total Protein 6.2 g/dL (6.4-8.2) Albumin 2.4 g/dL (3.4-5.0) Albumin/Globulin Ratio 0.6 (1.0-1.7) Diagnosis: Diagnosis: 1. Acute delirium, likely hyperactive, multifactorial 2. Alcohol use disorder, recurrent, severe 3. Complicated alcohol withdrawal, Wernicke's encephalopathy. 4. Neurocognitive disorder, unspecified. Rule out major neurocognitive disorder. Assessment: He is a 64-year-old gentleman with history of alcohol use disorder, admitted with multiple medical issues. He has alcoholic liver cirrhosis. He is delirious likely to multiple reasons including cirrhosis, underlying degenerative brain changes, and GI bleed. At this point, given patient's frequent behavioral disturbances, receiving Haldol, reasonable to add Haldol on a scheduled basis to have more sustained effect. Since patient has renal failure, and structural brain changes, he is at risk of having EPS. Add benztropine with Haldol. Plan: 1. Start Haldol 3 mg twice a day for resolution of delirium and behavioral disturbances associated with delirium 2. Benztropine 1 mg twice a day as needed for EPS. 3. Avoid sedatives and hypnotics unless really required. 4. Avoid , applied delirium protocol, keep patient alert during the day with bright sunlight in the room. 5. Continue other medications as is. Thank you for involving inpatient care. Will follow along. SHERIN WEST MD Oct 05, 2019 18:44
[2019-10-05] MEDS ORDERED: HALOPERIDOL 0.5 MG TABLET. PO SCH (21:00)
[2019-10-05] MEDS: traMADol 50 MG TABLET PO PRN (21:21)
--- NOTE | 2019-10-05 23:21 | NUR ---
Patient having periods of agitation, attempts to climb out of bed, agitated that we won't let him "go home'..remains on 1:1 supervision, as is impulsive, potential threat to harm self or others, cursing when is not allowed to do what he wants; ie; go home, take his clothes off since he's 'cold', continues to attempt to climb out of bed, sitter and this chart writer continuing to attempt reorientation...Monitoring.
[2019-10-05 23:25] VITALS: BP 98/49
[2019-10-06] VITALS (7 sets, daily range): BP systolic 86–136; BP diastolic 51–84
[2019-10-06] MEDS: HALOPERIDOL LACTATE 5 MG/ML VIAL. IM PRN (00:27)
--- NOTE | 2019-10-06 00:49 | NUR ---
Patient medicated with haldol im, and ativan im, as is extremely agitated, cursing staff, numerous attempts to climb over side rails, swinging right fist, mat, "I'm not about hitting women,,,but I'm going to hit you if you don't let me out of this bed...", this bid writer replaces legs back over to the inside of the bed over and over and over, etc...continuing to be cursed at.monitoring, sitter at bedside.
[2019-10-06] MEDS: THIAMINE 100 MG TABLET. PO SCH ×2 (08:29→21:20)
[2019-10-06] MEDS: NICOTINE 21MG PATCH. TD SCH (08:29)
[2019-10-06] MEDS: METOPROLOL TART IMMED RELEASE 25 MG TABLET. PO SCH ×2 (08:29→21:22)
[2019-10-06] MEDS: FAMOTIDINE 20 MG TABLET. PO SCH ×2 (08:30→21:21)
[2019-10-06] MEDS: ACETAMINOPHEN 325 MG TABLET. PO PRN (08:33)
[2019-10-06] MEDS: SENNOSIDES/DOCUSATE 8.6/50MG TABLET. PO SCH ×2 (08:38→21:20)
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
[2019-10-06] MEDS ORDERED: HALOPERIDOL 2 MG TABLET. PO SCH (09:00)
--- NOTE | 2019-10-06 10:43 | PDOC ---
HAMILTON UNGER LINEN CLERK 10/06/19 1043: CARDIO Progress Notes Date and Time Date of Service 10/06/2019 Time of Evaluation 1030 Subjective Subjective: No Chest Pain, No shortness of breath Comments: combative overnight. now 1:1 status Vitals Vitals Vital Signs Date Time Temp Pulse Resp B/P (MAP) Pulse Ox O2 Delivery O2 Flow Rate FiO2 10/06/19 08:30 79 129/51 10/06/19 08:00 Room Air 10/06/19 06:56 97.7 16 99 97.7 Weight Weight [ ] Input and Output Intake and Output Intake and Output 10/06/19 07:00 Intake Total 600 ml Output Total 225 ml Balance 375 ml Intake Oral 600 ml Output Urine Total 225 ml # Voids 5 # Bowel Movements 6 Microbiology Micro Microbiology 09/19/19 Urine Culture - Final, Complete 09/19/19 Blood Culture - Final, Complete NO GROWTH AFTER 5 DAYS Review of Systems Constitutional: yes: other Physical Exam HEENT: Neck Supple W Full Motion Chest: Symmetric LUNGS: Clear to Auscultation Heart: RRR (SR with intermittent PVCs) Abdomen: Soft N/T Extremities: No Edema, No Calf Tenderness Neurology: other (periods of agitation) Assessment Assessment 1. Metabolic encephalopathy: periods of agitation, trying to punch me during assessment. 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 Pancytopenia. s/p PRBC transfusion. 3. H/o recent GIB. Gastroenterology team following. 4. MISBAH: Cr at 1.6 5. Arrhythmia: Refusing tele notable for PAT 6. ETOH abuse, cirrhosis. 7. Asymptomatic SB: with associated use of clonidine and lyte abnormalities. None further. EF 50% with mild global hypokinesis 8. DM2: per PCP 9. HTN: controlled 10. Nontraumatic mechanical fall Recommendations outpt follow up Continue with current regimen. lopressor May transfer to Justicifation of Admission Dx: Justifications for Admission: Justification of Admission Dx: Yes Acute Renal Failure: Serum Cr > 4mg/dL PONCE SALES MD 10/06/19 1710: CARDIO Progress Notes Plan Plan Patient seen and examined. Agree with above nurse practitioner note. Supportive care. HAMILTON UNGER APRN Oct 06, 2019 10:43 PONCE SALES MD Oct 06, 2019 17:10
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
--- NOTE | 2019-10-06 10:56 | PDOC ---
Objective: Objective: Reviewed chart - got Haldol again overnight for agitation... Vital Signs: Vital Signs Date Time Temp Pulse Resp B/P (MAP) Pulse Ox O2 Delivery O2 Flow Rate FiO2 10/06/19 08:30 79 129/51 10/06/19 08:00 Room Air 10/06/19 06:56 97.7 16 99 97.7 PE: GEN: NAD LUNGS: room air HEART: RRR ABD: non-distended NEURO/PSYCH: awake, sitting up on edge of bed w/ therapy, appears calm A/P: Alcoholic liver disease, encephalopathy, h/o GI bleeding -- Awaiting placement/DC. Justicifation of Admission Dx: Justifications for Admission: Justification of Admission Dx: Yes Acute Renal Failure: Serum Cr > 4mg/dL RAQUEL GAYTAN Oct 06, 2019 10:56
--- NOTE | 2019-10-06 20:00 | NUR ---
Assessment completed pt in bed resting, here to see pt orders received , vss pt reoriented to surroundings pt has a sitter will resume care and continue to monitor pt.
--- NOTE | 2019-10-06 20:33 | PDOC ---
F/U PHYSCH PROG NOTE Subjective: Gentleman is seen for routine follow-up. Progress is reviewed with nursing staff. When seen, patient received Ativan and under influence of it. However he was able to communicate with some efforts. Stating he is doing fine. Disoriented, and somewhat bizarre. Denies suicidal or homicidal thoughts. Denies auditory or visual hallucinations. Still having brief episodes of agitation requiring as needed medications Objective: Psychiatric review of system is positive for agitation, restlessness, and delirium. Vital Signs: Vital Signs Date Time Temp Pulse Resp B/P (MAP) Pulse Ox O2 Delivery O2 Flow Rate FiO2 10/06/19 19:00 98.2 76 20 136/67 (90) 98 Room Air 98.2 Medications: Current Medications Medications (Trade) Dose Ordered Sig/Vasquez Start Time Stop Time Status Last Admin Dose Admin Acetaminophen (Tylenol) 650 mg 1X PRN PRN 09/19/19 21:15 09/26/19 11:10 DC Albumin Human 200 ml @ 200 mls/hr 1X PRN PRN 09/20/19 14:15 09/20/19 20:14 DC Amino Acids/ Glycerin/ Electrolytes 1,000 ml @ 80 mls/hr [id number] 09/21/19 10:45 10/03/19 00:37 DC 10/02/19 01:18 80 MLS/HR Benztropine Mesylate (Cogentin) 1 mg PRN BID PRN 10/04/19 15:30 10/05/19 21:19 1 MG Calcium Carbonate/ Glycine (Tums) 500 mg PRN Q3HRS PRN 09/19/19 21:15 Clonidine HCl (Catapres) 0.1 mg PRN Q1HR PRN 09/20/19 09:15 09/25/19 10:38 DC 09/24/19 22:31 0.1 MG Dextrose (Dextrose 50%-Water Syringe) 12.5 gm PRN Q15MIN PRN 09/21/19 09:00 10/03/19 21:13 DC Diphenhydramine HCl (Benadryl) 25 mg 1X ONCE 10/02/19 23:00 10/02/19 23:01 DC 10/02/19 22:45 25 MG Famotidine (Pepcid Vial) 20 mg DAILY 09/23/19 09:00 09/26/19 11:11 DC 09/26/19 08:49 20 MG Famotidine (Pepcid) 20 mg BID 09/28/19 21:00 10/06/19 08:30 20 MG Haloperidol (Haldol) 3 mg BID 10/06/19 09:00 10/06/19 08:30 3 MG Haloperidol Lactate (Haldol Inj) 5 mg PRN Q4HRS PRN 10/02/19 14:00 10/06/19 00:27 5 MG Hydralazine HCl (Apresoline Inj) 10 mg PRN Q4HRS PRN 09/25/19 10:45 09/28/19 16:46 10 MG Hydralazine HCl (Apresoline) 50 mg BID 09/25/19 21:00 10/06/19 08:30 50 MG Hydrocortisone Sodium Succinate (Solu-CORTEF) 100 mg Q8HRS 09/19/19 22:00 09/26/19 11:21 DC 09/26/19 05:45 100 MG Info (PHARMACY MONITORING -- do not chart) 1 each PRN DAILY PRN 09/20/19 14:15 09/26/19 11:13 DC Insulin Human Lispro (HumaLOG) 0-7 UNITS TIDWMEALS 09/21/19 09:00 10/03/19 21:13 DC Lactulose (Lactulose) 20 gm PRN Q12HR PRN 09/19/19 21:15 Lidocaine HCl (Buffered Lidocaine 1%) 6 ml 1X ONCE 09/20/19 12:00 09/20/19 12:01 DC 09/20/19 12:20 6 ML Lorazepam (Ativan Inj) 4 mg PRN Q1HR PRN 10/02/19 14:00 10/04/19 15:22 DC 10/03/19 04:12 4 MG Lorazepam (Ativan) 0.5 mg PRN Q6HRS PRN 10/04/19 15:30 10/05/19 18:20 0.5 MG Magnesium Sulfate 50 ml @ 25 mls/hr 1X ONCE 09/27/19 11:00 09/27/19 12:59 DC 09/27/19 11:21 25 MLS/HR Magnesium Sulfate/ Dextrose 100 ml @ 100 mls/hr 1X ONCE 09/27/19 15:15 09/27/19 16:14 Cancel Metoprolol Tartrate (Lopressor) 12.5 mg BID 09/29/19 11:00 10/06/19 08:29 12.5 MG Morphine Sulfate (Morphine Sulfate) 1 mg PRN Q1HR PRN 09/19/19 21:15 10/02/19 13:53 DC 09/21/19 23:02 1 MG Multivitamins 10 ml/Thiamine HCl 100 mg/Folic Acid 1 mg/Sodium Chloride 1,011.2 ml @ 100 mls/ hr DAILY 09/20/19 10:00 09/24/19 19:07 DC 09/24/19 08:59 100 MLS/HR Nicotine (Nicoderm Cq 21mg) 1 patch DAILY 09/20/19 13:30 10/06/19 08:29 1 PATCH Norepinephrine Bitartrate 8 mg/ Dextrose 258 ml @ 12.365 mls/ hr CONT PRN 09/19/19 20:30 09/26/19 11:05 DC 09/19/19 20:41 12.365 MLS/HR Ondansetron HCl (Zofran) 4 mg PRN Q6HRS PRN 09/19/19 21:15 Oxycodone/ Acetaminophen (Percocet 5/325) 1 tab PRN Q4HRS PRN 09/19/19 21:15 10/04/19 10:41 DC 10/04/19 02:02 1 TAB Potassium Bicarbonate (Potassium Effervescent Tablet) 20 meq 1X ONCE 09/26/19 10:00 09/26/19 10:01 DC 09/26/19 09:59 20 MEQ Potassium Chloride/Water 100 ml @ 100 mls/hr 1X ONCE 09/27/19 10:00 09/27/19 10:59 DC 09/27/19 10:15 100 MLS/HR Potassium Chloride (Klor-Con) 20 meq 1X ONCE 09/28/19 11:15 09/28/19 11:17 DC 09/28/19 14:05 20 MEQ Senna/Docusate Sodium (Senna Plus) 1 tab BID 09/20/19 09:00 10/05/19 10:05 1 TAB Sodium Bicarbonate 150 meq/Dextrose 1,150 ml @ 125 mls/hr Q9H12M 09/20/19 06:45 09/21/19 10:17 DC 09/21/19 01:39 125 MLS/HR Sodium Chloride 1,000 ml @ 400 mls/hr Q2H30M PRN 09/20/19 14:09 09/21/19 02:08 DC Sodium Chloride (Normal Saline Flush) 3 ml QSHIFT PRN 09/19/19 21:15 Thiamine Mononitrate (Vitamin B-1) 100 mg BID 10/02/19 21:00 10/06/19 08:29 100 MG Thiamine HCl 100 mg/Dextrose 51 ml @ 102 mls/hr TID 09/26/19 14:00 10/02/19 13:46 DC 10/01/19 20:41 102 MLS/HR Tramadol HCl (Ultram) 50 mg PRN Q8HRS PRN 10/04/19 10:45 10/05/19 21:21 50 MG Ziprasidone (Geodon Im) 20 mg 1X ONCE 10/02/19 21:30 10/02/19 21:31 DC 10/02/19 21:12 20 MG Physical Exam: Mental Status Exam: 64-year-old gentleman appears older than his stated age, fairly groomed, fairly nourished Uncooperative, frustrated Disoriented Speech is soft and low volume Thought processes disorganized Denies auditory or visual hallucinations. Denies suicidal or homicidal thoughts. Mood is dysphoric Affect is dysthymic Insight is poor Judgment is poor Impulse control is poor Attention span and concentration impaired Recent and remote memory impaired Physical Exam: Refer to Physician's note. MEDICATION NURSE: No focal deficit MSK: No EPS, TDK, or abnormal involuntary movements Diagnosis: 1. Acute delirium, likely hyperactive, multifactorial 2. Alcohol use disorder, recurrent, severe 3. Complicated alcohol withdrawal, Wernicke's encephalopathy. 4. Neurocognitive disorder, unspecified. Rule out major neurocognitive disorder. Assessment: He is a 64-year-old gentleman with history of alcohol use disorder, admitted with multiple medical issues. He has alcoholic liver cirrhosis. He is delirious likely to multiple reasons including cirrhosis, underlying dege nerative brain changes, and GI bleed. At this point, given patient's frequent behavioral disturbances, receiving Haldol, reasonable to add Haldol on a scheduled basis to have more sustained effect. Since patient has renal failure, and structural brain changes, he is at risk of having EPS. Add benztropine with Haldol. . Plan: 1. Increase Haldol 5 mg twice a day for resolution of delirium and behavioral disturbances associated with delirium 2. Benztropine 1 mg twice a day as needed for EPS. 3. Avoid sedatives and hypnotics unless really required. 4. Avoid ing, applied delirium protocol, keep patient alert during the day with bright sunlight in the room. 5. Continue other medications as is. Thank you for involving inpatient care. Will follow along SHERIN WEST MD Oct 06, 2019 20:33
[2019-10-06] MEDS: traMADol 50 MG TABLET PO PRN (21:21)
[2019-10-06] MEDS: HALOPERIDOL 5 MG TABLET. PO SCH (21:23)
[2019-10-07 03:00] VITALS: BP 114/56
[2019-10-07] MEDS: traMADol 50 MG TABLET PO PRN ×2 (06:22→17:24)
[2019-10-07 07:00] VITALS: BP 96/66
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
[2019-10-07] MEDS: FAMOTIDINE 20 MG TABLET. PO SCH ×2 (08:36→20:18)
[2019-10-07] MEDS: NICOTINE 21MG PATCH. TD SCH (08:36)
[2019-10-07] MEDS: SENNOSIDES/DOCUSATE 8.6/50MG TABLET. PO SCH ×2 (08:37→20:18)
[2019-10-07] MEDS: THIAMINE 100 MG TABLET. PO SCH ×2 (08:37→20:18)
[2019-10-07] MEDS: HALOPERIDOL 5 MG TABLET. PO SCH ×2 (08:37→20:17)
[2019-10-07] MEDS: BENZTROPINE MESYLATE 1 MG TABLET. PO PRN (08:37)
[2019-10-07] MEDS: METOPROLOL TART IMMED RELEASE 25 MG TABLET. PO SCH ×2 (08:38→20:18)
[2019-10-07 11:00] VITALS: BP 90/60
[2019-10-07 15:00] VITALS: BP 102/75
[2019-10-07] MEDS: HALOPERIDOL LACTATE 5 MG/ML VIAL. IM PRN (18:27)
[2019-10-07 19:00] VITALS: BP 104/56
--- NOTE | 2019-10-07 19:15 | NUR ---
Pt sitting up in chair and agitated stating he's going home, assessment completed vss poc explained pt reoriented to surroundings, redirected pt and will resume care.
[2019-10-07 23:06] VITALS: BP 100/44
[2019-10-08 02:59] VITALS: BP 104/52
[2019-10-08 07:00] VITALS: BP 110/56
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
[2019-10-08] MEDS: SENNOSIDES/DOCUSATE 8.6/50MG TABLET. PO SCH ×2 (09:58→20:54)
[2019-10-08] MEDS: HALOPERIDOL 5 MG TABLET. PO SCH ×2 (09:58→20:55)
[2019-10-08] MEDS: FAMOTIDINE 20 MG TABLET. PO SCH ×2 (09:58→20:54)
[2019-10-08] MEDS: traMADol 50 MG TABLET PO PRN ×2 (09:58→18:57)
[2019-10-08] MEDS: THIAMINE 100 MG TABLET. PO SCH ×2 (09:59→20:54)
[2019-10-08] MEDS: NICOTINE 21MG PATCH. TD SCH (09:59)
[2019-10-08] MEDS: METOPROLOL TART IMMED RELEASE 25 MG TABLET. PO SCH ×2 (10:00→20:55)
[2019-10-08 11:00] VITALS: BP 128/59
[2019-10-08] MEDS: ACETAMINOPHEN 325 MG TABLET. PO PRN (13:10)
[2019-10-08] MEDS: BENZTROPINE MESYLATE 1 MG TABLET. PO PRN (14:42)
[2019-10-08 15:00] VITALS: BP 94/37
[2019-10-08] MEDS: LIDOCAINE (700MG/PATCH) PATCH. TD SCH (16:33)
[2019-10-08 19:15] VITALS: BP 138/54
[2019-10-08] MEDS: PATCH REMOVAL. MC SCH (21:00)
[2019-10-08 22:30] VITALS: BP 121/65
[2019-10-09] MEDS: ACETAMINOPHEN 325 MG TABLET. PO PRN ×2 (00:36→23:35)
[2019-10-09] MEDS: BENZTROPINE MESYLATE 1 MG TABLET. PO PRN ×2 (02:25→20:53)
[2019-10-09] MEDS: traMADol 50 MG TABLET PO PRN ×2 (02:26→20:54)
[2019-10-09 02:28] VITALS: BP 123/52
[2019-10-09] MEDS: HALOPERIDOL LACTATE 5 MG/ML VIAL. IM PRN (02:29)
[2019-10-09 07:00] VITALS: BP 116/56
[2019-10-09] MEDS: FAMOTIDINE 20 MG TABLET. PO SCH ×2 (08:45→20:53)
[2019-10-09] MEDS: THIAMINE 100 MG TABLET. PO SCH ×2 (08:45→20:53)
[2019-10-09] MEDS: HALOPERIDOL 5 MG TABLET. PO SCH ×2 (08:46→20:53)
[2019-10-09] MEDS: LIDOCAINE (700MG/PATCH) PATCH. TD SCH (08:47)
[2019-10-09] MEDS: SENNOSIDES/DOCUSATE 8.6/50MG TABLET. PO SCH ×2 (08:47→20:57)
[2019-10-09] MEDS: METOPROLOL TART IMMED RELEASE 25 MG TABLET. PO SCH ×2 (08:47→20:54)
[2019-10-09] MEDS: NICOTINE 21MG PATCH. TD SCH (08:48)
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
--- NOTE | 2019-10-09 10:29 | PDOC ---
Subjective: Subjective: Says he's just waiting on the doctor to sign the paper so he can leave. Objective: Objective: Has 1:1 obs - wanting to leave the hospital. Vital Signs: Vital Signs Date Time Temp Pulse Resp B/P (MAP) Pulse Ox O2 Delivery O2 Flow Rate FiO2 10/09/19 08:47 65 116/56 10/09/19 07:00 97.6 18 95 Room Air 97.6 10/08/19 20:00 2.0 PE: GEN: sitting on corner of room holding on to the back of a wheelchair LUNGS: room air HEART: RRR ABD: non-distended NEURO/PSYCH: confused A/P: Alcoholic liver disease, encephalopathy, h/o GI bleeding -- Awaiting DC. Justicifation of Admission Dx: Justifications for Admission: Justification of Admission Dx: Yes Acute Renal Failure: Serum Cr > 4mg/dL RAQUEL GAYTAN Oct 09, 2019 10:29
[2019-10-09 11:00] VITALS: BP 113/67
--- NOTE | 2019-10-09 12:40 | NUR ---
SS following up with discharge planning. SS reviewed pt chart and discussed with pt RN. Pt currently on room air. Pt 1:1 and still confused. SS contacted pt's son, Catarino, , and discussed discharge planning. SS requesting Catarino's address to see if any assistance can be given with transport to [place]. Catarino reported that he spoke with his spouse over the weekend and they have concerns about pt coming to [place]. Catarino reported that he is concerned about pt being able to remain stable during the trip down there and he reported concerns because they have had a big COVID19 outbreak in [place], [place] and he is not sure that pt would be safe. Catarino reported that after discussion with his they feel that they need to put pt in LTC facility here in [place]. Catarino requested that SS have pt re-evaluated for hospice with no preference of company and requested that referrals be sent to LTC facilities preferably in [place]. SS discussed that placement may be complicated due to pt's behaviors and facilities in [place] are limited. Elizabeth reported that he would be okay with placement in [place], [place] as well. SS phoned and faxed referral to [facility], ; fax [phone]. SS phoned and faxed referral to [facility], ; fax [phone], [facility] in [place], ; fax [phone], [facility], ; fax [phone], and [facility], ; fax [phone]. SS will await acceptance decision and hospice evaluation and will proceed accordingly.
--- NOTE | 2019-10-09 14:25 | NUR ---
pt transferred from second floor to room 440. Pt transported via bed with 1:1 Nataliia hastings at the bedside. Received report via telephone from NIGEL Cooper. All belongings left with patient at the time of transfer.
[2019-10-09 15:00] VITALS: BP 104/57
[2019-10-09 19:00] VITALS: BP 130/48
--- NOTE | 2019-10-09 19:44 | PDOC ---
F/U PHYSCH PROG NOTE Subjective: gentleman seen for follow-up. Progress is reviewed with nursing this time as well. Reportedly, having a spells of agitation and irritability. Continues to be disoriented. When seen, appears drowsy and disoriented. At times talking about things that make no sense. Denies suicidal or homicidal thoughts intent or plan. Denies auditory or visual hallucinations. Receiving as needed Ativan and Haldol for agitation. Objective: Psychiatric review of system is positive for confusion, sedation, altered mental status. Vital Signs: Vital Signs Date Time Temp Pulse Resp B/P (MAP) Pulse Ox O2 Delivery O2 Flow Rate FiO2 10/09/19 19:00 99.4 78 14 130/48 (75) 98 Room Air 99.4 10/08/19 20:00 2.0 Medications: Current Medications Medications (Trade) Dose Ordered Sig/Vasquez Start Time Stop Time Status Last Admin Dose Admin Acetaminophen (Tylenol) 650 mg 1X PRN PRN 09/19/19 21:15 09/26/19 11:10 DC Albumin Human 200 ml @ 200 mls/hr 1X PRN PRN 09/20/19 14:15 09/20/19 20:14 DC Amino Acids/ Glycerin/ Electrolytes 1,000 ml @ 80 mls/hr [id number] 09/21/19 10:45 10/03/19 00:37 DC 10/02/19 01:18 80 MLS/HR Benztropine Mesylate (Cogentin) 1 mg PRN BID PRN 10/04/19 15:30 10/09/19 02:25 1 MG Calcium Carbonate/ Glycine (Tums) 500 mg PRN Q3HRS PRN 09/19/19 21:15 Clonidine HCl (Catapres) 0.1 mg PRN Q1HR PRN 09/20/19 09:15 09/25/19 10:38 DC 09/24/19 22:31 0.1 MG Dextrose (Dextrose 50%-Water Syringe) 12.5 gm PRN Q15MIN PRN 09/21/19 09:00 10/03/19 21:13 DC Diphenhydramine HCl (Benadryl) 25 mg 1X ONCE 10/02/19 23:00 10/02/19 23:01 DC 10/02/19 22:45 25 MG Famotidine (Pepcid Vial) 20 mg DAILY 09/23/19 09:00 09/26/19 11:11 DC 09/26/19 08:49 20 MG Famotidine (Pepcid) 20 mg BID 09/28/19 21:00 10/09/19 08:45 20 MG Haloperidol (Haldol) 5 mg BID 10/06/19 21:00 10/09/19 08:46 5 MG Haloperidol Lactate (Haldol Inj) 5 mg PRN Q4HRS PRN 10/02/19 14:00 10/09/19 02:29 5 MG Hydralazine HCl (Apresoline Inj) 10 mg PRN Q4HRS PRN 09/25/19 10:45 09/28/19 16:46 10 MG Hydralazine HCl (Apresoline) 50 mg BID 09/25/19 21:00 10/09/19 08:45 50 MG Hydrocortisone Sodium Succinate (Solu-CORTEF) 100 mg Q8HRS 09/19/19 22:00 09/26/19 11:21 DC 09/26/19 05:45 100 MG Info (PHARMACY MONITORING -- do not chart) 1 each PRN DAILY PRN 09/20/19 14:15 09/26/19 11:13 DC Insulin Human Lispro (HumaLOG) 0-7 UNITS TIDWMEALS 09/21/19 09:00 10/03/19 21:13 DC Lactulose (Lactulose) 20 gm PRN Q12HR PRN 09/19/19 21:15 Lidocaine (Lidoderm) 1 patch DAILY 10/08/19 16:30 10/09/19 08:47 1 PATCH Lidocaine HCl (Buffered Lidocaine 1%) 6 ml 1X ONCE 09/20/19 12:00 09/20/19 12:01 DC 09/20/19 12:20 6 ML Lorazepam (Ativan Inj) 4 mg PRN Q1HR PRN 10/02/19 14:00 10/04/19 15:22 DC 10/03/19 04:12 4 MG Lorazepam (Ativan) 1 mg PRN Q6HRS PRN 10/08/19 15:00 10/09/19 15:34 1 MG Magnesium Sulfate 50 ml @ 25 mls/hr 1X ONCE 09/27/19 11:00 09/27/19 12:59 DC 09/27/19 11:21 25 MLS/HR Magnesium Sulfate/ Dextrose 100 ml @ 100 mls/hr 1X ONCE 09/27/19 15:15 09/27/19 16:14 Cancel Metoprolol Tartrate (Lopressor) 12.5 mg BID 09/29/19 11:00 10/09/19 08:47 12.5 MG Miscellaneous (Lidoderm Patch Removal) 1 ea QHS 10/08/19 21:00 10/08/19 21:00 1 EA Morphine Sulfate (Morphine Sulfate) 1 mg PRN Q1HR PRN 09/19/19 21:15 10/02/19 13:53 DC 09/21/19 23:02 1 MG Multivitamins 10 ml/Thiamine HCl 100 mg/Folic Acid 1 mg/Sodium Chloride 1,011.2 ml @ 100 mls/ hr DAILY 09/20/19 10:00 09/24/19 19:07 DC 09/24/19 08:59 100 MLS/HR Nicotine (Nicoderm Cq 21mg) 1 patch DAILY 09/20/19 13:30 10/09/19 08:48 1 PATCH Norepinephrine Bitartrate 8 mg/ Dextrose 258 ml @ 12.365 mls/ hr CONT PRN 09/19/19 20:30 09/26/19 11:05 DC 09/19/19 20:41 12.365 MLS/HR Ondansetron HCl (Zofran) 4 mg PRN Q6HRS PRN 09/19/19 21:15 Oxycodone/ Acetaminophen (Percocet 5/325) 1 tab PRN Q4HRS PRN 09/19/19 21:15 10/04/19 10:41 DC 10/04/19 02:02 1 TAB Potassium Bicarbonate (Potassium Effervescent Tablet) 20 meq 1X ONCE 09/26/19 10:00 09/26/19 10:01 DC 09/26/19 09:59 20 MEQ Potassium Chloride/Water 100 ml @ 100 mls/hr 1X ONCE 09/27/19 10:00 09/27/19 10:59 DC 09/27/19 10:15 100 MLS/HR Potassium Chloride (Klor-Con) 20 meq 1X ONCE 09/28/19 11:15 09/28/19 11:17 DC 09/28/19 14:05 20 MEQ Senna/Docusate Sodium (Senna Plus) 1 tab BID 09/20/19 09:00 10/09/19 08:47 1 TAB Sodium Bicarbonate 150 meq/Dextrose 1,150 ml @ 125 mls/hr Q9H12M 09/20/19 06:45 09/21/19 10:17 DC 09/21/19 01:39 125 MLS/HR Sodium Chloride 1,000 ml @ 400 mls/hr Q2H30M PRN 09/20/19 14:09 09/21/19 02:08 DC Sodium Chloride (Normal Saline Flush) 3 ml QSHIFT PRN 09/19/19 21:15 Thiamine Mononitrate (Vitamin B-1) 100 mg BID 10/02/19 21:00 10/09/19 08:45 100 MG Thiamine HCl 100 mg/Dextrose 51 ml @ 102 mls/hr TID 09/26/19 14:00 10/02/19 13:46 DC 10/01/19 20:41 102 MLS/HR Tramadol HCl (Ultram) 50 mg PRN Q8HRS PRN 10/04/19 10:45 10/09/19 02:26 50 MG Ziprasidone (Geodon Im) 20 mg 1X ONCE 10/02/19 21:30 10/02/19 21:31 DC 10/02/19 21:12 20 MG Physical Exam: Mental Status Exam: 64-year-old gentleman appears older than his stated age, fairly groomed, fairly nourished Uncooperative, frustrated Disoriented Speech is soft and low volume Thought processes disorganized Denies auditory or visual hallucinations. Denies suicidal or homicidal thoughts. Mood is dysphoric Affect is dysthymic Insight is poor Judgment is poor Impulse control is poor Attention span and concentration impaired Recent and remote memory impaired Physical Exam: Refer to Physician's note. TELEVISION AND RADIO REPAIRER: No focal deficit MSK: No EPS, TDK, or abnormal involuntary movements Diagnosis: 1. Acute delirium, likely hyperactive, multifactorial 2. Alcohol use disorder, recurrent, severe 3. Complicated alcohol withdrawal, Wernicke's encephalopathy. 4. Neurocognitive disorder, unspecified. Rule out major neurocognitive disorder. Assessment: Assessment: He is a 64-year-old gentleman with history of alcohol use disorder, admitted with multiple medical issues. He has alcoholic liver cirrhosis. He is delirious likely to multiple reasons including cirrhosis, underlying degenerative brain changes, and GI bleed. At this point, given patient's frequent behavioral disturbances, receiving Haldol, reasonable to add Haldol on a scheduled basis to have more sustained effect. Since patient has renal failure, and structural brain changes, he is at risk of having EPS. Add benztropine with Haldol. Today upon assessment, he continues to be confused, delirious, having behavioral disturbances requiring Haldol and Ativan. Plan: 1. Continue Haldol 5 mg twice a day for resolution of delirium and behavioral disturbances associated with delirium 2. Benztropine 1 mg twice a day as needed for EPS. 3. Avoid sedatives and hypnotics unless really required. For agitation please prefer to give Haldol first. 4. Avoid ing, applied delirium protocol, keep patient alert during the day with bright sunlight in the room. 5. Continue other medications as is. Thank you for involving inpatient care. Will follow along SHERIN WEST MD Oct 09, 2019 19:44
[2019-10-09] MEDS: PATCH REMOVAL. MC SCH (20:57)
[2019-10-09 22:33] VITALS: BP 91/40
[2019-10-10 03:00] VITALS: BP 102/47
[2019-10-10] MEDS: traMADol 50 MG TABLET PO PRN ×2 (06:00→13:26)
[2019-10-10 07:35] VITALS: BP 114/59
[2019-10-10] MEDS: NICOTINE 21MG PATCH. TD SCH (09:29)
[2019-10-10] MEDS: LIDOCAINE (700MG/PATCH) PATCH. TD SCH (09:30)
[2019-10-10] MEDS: FAMOTIDINE 20 MG TABLET. PO SCH ×2 (09:38→19:57)
[2019-10-10] MEDS: THIAMINE 100 MG TABLET. PO SCH ×2 (09:38→19:57)
[2019-10-10] MEDS: METOPROLOL TART IMMED RELEASE 25 MG TABLET. PO SCH ×2 (09:39→19:58)
[2019-10-10] MEDS: HALOPERIDOL 5 MG TABLET. PO SCH ×2 (09:39→19:57)
[2019-10-10] MEDS: SENNOSIDES/DOCUSATE 8.6/50MG TABLET. PO SCH ×2 (09:39→19:58)
--- NOTE | 2019-10-10 11:08 | PDOC ---
Objective: Objective: Reviewed chart. Vital Signs: Vital Signs Date Time Temp Pulse Resp B/P (MAP) Pulse Ox O2 Delivery O2 Flow Rate FiO2 10/10/19 09:39 61 114/59 10/10/19 07:35 97.2 16 95 Room Air 97.2 PE: GEN: NAD NEURO/PSYCH: sleeping, not awakened A/P: Alcoholic liver disease, encephalopathy, h/o GI bleeding -- Awaiting DC. Justicifation of Admission Dx: Justifications for Admission: Justification of Admission Dx: Yes Acute Renal Failure: Serum Cr > 4mg/dL RAQUEL GAYTAN Oct 10, 2019 11:08
[2019-10-10 11:20] VITALS: BP 110/54
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
[2019-10-10 15:09] VITALS: BP 115/52
--- NOTE | 2019-10-10 15:37 | NUR ---
RANDY following. Discussed with RNMatt with [facility] advised they can accept pt, however then when Matt discovered pt did not have a hospice dx per Matthew he wanted to retract his acceptance and stated he will check with a hospice company they use because they accepted based on thinking they would have another set of hands from the hospice company. Matt advised he will call RANDY tomorrow morning (10/11/2019). RANDY spoke with Romaine at [facility], she will have a decision tomorrow (10/11/2019). RANDY will continue to follow.
[2019-10-10 19:00] VITALS: BP 131/53
[2019-10-10] MEDS: ACETAMINOPHEN 325 MG TABLET. PO PRN (19:57)
[2019-10-10] MEDS: PATCH REMOVAL. MC SCH (19:59)
--- NOTE | 2019-10-10 20:01 | NUR ---
2100 Medication given at this time as per Patient's request. Assessment completed. Patient given Tylenol for C/O Headache.
--- NOTE | 2019-10-11 00:18 | NUR ---
Patient attempting to leave, agitated with staff. Edward shafer called, Security assisted in getting Patient back to bed and Ativan given IM per [facility] protocol.
[2019-10-11] MEDS: HALOPERIDOL LACTATE 5 MG/ML VIAL. IM PRN ×2 (00:48→04:58)
--- NOTE | 2019-10-11 00:50 | NUR ---
Patient continues to be agitated and trying to leave. Haldol IM given per order.
--- NOTE | 2019-10-11 01:02 | NUR ---
Patient currently resting calmly in bed eyes closed. 1:1 observation continues at bedside.
--- NOTE | 2019-10-11 01:36 | NUR ---
Patient with increased agitation, hitting at staff. Edward shafer called.
--- NOTE | 2019-10-11 01:42 | NUR ---
Call placed to Dr. Chávez's service regarding Patient's increased agitation/hitting.
--- NOTE | 2019-10-11 01:50 | NUR ---
Call returned from Dr. Ayala, sasha for Shaka.
[2019-10-11] MEDS ORDERED: ZIPRASIDONE IM 20 MG VIAL. IM PRN (02:00)
--- NOTE | 2019-10-11 02:05 | NUR ---
Geodon 10 MG given IM per order.
--- NOTE | 2019-10-11 02:28 | NUR ---
Patient resting quietly. Code shafer cleared. 1:1 sitter remains at bedside.
[2019-10-11 03:09] VITALS: BP 154/65
--- NOTE | 2019-10-11 04:57 | NUR ---
Patient climbing out of bed, hitting staff. Code hollis called.
--- NOTE | 2019-10-11 04:58 | NUR ---
Haldol given IM per order.
--- NOTE | 2019-10-11 05:24 | NUR ---
Call to Dr. Fuller regarding Patient agitation and medications given for agitation. Order received to discontinue the Geodon and continue using Haldol as ordered PRN and Ativan as ordered PRN.
[2019-10-11 07:00] VITALS: BP 153/58
[2019-10-11] MEDS: LIDOCAINE (700MG/PATCH) PATCH. TD SCH (09:19)
[2019-10-11] MEDS: NICOTINE 21MG PATCH. TD SCH (09:19)
[2019-10-11] MEDS: METOPROLOL TART IMMED RELEASE 25 MG TABLET. PO SCH ×2 (09:20→20:13)
[2019-10-11] MEDS: FAMOTIDINE 20 MG TABLET. PO SCH ×2 (09:20→20:11)
[2019-10-11] MEDS: THIAMINE 100 MG TABLET. PO SCH ×2 (09:20→20:11)
[2019-10-11] MEDS: SENNOSIDES/DOCUSATE 8.6/50MG TABLET. PO SCH ×2 (09:20→20:12)
[2019-10-11] MEDS: HALOPERIDOL 5 MG TABLET. PO SCH (09:20)
[2019-10-11] MEDS: traMADol 50 MG TABLET PO PRN ×2 (09:20→17:35)
--- NOTE | 2019-10-11 10:19 | NUR ---
RANDY following. Discussed with RN, pt still 1:1, had [facility] called multiple times last night. RANDY reached out to Matt at [facility] , left voicemail requesting call back RE acceptance decision. RANDY called Romaine at [facility], if pt does not qualify for hospice they don't think they can take pt at this time. RANDY will reach out to hospice again to determine how close pt is to qualifying for hospice, or what is needed. RANDY will continue to follow. Addendum: 10/11/19 at 1131 by RAJI PADILLA [facility], they tried hospice through [facility], who also said pt does not meet for hospice. Chiquita VICTOR finding out cost of ambulance transport to [place]. RANDY will discuss with Chiquita to determine next options. Addendum: 10/11/19 at 1238 by RAJI PADILLA [facility] declined to take pt because of 1:1, they already have a patient on 1:1 right now. Referral faxed to [facility], awaiting acceptance decision. Addendum: 10/11/19 at 1554 by RAJI PADILLA [facility] declined to take pt due to pt being combative, and security getting involved. Referral was also faxed to [facility] Del Carmen [facility] for [facility] and [facility]. Awaiting acceptance decision.
--- NOTE | 2019-10-11 10:39 | PDOC ---
Objective: Objective: Reviewed events overnight. D/w 1:1 sitter - has been resting but awakens and wants to call a cab and leave. Vital Signs: Vital Signs Date Time Temp Pulse Resp B/P (MAP) Pulse Ox O2 Delivery O2 Flow Rate FiO2 10/11/19 09:20 67 153/58 10/11/19 07:00 98.1 18 97 Room Air 98.1 PE: GEN: NAD NEURO/PSYCH: sleeping, not awakened A/P: Korsakoff's psychosis -- Awaiting DC. Justicifation of Admission Dx: Justifications for Admission: Justification of Admission Dx: Yes Acute Renal Failure: Serum Cr > 4mg/dL RAQUEL GAYTAN Oct 11, 2019 10:39
[2019-10-11 11:00] VITALS: BP 114/47
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
[2019-10-11] MEDS: ACETAMINOPHEN 325 MG TABLET. PO PRN ×2 (12:35→20:12)
[2019-10-11 14:49] VITALS: BP 119/46
[2019-10-11 19:12] VITALS: BP 118/48
--- NOTE | 2019-10-11 20:07 | PDOC ---
F/U PHYSCH PROG NOTE Subjective: Gentleman is seen for routine follow-up. Information is obtained from nursing staff. He was placed in four-point restraint dye blender when he tried to leave the hospital. He was irritable and agitated received PRN Haldol that did not work. He was placed on four-point restraint. No harm or injuries were reported. Patient was removed from restraint, monitored constantly when he was in restrain. In spite of receiving scheduled and as needed Haldol multiple times, he is demonstrating agitation. Continues to be confused, delirious, and irritable. Denies hallucination or suicidal thoughts. Objective: Psychiatric review of system is positive for agitation, irritability, confusion, and altered mental status. Vital Signs: Vital Signs Date Time Temp Pulse Resp B/P (MAP) Pulse Ox O2 Delivery O2 Flow Rate FiO2 10/11/19 19:12 98.6 73 18 118/48 (71) 97 Room Air 98.6 Medications: Current Medications Medications (Trade) Dose Ordered Sig/Vasquez Start Time Stop Time Status Last Admin Dose Admin Acetaminophen (Tylenol) 650 mg 1X PRN PRN 09/19/19 21:15 09/26/19 11:10 DC Albumin Human 200 ml @ 200 mls/hr 1X PRN PRN 09/20/19 14:15 09/20/19 20:14 DC Amino Acids/ Glycerin/ Electrolytes 1,000 ml @ 80 mls/hr [id number] 09/21/19 10:45 10/03/19 00:37 DC 10/02/19 01:18 80 MLS/HR Benztropine Mesylate (Cogentin) 1 mg PRN BID PRN 10/04/19 15:30 10/09/19 20:53 1 MG Calcium Carbonate/ Glycine (Tums) 500 mg PRN Q3HRS PRN 09/19/19 21:15 Clonidine HCl (Catapres) 0.1 mg PRN Q1HR PRN 09/20/19 09:15 09/25/19 10:38 DC 09/24/19 22:31 0.1 MG Dextrose (Dextrose 50%-Water Syringe) 12.5 gm PRN Q15MIN PRN 09/21/19 09:00 10/03/19 21:13 DC Diphenhydramine HCl (Benadryl) 25 mg 1X ONCE 10/02/19 23:00 10/02/19 23:01 DC 10/02/19 22:45 25 MG Famotidine (Pepcid Vial) 20 mg DAILY 09/23/19 09:00 09/26/19 11:11 DC 09/26/19 08:49 20 MG Famotidine (Pepcid) 20 mg BID 09/28/19 21:00 10/11/19 09:20 20 MG Haloperidol (Haldol) 5 mg BID 10/06/19 21:00 10/11/19 19:56 DC 10/11/19 09:20 5 MG Haloperidol Lactate (Haldol Inj) 5 mg PRN Q4HRS PRN 10/02/19 14:00 10/11/19 19:56 DC 10/11/19 04:58 5 MG Hydralazine HCl (Apresoline Inj) 10 mg PRN Q4HRS PRN 09/25/19 10:45 09/28/19 16:46 10 MG Hydralazine HCl (Apresoline) 50 mg BID 09/25/19 21:00 10/11/19 09:20 50 MG Hydrocortisone Sodium Succinate (Solu-CORTEF) 100 mg Q8HRS 09/19/19 22:00 09/26/19 11:21 DC 09/26/19 05:45 100 MG Info (PHARMACY MONITORING -- do not chart) 1 each PRN DAILY PRN 09/20/19 14:15 09/26/19 11:13 DC Insulin Human Lispro (HumaLOG) 0-7 UNITS TIDWMEALS 09/21/19 09:00 10/03/19 21:13 DC Lactulose (Lactulose) 20 gm PRN Q12HR PRN 09/19/19 21:15 Lidocaine (Lidoderm) 1 patch DAILY 10/08/19 16:30 10/11/19 09:19 1 PATCH Lidocaine HCl (Buffered Lidocaine 1%) 6 ml 1X ONCE 09/20/19 12:00 09/20/19 12:01 DC 09/20/19 12:20 6 ML Lorazepam (Ativan Inj) 4 mg PRN Q1HR PRN 10/02/19 14:00 10/04/19 15:22 DC 10/03/19 04:12 4 MG Lorazepam (Ativan) 1 mg PRN Q6HRS PRN 10/08/19 15:00 10/11/19 19:56 DC 10/10/19 13:26 1 MG Magnesium Sulfate 50 ml @ 25 mls/hr 1X ONCE 09/27/19 11:00 09/27/19 12:59 DC 09/27/19 11:21 25 MLS/HR Magnesium Sulfate/ Dextrose 100 ml @ 100 mls/hr 1X ONCE 09/27/19 15:15 09/27/19 16:14 Cancel Metoprolol Tartrate (Lopressor) 12.5 mg BID 09/29/19 11:00 10/11/19 09:20 12.5 MG Miscellaneous (Lidoderm Patch Removal) 1 ea QHS 10/08/19 21:00 10/10/19 19:59 1 EA Morphine Sulfate (Morphine Sulfate) 1 mg PRN Q1HR PRN 09/19/19 21:15 10/02/19 13:53 DC 09/21/19 23:02 1 MG Multivitamins 10 ml/Thiamine HCl 100 mg/Folic Acid 1 mg/Sodium Chloride 1,011.2 ml @ 100 mls/ hr DAILY 09/20/19 10:00 09/24/19 19:07 DC 09/24/19 08:59 100 MLS/HR Nicotine (Nicoderm Cq 21mg) 1 patch DAILY 09/20/19 13:30 10/11/19 09:19 1 PATCH Norepinephrine Bitartrate 8 mg/ Dextrose 258 ml @ 12.365 mls/ hr CONT PRN 09/19/19 20:30 09/26/19 11:05 DC 09/19/19 20:41 12.365 MLS/HR Ondansetron HCl (Zofran) 4 mg PRN Q6HRS PRN 09/19/19 21:15 Oxycodone/ Acetaminophen (Percocet 5/325) 1 tab PRN Q4HRS PRN 09/19/19 21:15 10/04/19 10:41 DC 10/04/19 02:02 1 TAB Potassium Bicarbonate (Potassium Effervescent Tablet) 20 meq 1X ONCE 09/26/19 10:00 09/26/19 10:01 DC 09/26/19 09:59 20 MEQ Potassium Chloride/Water 100 ml @ 100 mls/hr 1X ONCE 09/27/19 10:00 09/27/19 10:59 DC 09/27/19 10:15 100 MLS/HR Potassium Chloride (Klor-Con) 20 meq 1X ONCE 09/28/19 11:15 09/28/19 11:17 DC 09/28/19 14:05 20 MEQ Senna/Docusate Sodium (Senna Plus) 1 tab BID 09/20/19 09:00 10/11/19 09:20 1 TAB Sodium Bicarbonate 150 meq/Dextrose 1,150 ml @ 125 mls/hr Q9H12M 09/20/19 06:45 09/21/19 10:17 DC 09/21/19 01:39 125 MLS/HR Sodium Chloride 1,000 ml @ 400 mls/hr Q2H30M PRN 09/20/19 14:09 09/21/19 02:08 DC Sodium Chloride (Normal Saline Flush) 3 ml QSHIFT PRN 09/19/19 21:15 Thiamine Mononitrate (Vitamin B-1) 100 mg BID 10/02/19 21:00 10/11/19 09:20 100 MG Thiamine HCl 100 mg/Dextrose 51 ml @ 102 mls/hr TID 09/26/19 14:00 10/02/19 13:46 DC 10/01/19 20:41 102 MLS/HR Tramadol HCl (Ultram) 50 mg PRN Q8HRS PRN 10/04/19 10:45 10/11/19 17:35 50 MG Ziprasidone (Geodon Im) 10 mg PRN Q2HR PRN 10/11/19 02:00 10/11/19 05:27 DC 10/11/19 02:05 10 MG Physical Exam: Mental Status Exam: 64-year-old gentleman appears older than his stated age, fairly groomed, fairly nourished Uncooperative, frustrated Disoriented Speech is soft and low volume Thought processes disorganized Denies auditory or visual hallucinations. Denies suicidal or homicidal thoughts. Mood is dysphoric Affect is dysthymic Insight is poor Judgment is poor Impulse control is poor Attention span and concentration impaired Recent and remote memory impaired Physical Exam: Refer to Physician's note. 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 Acute delirium, likely hyperactive, multifactorial 2. Alcohol use disorder, recurrent, severe 3. Complicated alcohol withdrawal, Wernicke's encephalopathy. 4. Neurocognitive disorder, unspecified. Rule out major neurocognitive disorder. Assessment: He is a 64-year-old gentleman with history of alcohol use disorder, admitted with multiple medical issues. He has alcoholic liver cirrhosis. He is delirious likely to multiple reasons including cirrhosis, underlying degenerative brain changes, and GI bleed. At this point, given patient's frequent behavioral disturbances, receiving Haldol, reasonable to add Haldol on a scheduled basis to have more sustained effect. Since patient has renal failure, and structural brain changes, he is at risk of having EPS. Add benztropine with Haldol. He continues to demonstrate behavioral disturbances receiving multiple a scheduled and as needed Haldol and Ativan. He was put in restraints today morning. Demonstrating irritable and dysphoric mood. We will change antipsychotic to Zyprexa. Recommending to avoid benzodiazepines as he might be getting benzo withdrawal with rebound agitation. Plan: 1. DC Haldol. Start Zyprexa Zydis 5 mg twice daily. Additionally, Zyprexa 5 mg IM 3 times daily as needed for breakthrough agitation. 2. Benztropine 1 mg twice a day as needed for EPS. 3. Avoid sedatives and hypnotics unless really required. For agitation please prefer to give Haldol first. 4. Avoid owning, applied delirium protocol, keep patient alert during the day with bright sunlight in the room. 5. Continue other medications as is. Thank you for involving inpatient care. Will follow along SHERIN WEST MD Oct 11, 2019 20:07
[2019-10-11] MEDS: PATCH REMOVAL. MC SCH (20:16)
[2019-10-11 23:09] VITALS: BP 92/48
[2019-10-12] MEDS: traMADol 50 MG TABLET PO PRN (01:30)
[2019-10-12 03:02] VITALS: BP 99/43
[2019-10-12] MEDS: OLANZapine IM 10 MG VIAL. IM PRN ×3 (03:19→21:09)
[2019-10-12 06:56] VITALS: BP 117/66
[2019-10-12] MEDS: SENNOSIDES/DOCUSATE 8.6/50MG TABLET. PO SCH ×2 (08:59→21:00)
[2019-10-12] MEDS: METOPROLOL TART IMMED RELEASE 25 MG TABLET. PO SCH ×2 (08:59→21:02)
[2019-10-12] MEDS: FAMOTIDINE 20 MG TABLET. PO SCH ×2 (08:59→21:00)
[2019-10-12] MEDS: LIDOCAINE (700MG/PATCH) PATCH. TD SCH (09:00)
[2019-10-12] MEDS: THIAMINE 100 MG TABLET. PO SCH (09:00)
[2019-10-12] MEDS: NICOTINE 21MG PATCH. TD SCH (09:00)
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
[2019-10-12 11:40] VITALS: BP 112/64
--- NOTE | 2019-10-12 11:40 | NUR ---
RANDY following. Discussed with RN, pt had another code lino called. [facility] declined to take pt, [facility] and rehab still reviewing. SW to send referral to some facilities in [place] to determine if pt can get accepted there. RANDY will continue to follow. Addendum: 10/12/19 at 1231 by RAJI PADILLA RANDY faxed referral to the following facilities in [place]; [facility] (ph: [phone], fax: [phone]), [facility] (ph: [phone], fax: [phone]), awaiting acceptance decision. Voicemail left for [facility] (ph: [phone]), requesting fax number. Referral also sent to [facility], for the memory care unit. Awaiting acceptance decision. RANDY will continue to follow. Addendum: 10/12/19 at 1325 by RAJI PADILLA [facility] in [place], [place] declined to take pt. RANDY received call from [facility], provided fax number. RANDY faxed referral to [facility] (ph: [phone], fax: [phone]). Awaiting acceptance decisions from facilities. Addendum: 10/12/19 at 1558 [address] [facility] is on an admissions hold currently, [facility] does not have any shelter care beds. RANDY will continue to follow. Addendum: 10/12/19 at 1606 by RAJI PADILLA RANDY spoke with pt's son, Catarino to advise of progress with pt. If no LTC placement is found, Catarino will pick pt up on 10/18/2019. RANDY will continue to follow.
[2019-10-12 15:05] VITALS: BP 118/70
[2019-10-12 19:00] VITALS: BP 119/72
--- NOTE | 2019-10-12 20:32 | PDOC ---
F/U PHYSCH PROG NOTE Subjective: Gentleman is seen for follow-up. Progress is reviewed with nursing staff. Patient continues to demonstrate agitated and impulsive behavior on the unit. He was reportedly physically aggressive towards health care with staff. Received multiple as needed's including Haldol Zyprexa and Ativan. He continues to be disoriented, irritable, and dysphoric. Confused, with bizarre statements. Objective: Vital Signs: Vital Signs Date Time Temp Pulse Resp B/P (MAP) Pulse Ox O2 Delivery O2 Flow Rate FiO2 10/12/19 15:05 98.1 78 18 118/70 (86) 98 Room Air 98.1 Labs: Laboratory Tests Test 10/11/19 21:16 10/12/19 07:00 Glucose (Fingerstick) 90 mg/dL (70-99) 103 mg/dL (70-99) H Medications: Current Medications Medications (Trade) Dose Ordered Sig/Vasquez Start Time Stop Time Status Last Admin Dose Admin Acetaminophen (Tylenol) 650 mg 1X PRN PRN 09/19/19 21:15 09/26/19 11:10 DC Albumin Human 200 ml @ 200 mls/hr 1X PRN PRN 09/20/19 14:15 09/20/19 20:14 DC Amino Acids/ Glycerin/ Electrolytes 1,000 ml @ 80 mls/hr [id number] 09/21/19 10:45 10/03/19 00:37 DC 10/02/19 01:18 80 MLS/HR Benztropine Mesylate (Cogentin) 1 mg PRN BID PRN 10/04/19 15:30 10/09/19 20:53 1 MG Calcium Carbonate/ Glycine (Tums) 500 mg PRN Q3HRS PRN 09/19/19 21:15 Clonidine HCl (Catapres) 0.1 mg PRN Q1HR PRN 09/20/19 09:15 09/25/19 10:38 DC 09/24/19 22:31 0.1 MG Dextrose (Dextrose 50%-Water Syringe) 12.5 gm PRN Q15MIN PRN 09/21/19 09:00 10/03/19 21:13 DC Diphenhydramine HCl (Benadryl) 25 mg 1X ONCE 10/02/19 23:00 10/02/19 23:01 DC 10/02/19 22:45 25 MG Famotidine (Pepcid Vial) 20 mg DAILY 09/23/19 09:00 09/26/19 11:11 DC 09/26/19 08:49 20 MG Famotidine (Pepcid) 20 mg BID 09/28/19 21:00 10/11/19 20:11 20 MG Haloperidol (Haldol) 5 mg BID 10/06/19 21:00 10/11/19 19:56 DC 10/11/19 09:20 5 MG Haloperidol Lactate (Haldol Inj) 5 mg PRN Q4HRS PRN 10/02/19 14:00 10/11/19 19:56 DC 10/11/19 04:58 5 MG Hydralazine HCl (Apresoline Inj) 10 mg PRN Q4HRS PRN 09/25/19 10:45 09/28/19 16:46 10 MG Hydralazine HCl (Apresoline) 50 mg BID 09/25/19 21:00 10/11/19 20:12 50 MG Hydrocortisone Sodium Succinate (Solu-CORTEF) 100 mg Q8HRS 09/19/19 22:00 09/26/19 11:21 DC 09/26/19 05:45 100 MG Info (PHARMACY MONITORING -- do not chart) 1 each PRN DAILY PRN 09/20/19 14:15 09/26/19 11:13 DC Insulin Human Lispro (HumaLOG) 0-7 UNITS TIDWMEALS 09/21/19 09:00 10/03/19 21:13 DC Lactulose (Lactulose) 20 gm PRN Q12HR PRN 09/19/19 21:15 Lidocaine (Lidoderm) 1 patch DAILY 10/08/19 16:30 10/11/19 09:19 1 PATCH Lidocaine HCl (Buffered Lidocaine 1%) 6 ml 1X ONCE 09/20/19 12:00 09/20/19 12:01 DC 09/20/19 12:20 6 ML Lorazepam (Ativan Inj) 4 mg PRN Q1HR PRN 10/02/19 14:00 10/04/19 15:22 DC 10/03/19 04:12 4 MG Lorazepam (Ativan) 1 mg PRN Q6HRS PRN 10/08/19 15:00 10/11/19 19:56 DC 10/10/19 13:26 1 MG Magnesium Sulfate 50 ml @ 25 mls/hr 1X ONCE 09/27/19 11:00 09/27/19 12:59 DC 09/27/19 11:21 25 MLS/HR Magnesium Sulfate/ Dextrose 100 ml @ 100 mls/hr 1X ONCE 09/27/19 15:15 09/27/19 16:14 Cancel Metoprolol Tartrate (Lopressor) 12.5 mg BID 09/29/19 11:00 10/11/19 20:13 12.5 MG Miscellaneous (Lidoderm Patch Removal) 1 ea QHS 10/08/19 21:00 10/11/19 20:16 1 EA Morphine Sulfate (Morphine Sulfate) 1 mg PRN Q1HR PRN 09/19/19 21:15 10/02/19 13:53 DC 09/21/19 23:02 1 MG Multivitamins 10 ml/Thiamine HCl 100 mg/Folic Acid 1 mg/Sodium Chloride 1,011.2 ml @ 100 mls/ hr DAILY 09/20/19 10:00 09/24/19 19:07 DC 09/24/19 08:59 100 MLS/HR Nicotine (Nicoderm Cq 21mg) 1 patch DAILY 09/20/19 13:30 10/11/19 09:19 1 PATCH Norepinephrine Bitartrate 8 mg/ Dextrose 258 ml @ 12.365 mls/ hr CONT PRN 09/19/19 20:30 09/26/19 11:05 DC 09/19/19 20:41 12.365 MLS/HR Olanzapine (ZyPREXA IM) 5 mg PRN TID PRN 10/11/19 20:00 10/12/19 08:38 5 MG Olanzapine (ZyPREXA ZYDIS) 5 mg BID 10/11/19 21:00 10/11/19 20:11 5 MG Ondansetron HCl (Zofran) 4 mg PRN Q6HRS PRN 09/19/19 21:15 Oxycodone/ Acetaminophen (Percocet 5/325) 1 tab PRN Q4HRS PRN 09/19/19 21:15 10/04/19 10:41 DC 10/04/19 02:02 1 TAB Potassium Bicarbonate (Potassium Effervescent Tablet) 20 meq 1X ONCE 09/26/19 10:00 09/26/19 10:01 DC 09/26/19 09:59 20 MEQ Potassium Chloride/Water 100 ml @ 100 mls/hr 1X ONCE 09/27/19 10:00 09/27/19 10:59 DC 09/27/19 10:15 100 MLS/HR Potassium Chloride (Klor-Con) 20 meq 1X ONCE 09/28/19 11:15 09/28/19 11:17 DC 09/28/19 14:05 20 MEQ Senna/Docusate Sodium (Senna Plus) 1 tab BID 09/20/19 09:00 10/11/19 20:12 1 TAB Sodium Bicarbonate 150 meq/Dextrose 1,150 ml @ 125 mls/hr Q9H12M 09/20/19 06:45 09/21/19 10:17 DC 09/21/19 01:39 125 MLS/HR Sodium Chloride 1,000 ml @ 400 mls/hr Q2H30M PRN 09/20/19 14:09 09/21/19 02:08 DC Sodium Chloride (Normal Saline Flush) 3 ml QSHIFT PRN 09/19/19 21:15 Thiamine Mononitrate (Vitamin B-1) 100 mg BID 10/02/19 21:00 10/11/19 20:11 100 MG Thiamine HCl 100 mg/Dextrose 51 ml @ 102 mls/hr TID 09/26/19 14:00 10/02/19 13:46 DC 10/01/19 20:41 102 MLS/HR Tramadol HCl (Ultram) 50 mg PRN Q8HRS PRN 10/04/19 10:45 10/12/19 01:30 50 MG Ziprasidone (Geodon Im) 10 mg PRN Q2HR PRN 10/11/19 02:00 10/11/19 05:27 DC 10/11/19 02:05 10 MG Physical Exam: Mental Status Exam: 64-year-old gentleman appears older than his stated age, fairly groomed, fairly nourished Uncooperative, frustrated Disoriented Speech is soft and low volume Thought processes disorganized Denies auditory or visual hallucinations. Denies suicidal or homicidal thoughts. Mood is dysphoric Affect is dysthymic Insight is poor Judgment is poor Impulse control is poor Attention span and concentration impaired Recent and remote memory impaired Physical Exam: Refer to Physician's note. [employer]: No focal deficit MSK: No EPS, TDK, or abnormal involuntary movements Diagnosis: 1. Acute delirium, likely hyperactive, multifactorial 2. Alcohol use disorder, recurrent, severe 3. Complicated alcohol withdrawal, Wernicke's encephalopathy. 4. Neurocognitive disorder, unspecified. Rule out major neurocognitive disorder. Assessment: He is a 64-year-old gentleman with history of alcohol use disorder, admitted with multiple medical issues. He has alcoholic liver cirrhosis. He is delirious likely to multiple reasons including cirrhosis, underlying degenerative brain changes, and GI bleed. At this point, given patient's frequent behavioral disturbances, receiving Haldol, reasonable to add Haldol on a scheduled basis to have more sustained effect. Since patient has renal failure, and structural brain changes, he is at risk of having EPS. Add benztropine with Haldol. He continues to demonstrate behavioral disturbances receiving multiple a scheduled and as needed Haldol and Ativan. He was put in restraints today morning. Demonstrating irritable and dysphoric mood. We will change antipsychotic to Zyprexa. Recommending to avoid benzodiazepines as he might be getting benzo withdrawal with rebound agitation. 10/12/2019: Continues to demonstrated agitated and irritable behavior, physically aggressive. In Will increase Zyprexa. Given history of alcoholism, Wernicke's encephalopathy could be a possibility. Reasonable to change thiamine to IV thiamine to assess response. Plan: 1. Zyprexa 10 mg twice daily for mood instability and agitation. Additionally, Zyprexa 5 mg IM 3 times daily as needed for breakthrough agitation. 2. Change oral thiamine to IV thiamine 100 mg 3 times a day. 3. Avoid sedatives and hypnotics unless really required. For agitation please prefer to give Haldol first. 4. Avoid ing, applied delirium protocol, keep patient alert during the day with bright sunlight in the room. 5. Continue other medications as is. Thank you for involving inpatient care. Will follow along SHERIN WEST MD Oct 12, 2019 20:31
[2019-10-12] MEDS: BENZTROPINE MESYLATE 1 MG TABLET. PO PRN (21:00)
[2019-10-12] MEDS: THIAMINE INJ 100 MG in IV DEXTROSE 5% 50 ML IV SCH (21:00)
[2019-10-12] MEDS: PATCH REMOVAL. MC SCH (21:00)
[2019-10-13 03:00] VITALS: BP 135/69
[2019-10-13] MEDS: OLANZapine IM 10 MG VIAL. IM PRN (04:56)
[2019-10-13 06:50] VITALS: BP 115/73
--- NOTE | 2019-10-13 07:20 | NUR ---
Noted Dr Fuller ordered thiamine iv, pt refuses iv, through last weeks of this admission, spoke with supervisor printing and stamping at approximately 2200, regarding not having Dr Fuller's phone number, and she did not have on her. So unable to inform Dr Fuller.
[2019-10-13] MEDS: LIDOCAINE (700MG/PATCH) PATCH. TD SCH (09:00)
[2019-10-13] MEDS: NICOTINE 21MG PATCH. TD SCH (09:00)
[2019-10-13] MEDS: THIAMINE INJ 100 MG in IV DEXTROSE 5% 50 ML IV SCH ×2 (09:00→13:50)
[2019-10-13] MEDS: SENNOSIDES/DOCUSATE 8.6/50MG TABLET. PO SCH ×2 (09:16→20:12)
[2019-10-13] MEDS: FAMOTIDINE 20 MG TABLET. PO SCH ×2 (09:16→20:12)
[2019-10-13] MEDS: METOPROLOL TART IMMED RELEASE 25 MG TABLET. PO SCH ×2 (09:16→20:13)
[2019-10-13 10:46] VITALS: BP 119/75
[2019-10-13] MEDS: traMADol 50 MG TABLET PO PRN ×3 (11:51→21:15)
--- NOTE | 2019-10-13 11:53 | PDOC ---
[employer] PROGRESS NOTE Chief Complaint Chief Complaint Hypovolemic shock secondary to GI bleeding most likely - No signs of bleeding and no records from [facility]. "Cautery" hopefully implies non-variceal lesion Acute Microcytic anemia most likely secondary to iron deficiency secondary to the above-mentioned GI bleed Acute renal failure Chronic pain syndrome on chronic narcotics Toxic encephalopathy secondary to the above Hyperkalemia 5.7 secondary to acute renal failure most likely Anion gap metabolic acidosis with a probably a superimposed non-metabolic acidosis given the degree of acidosis with a bicarb reported at 11 from the outside facility Hypomagnesemia Cirrhotic appearing liver cirrhotic morphology of the liver, borderline enlargement of spleen, heterogeneous attenuation at hepatic dome but poorly evaluated somewhat ectatic gallbladder THrombocytopenia Uremia ACUTE RENAL TUBULAR NECROSIS Hyperphosphatemia Severe protein calorie malnutrition BRADYCARDIA, d/c clonidine Anemia - iron studies c/w ACD - transfused last week, Hgb improved on 09/21 Probable alcoholic cirrhosis 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 None further. EF 50% with mild global hypokinesis DM2: Suspect CKD - Renal US Asymmetric renal size with atrophic appearing right kidney with echogenic cortex which could be from chronic renal disease. Acute delirium, likely hyperactive, multifactorial Alcohol use disorder, recurrent, severe Complicated alcohol withdrawal, Wernicke's encephalopathy. Neurocognitive disorder, unspecified. Rule out major neurocognitive disorder. History of Present Illness History of Present Illness 10/13/2019 Patient seen and examined He is pleasantly confused Just build his T The nurses aides are helping clean it up Chart reviewed Discussed with RN 10/12/2019 Patient seen and examined this morning He was very agitated and we had to call code hollis We gave him 2 intramuscular injections 1 of Haldol 1 of Zyprexa Chart reviewed Discussed with RN Discussed with campus security director who is here He is still on one-to-one observation 10/10/2021 Patient seen and examined He remains pleasantly confused He has a one-to-one observer Chart reviewed Discussed with RN 10/10/2019 Patient seen exam Discussed with case management The patient's son plans to come pick him up on 16 October Mr Knott is a 64 yo M w/ PMHx presents to the emergency department at [facility] in [place] reportedly with altered mental status. Patient apparently was found by his roommate on the ground of his apartment patient cannot give history given his current condition. It is unknown when he was last seen normal apparently patient was found to be hypotensive on the field at 80/40 fluid resuscitation was started on the field with Ringer's lactate patient was seen in the emergency department and found to be anemic with Hb 7.9 and having reports of GI bleeding according to the records with BUN 101. BNP 3353. Patient confused and the details of his stated history are not reliable according to the ER doctor patient is in acute renal failure and he has been recently admitted at [facility] from 08/16 through 08/25 for a GI bleed. CT abdomen pelvis with contrast - marked calcified and noncalcified atheromatous plaque burden throughout the aorta, iliofemoral system and aortic branch vessels. Severe stenosis at the right renal artery origin with resultant atrophy of the right kidney. 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 Given the presumed severe stenosis at the SMA origin, recommend correlation for symptoms that would suggest intestinal angina noting that the bowel in this distribution does not exhibit obvious features of ischemia. Also with cirrhotic morphology of the liver and borderline enlargement of the spleen. There is heterogeneous attenuation of the liver at the hepatic dome but this region is poorly evaluated due to motion artifact and a definite mass is not able to be delineated. Admitted to ICU with levophed ordered. 09/19: Started on bicarb GTT, levophed. WBC 6.1, Hb 7.8, platelets 118. NA 147, K5.5, BUN 9 3, CR 7.8, glucose 126, INR 1.2, MG 1.6, phosphorus 6.5, TSH 0.473. He thinks he is at home today. Notes he drinks quite a bit. Son in [place] notes he was "doing well" after discharge from [facility] and so he returned back home. Trialysis catheter placed under nephrology guidance for emergent dialysis. 09/20: Hb 6.5, Na 146, K 2.8, BUN 27, Cr 2.2, glucose 155, AST 45, albumin 2.4 today. Still very confused. Some stool overnight. UOP 1770 last 24 hours. 09/21: Afebrile. Hb 9.2 after transfusion. CR 2 0, mag 1.6 K3.5. Rolling around in bed still very confused. 09/22: Cr 1.7, K 3.2. Received Haldol, he has some lipsmacking. Ordered benztropine. He is still very confused only opens his eyes to painful stimuli. Afebrile 09/24: mental status still poor, SUSPECT ALCOHOLIC CIRRHOSIS 09/25: Suspect CKD - Renal US Asymmetric renal size with atrophic appearing right kidney with echogenic cortex which could be from chronic renal disease. 09/26: No acute events reported overnight, case discussed with nursing staff patient in no acute distress no complaints during my visit continues to be quite obtunded and unable to have a meaningful conversation, awaiting for records from [facility] 09/28: d/c ON HOLD DIFFICULT PLACEMENT 09/30: MORE CONFUSED, D/W RN, //MITGIORGI AGAIN 10/01: Overnight no events. Hb stable. He is still confused. Not injuring himself or others. Follows some commands. Needs placement. 10/02: Restless overnight, required haldol and ativan IM with improvement. Somewhat confused this morning. Follows some commands. Drops food on the floor and tells nursing staff, "It's ok, the dogs will get it.". Attempted to call son, Catarino, goes straight to voiceksil. 10/03: CT head reviewed no acute changes, frontal atrophy bilaterally noted. Renal function a bit worse He is complaining of a headache today. No shortness of breath, he is less confused today. No chest pain. Son Catarino has an ill , will not be able to return from [place] until 10/17/2019. 10/04: Security called for multiple combative instances, on one-to-one overnight. He shows significant impulse control issues, still believes there is a dog in the hospital and does not always know where he is. Seen by psychiatry, agreed likely Wernickes encephalopathy 10/05: In bed today, still on 1-1 for impulse control problems. Using profanity frequently, has attempted to bite a nurse, has pulled a drawer out of his bedside table to try to strike another nurse, he attempted to urinate on a nurse yesterday, successfully. 10/06: Afebrile overnight. Still on one-to-one. He intermittently responds to redirection, has required a one-to-one, no longer requiring mitts, has scheduled Haldol after psychiatry recommendations. Needs long-term placement. BP on the low side. He responds well to questions Afebrile overnight. Still on one-to-one sitter. Still very impulsive requiring frequent redirection. Tell staff he is going home. Denies that he is in a hospital. Does follow most commands and responds well to questions though the accuracy is in question. No chest pain or shortness of breath. No further bleeding. Vitals/I&O Vitals/I&O: Vital Signs Date Time Temp Pulse Resp B/P (MAP) Pulse Ox O2 Delivery O2 Flow Rate FiO2 10/13/19 11:51 Room Air 10/13/19 10:46 98.5 99 16 119/75 (90) 99 98.5 I & O 10/12/19 10/12/19 10/13/19 15:00 23:00 07:00 Intake Total 360 ml Balance 360 ml Physical Exam Physical Exam: General: Other (CONFUSED) Lungs: Clear to auscultation, Normal air movement Neuro: Other (CONFUSED) General: No acute distress Heart: Regular rate, Normal S1, Other (2/6 systolic murmur ) Lungs: Clear, Wheezing Abdomen: Normal bowel sounds, Soft, No tenderness Extremities: No clubbing, No cyanosis, No edema, Normal pulses, No tenderness/swelling Skin: No breakdown, No significant lesion Labs Labs: Laboratory Tests Test 10/13/19 09:17 Glucose (Fingerstick) 106 mg/dL (70-99) Assessment and Plan Assessmemt and Plan Hypovolemic shock secondary to GI bleeding most likely - No signs of bleeding and no records from [facility]. "Cautery" hopefully implies non-variceal lesion Acute Microcytic anemia most likely secondary to iron deficiency secondary to the above-mentioned GI bleed Acute renal failure Chronic pain syndrome on chronic narcotics Toxic encephalopathy secondary to the above Hyperkalemia 5.7 secondary to acute renal failure most likely Anion gap metabolic acidosis with a probably a superimposed non-metabolic acidosis given the degree of acidosis with a bicarb reported at 11 from the outside facility Hypomagnesemia Cirrhotic appearing liver cirrhotic morphology of the liver, borderline enlargement of spleen, hetero geneous attenuation at hepatic dome but poorly evaluated somewhat ectatic gallbladder THrombocytopenia Uremia ACUTE RENAL TUBULAR NECROSIS Hyperphosphatemia Severe protein calorie malnutrition BRADYCARDIA, d/c clonidine Anemia - iron studies c/w ACD - transfused last week, Hgb improved on 09/21 Probable alcoholic cirrhosis 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 None further. EF 50% with mild global hypokinesis DM2: Suspect CKD - Renal US Asymmetric renal size with atrophic appearing right kidney with echogenic cortex which could be from chronic renal disease. Acute delirium, likely hyperactive, multifactorial Alcohol use disorder, recurrent, severe Complicated alcohol withdrawal, Wernicke's encephalopathy. Neurocognitive disorder, unspecified. Rule out major neurocognitive disorder. Plan Haldol and Zyprexa as needed We are awaiting his son to come from [place] and pick him up on the seventh For now continue current care Comment Review of Relevant I have reviewed the following items bj (where applicable) has been applied. Medications: Current Medications Medications (Trade) Dose Ordered Sig/Vasquez Route PRN Reason Start Time Stop Time Status Last Admin Dose Admin Olanzapine (ZyPREXA ZYDIS) 10 mg BID PO 10/12/19 21:00 10/13/19 09:16 Justicifation of Admission Dx: Justifications for Admission: Justification of Admission Dx: Yes Acute Renal Failure: Serum Cr > 4mg/dL ELIDA CHIU III DO Oct 13, 2019 11:53
--- NOTE | 2019-10-13 12:12 | PDOC ---
[facility] PROGRESS NOTE Subjective Calm. Remains confused. Can't tell me what hospital he was at before this admission. Objective No records from [facility]. Physical Exam Lungs clear. RRR Abdomen soft, not tender nor distended. Review of Relevant I have reviewed the following items bj (where applicable) has been applied. Labs Laboratory Tests Test 10/11/19 21:16 10/12/19 07:00 10/13/19 09:17 Glucose (Fingerstick) 90 mg/dL (70-99) 103 mg/dL (70-99) 106 mg/dL (70-99) Laboratory Tests Test 10/13/19 09:17 Glucose (Fingerstick) 106 mg/dL (70-99) Microbiology 09/19/19 Urine Culture - Final, Complete 09/19/19 Blood Culture - Final, Complete NO GROWTH AFTER 5 DAYS Vitals/I & O Vital Sign - Last 24 Hours 10/12/19 10/12/19 10/12/19 10/12/19 15:05 19:00 20:20 21:01 Temp 98.1 100.0 98.1 100.0 Pulse 78 104 104 Resp 18 18 B/P (MAP) 118/70 (86) 119/72 (88) 119/72 Pulse Ox 98 95 O2 Delivery Room Air Room Air 10/12/19 10/12/19 10/13/19 10/13/19 21:02 23:00 03:00 06:50 Temp 98.0 98.8 98.0 98.8 Pulse 104 60 105 Resp 18 18 B/P (MAP) 119/72 135/69 (91) 115/73 (87) Pulse Ox 95 98 O2 Delivery Room Air 10/13/19 10/13/19 10/13/19 10/13/19 08:30 09:16 09:16 10:46 Temp 98.5 98.5 Pulse 105 105 99 Resp 16 B/P (MAP) 115/73 115/73 119/75 (90) Pulse Ox 99 O2 Delivery Room Air Room Air 10/13/19 11:51 O2 Delivery Room Air Intake and Output 10/12/19 10/12/19 10/13/19 15:00 23:00 07:00 Intake Total 360 ml Balance 360 ml Assessment Korsakoff's psychosis persists. Plan of Care: Continue current Tx, Mgmt Justicifation of Admission Dx: Justifications for Admission: Justification of Admission Dx: Yes Acute Renal Failure: Serum Cr > 4mg/dL VIVIANE SUH MD Oct 13, 2019 12:12
[2019-10-13] MEDS: THIAMINE 100 MG TABLET. PO SCH ×2 (14:44→20:11)
[2019-10-13 15:00] VITALS: BP 120/58
[2019-10-13] MEDS: ACETAMINOPHEN 325 MG TABLET. PO PRN (16:15)
[2019-10-13 18:46] VITALS: BP 126/63
[2019-10-13] MEDS: PATCH REMOVAL. MC SCH (21:00)
[2019-10-14 03:00] VITALS: BP 125/78
[2019-10-14] MEDS: traMADol 50 MG TABLET PO PRN ×2 (06:21→18:34)
[2019-10-14 07:00] VITALS: BP 138/79
--- NOTE | 2019-10-14 07:00 | NUR ---
Received report from previous nurse with walking rounds. Patient appears to be be sleeping at this time. Resp appear deep and regular, facial expression appears relaxed. 1:1 staff member at patient bedside.
[2019-10-14] MEDS: METOPROLOL TART IMMED RELEASE 25 MG TABLET. PO SCH ×2 (10:15→21:34)
[2019-10-14] MEDS: SENNOSIDES/DOCUSATE 8.6/50MG TABLET. PO SCH ×2 (10:18→21:35)
[2019-10-14] MEDS: THIAMINE 100 MG TABLET. PO SCH ×3 (10:19→21:34)
[2019-10-14] MEDS: FAMOTIDINE 20 MG TABLET. PO SCH ×2 (10:19→21:34)
[2019-10-14] MEDS: NICOTINE 21MG PATCH. TD SCH (10:24)
[2019-10-14] MEDS: LIDOCAINE (700MG/PATCH) PATCH. TD SCH (10:25)
--- NOTE | 2019-10-14 10:51 | NUR ---
Spoke with patient's pharmacy listed in record regarding insulin, etc, as patient denies every taking any insulin. Pt pharmacy confirmed that he has not gotten any insulin from them, also that patient has not been issued any of the medications listed on current home med list.
[2019-10-14 11:00] VITALS: BP 104/55
--- NOTE | 2019-10-14 12:27 | PDOC ---
[employer] PROGRESS NOTE Chief Complaint Chief Complaint Hypovolemic shock secondary to GI bleeding most likely - No signs of bleeding and no records from [facility]. "Cautery" hopefully implies non-variceal lesion Acute Microcytic anemia most likely secondary to iron deficiency secondary to the above-mentioned GI bleed Acute renal failure Chronic pain syndrome on chronic narcotics Toxic encephalopathy secondary to the above Hyperkalemia 5.7 secondary to acute renal failure most likely Anion gap metabolic acidosis with a probably a superimposed non-metabolic acidosis given the degree of acidosis with a bicarb reported at 11 from the outside facility Hypomagnesemia Cirrhotic appearing liver cirrhotic morphology of the liver, borderline enlargement of spleen, heterogeneous attenuation at hepatic dome but poorly evaluated somewhat ectatic gallbladder THrombocytopenia Uremia ACUTE RENAL TUBULAR NECROSIS Hyperphosphatemia Severe protein calorie malnutrition BRADYCARDIA, d/c clonidine Anemia - iron studies c/w ACD - transfused last week, Hgb improved on 09/21 Probable alcoholic cirrhosis 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 None further. EF 50% with mild global hypokinesis DM2: Suspect CKD - Renal US Asymmetric renal size with atrophic appearing right kidney with echogenic cortex which could be from chronic renal disease. Acute delirium, likely hyperactive, multifactorial Alcohol use disorder, recurrent, severe Complicated alcohol withdrawal, Wernicke's encephalopathy. Neurocognitive disorder, unspecified. Rule out major neurocognitive disorder. History of Present Illness History of Present Illness 10/14/2019 Patient seen and examined He has a one-to-one observer He is a little more pleasant today Discussed with nurse about his home meds (apparently the pharmacy has different records than what we are showing so we are trying to clarify his home meds) 10/13/2019 Patient seen and examined He is pleasantly confused Just build his T The nurses aides are helping clean it up Chart reviewed Discussed with RN 10/12/2019 Patient seen and examined this morning He was very agitated and we had to call code hollis We gave him 2 intramuscular injections 1 of Haldol 1 of Zyprexa Chart reviewed Discussed with RN Discussed with senior security analyst who is here He is still on one-to-one observation 10/10/2021 Patient seen and examined He remains pleasantly confused He has a one-to-one observer Chart reviewed Discussed with RN 10/10/2019 Patient seen exam Discussed with case management The patient's son plans to come pick him up on 16 October Mr Knott is a 64 yo M w/ PMHx presents to the emergency department at [facility] in [place] reportedly with altered mental status. Patient apparently was found by his roommate on the ground of his apartment patient cannot give history given his current condition. It is unknown when he was last seen normal apparently patient was found to be hypotensive on the field at 80/40 fluid resuscitation was started on the field with Ringer's lactate patient was seen in the emergency department and found to be anemic with Hb 7.9 and having reports of GI bleeding according to the records with BUN 101. BNP 3353. Patient confused and the details of his stated history are not reliable according to the ER doctor patient is in acute renal failure and he has been recently admitted at [facility] from 08/16 through 08/25 for a GI bleed. CT abdomen pelvis with contrast - marked calcified and noncalcified atheromatous plaque burden throughout the aorta, iliofemoral system and aortic branch vessels. Severe stenosis at the right renal artery origin with resultant atrophy of the right kidney. 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 Given the presumed severe stenosis at the SMA origin, recommend correlation for symptoms that would suggest intestinal angina noting that the bowel in this distribution does not exhibit obvious features of ischemia. Also with cirrhotic morphology of the liver and borderline enlargement of the spleen. There is heterogeneous attenuation of the liver at the hepatic dome but this region is poorly evaluated due to motion artifact and a definite mass is not able to be delineated. Admitted to ICU with levophed ordered. 09/19: Started on bicarb GTT, levophed. WBC 6.1, Hb 7.8, platelets 118. NA 147, K5.5, BUN 9 3, CR 7.8, glucose 126, INR 1.2, MG 1.6, phosphorus 6.5, TSH 0.473. He thinks he is at home today. Notes he drinks quite a bit. Son in [place] notes he was "doing well" after discharge from [facility] and so he returned back home. Trialysis catheter placed under nephrology guidance for emergent dialysis. 09/20: Hb 6.5, Na 146, K 2.8, BUN 27, Cr 2.2, glucose 155, AST 45, albumin 2.4 today. Still very confused. Some stool overnight. UOP 1770 last 24 hours. 09/21: Afebrile. Hb 9.2 after transfusion. CR 2 0, mag 1.6 K3.5. Rolling around in bed still very confused. 09/22: Cr 1.7, K 3.2. Received Haldol, he has some lipsmacking. Ordered benztropine. He is still very confused only opens his eyes to painful stimuli. Afebrile 09/24: mental status still poor, SUSPECT ALCOHOLIC CIRRHOSIS 09/25: Suspect CKD - Renal US Asymmetric renal size with atrophic appearing right kidney with echogenic cortex which could be from chronic renal disease. 09/26: No acute events reported overnight, case discussed with nursing staff patient in no acute distress no complaints during my visit continues to be quite obtunded and unable to have a meaningful conversation, awaiting for records from [facility] 09/28: d/c ON HOLD DIFFICULT PLACEMENT 09/30: MORE CONFUSED, D/W RN, //MITTS AGAIN 10/01: Overnight no events. Hb stable. He is still confused. Not injuring himself or others. Follows some commands. Needs placement. 10/02: Restless overnight, required haldol and ativan IM with improvement. Somewhat confused this morning. Follows some commands. Drops food on the floor and tells nursing staff, "It's ok, the dogs will get it.". Attempted to call son, Catarino, goes straight to [facility]. 10/03: CT head reviewed no acute changes, frontal atrophy bilaterally noted. Renal function a bit worse He is complaining of a headache today. No shortness of breath, he is less confused today. No chest pain. Son Catarino has an ill , will not be able to return from [place] until 10/17/2019. 10/04: Security called for multiple combative instances, on one-to-one overnight. He shows significant impulse control issues, still believes there is a dog in the hospital and does not always know where he is. Seen by psychiatry, agreed likely Wernickes encephalopathy 10/05: In bed today, still on 1-1 for impulse control problems. Using profanity frequently, has attempted to bite a nurse, has pulled a drawer out of his bedside table to try to strike another nurse, he attempted to urinate on a nurse yesterday, successfully. 10/06: Afebrile overnight. Still on one-to-one. He intermittently responds to redirection, has required a one-to-one, no longer requiring mitts, has scheduled Haldol after psychiatry recommendations. Needs long-term placement. BP on the low side. He responds well to questions Afebrile overnight. Still on one-to-one sitter. Still very impulsive requiring frequent redirection. Tell staff he is going home. Denies that he is in a hospital. Does follow most commands and responds well to questions though the accuracy is in question. No chest pain or shortness of breath. No further bleeding. Vitals/I&O Vitals/I&O: Vital Signs Date Time Temp Pulse Resp B/P (MAP) Pulse Ox O2 Delivery O2 Flow Rate FiO2 10/14/19 11:00 97.6 70 18 104/55 (71) 97 Room Air 97.6 10/13/19 22:15 2.0 I & O 10/13/19 10/13/19 10/14/19 15:00 23:00 07:00 Intake Total 360 ml 960 ml 600 ml Output Total 200 ml Balance 360 ml 760 ml 600 ml Physical Exam Physical Exam: General: Other (CONFUSED) Lungs: Clear to auscultation, Normal air movement Neuro: Other (CONFUSED) General: No acute distress Heart: Regular rate, Normal S1, Other (2/6 systolic murmur ) Lungs: Clear, Wheezing Abdomen: Normal bowel sounds, Soft, No tenderness Extremities: No clubbing, No cyanosis, No edema, Normal pulses, No tenderness/swelling Skin: No breakdown, No significant lesion Labs Labs: Laboratory Tests Test 10/13/19 17:23 Glucose (Fingerstick) 142 mg/dL (70-99) Assessment and Plan Assessmemt and Plan Hypovolemic shock secondary to GI bleeding most likely - No signs of bleeding and no records from [facility]. "Cautery" hopefully implies non-variceal lesion Acute Microcytic anemia most likely secondary to iron deficiency secondary to the above-mentioned GI bleed Acute renal failure Chronic pain syndrome on chronic narcotics Toxic encephalopathy secondary to the above Hyperkalemia 5.7 secondary to acute renal failure most likely Anion gap metabolic acidosis with a probably a superimposed non-metabolic acidosis given the degree of acidosis with a bicarb reported at 11 from the outside facility Hypomagnesemia Cirrhotic appearing liver cirrhotic morphology of the liver, borderline enlargement of spleen, heterogeneous attenuation at hepatic dome but poorly evaluated somewhat ectatic gallbladder THrombocytopenia Uremia ACUTE RENAL TUBULAR NECROSIS Hyperphosphatemia Severe protein calorie malnutrition BRADYCARDIA, d/c clonidine Anemia - iron studies c/w ACD - transfused last week, Hgb improved on 09/21 Probable alcoholic cirrhosis 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 received ACD, Asymptomatic SB: with associated use of clonidine and lyte abnormalities. None further. EF 50% with mild global hypokinesis DM2: Suspect CKD - Renal US Asymmetric renal size with atrophic appearing right kidney with echogenic cortex which could be from chronic renal disease. Acute delirium, likely hyperactive, multifactorial Alcohol use disorder, recurrent, severe Complicated alcohol withdrawal, Wernicke's encephalopathy. Neurocognitive disorder, unspecified. Rule out major neurocognitive disorder. Plan Haldol and Zyprexa as needed We are awaiting his son to come from [place] and pick him up on the seventh For now continue current care Comment Review of Relevant I have reviewed the following items bj (where applicable) has been applied. Medications: Current Medications Medications (Trade) Dose Ordered Sig/Vasquez Route PRN Reason Start Time Stop Time Status Last Admin Dose Admin Thiamine Mononitrate (Vitamin B-1) 100 mg TID PO 10/13/19 15:00 10/14/19 10:19 Justicifation of Admission Dx: Justifications for Admission: Justification of Admission Dx: Yes Acute Renal Failure: Serum Cr > 4mg/dL ELIDA CHIU III DO Oct 14, 2019 12:27
[2019-10-14 15:00] VITALS: BP 116/72
--- NOTE | 2019-10-14 17:58 | NUR ---
Patient medication list per his Pharmacy, [facility] [address], [place] [phone]. Protonix 40mg po bid Hydrocodone 10/325mg 1-2 tabs po q 6 hours prn pain Amlodipine 5mg po Daily Coreg 3.125mg po bid Ferrous Sulfate 325mg po tid Cilostazol 100mg po bid Rosuvastatin 10mg po daily Gabapentin 600mg po tid (Filled July 07, 2019, 30 day supply) Lisinopril 20mg po daily (last filled in July, august not be current per pharmacy) Lexapro 10mg po daily(last filled in July, august not be current per pharmacy)
[2019-10-14 19:00] VITALS: BP 109/70
[2019-10-14] MEDS: PATCH REMOVAL. MC SCH (21:00)
[2019-10-14] MEDS: ACETAMINOPHEN 325 MG TABLET. PO PRN (21:35)
[2019-10-14 23:00] VITALS: BP 110/61
[2019-10-15 03:00] VITALS: BP 117/60
[2019-10-15 06:56] VITALS: BP 110/64
[2019-10-15] MEDS: LIDOCAINE (700MG/PATCH) PATCH. TD SCH (08:29)
[2019-10-15] MEDS: FAMOTIDINE 20 MG TABLET. PO SCH (08:29)
[2019-10-15] MEDS: SENNOSIDES/DOCUSATE 8.6/50MG TABLET. PO SCH ×2 (08:29→22:05)
[2019-10-15] MEDS: NICOTINE 21MG PATCH. TD SCH (08:29)
[2019-10-15] MEDS: THIAMINE 100 MG TABLET. PO SCH ×3 (08:29→22:05)
[2019-10-15] MEDS: METOPROLOL TART IMMED RELEASE 25 MG TABLET. PO SCH (08:31)
[2019-10-15 10:56] VITALS: BP 114/63
[2019-10-15] MEDS: traMADol 50 MG TABLET PO PRN (13:45)
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
[2019-10-15 15:00] VITALS: BP 100/66
[2019-10-15] MEDS: PANTOPRAZOLE 40 MG TABLET.DR. PO SCH (18:30)
[2019-10-15] MEDS: CARVEDILOL 3.125 MG TABLET. PO SCH (18:30)
[2019-10-15] MEDS: FERROUS SULFATE 325 MG TABLET. PO SCH (18:30)
[2019-10-15] MEDS: HYDROcodone/APAP 10/325 1 TAB TABLET PO PRN ×2 (18:35→22:05)
[2019-10-15 18:56] VITALS: BP 92/63
[2019-10-15] MEDS: PATCH REMOVAL. MC SCH (21:00)
[2019-10-15] MEDS: CILOSTAZOL 50 MG TABLET. PO SCH (22:05)
[2019-10-15] MEDS: ATORVASTATIN CALCIUM 40 MG TABLET. PO SCH (22:06)
--- NOTE | 2019-10-15 22:12 | NUR ---
Patient's lidoderm patch removed, meds given at this time, as patient was dozing at 2100.
[2019-10-15 23:15] VITALS: BP 111/71
[2019-10-16] MEDS: HYDROcodone/APAP 10/325 1 TAB TABLET PO PRN ×4 (00:59→21:51)
[2019-10-16 02:55] VITALS: BP 94/54
--- NOTE | 2019-10-16 05:50 | NUR ---
Pt impulsive, gets up out of bed, this service writer advisor assists, patient voids in toilet, walks back to bed, get water cup, walks back to bathroom, tries to get water out of flush handle 3 times, this service writer advisor shows him the sink faucet, begins to talk about cost of cigarettes, pointing at water pitcher, thinks cigarettes are in the pitcher, asks this service writer advisor how many cigarettes I want, redirected to that being the water pitcher, monitoring.
--- NOTE | 2019-10-16 06:17 | NUR ---
Patient at the beginning of the shift frequently voices that he doesn't want his son, Catarino to see him before noon 10/16/2019, as he, "I should be in a better mood by noon, if he gets here before that, I might still be mad at him..." but this morning, he reports that he's waiting on Catarino or his brother to pick him up soon this morning, "So I can get out of here...' monitoring.
[2019-10-16 07:00] VITALS: BP 106/66
[2019-10-16] MEDS: PANTOPRAZOLE 40 MG TABLET.DR. PO SCH ×2 (08:09→16:04)
[2019-10-16] MEDS: FERROUS SULFATE 325 MG TABLET. PO SCH ×3 (08:09→16:04)
[2019-10-16] MEDS: SENNOSIDES/DOCUSATE 8.6/50MG TABLET. PO SCH ×2 (08:09→21:50)
[2019-10-16] MEDS: NICOTINE 21MG PATCH. TD SCH (08:09)
[2019-10-16] MEDS: CILOSTAZOL 50 MG TABLET. PO SCH ×2 (08:09→21:50)
[2019-10-16] MEDS: LIDOCAINE (700MG/PATCH) PATCH. TD SCH (08:10)
[2019-10-16] MEDS: amLODIPine BESYLATE 5 MG TABLET PO SCH (08:10)
[2019-10-16] MEDS: CARVEDILOL 3.125 MG TABLET. PO SCH ×2 (08:10→16:05)
[2019-10-16] MEDS: THIAMINE 100 MG TABLET. PO SCH ×3 (08:10→21:50)
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
[2019-10-16 11:00] VITALS: BP 115/60
[2019-10-16 11:02] LABS: ALBUMIN 2.7 g/dL (3.4-5.0); ALBUMIN/GLOBULIN RATIO 0.7 (1.0-1.7); CALCIUM 8.1 mg/dL (8.5-10.1); CREATININE 1.6 mg/dL (0.7-1.3); GFR 43.7; POTASSIUM 4.3 mmol/L (3.5-5.1); TOTAL BILIRUBIN 0.3 mg/dL (0.2-1.0); TOTAL PROTEIN 6.8 g/dL (6.4-8.2)
--- NOTE | 2019-10-16 12:30 | NUR ---
SW following. Discussed with RN, pt still on 1:1. RANDY contacted [facility], [facility] and [facility] to determine acceptance decision. [facility] did not answer, no option to leave voicemail. Left voicemail for [facility]. [facility] is now on an admissions hold, possibly can take admissions in the next week or so. RANDY will continue to follow.
[2019-10-16 13:15] LABS: EOS % 4 % (0-3); HEMATOCRIT 24.5 % (39.0-53.0); LYMPH % 23 % (24-48); MEAN CORPUSCULAR HEMOGLOBIN 28 pg (25-35); MEAN CORPUSCULAR HGB CONC 33 g/dL (31-37); MEAN CORPUSCULAR VOLUME 84 fL (79-100); MONO % 10 % (0-9); NEUT % 62 % (31-73); PLATELET COUNT 231 x10^3/uL (140-400); RED BLOOD COUNT 2.91 x10^6/uL (4.30-5.70); RED CELL DISTRIBUTION WIDTH 21.6 % (11.5-14.5); WHITE BLOOD COUNT 6.3 x10^3/uL (4.0-11.0)
[2019-10-16 13:16] LABS: BASO % 1 % (0-3); EOS # 0.3 x10^3/uL (0.0-0.7); LYMPH # 1.5 x10^3/uL (1.0-4.8); MONO # 0.6 x10^3/uL (0.0-1.1); NEUT # 3.9 x10^3/uL (1.8-7.7)
[2019-10-16 13:18] LABS: ANISOCYTOSIS SLIGHT; PLT ESTIMATE ADEQUATE (ADEQUATE)
--- NOTE | 2019-10-16 13:19 | PDOC ---
Subjective: Subjective: Says he's leaving. Objective: Vital Signs: Vital Signs Date Time Temp Pulse Resp B/P (MAP) Pulse Ox O2 Delivery O2 Flow Rate FiO2 10/16/19 11:00 97.7 108 20 115/60 (78) 97 Room Air 97.7 PE: GEN, NEURO/PSYCH: in WC in room w/ 1:1 sitter, confused A/P: Korsakoff's psychosis -- Seen earlier when [employer] unavailable See EMR for additional labs, etc. - unable to include in note currently. Still confused, awaiting DC. Justicifation of Admission Dx: Justifications for Admission: Justification of Admission Dx: Yes Acute Renal Failure: Serum Cr > 4mg/dL RAQUEL GAYTAN Oct 16, 2019 13:18
[2019-10-16 15:00] VITALS: BP 97/67
[2019-10-16 19:00] VITALS: BP 111/68
[2019-10-16] MEDS: ACETAMINOPHEN 325 MG TABLET. PO PRN (19:56)
[2019-10-16] MEDS: PATCH REMOVAL. MC SCH (21:00)
[2019-10-16] MEDS: ATORVASTATIN CALCIUM 40 MG TABLET. PO SCH (21:00)
[2019-10-16 23:00] VITALS: BP 93/52
[2019-10-17] VITALS (7 sets, daily range): BP systolic 89–134; BP diastolic 56–86
[2019-10-17] MEDS: HYDROcodone/APAP 10/325 1 TAB TABLET PO PRN ×4 (04:09→22:30)
[2019-10-17] MEDS: CARVEDILOL 3.125 MG TABLET. PO SCH ×2 (08:00→16:46)
[2019-10-17] MEDS: amLODIPine BESYLATE 5 MG TABLET PO SCH (09:00)
--- NOTE | 2019-10-17 09:53 | PDOC ---
Objective: Vital Signs: Vital Signs Date Time Temp Pulse Resp B/P (MAP) Pulse Ox O2 Delivery O2 Flow Rate FiO2 10/17/19 07:04 99.0 115 18 103/65 (78) 97 Room Air 99.0 PE: GEN: NAD - sleeping, not awakened A/P: Korsakoff's psychosis -- Awaiting DC. Justicifation of Admission Dx: Justifications for Admission: Justification of Admission Dx: Yes Acute Renal Failure: Serum Cr > 4mg/dL RAQUEL GAYTAN Oct 17, 2019 09:52
[2019-10-17] MEDS: SENNOSIDES/DOCUSATE 8.6/50MG TABLET. PO SCH ×2 (10:13→21:00)
[2019-10-17] MEDS: FERROUS SULFATE 325 MG TABLET. PO SCH ×3 (10:13→16:45)
[2019-10-17] MEDS: PANTOPRAZOLE 40 MG TABLET.DR. PO SCH ×2 (10:13→16:45)
[2019-10-17] MEDS: THIAMINE 100 MG TABLET. PO SCH ×3 (10:14→21:39)
[2019-10-17] MEDS: CILOSTAZOL 50 MG TABLET. PO SCH ×2 (10:14→21:39)
[2019-10-17] MEDS: LIDOCAINE (700MG/PATCH) PATCH. TD SCH (10:14)
[2019-10-17] MEDS: NICOTINE 21MG PATCH. TD SCH (10:14)
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
--- NOTE | 2019-10-17 12:24 | NUR ---
RANDY following. Discussed with RN. RANDY left voicemail for pt's son, Catarino to determine what time Catarino will be collecting pt from [facility]. RANDY also sent text message. Awaiting response. RANDY will continue to follow. Addendum: 10/17/19 at 1427 by RAJI PADILLA RANDY spoke with Catarino. Catarino is on his way from [place], and anticipates arrival around noon on 10/18/2019. RANDY will continue to follow. RN notified.
--- NOTE | 2019-10-17 18:15 | NUR ---
Pt c/o chills, temp checked 100.9. Called and updated Dr. Arnold. Received orders for tylenol, and labs. Called and provided updated labs to Dr. Arnold.
--- NOTE | 2019-10-17 20:04 | PDOC ---
F/U PHYSCH PROG NOTE Subjective: Gentleman with delirium and behavioral disturbances seen for routine follow-up. He was a started on IV thiamine which has been switched over to per oral now. With respect to behaviors he appears a lot better than before. No major emotional or behavioral event reported overnight and today. When seen, he is pleasant, conversational and bright. Shake hand and happy that he is likely leaving tomorrow with his son. Denies suicidal or homicidal thoughts. Denies auditory or visual hallucinations. No evidence of milind or hypomania. Tolerating medications. Denies adverse drug reaction. Objective: Vital Signs: Vital Signs Date Time Temp Pulse Resp B/P (MAP) Pulse Ox O2 Delivery O2 Flow Rate FiO2 10/17/19 18:52 98.8 65 20 117/68 (84) 96 Room Air 98.8 Medications: Current Medications Medications (Trade) Dose Ordered Sig/Vasquez Start Time Stop Time Status Last Admin Dose Admin Acetaminophen (Tylenol) 650 mg 1X PRN PRN 09/19/19 21:15 09/26/19 11:10 DC Acetaminophen/ Hydrocodone Bitart (Lortab 10/325) 2 tab PRN Q6HRS PRN 10/15/19 16:00 10/17/19 16:46 2 TAB Albumin Human 200 ml @ 200 mls/hr 1X PRN PRN 09/20/19 14:15 09/20/19 20:14 DC Amino Acids/ Glycerin/ Electrolytes 1,000 ml @ 80 mls/hr [id number] 09/21/19 10:45 10/03/19 00:37 DC 10/02/19 01:18 80 MLS/HR Amlodipine Besylate (Norvasc) 5 mg DAILY 10/16/19 09:00 10/16/19 08:10 5 MG Atorvastatin Calcium (Lipitor) 40 mg QHS 10/15/19 21:00 10/16/19 21:00 40 MG Benztropine Mesylate (Cogentin) 1 mg PRN BID PRN 10/04/19 15:30 10/12/19 21:00 1 MG Calcium Carbonate/ Glycine (Tums) 500 mg PRN Q3HRS PRN 09/19/19 21:15 Carvedilol (Coreg) 3.125 mg BIDWMEALS 10/15/19 17:00 10/16/19 08:10 3.125 MG Cilostazol (Pletal) 100 mg BID 10/15/19 21:00 10/17/19 10:14 100 MG Clonidine HCl (Catapres) 0.1 mg PRN Q1HR PRN 09/20/19 09:15 09/25/19 10:38 DC 09/24/19 22:31 0.1 MG Dextrose (Dextrose 50%-Water Syringe) 12.5 gm PRN Q15MIN PRN 09/21/19 09:00 10/03/19 21:13 DC Diphenhydramine HCl (Benadryl) 25 mg 1X ONCE 10/02/19 23:00 10/02/19 23:01 DC 10/02/19 22:45 25 MG Famotidine (Pepcid Vial) 20 mg DAILY 09/23/19 09:00 09/26/19 11:11 DC 09/26/19 08:49 20 MG Famotidine (Pepcid) 20 mg BID 09/28/19 21:00 10/15/19 15:50 DC 10/15/19 08:29 20 MG Ferrous Sulfate (Feosol) 325 mg TIDWMEALS 10/15/19 17:00 10/17/19 16:45 325 MG Haloperidol (Haldol) 5 mg BID 10/06/19 21:00 10/11/19 19:56 DC 10/11/19 09:20 5 MG Haloperidol Lactate (Haldol Inj) 5 mg PRN Q4HRS PRN 10/02/19 14:00 10/11/19 19:56 DC 10/11/19 04:58 5 MG Hydralazine HCl (Apresoline Inj) 10 mg PRN Q4HRS PRN 09/25/19 10:45 09/28/19 16:46 10 MG Hydralazine HCl (Apresoline) 50 mg BID 09/25/19 21:00 10/15/19 15:50 DC 10/15/19 08:30 50 MG Hydrocortisone Sodium Succinate (Solu-CORTEF) 100 mg Q8HRS 09/19/19 22:00 09/26/19 11:21 DC 09/26/19 05:45 100 MG Info (PHARMACY MONITORING -- do not chart) 1 each PRN DAILY PRN 09/20/19 14:15 09/26/19 11:13 DC Insulin Human Lispro (HumaLOG) 0-7 UNITS TIDWMEALS 09/21/19 09:00 10/03/19 21:13 DC Lactulose (Lactulose) 20 gm PRN Q12HR PRN 09/19/19 21:15 Lidocaine (Lidoderm) 1 patch DAILY 10/08/19 16:30 10/17/19 10:14 1 PATCH Lidocaine HCl (Buffered Lidocaine 1%) 6 ml 1X ONCE 09/20/19 12:00 09/20/19 12:01 DC 09/20/19 12:20 6 ML Lorazepam (Ativan Inj) 4 mg PRN Q1HR PRN 10/02/19 14:00 10/04/19 15:22 DC 10/03/19 04:12 4 MG Lorazepam (Ativan) 1 mg PRN Q6HRS PRN 10/08/19 15:00 10/11/19 19:56 DC 10/10/19 13:26 1 MG Magnesium Sulfate 50 ml @ 25 mls/hr 1X ONCE 09/27/19 11:00 09/27/19 12:59 DC 09/27/19 11:21 25 MLS/HR Magnesium Sulfate/ Dextrose 100 ml @ 100 mls/hr 1X ONCE 09/27/19 15:15 09/27/19 16:14 Cancel Metoprolol Tartrate (Lopressor) 12.5 mg BID 09/29/19 11:00 10/15/19 15:42 DC 10/15/19 08:31 12.5 MG Miscellaneous (Lidoderm Patch Removal) 1 ea QHS 10/08/19 21:00 10/16/19 21:00 1 EA Morphine Sulfate (Morphine Sulfate) 1 mg PRN Q1HR PRN 09/19/19 21:15 10/02/19 13:53 DC 09/21/19 23:02 1 MG Multivitamins 10 ml/Thiamine HCl 100 mg/Folic Acid 1 mg/Sodium Chloride 1,011.2 ml @ 100 mls/ hr DAILY 09/20/19 10:00 09/24/19 19:07 DC 09/24/19 08:59 100 MLS/HR Nicotine (Nicoderm Cq 21mg) 1 patch DAILY 09/20/19 13:30 10/17/19 10:14 1 PATCH Norepinephrine Bitartrate 8 mg/ Dextrose 258 ml @ 12.365 mls/ hr CONT PRN 09/19/19 20:30 09/26/19 11:05 DC 09/19/19 20:41 12.365 MLS/HR Olanzapine (ZyPREXA IM) 5 mg PRN TID PRN 10/11/19 20:00 10/13/19 04:56 5 MG Olanzapine (ZyPREXA ZYDIS) 10 mg BID 10/12/19 21:00 10/17/19 10:13 10 MG Ondansetron HCl (Zofran) 4 mg PRN Q6HRS PRN 09/19/19 21:15 Oxycodone/ Acetaminophen (Percocet 5/325) 1 tab PRN Q4HRS PRN 09/19/19 21:15 10/04/19 10:41 DC 10/04/19 02:02 1 TAB Pantoprazole Sodium (Protonix) 40 mg BIDAC 10/15/19 16:30 10/17/19 16:45 40 MG Potassium Bicarbonate (Potassium Effervescent Tablet) 20 meq 1X ONCE 09/26/19 10:00 09/26/19 10:01 DC 09/26/19 09:59 20 MEQ Potassium Chloride/Water 100 ml @ 100 mls/hr 1X ONCE 09/27/19 10:00 09/27/19 10:59 DC 09/27/19 10:15 100 MLS/HR Potassium Chloride (Klor-Con) 20 meq 1X ONCE 09/28/19 11:15 09/28/19 11:17 DC 09/28/19 14:05 20 MEQ Senna/Docusate Sodium (Senna Plus) 1 tab BID 09/20/19 09:00 10/17/19 10:13 1 TAB Sodium Bicarbonate 150 meq/Dextrose 1,150 ml @ 125 mls/hr Q9H12M 09/20/19 06:45 09/21/19 10:17 DC 09/21/19 01:39 125 MLS/HR Sodium Chloride 1,000 ml @ 400 mls/hr Q2H30M PRN 09/20/19 14:09 09/21/19 02:08 DC Sodium Chloride (Normal Saline Flush) 3 ml QSHIFT PRN 09/19/19 21:15 Thiamine Mononitrate (Vitamin B-1) 100 mg TID 10/13/19 15:00 10/17/19 13:19 100 MG Thiamine HCl 100 mg/Dextrose 51 ml @ 102 mls/hr TID 10/12/19 21:00 10/13/19 14:22 DC Tramadol HCl (Ultram) 50 mg PRN Q8HRS PRN 10/04/19 10:45 10/15/19 15:50 DC 10/15/19 13:45 50 MG Ziprasidone (Geodon Im) 10 mg PRN Q2HR PRN 10/11/19 02:00 10/11/19 05:27 DC 10/11/19 02:05 10 MG Physical Exam: Mental Status Exam: 64-year-old gentleman appears older than his stated age, fairly groomed, fairly nourished Cooperative Oriented x2 Speech is soft and low volume Thought processes goal-directed Denies auditory or visual hallucinations. Denies suicidal or homicidal thoughts. Mood is stable Affect is euthymic Insight is fair Judgment is fair Impulse control is fair Attention span and concentration fair Recent and remote memory better Physical Exam: Refer to Physician's note. CHICK ROOM SUPERVISOR: No focal deficit MSK: No EPS, TDK, or abnormal involuntary movements Diagnosis: 1. Acute delirium, likely hyperactive, multifactorial 2. Alcohol use disorder, recurrent, severe 3. Complicated alcohol withdrawal, Wernicke's encephalopathy. 4. Neurocognitive disorder, unspecified. Rule out major neurocognitive disorder. Assessment: Assessment: He is a 64-year-old gentleman with history of alcohol use disorder, admitted with multiple medical issues. He has alcoholic liver cirrhosis. He is delirious likely to multiple reasons including cirrhosis, underlying degenerative brain changes, and GI bleed. At this point, given patient's frequent behavioral disturbances, receiving Haldol, reasonable to add Haldol on a scheduled basis to have more sustained effect. Since patient has renal failure, and structural brain changes, he is at risk of having EPS. Add benzt ropine with Haldol. He continues to demonstrate behavioral disturbances receiving multiple a scheduled and as needed Haldol and Ativan. He was put in restraints today morning. Demonstrating irritable and dysphoric mood. We will change antipsychotic to Zyprexa. Recommending to avoid benzodiazepines as he might be getting benzo withdrawal with rebound agitation. 10/12/2019: Continues to demonstrated agitated and irritable behavior, physically aggressive. In Will increase Zyprexa. Given history of alcoholism, Wernicke's encephalopathy could be a possibility. Reasonable to change thiamine to IV thiamine to assess response. 10/17/2019 he appears a lot better, conversational, interactive and pleasant. No major behavioral disturbances reported Plan: 1. Zyprexa 10 mg twice daily for mood instability and agitation. Additionally, Zyprexa 5 mg IM 3 times daily as needed for breakthrough agitation. 2. Continue thiamine as is. 3. Avoid sedatives and hypnotics unless really required. For agitation please prefer to give Haldol first. 4. Avoid owning, applied delirium protocol, keep patient alert during the day with bright sunlight in the room. 5. Continue other medications as is. Thank you for involving inpatient care. Will follow along SHERIN WEST MD Oct 17, 2019 20:04
[2019-10-17] MEDS: PATCH REMOVAL. MC SCH (21:00)
[2019-10-17] MEDS: ATORVASTATIN CALCIUM 40 MG TABLET. PO SCH (21:39)
[2019-10-18 02:58] VITALS: BP 106/58
[2019-10-18] MEDS: HYDROcodone/APAP 10/325 1 TAB TABLET PO PRN ×2 (05:02→11:06)
[2019-10-18 07:00] VITALS: BP 102/54
[2019-10-18] MEDS: CARVEDILOL 3.125 MG TABLET. PO SCH (08:00)
[2019-10-18] MEDS: NICOTINE 21MG PATCH. TD SCH (08:37)
[2019-10-18] MEDS: LIDOCAINE (700MG/PATCH) PATCH. TD SCH (08:37)
[2019-10-18] MEDS: CILOSTAZOL 50 MG TABLET. PO SCH (08:38)
[2019-10-18] MEDS: SENNOSIDES/DOCUSATE 8.6/50MG TABLET. PO SCH (08:38)
[2019-10-18] MEDS: FERROUS SULFATE 325 MG TABLET. PO SCH ×2 (08:38→11:06)
[2019-10-18] MEDS: PANTOPRAZOLE 40 MG TABLET.DR. PO SCH (08:38)
[2019-10-18] MEDS: THIAMINE 100 MG TABLET. PO SCH (08:38)
[2019-10-18 08:39] VITALS: BP 102/54
[2019-10-18] MEDS: amLODIPine BESYLATE 5 MG TABLET PO SCH (08:39)
--- NOTE | 2019-10-18 09:00 | NUR ---
SW following. Discussed with RN, anticipate pt discharge home today with son, Catarino. SW will continue to follow should any discharge needs arise.
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
[2019-10-18] MEDS ORDERED: PANT40TA77 PO (10:44)
[2019-10-18] MEDS ORDERED: BENZ1TAB5 PO (10:44)
[2019-10-18] MEDS ORDERED: OLAN5TAB7 PO (10:44)
[2019-10-18] MEDS ORDERED: AMLO5TAB10 PO (10:44)
[2019-10-18] MEDS ORDERED: LIDO700A21 TD (10:44)
[2019-10-18] MEDS ORDERED: THIA100T22 PO (10:44)
[2019-10-18] MEDS ORDERED: ATOR40TA59 PO (10:44)
[2019-10-18] MEDS ORDERED: CILO50TA PO (10:44)
[2019-10-18] MEDS ORDERED: FERR325T72 PO (10:44)
[2019-10-18] MEDS ORDERED: CARV3.1210 PO (10:44)
--- NOTE | 2019-10-18 10:45 | DISCH ---
DISCHARGE INSTRUCTIONS Condition on Discharge Condition on Discharge: Stable Activity After Discharge Activity Instructions for Disc: Activity as tolerated, Bedrest today Lifting Instructions after Dis: No heavy lifting, No pulling or pushing Driving Instructions after Dis: Do not drive Weight Bearing Status after Di: Touch down weight bearing Diet after Discharge Diet after Discharge: Cardiac Checks after Discharge Checks after discharge: Check blood press - daily Contacting the [facility] after DC Call your doctor for: Concerns you may have Follow-Up Follow up with: pcp in 2-3 days Treatment/Equipment after DC Adaptive Equipment Issued: Front wheeled walker Discharge Respiratory Equipmen: Oxygen, Nebulizer CHAPIS IRWIN MD Oct 18, 2019 10:45
--- NOTE | 2019-10-18 11:54 | NUR ---
Pt discharged home with son. Discharge instructions discussed. Pt verbalized understanding. Pt taken via wheelchair to main entrance and secured in car with son.
== END 2019-10-18 11:56 | disposition home or self-care (01) | DRG 377 ==
LOC: 1 WEST ICU 20:12 → 2 SOUTH 09-23 10:58 → 1 WEST ICU 09-27 18:00 → 2 SOUTH 09-29 06:00 → 4 NORTH 10-09 14:19
PROVIDERS: ADMIT Internal Medicine; ATTEND Internal Medicine
PROC: 5A1D70Z Performance of Urinary Filtration, Intermittent, Less than 6 Hours Per Day (ICD-10-PCS; principal; 2019-09-20)
PROC: 30233N1 Transfusion of Nonautologous Red Blood Cells into Peripheral Vein, Percutaneous Approach (ICD-10-PCS; 2019-09-20)
PROC: 02HV33Z Insertion of Infusion Device into Superior Vena Cava, Percutaneous Approach (ICD-10-PCS; 2019-09-21)
PROC: B548ZZA Ultrasonography of Superior Vena Cava, Guidance (ICD-10-PCS; 2019-09-21)
DX: K92.2 Gastrointestinal hemorrhage, unspecified (principal); N17.0 Acute kidney failure with tubular necrosis; G92 Toxic encephalopathy; E43 Unspecified severe protein-calorie malnutrition; R57.1 Hypovolemic shock; D61.818 Other pancytopenia; E51.2 Wernicke's encephalopathy; E87.0 Hyperosmolality and hypernatremia; E87.2 Acidosis; F10.239 Alcohol dependence with withdrawal, unspecified; I47.1 Supraventricular tachycardia; K55.9 Vascular disorder of intestine, unspecified; D50.9 Iron deficiency anemia, unspecified; E11.9 Type 2 diabetes mellitus without complications; E83.39 Other disorders of phosphorus metabolism; E83.42 Hypomagnesemia; E87.5 Hyperkalemia; E87.6 Hypokalemia; F10.26 Alcohol dependence with alcohol-induced persisting amnestic disorder; F17.210 Nicotine dependence, cigarettes, uncomplicated; F39 Unspecified mood [affective] disorder; F91.9 Conduct disorder, unspecified; G31.9 Degenerative disease of nervous system, unspecified; G89.4 Chronic pain syndrome; I10 Essential (primary) hypertension; I49.3 Ventricular premature depolarization; K70.30 Alcoholic cirrhosis of liver without ascites; N26.1 Atrophy of kidney (terminal); Z78.1 Physical restraint status; Z79.891 Long term (current) use of opiate analgesic; K21.9 Gastro-esophageal reflux disease without esophagitis; Z20.828 Contact with and (suspected) exposure to other viral communicable diseases
CPT/HCPCS: 36415; 36556; 70450; 71045; 76770; 76937; 80048; 80053; 80061; 80069; 81001; 82140; 82436; 82550; 82962; 83036; 83540; 83550; 83605; 83735; 84100; 84133; 84300; 84439; 84443; 85007; 85025; 85027; 85610; 86317; 86850; 86900; 86901; 86920; 87040; 87086; 87340; 93005; 93306; C1892; J0360; J0515; J1630; J1720; J1815; J2060; J2270; J3411; J3475; J3480; J3486; J3490; J7030; J7060; P9016; 97116-GP; 97530-GO; 97530-GP; 97535-GO; G0378; Q0163; U0003-CS